=== PATIENT | male | born 1955 | race Caucasian/White ===

== ENCOUNTER → 2021-10-25 12:59 | Outpatient (BNVA) | payer BC, SELFPAY | PROVIDERS: Visit Provider Hospitalist ==

== ENCOUNTER 2021-11-18 14:44 | Outpatient (REF) | payer BC, SELFPAY ==
--- NOTE | ~2021-11-18 | CT_ITS ---
EXAMINATION: CT CHEST SCREENING CLINICAL INFORMATION: Personal history of nicotine dependence. COMPARISON: None TECHNIQUE: Multidetector volumetric CT imaging of the chest is performed without contrast using low dose technique. Additional 2D coronal and sagittal reformatted images and axial 3D maximum intensity projection (MIP) images are generated on the CT workstation. This CT examination was performed using dose optimization techniques as appropriate, variously including the following: *Automated exposure control *Adjustment of mA and/or kV according to patient size (this includes techniques or standardized protocols for targeted exams where dose is matched to indication/reason for exam; i.e. extremities or head) *Use of iterative reconstruction technique DLP: 325 mGy-cm FINDINGS: LUNGS: There is centrilobular emphysema without acute pneumonic process. There is mild thickening of left major fissure. There is minimal focal right lower lobe consolidation/atelectasis adjacent to the mediastinum. There is a 3 mm nodule right lower lobe axial image 383/6. No additional nodule seen. There is minimal atelectasis in the lingula. MEDIASTINUM: The thyroid lobes are symmetric and normal. The central trachea and bronchi are widely patent. No abnormal size mediastinal or hilar lymph node seen. Heart size and the great vessels are normal caliber. There is no pericardial effusion. PLEURA: There is no pleural effusion. No pleural mass or thickening. AXILLA: No lymphadenopathy. UPPER ABDOMEN: Visualized liver, spleen, pancreas and bilateral adrenal glands are unremarkable. There is a small cyst midpole left kidney. No radiopaque gallstone seen. OSSEOUS STRUCTURES: There is compression deformity T7 and T8 vertebra of indeterminate age. There is diffuse osteopenia. CT/CT lung screening IMPRESSION: 3 mm nodule right lower lobe. Focal atelectatic/infiltrate right lower lobe medial segment. Mild thickening of left major fissure and atelectatic changes in the lingula. ASSESSMENT: Lung-RADS category 2: Benign. RECOMMENDATION: Low-dose annual CT chest.
== END 2021-11-18 14:45 | disposition home or self-care (01) ==
LOC: HO.CT 14:44
PROVIDERS: Visit Provider Physician Assistant Medical
DX: Z87.891 Personal history of nicotine dependence (principal)
CPT/HCPCS: 71271; G0296

== ENCOUNTER → 2022-01-13 13:01 | Outpatient (BNVA) | payer BC, SELFPAY | PROVIDERS: Visit Provider Hospitalist | DX: J44.9 Chronic obstructive pulmonary disease, unspecified (principal) ==

== ENCOUNTER 2022-02-07 12:52 | Outpatient (REF) | payer BC, SELFPAY ==
--- NOTE | 2022-02-07 | PFT_ITS ---
FLOWS: FEV1 of 28% of predicted at 1.14 L. FVC 70% of predicted at 3.75 L. FEV1 to FVC ratio of 0.30. No bronchodilator response. LUNG VOLUMES: Total lung capacity 105% of predicted at 8.22 L. Residual volume 163% of predicted at 4.17 L. Slow vital capacity 76% of predicted at 4.05 L. Expiratory reserve volume 109% of predicted at 1.76 L. Diffusion capacity is moderately decreased. IMPRESSION: Very severe obstructive ventilatory defect with no bronchodilator response. Increased residual volume suggests air trapping. Decreased diffusion capacity suggests emphysema. MD LIZY Griggs/MODL / [id number]
== END 2022-02-07 12:53 | disposition home or self-care (01) ==
LOC: HO.RESP 12:52
PROVIDERS: Visit Provider Hospitalist
DX: Z13.89 Encounter for screening for other disorder (principal)
CPT/HCPCS: 94060; 94727; 94729

== ENCOUNTER 2022-04-03 12:04 | Outpatient (REF) | payer BC, SELFPAY | END 2022-04-03 12:05 | disposition home or self-care (01) | LOC: HO.LAB 12:04 | PROVIDERS: Visit Provider Hospitalist | DX: J44.9 Chronic obstructive pulmonary disease, unspecified (principal) | CPT/HCPCS: 87070; 87205 ==

== ENCOUNTER 2022-04-28 10:05 | Outpatient (REF) | payer BC, SELFPAY | END 2022-04-28 10:06 | disposition home or self-care (01) | LOC: HO.LNP 10:05 | PROVIDERS: Visit Provider Hospitalist | DX: J44.9 Chronic obstructive pulmonary disease, unspecified (principal) | CPT/HCPCS: 87070; 87077; 87185; 87205 ==

== ENCOUNTER 2022-07-14 13:41 | Outpatient (REF) | payer BC, SELFPAY ==
[2022-07-14 13:59] LABS: MANUAL DIFF FLAG NO
[2022-07-14 14:17] VITALS: O2SAT 95
[2022-07-14 14:31] LABS: Basophils Absolute Auto 0.1 X10*3/uL (0.0-0.2); Basophils Percent Auto 0.4 % (0-2); Hematocrit 53.3 % (42.0-52.0); Hemoglobin 17.3 g/dl (14.0-18.0); Imm Gran Abs Auto 0.54 X10*3/uL (0.00-0.03); Imm Gran Pct Auto 4.3 % (0.0-0.4); Lymphocytes Absolute Auto 1.3 X10*3/uL (1.2-4.9); Lymphocytes Percent Auto 10.6 % (20-40); Mean Corpuscular HGB Conc 32.5 g/dl (31.0-36.0); Mean Corpuscular Hemoglobin 31.3 pg (27.0-33.0); Mean Corpuscular Volume 96.4 fL (80.0-98.0); Mean Platelet Volume 9.9 fL (9.4-12.4); Monocytes Absolute Auto 0.5 X10*3/uL (0.1-1.2); Monocytes Percent Auto 3.9 % (2-11); Neutrophils Absolute Auto 10.2 x10*3/uL (2.0-8.3); Neutrophils Percent Auto 80.8 % (45-73); Platelet Count 187 X10*3/uL (160-400); Red Blood Count 5.53 X10*6/uL (4.60-5.80); Red Cell Distribution Width 13.5 % (11.0-16.0); White Blood Count 12.6 X10*3/uL (4.8-10.8)
[2022-07-14 14:37] LABS: ABG Base Excess 1.1 mmol/L; ABG HCO3 25 mmol/L (22-26); ABG pCO2 37 mmHg (32-45); ABG pO2 109 mmHg (83-108)
[2022-07-14 14:38] LABS: ABG Refer to POC result; ABG pH 7.43 (7.35-7.45)
[2022-07-14 15:18] LABS: Erythrocyte Sedimentation Rate 1 MM/HR (0-15)
[2022-07-14 15:29] LABS: Anion Gap 19 (12-20); Blood Urea Nitrogen 31 mg/dL (9-16); Calcium 10.7 mg/dL (8.4-10.2); Carbon Dioxide 29 mmol/L (22-29); Chloride 100 mmol/L (96-108); Estimated Glomerular Filt Rate > 60; Glucose Random 195 mg/dL (60-115); Potassium 4.8 mmol/L (3.3-5.1); Sodium 143 mmol/L (135-145)
== END 2022-07-14 13:42 | disposition home or self-care (01) ==
LOC: HO.LAB 13:41
PROVIDERS: Visit Provider Hospitalist
DX: R06.00 Dyspnea, unspecified (principal); J44.9 Chronic obstructive pulmonary disease, unspecified
CPT/HCPCS: 36415; 36600; 80048; 82803; 85025; 85652; J2930

== ENCOUNTER 2022-08-30 11:01 | Outpatient (REF) | payer BC, SELFPAY ==
[2022-08-30 12:29] LABS: Venous Blood Gas Refer to POC result
[2022-08-30 12:31] LABS: VBG pCO2 51 mmHg; VBG pH 7.31 (7.32-7.43); VBG pO2 41 mmHg
[2022-08-30 12:32] LABS: VBG Base Excess -0.6 mmol/L; VBG HCO3 26 mmol/L (22-26)
[2022-08-30 13:00] LABS: Hemoglobin 14.5 g/dl (14.0-18.0); Mean Corpuscular HGB Conc 31.5 g/dl (31.0-36.0); Mean Corpuscular Hemoglobin 31.7 pg (27.0-33.0); Mean Corpuscular Volume 100.4 fL (80.0-98.0); Mean Platelet Volume 9.5 fL (9.4-12.4); NRBC Pct Auto 0.4 /100WBC (0.0-0.2); Platelet Count 236 X10*3/uL (160-400); Red Blood Count 4.58 X10*6/uL (4.60-5.80); Red Cell Distribution Width 15.3 % (11.0-16.0); White Blood Count 10.4 X10*3/uL (4.8-10.8)
[2022-08-30 13:26] LABS: Band Neutrophils Percent 9 % (3-5); Lymphocytes Absolute Manual 1.6 X10*3/uL (1.2-4.9); Lymphocytes Percent Manual 15 % (20-40); Metamyelocytes Absolute 0.2 X10*3/uL; Metamyelocytes Percent 2 %; Monocytes Absolute Manual 0.5 X10*3/uL (0.1-1.2); Monocytes Percent Manual 5 % (2-11); Neutrophils Absolute Manual 8.1 X10*3/uL (2.0-8.3); Neutrophils Percent Manual 69 % (45-73)
[2022-08-30 13:27] LABS: Platelet Estimate NORMAL (NORMAL); Platelet Morphology Comment NORMAL; RBC Morphology NORMAL
[2022-08-30 13:38] LABS: Anion Gap 20 (12-20); Blood Urea Nitrogen 15 mg/dL (9-16); Calcium 9.3 mg/dL (8.4-10.2); Carbon Dioxide 26 mmol/L (22-29); Chloride 100 mmol/L (96-108); Estimated Glomerular Filt Rate > 60; Glucose Random 240 mg/dL (60-115); Potassium 4.6 mmol/L (3.3-5.1); Sodium 141 mmol/L (135-145)
[2022-08-30 13:53] LABS: Erythrocyte Sedimentation Rate 4 MM/HR (0-15)
[2022-08-31 11:57] LABS: IgA 111 mg/dL (70-320); IgG 323 mg/dL (600-1540); IgM 51 mg/dL (50-300)
[2022-08-31 22:28] LABS: Immunoglobulin E 29 kU/L (<OR=114)
[2022-09-01 15:29] LABS: Alpha 1 Anti-trypsin 183 mg/dL (83-199)
== END 2022-08-30 11:02 | disposition home or self-care (01) ==
LOC: HO.LAB 11:01
PROVIDERS: PCP Physician Assistant Medical; Visit Provider Hospitalist
DX: J44.1 Chronic obstructive pulmonary disease with (acute) exacerbation (principal); J96.10 Chronic respiratory failure, unspecified whether with hypoxia or hypercapnia; R91.8 Other nonspecific abnormal finding of lung field; G47.33 Obstructive sleep apnea (adult) (pediatric)
CPT/HCPCS: 36415; 80048; 82103; 82784; 82785; 82803; 85007; 85025; 85027; 85652; 94640

== ENCOUNTER → 2023-02-15 10:13 | Outpatient (BNVA) | payer MEDICARE, SELFPAY | PROVIDERS: PCP Physician Assistant Medical; Visit Provider Hospitalist | DX: J44.1 Chronic obstructive pulmonary disease with (acute) exacerbation (principal); J96.12 Chronic respiratory failure with hypercapnia; R91.8 Other nonspecific abnormal finding of lung field; G47.33 Obstructive sleep apnea (adult) (pediatric); Z79.899 Other long term (current) drug therapy | CPT/HCPCS: 99212 ==

== ENCOUNTER 2023-03-21 10:47 | Outpatient (REF) | payer MEDICARE, SELFPAY | END 2023-03-21 10:48 | disposition home or self-care (01) | LOC: HO.MDS 10:47 | PROVIDERS: Visit Provider Hospitalist | DX: D80.1 Nonfamilial hypogammaglobulinemia (principal) | CPT/HCPCS: 96365; 96366 ==

== ENCOUNTER 2023-04-18 10:09 | Outpatient (REF) | payer MEDICARE, SELFPAY | END 2023-04-18 10:10 | disposition home or self-care (01) | LOC: HO.MDS 10:09 | PROVIDERS: Visit Provider Hospitalist | DX: D80.1 Nonfamilial hypogammaglobulinemia (principal) | CPT/HCPCS: 96365; 96366 ==

== ENCOUNTER 2023-04-19 12:52 | Outpatient (AMB) | payer MEDICARE, SELFPAY ==
[2023-04-19 13:10] VITALS: BP 118/70; PULSE 75; O2SAT 94; BMI 30.2
--- NOTE | 2023-04-19 13:10 | MHC.OFFVIS ---
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 The patient had been admitted to the hospital with worsening respiratory symptoms. Ultimately referred to [place] where he took part in a experimental procedure for chronic bronchitis with the name of Maryanne swan. The study performed thermal plasty to the airways to reduce mucus producing plans. Apparently after the procedure patient did have significant improvement and was able to come off prednisone. She just Trelegy does use nebulized therapy with DuoNeb as needed. Otherwise the patient is not having any other chest physical therapy. he was taking part in the lung cancer screening program primarily at [facility]. However, once he was situated with [place] he had been getting CAT scan stairs part of the research protocol. Now that he has completed that protocol we have to get him back on the lung cancer screening program. He did have some small pulmonary nodules that need to be followed. He is still high risk with significant smoking in the past. the patient has not had any CT scans the last year. In the meantime the patient was diagnosed of sleep apnea and ultimately underwent a titration study back in 2017. he is currently on BiPAP. It was able to download the machine and currently the BiPAP is at 21/80. He also uses 5 L of oxygen with his BiPAP. He does use a nasal pillow mask which appears to be a significantly high pressure to be administered through his nose. He has significant air leakage up to 41 liters/minute average and does develop a dry mouth. He is also leaking significant amount air. I did suggest that he should go on a fullface mask. The patient is agreeable. Initially retry the F30 medium mask but due to the high pressures He will leak out significantly. Therefore I did provide him with a medium F20 mask that he tolerated much better. I also decrease his pressures down to 18/8. It appears that on his previous titration study from [facility] he was able to do well even with the pressure of 12/5. The patient also will decrease the oxygen from 5 L to 3 L and will have his DME company perform an overnight oximetry in order to address the question if this is adequate therapy. He did have recent pulmonary function studies in [place] which I personally reviewed. His FEV1 is down to 33% consistent with very severe COPD he does have significant air trapping and also has severe diffusion impairment. Patient also had a recent blood gas which is very reassuring with normal acid-base status and his pCO2 was within normal limits. 01/13/2022 the patient is here for a pulmonary follow-up visit. Overall he is doing well. He continues to have significant dyspnea on exertion. Specially now with a humidity come in and he is concerned about his respiratory status. He does use oxygen with activity. He does have very severe COPD. We did review his CT scan of the chest that he had under the lung cancer screening program. He does have significant emphysema. Also has an area in the lingular area of atelectasis and very small subcentimeter pulmonary nodules that will need follow-up. in the meantime he does continues use of BiPAP. The F20 mask is significantly better although feels too small. I did have a large when available and he will use that 1 felt like it fit much better. He continues to use the F20 fullface mask along with the BiPAP. The patient is considering evaluation in [place] for lung transplantation. He does have a lateral limitations from a respiratory status because of the severe COPD. Explained to him that if he is interested and considering lung transplant this will be the time to go. I did encourage him to reconsider it as a good option in view of his significant disease process. 04/28/2022 the patient is here for sick visit. Apparently he has been having worsening cough and chest congestion. He had already completed a course of prednisone antibiotics. Symptoms improved initially and then once he was completed with treatment his symptoms reoccurred. He is concerned because he does have the 6 minutes walk test scheduled for the end of the month at [facility] as part of the lung cancer screening program. In the office we did try to get a sputum culture. We were able to send 1. Awaiting results. Meantime I believe the patient needs to be on a small dose of prednisone for a little longer time and also the patient does have allergies to penicillin and therefore start him on Vantin as a good alternative to treat the underlying respiratory tract. 07/14/2022 with a [facility]. His COVID test in flu swabs were negative. this blood cultures were negative. The patient did have a CT scan of the chest which is unrevealing. He was subsequently discharged. His condition was no better so therefore the patient or office and was then seen by 1 of my colleagues. He was given additional steroids additional respiratory medication. The completed on or course of antibiotics. However he continues to have significant shortness of breath. Lauri a very hard time today. He can barely walk. He is using his oxygen more and more. Having hard time sleeping. He has been tapering off the prednisone. Denies any fevers or chills. On examination is demonstrated some evidence of respiratory distress. Mild in severity. He does have wheezing and very diminished breath sounds. He was given 2 DuoNeb treatments in the office in a dose of Solu-Medrol 125 mg IM x1. Patient did feel little better. He was then sent for an ABG. We did personally review the ABG demonstrating actually normal pCO2 and elevated PA O2 which is very reassuring. Addendum to decrease his oxygen do monitor his pulse ox. Will continue with the prednisone. Will go ahead and try him on ciprofloxacin. He has had issues with tendinitis in the past when use the high dose of Levaquin. Will place him on a lower dose of the ciprofloxacin. The patient come back next week to be revaluated. However, if his condition worsens prior to that we to go back to the hospital. 07/19/2022 the patient is here for a follow-up visit. Was evaluated last week and required nebulizer therapy and Solu-Medrol. He is still on a high dose prednisone taper. Did feel better wound did start having increasing shortness of breath again. Moderate in severity. He has completed the antibiotics. Overall he is making slow progress. We will try him on a full course of ciprofloxacin. He knows to stop and call if he develops any adverse effects such as tendinitis. He continues use the BiPAP at nighttime. He does have an appointment in [place] for the lung transplant evaluation early July. 08/30/2022 the patient is here for a pulmonary follow-up visit. He has had a very eventful several weeks. He has had significant issues with his breathing. Was readmitted to [facility] with the COPD exacerbation. Subsequently after that he was discharged and his BiPAP broke down. He had to go back to the hospital because of acute on chronic respiratory failure were not being able to use the BiPAP. Ultimately he is still using the broken BiPAP but he can only use it for about 4 hours at a time. He should be getting his new BiPAP fairly soon. He is noticing worsening chest congestion. Seems like he cannot get below 30 mg of prednisone. His blood sugars have been elevated. He has been very discouraged with all this. He also went to [place] and spoke to the transplant surgeon. They did bring to his attention that he has significant amount of lower extremity edema. He has been on torsemide. The lower extremity edema has improved. He did not need to increase it. He does have a follow-up with his fisher eel spear as well. Likely the combination of not been able to use the BiPAP dietary indiscretions and all the prednisone resulted in the lower extremity edema. He is going to start monitoring his weight closely. If the patient gains more than 3 lb/24 hr I did recommend that he takes an additional torsemide. I have will get blood work today. In addition to that I did provide him with nebulized treatment to try to get a sputum culture but we were not able to do so. We did talk about considering bronchoscopy with therapeutic cleaning and deep suctioning of we cannot get him feeling better. Will go ahead and adjust his nebulized therapy at this time in order to try to get him off the prednisone. 02/15/2023 the patient is here for pulmonary follow-up visit. He has been a while since I evaluated the patient. He has been very ill with multiple hospitalizations ended up in [facility] ICU and did require a prolonged invasive ventilation where he spent 14 days in the ICU unit ventilated. This is after developing human metapneumovirus and then subsequently pneumonia after that. The patient has a very we can immune system. The last time the IgG was checked was in the 300s. He was supposed to start IVIG therapy but it was side tried because of his multiple infections. He currently on prophylactic antibiotics. He needs to start IVIG. There was mention about using biologic therapy which she takes in. At this point will go ahead and focus on getting him his IVIG that will definitely be effective for him. Then once he is on stab list therapy we can consider biologic therapies. He is on chronic steroids her eosinophils obese be decreased. His IgE levels have been normal in the past suggesting that there is not really allergic component that is driving this to suggest biologics may be too effective for him. A the patient did follow-up id the lung transplant clinic. The patient declined to go further at this time. He will consider in the future. He also continues using the BiPAP. The patient developed respiratory failure and CO2 have been elevated even on the BiPAP, PCO2 55mmHg. Therefore will go ahead in his changing from the BiPAP to a APAP astral machine with a sip and puff that he can use during the daytime. I think having the affordability of the noninvasive ventilator will also allow him to be able to do things outside of the home and uses noninvasive ventilator I would daily at nighttime and also with the mouthpiece that he can use it during the daytime. 04/19/2023 the patient is here for pulmonary follow-up visit. Overall the patient is doing lot better. He is tolerating the IVIG without any adverse effects. He received already 2 doses. Will go ahead and recheck his IgG levels before the 3rd dose. The patient also did start the noninvasive ventilator. The noninvasive ventilator has been very affecting beneficial. He does use it every night. Will go ahead and have him there had do the mouthpiece so he can also use it during the day as needed. He is responding well to the Trelegy. His prednisone down to 5 mg daily. He wants to get off. I did recommend that he slow down the taper to 5 mg every other day for least a couple weeks before doing so. The patient also has been exercising online with pulmonary rehab. This has been very helpful. Overall the patient has been doing significantly better. We did talk about lung transplant but the patient would like to still hold off at this time. Does not look like he is interested to pursue this at this time. We did talk about vaccines. He will get his Prevnar 20 vaccine today. Subsequently after that he should get the RSV vaccine and the flu shot. He is still contemplating the COVID booster. He will probably not get that 1. 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 [facility] Medical History (Updated 04/19/23 @ 21:49 by Michele Burgos MD) Chronic respiratory failure Compression fracture of thoracic spine, non-traumatic COPD (chronic obstructive pulmonary disease) (~2003) Diabetes mellitus type 2 in nonobese Dyspnea GERD (gastroesophageal reflux disease) Hypogammaglobulinemia On supplemental oxygen therapy NADEEM treated with BiPAP Osteoporosis Personal history of nicotine dependence Pulmonary nodules Weight loss due to medication Surgical History (Updated 11/18/21 @ 14:34 by Fatoumata Guy PA-C) History of bronchoscopy (~2018) History of colonoscopy History of neck surgery Social History (Updated 11/18/21 @ 14:38 by Fatoumata Guy PA-C) Alcohol intake: current Alcohol intake frequency: 0-2 drinks per day Patient Tobacco Use Status: Former Tobacco user Quit Date: 2016 Tobacco use type: Cigarette Years Smoked: (onset 21yo, 1-2ppd x 41yrs, 50+PYH - quit 2016) Review of Systems Const Denies frequent falls and Reports weight loss Eyes Denies change in vision ENT Denies change in voice Card Denies chest pain, Reports dyspnea and Reports dyspnea on exertion Resp Denies change in phlegm color, Denies chest congestion, Reports cough, Denies hemoptysis, Denies excessive phlegm production, Reports dyspnea, Reports dyspnea on exertion and Reports wheezing GI Denies abdominal pain Musc Reports no additional complaints and Denies myalgias Skin/Breast Denies rash Neuro Denies frequent falls Aller/Immun Reports wheezing Physical Exam Vital Signs: Last Vital Signs Pulse 75 04/19/23 13:10 BP 118/70 04/19/23 13:10 Pulse Ox 94 04/19/23 13:10 Oxygen Delivery Method Room Air 04/19/23 13:10 BMI result Body Mass Index 30.2 Const General: alert, Cushingoid facies and tired appearing Neck Neck: Yes normal visual inspection, Yes full ROM and Yes no lymphadenopathy Chest Chest palpation & inspection: normal inspection of the chest Resp Effort & Inspection: normal respiratory effort, no use of accessory muscles and prolonged expiratory phase Auscultation: no rhonchi, no wheezes and diminished lung sounds Cardio Rate: regular rate Rhythm: regular rhythm Heart sounds: S1 normal heart sound present and S2 normal heart sound present GI Palpation (GI): Soft to palpation and nontender Auscultation: normal bowel sounds Skin General skin exam: rashes and/or lesions noted Extrem General: Yes edema Immunizations pneumoc 20-pati conj-dip cr(PF) Performing Provider: Michele Burgos MD Administered by: Ave Almaraz LPN on 04/19/23 13:39 Dose Route Admin Location Lot Number Expiration Date [employer] 0.5 mL IM Left Deltoid [id number] 05/27/24 [id number] [email or web address] VIS Given Date VIS Provided VIS Publication Date 04/19/23 Single Vaccine 23 Eligibility Eligibility Date Funding Source Not [facility] Eligible 04/19/23 Private Assessment & Plan Assessment & Plan (1) COPD (chronic obstructive pulmonary disease): Onset Date: ~2003 Code(s): J44.9 - Chronic obstructive pulmonary disease, unspecified Qualifiers: COPD type: chronic bronchitis Chronic bronchitis type: mixed simple and mucopurulent Qualified Code(s): J41.8 - Mixed simple and mucopurulent chronic bronchitis (2) Chronic respiratory failure: Code(s): J96.10 - Chronic respiratory failure, unspecified whether with hypoxia or hypercapnia (3) Pulmonary nodules: Code(s): R91.8 - Other nonspecific abnormal finding of lung field (4) NADEEM treated with BiPAP: Code(s): G47.33 - Obstructive sleep apnea (adult) (pediatric) Plan hypertonic saline for CPT Budesonide BID continur Daliresp Continue current respiratory regimen: Trelegy short-acting beta agonist as needed continue AVAPS with mouth piece. DME - [employer] Will use the F20 Large mask diuresis as tolerared Bloodwork in 4 weeks on line pulmonary rehab [id number] lung transplantation evaluation on hold follow-up in 4-6 weeks Orders: Orders Immunoglobulin G Subclasses Today D80.1 - Nonfamilial hypogammaglobulinemia, J44.9 - Chronic obstructive pulmonary disease, unspecified Erythrocyte Sedimentation Rate Today D80.1 - Nonfamilial hypogammaglobulinemia, J44.9 - Chronic obstructive pulmonary disease, unspecified Venous Blood Gas Today D80.1 - Nonfamilial hypogammaglobulinemia, J44.9 - Chronic obstructive pulmonary disease, unspecified Basic Metabolic Panel Today D80.1 - Nonfamilial hypogammaglobulinemia, J44.9 - Chronic obstructive pulmonary disease, unspecified Complete Blood Count Auto Diff Today D80.1 - Nonfamilial hypogammaglobulinemia, J44.9 - Chronic obstructive pulmonary disease, unspecified Pneumococcal 20 Immunization Today J44.9 - Chronic obstructive pulmonary disease, unspecified, J96.10 - Chronic respiratory failure, unspecified whether with hypoxia or hypercapnia Medications: New ipratropium-albuterol 0.5 mg-3 mg(2.5 mg base)/3 mL 3 mL inhalation QID 90 days 1,080 mL 3RF J44.9 - Chronic obstructive pulmonary disease, unspecified [id number]-memsepoqc-ydrtzvaz 200-62.5-25 mcg (Trelegy Ellipta) 1 inh inhalation DAILY 90 days 3 ea 3RF Changed From roflumilast (Daliresp) 500 mcg PO DAILY 30 days 30 tabs 11RF J44.1 - Chronic obstructive pulmonary disease with (acute) exacerbation To roflumilast (Daliresp) 500 mcg PO DAILY 90 days 90 tabs 3RF J44.1 - Chronic obstructive pulmonary disease with (acute) exacerbation Refilled albuterol sulfate 90 mcg/actuation 2 puffs inhalation Q4H 90 days PRN 3 ea 3RF shortness of breath or wheezing Discontinued Trelegy Ellipta 100-62.5-25 mcg (idqxgvwdnfi-silebcwld-[id number]) Discontinued Reason: Doctor's Order 1 inh inhalation DAILY 90 days 3 ea 3RF NS arformoterol Discontinued Reason: Doctor's Order 2 mL inhalation BID 30 days 120 mL 6RF Coding Level of Care Code Est Pt Level 4 (84525) Diagnoses COPD (chronic obstructive pulmonary disease) J41.8 COPD type: chronic bronchitis Chronic bronchitis type: mixed simple and mucopurulent Chronic respiratory failure J96.10 Pulmonary nodules R91.8 NADEEM treated with BiPAP G47.33 Time Spent (min) 18
== END 2023-04-19 13:30 | disposition home or self-care (01) ==
PROVIDERS: PCP Physician Assistant Medical; Visit Provider Hospitalist
DX: J41.8 Mixed simple and mucopurulent chronic bronchitis (principal); J96.10 Chronic respiratory failure, unspecified whether with hypoxia or hypercapnia; R91.8 Other nonspecific abnormal finding of lung field; G47.33 Obstructive sleep apnea (adult) (pediatric)
CPT/HCPCS: 99214

== ENCOUNTER → 2023-04-19 12:52 | Outpatient (BNVA) | payer MEDICARE, SELFPAY | PROVIDERS: PCP Physician Assistant Medical; Visit Provider Hospitalist | DX: J41.8 Mixed simple and mucopurulent chronic bronchitis (principal); J96.10 Chronic respiratory failure, unspecified whether with hypoxia or hypercapnia; R91.8 Other nonspecific abnormal finding of lung field; G47.33 Obstructive sleep apnea (adult) (pediatric); Z79.52 Long term (current) use of systemic steroids; Z23 Encounter for immunization | CPT/HCPCS: 90471; 90677; 99212 ==

== ENCOUNTER 2023-05-09 14:26 | Outpatient (REF) | payer MEDICARE, SELFPAY ==
[2023-05-09 14:57] LABS: VBG Base Excess 5.6 mmol/L; VBG HCO3 33 mmol/L (22-26); VBG pCO2 57 mmHg; VBG pH 7.36 (7.32-7.43); VBG pO2 51 mmHg
[2023-05-09 15:02] LABS: Basophils Percent Auto 0.3 % (0-2); Eosinophils Percent Auto 0.3 % (0-4); Hematocrit 47.1 % (42.0-52.0); Hemoglobin 14.5 g/dl (14.0-18.0); Imm Gran Abs Auto 0.25 X10*3/uL (0.00-0.03); Imm Gran Pct Auto 2.5 % (0.0-0.4); Lymphocytes Absolute Auto 0.8 X10*3/uL (1.2-4.9); MANUAL DIFF FLAG NO; Mean Corpuscular HGB Conc 30.8 g/dl (31.0-36.0); Mean Corpuscular Hemoglobin 28.9 pg (27.0-33.0); Mean Platelet Volume 9.2 fL (9.4-12.4); Monocytes Absolute Auto 0.4 X10*3/uL (0.1-1.2); Neutrophils Absolute Auto 8.5 x10*3/uL (2.0-8.3); Neutrophils Percent Auto 84.9 % (45-73); Platelet Count 284 X10*3/uL (160-400); Red Blood Count 5.01 X10*6/uL (4.60-5.80); Red Cell Distribution Width 15.7 % (11.0-16.0)
[2023-05-09 15:31] LABS: Venous Blood Gas Refer to POC result
[2023-05-09 15:37] LABS: Anion Gap 16 (12-20); Blood Urea Nitrogen 17 mg/dL (9-16); Calcium 9.8 mg/dL (8.4-10.2); Carbon Dioxide 30 mmol/L (22-29); Chloride 101 mmol/L (96-108); Estimated Glomerular Filt Rate > 60; Glucose Random 162 mg/dL (60-115); Sodium 143 mmol/L (135-145)
[2023-05-09 16:27] LABS: Erythrocyte Sedimentation Rate 19 MM/HR (0-15)
[2023-05-11 13:58] LABS: Immunoglobulin G Subclass 1 528 mg/dL (382-929); Immunoglobulin G Subclass 2 267 mg/dL (241-700); Immunoglobulin G Subclass 3 41 mg/dL (22-178); Immunoglobulin G Subclass 4 12.9 mg/dL (4-86); Immunoglobulin G Total 874 mg/dL (600-1540)
== END 2023-05-09 14:27 | disposition home or self-care (01) ==
LOC: HO.LAB 14:26
PROVIDERS: PCP Physician Assistant Medical; Visit Provider Hospitalist
DX: J44.1 Chronic obstructive pulmonary disease with (acute) exacerbation (principal); D80.1 Nonfamilial hypogammaglobulinemia
CPT/HCPCS: 36415; 80048; 82784; 82803; 85025; 85652

== ENCOUNTER 2023-05-16 10:17 | Outpatient (REF) | payer MEDICARE, SELFPAY | END 2023-05-16 10:18 | disposition home or self-care (01) | LOC: HO.MDS 10:17 | PROVIDERS: Visit Provider Hospitalist | DX: D80.1 Nonfamilial hypogammaglobulinemia (principal) | CPT/HCPCS: 96365; 96366 ==

== ENCOUNTER 2023-06-14 10:16 | Outpatient (REF) | payer MEDICARE, SELFPAY | END 2023-06-14 10:17 | disposition home or self-care (01) | LOC: HO.MDS 10:16 | PROVIDERS: Visit Provider Hospitalist | DX: D80.1 Nonfamilial hypogammaglobulinemia (principal) | CPT/HCPCS: 96365; 96366 ==

== ENCOUNTER 2023-07-12 10:18 | Outpatient (REF) | payer MEDICARE, SELFPAY | END 2023-07-12 10:19 | disposition home or self-care (01) | LOC: HO.MDS 10:18 | PROVIDERS: Visit Provider Hospitalist | DX: D80.1 Nonfamilial hypogammaglobulinemia (principal) | CPT/HCPCS: 96365; 96366 ==

== ENCOUNTER 2023-08-10 09:57 | Outpatient (REF) | payer MEDICARE, SELFPAY | END 2023-08-10 09:58 | disposition home or self-care (01) | LOC: HO.MDS 09:57 | PROVIDERS: PCP Physician Assistant Medical; Visit Provider Hospitalist | DX: D80.1 Nonfamilial hypogammaglobulinemia (principal); J41.8 Mixed simple and mucopurulent chronic bronchitis; J96.11 Chronic respiratory failure with hypoxia; J96.12 Chronic respiratory failure with hypercapnia; R91.8 Other nonspecific abnormal finding of lung field; G47.33 Obstructive sleep apnea (adult) (pediatric) | CPT/HCPCS: 96365; 96366; 99212 ==

== ENCOUNTER 2023-08-10 13:00 | Outpatient (AMB) | payer MEDICARE, SELFPAY ==
--- NOTE | 2023-08-10 13:36 | A.OFFVIS_ITS ---
Intake Vital Signs 08/10/23 13:38 Height 6 ft 2 in Weight 220 lb BMI 28.2 Pulse 89 Pulse Source Pulse Oximeter Pulse Oximetry (%) 94 Oxygen Delivery Method Room Air Comment 2 Liters Oxygen([employer]) Intake Visit Reasons: copd [place] Required: No Allergies theophylline Allergy (Severe, Verified 08/10/23 13:37) Cardiac Arrythmia levofloxacin [From Levaquin] Allergy (Unknown, Verified 08/10/23 13:37) Unknown Penicillins Allergy (Unknown, Verified 08/10/23 13:37) Unknown HPI HPI Comments History of Present Illness Details The patient is a 67-year-old gentleman with known severe COPD primarily due to chronic bronchitis with respiratory failure currently on oxygen in addition to obstructive sleep apnea currently on BiPAP who apparently had been having worsening respiratory symptoms sometime around 2018. The patient had been admitted to the hospital with worsening respiratory symptoms. Ultimately referred to [place] where he took part in a experimental procedure for chronic bronchitis with the name of Maryanne swan. The study performed thermal plasty to the airways to reduce mucus producing plans. Apparently after the procedure patient did have significant improvement and was able to come off prednisone. She just Trelegy does use nebulized therapy with DuoNeb as needed. Otherwise the patient is not having any other chest physical therapy. he was taking part in the lung cancer screening program primarily at [facility]. However, once he was situated with [place] he had been getting CAT scan stairs part of the research protocol. Now that he has completed that protocol we have to get him back on the lung cancer screening program. He did have some small pulmonary nodules that need to be followed. He is still high risk with significant smoking in the past. the patient has not had any CT scans the last year. In the meantime the patient was diagnosed of sleep apnea and ultimately underwent a titration study back in 2017. he is currently on BiPAP. It was able to download the machine and currently the BiPAP is at 21/80. He also uses 5 L of oxygen with his BiPAP. He does use a nasal pillow mask which appears to be a significantly high pressure to be administered through his nose. He has significant air leakage up to 41 liters/minute average and does develop a dry mouth. He is also leaking significant amount air. I did suggest that he should go on a fullface mask. The patient is agreeable. Initially retry the F30 medium mask but due to the high pressures He will leak out significantly. Therefore I did provide him with a medium F20 mask that he tolerated much better. I also decrease his pressures down to 18/8. It appears that on his previous titration study from [facility] he was able to do well even with the pressure of 12/5. The patient also will decrease the oxygen from 5 L to 3 L and will have his DME company perform an overnight oximetry in order to address the question if this is adequate therapy. He did have recent pulmonary function studies in [place] which I personally reviewed. His FEV1 is down to 33% consistent with very severe COPD he does have significant air trapping and also has severe diffusion impairment. Patient also had a recent blood gas which is very reassuring with normal acid-base status and his pCO2 was within normal limits. 01/13/2022 the patient is here for a pulmonary follow-up visit. Overall he is doing well. He continues to have significant dyspnea on exertion. Specially now with a humidity come in and he is concerned about his respiratory status. He does use oxygen with activity. He does have very severe COPD. We did review his CT scan of the chest that he had under the lung cancer screening program. He does have significant emphysema. Also has an area in the lingular area of atelectasis and very small subcentimeter pulmonary nodules that will need follow-up. in the meantime he does continues use of BiPAP. The F20 mask is significantly better although feels too small. I did have a large when available and he will use that 1 felt like it fit much better. He continues to use the F20 fullface mask along with the BiPAP. The patient is considering evaluation in [place] for lung transplantation. He does have a lateral limi tations from a respiratory status because of the severe COPD. Explained to him that if he is interested and considering lung transplant this will be the time to go. I did encourage him to reconsider it as a good option in view of his significant disease process. 04/28/2022 the patient is here for sick vi sit. Apparently he has been having worsening cough and chest congestion. He had already completed a course of prednisone antibiotics. Symptoms improved initially and then once he was completed with treatment his symptoms reoccurred. He is concerned because he does have the 6 minutes walk test scheduled for the end of the month at [facility] as part of the lung cancer screening program. In the office we did try to get a sputum culture. We were able to send 1. Awaiting results. Meantime I believe the patient needs to be on a small dose of prednisone for a little longer time and also the patient does have allergies to penicillin and therefore start him on Vantin as a good alternative to treat the underlying respiratory tract. 07/14/2022 with a [facility] Talia steen. His COVID test in flu swabs were negative. this blood cultures were negative. The patient did have a CT scan of the chest which is unrevealing. He was subsequently discharged. His condition was no better so therefore the patient or office and was then seen by 1 of my colleagues. He was given additional steroids additional respiratory medication. The completed on or course of antibiotics. However he continues to have significant shortness of breath. Lauri a very hard time today. He can barely walk. He is using his oxygen more and more. Having hard time sleeping. He has been tapering off the prednisone. Denies any fevers or chills. On examination is demonstrated some evidence of respiratory distress. Mild in severity. He does have wheezing and very diminished breath sounds. He was given 2 DuoNeb treatments in the office in a dose of Solu-Medrol 125 mg IM x1. Patient did f eel little better. He was then sent for an ABG. We did personally review the ABG demonstrating actually normal pCO2 and elevated PA O2 which is very reassuring. Addendum to decrease his oxygen do monitor his pulse ox. Will continue with the prednisone. Will go ahead and try him on ciprofloxacin. He has had issues with tendinitis in the past when use the high dose of Levaquin. Will place him on a lower dose of the ciprofloxacin. The patient come back next week to be revaluated. However, if his condition worsens prior to that we to go back to the hospital. 07/19/2022 the patient is [facility]. Was evaluated last week and required nebulizer therapy and Solu-Medrol. He is still on a high dose prednisone taper. Did feel better wound did start having increasing shortness of breath again. Moderate in severity. He has completed the antibiotics. Overall he is making slow progress. We will try him on a full course of ciprofloxacin. He knows to stop and call if he develops any adverse effects such as tendinitis. He continues use the BiPAP at nighttime. He does have an appointment in [place] for the lung transplant evaluation early July. 08/30/2022 the patient is here for a pulmonary follow-up visit. He has had a very eventful several weeks. He has had significant issues with his breathing. Was readmitted to [facility] with the COPD exacerbation. Subsequently after that he was discharged and his BiPAP broke down. He had to go back to the hospital because of acute on chronic respiratory failure were not being able to use the BiPAP. Ultimately he is still using the broken BiPAP but he can only use it for about 4 hours at a time. He should be getting his new BiPAP fairly soon. He is noticing worsening chest congestion. Seems like he cannot get below 30 mg of prednisone. His blood sugars have been elevated. He has been very discouraged with all this. He also went to [place] and spoke to the transplant surgeon. They did bring to his attention that he has significant amount of lower extremity edema. He has been on torsemide. The lower extremity edema has improved. He did not need to increase it. 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 Likely the combination of not been able to use the BiPAP dietary indiscretions and all the prednisone resulted in the lower extremity edema. He is going to start monitoring his weight closely. If the patient gains more than 3 lb/24 hr I did recommend that he takes an additional torsemide. I have will get blood work today. In addition to that I did provide him with nebulized treatment to try to get a sputum culture but we were not able to do so. We did talk about considering bronchoscopy with therapeutic cleaning and deep suctioning of we cannot get him feeling better. Will go ahead and adjust his nebulized therapy at this time in order to try to get him off the prednisone. 02/15/2023 the patient is here for pulmon glenn follow-up visit. He has been a while since I evaluated the patient. He has been very ill with multiple hospitalizations ended up in [facility] ICU and did require a prolonged invasive ventilation where he spent 14 days in the ICU unit ventilated. This is after developing human metapneumovirus and then subsequently pneumonia after that. The patient has a very we can immune system. The last time the IgG was checked was in the 300s. He was supposed to start IVIG therapy but it was side tried because of his multiple infections. He currently on prophylactic antibiotics. He needs to start IVIG. There was mention about using biologic therapy which she takes in. At this point will go ahead and focus on getting him his IVIG that will definitely be effective for him. Then once he is on stab list therapy we can consider biologic therapies. He is on chronic steroids her eosinophils obese be decreased. His IgE levels have been normal in the past suggesting that there is not really allergic component that is driving this to suggest biologics may be too effective for him. A the patient did follow-up id the lung transplant clinic. The patient declined to go further at this time. He will consider in the future. He also continues using the BiPAP. The patient developed respiratory failure and CO2 have been elevated even on the BiPAP, PCO2 55mmHg. Therefore will go ahead in his changing from the BiPAP to a APAP astral machine with a sip and puff that he can use during the daytime. I think having the affordability of the noninvasive ventilator will also allow him to be able to do things outside of the home and uses noninvasive ventilator I would daily at nighttime and also with the mouthpiece that he can use it during the daytime. 08/10/2023 the patient is here for pulmo kemal follow-up visit. Overall the pat ient is still doing well. He is tolerating the IVIG without any adverse effects. Through levels are good. The patient also continues to use the noninvasive ventilator. The noninvasive ventilator has been very affecting beneficial. He does use it every night. Will go ahead and have him there had do the mouthpiece so he can also use it during the day as needed. He is responding well to the Trelegy. His prednisone is off completely. No evidence of adrenal insufficiency. The patient also has been exercising online with pulmonary rehab. This has been very helpful. Overall the patient has been doing significantly better. We did talk about lung transplant but the patient would like to still hold off at this time. Does not look like he is interested to pursue this at this time. We did talk about vaccines. [facility] Medical History (Updated 08/10/23 @ 13:46 by Michele Burgos MD) Hypogammaglobulinemia Dyspnea Osteoporosis On supplemental oxygen therapy Compression fracture of thoracic spine, non-traumatic Weight loss due to medication Diabetes mellitus type 2 in nonobese GERD (gastroesophageal reflux disease) Personal history of nicotine dependence NADEEM treated with BiPAP Pulmonary nodules Chronic respiratory failure COPD (chronic obstructive pulmonary disease) (~2003) Surgical History (Updated 11/18/21 @ 14:34 by Fatoumata Guy PA-C) History of bronchoscopy (~2018) History of neck surgery History of colonoscopy Social History (Updated 11/18/21 @ 14:38 by Fatoumata Guy PA-C) Alcohol intake: current Alcohol intake frequency: 0-2 drinks per day Patient Tobacco Use Status: Former Tobacco user Quit Date: 2016 Tobacco use type: Cigarette Years Smoked: (onset 21yo, 1-2ppd x 41yrs, 50+PYH - quit 2017) Review of Systems Const Denies frequent falls and Denies weight loss Eyes Denies change in vision ENT Denies change in voice Card Denies chest pain, Denies dyspnea and Reports dyspnea on exertion Resp Denies change in phlegm color, Denies chest congestion, Reports cough, Denies hemoptysis, Denies excessive phlegm production, Denies dyspnea, Reports dyspnea on exertion and Denies wheezing GI Denies abdominal pain Musc Reports no additional complaints and Denies myalgias Skin/Breast Denies rash Neuro Denies frequent falls Aller/Immun Denies wheezing Physical Exam Vital Signs: Last Vital Signs Pulse 89 08/10/23 13:38 Pulse Ox 94 08/10/23 13:38 Oxygen Delivery Method Room Air 08/10/23 13:38 BMI result Body Mass Index 28.2 Const General: alert, Cushingoid facies and tired appearing Neck Neck: Yes normal visual inspection, Yes full ROM and Yes no lymphadenopathy Chest Chest palpation & inspection: normal inspection of the chest Resp Effort & Inspection: normal respiratory effort and no use of accessory muscles Auscultation: no rhonchi, no wheezes and diminished lung sounds Cardio Rate: regular rate Rhythm: regular rhythm Heart sounds: S1 normal heart sound present and S2 normal heart sound present GI Palpation (GI): Soft to palpation and nontender Auscultation: normal bowel sounds Skin General skin exam: rashes and/or lesions noted Extrem General: Yes edema Assessment & Plan Assessment & Plan (1) COPD (chronic obstructive pulmonary disease): Onset Date: ~2003 Code(s): J44.9 - Chronic obstructive pulmonary disease, unspecified Qualifiers: COPD type: chronic bronchitis Chronic bronchitis type: mixed simple and mucopurulent Qualified Code(s): J41.8 - Mixed simple and mucopurulent chronic bronchitis (2) Chronic respiratory failure: Code(s): J96.10 - Chronic respiratory failure, unspecified whether with hypoxia or hypercapnia Qualifiers: Respiratory failure complication: hypoxia and hypercapnia Qualified Code(s): J96.11 - Chronic respiratory failure with hypoxia; J96.12 - Chronic respiratory failure with hypercapnia (3) Pulmonary nodules: Code(s): R91.8 - Other nonspecific abnormal finding of lung field (4) NADEEM treated with BiPAP: Code(s): G47.33 - Obstructive sleep apnea (adult) (pediatric) (5) Hypogammaglobulinemia: Code(s): D80.1 - Nonfamilial hypogammaglobulinemia Plan hypertonic saline for CPT weaned off Budesonide continue Daliresp Continue current respiratory regimen: Trelegy short-acting beta agonist as needed continue AVAPS with mouth piece. DME - [employer] Will use the F20 Large mask diuresis as tolerared Bloodwork in the Spring Lung transplantation evaluation on hold follow-up in 4-6 months Orders: Orders Complete Blood Count Auto Diff 08/10/23 D80.1 - Nonfamilial hypogammaglobulinemia, J44.9 - Chronic obstructive pulmonary disease, unspecified Venous Blood Gas 08/10/23 D80.1 - Nonfamilial hypogammaglobulinemia, J44.9 - Chronic obstructive pulmonary disease, unspecified Cortisol, Free 08/10/23 D80.1 - Nonfamilial hypogammaglobulinemia, J44.9 - Chronic obstructive pulmonary disease, unspecified Basic Metabolic Panel 08/10/23 D80.1 - Nonfamilial hypogammaglobulinemia, J44.9 - Chronic obstructive pulmonary disease, unspecified Immunoglobulin G Subclasses 08/10/23 D80.1 - Nonfamilial hypogammaglobulinemia, J44.9 - Chronic obstructive pulmonary disease, unspecified Erythrocyte Sedimentation Rate 08/10/23 D80.1 - Nonfamilial hypogammaglobulinemia, J44.9 - Chronic obstructive pulmonary disease, unspecified Coding Level of Care Code Est Pt Level 4 (68788) Diagnoses Mixed simple and mucopurulent chronic bronchitis J41.8 COPD type: chronic bronchitis Chronic bronchitis type: mixed simple and mucopurulent Chronic respiratory failure with hypoxia and hypercapnia J96.11; J96.12 Respiratory failure complication: hypoxia and hypercapnia Pulmonary nodules R91.8 NADEEM treated with BiPAP G47.33 Hypogammaglobulinemia D80.1 Time Spent (min) 17
[2023-08-10 13:38] VITALS: PULSE 89; O2SAT 94; BMI 28.2
== END 2023-08-10 13:54 | disposition home or self-care (01) ==
PROVIDERS: PCP Physician Assistant Medical; Visit Provider Hospitalist
DX: J41.8 Mixed simple and mucopurulent chronic bronchitis (principal); J96.11 Chronic respiratory failure with hypoxia; J96.12 Chronic respiratory failure with hypercapnia; R91.8 Other nonspecific abnormal finding of lung field; G47.33 Obstructive sleep apnea (adult) (pediatric); D80.1 Nonfamilial hypogammaglobulinemia
CPT/HCPCS: 99214

== ENCOUNTER 2023-09-07 10:00 | Outpatient (REF) | payer MEDICARE, SELFPAY | END 2023-09-07 10:01 | disposition home or self-care (01) | LOC: HO.MDS 10:00 | PROVIDERS: Visit Provider Hospitalist | DX: D80.1 Nonfamilial hypogammaglobulinemia (principal) | CPT/HCPCS: 96365; 96366 ==

== ENCOUNTER 2023-10-05 06:58 | Outpatient (REF) | payer MEDICARE, SELFPAY ==
[2023-10-05 07:11] LABS: MANUAL DIFF FLAG NO
[2023-10-05 07:13] LABS: Basophils Percent Auto 0.2 % (0-2); Eosinophils Absolute Auto 0.1 X10*3/uL (0.0-0.4); Eosinophils Percent Auto 1.3 % (0-4); Hematocrit 47.1 % (42.0-52.0); Hemoglobin 14.9 g/dl (14.0-18.0); Imm Gran Abs Auto 0.03 X10*3/uL (0.00-0.03); Imm Gran Pct Auto 0.5 % (0.0-0.4); Lymphocytes Absolute Auto 1.1 X10*3/uL (1.2-4.9); Mean Corpuscular HGB Conc 31.6 g/dl (31.0-36.0); Mean Corpuscular Hemoglobin 28.8 pg (27.0-33.0); Mean Corpuscular Volume 90.9 fL (80.0-98.0); Mean Platelet Volume 9.1 fL (9.4-12.4); Monocytes Absolute Auto 0.4 X10*3/uL (0.1-1.2); Monocytes Percent Auto 6.9 % (2-11); Neutrophils Absolute Auto 4.5 x10*3/uL (2.0-8.3); Neutrophils Percent Auto 73.1 % (45-73); Platelet Count 206 X10*3/uL (160-400); Red Blood Count 5.18 X10*6/uL (4.60-5.80); Red Cell Distribution Width 15.8 % (11.0-16.0); White Blood Count 6.1 X10*3/uL (4.8-10.8)
[2023-10-05 07:25] LABS: VBG Base Excess 4.6 mmol/L; VBG HCO3 31 mmol/L (22-26); VBG pCO2 54 mmHg; VBG pH 7.37 (7.32-7.43); VBG pO2 25 mmHg; Venous Blood Gas Refer to POC result
[2023-10-05 07:32] LABS: Anion Gap 13 (12-20); Blood Urea Nitrogen 25 mg/dL (9-16); Calcium 9.7 mg/dL (8.4-10.2); Carbon Dioxide 30 mmol/L (22-29); Chloride 102 mmol/L (96-108); Estimated Glomerular Filt Rate > 60; Glucose Random 120 mg/dL (60-115); Potassium 3.4 mmol/L (3.3-5.1); Sodium 142 mmol/L (135-145)
[2023-10-05 07:51] LABS: Erythrocyte Sedimentation Rate 5 MM/HR (0-15)
[2023-10-08 14:44] LABS: Immunoglobulin G Subclass 1 453 mg/dL (382-929); Immunoglobulin G Subclass 2 262 mg/dL (241-700); Immunoglobulin G Subclass 3 30 mg/dL (22-178); Immunoglobulin G Subclass 4 12.6 mg/dL (4-86); Immunoglobulin G Total 714 mg/dL (600-1540)
[2023-10-08 23:13] LABS: Immunoglobulin E 61 kU/L (<OR=114)
[2023-10-12 12:52] LABS: Cortisol, Free 0.31 mcg/dL
== END 2023-10-05 06:59 | disposition home or self-care (01) ==
LOC: HO.LAB 06:58
PROVIDERS: PCP Physician Assistant Medical; Visit Provider Hospitalist
DX: D80.1 Nonfamilial hypogammaglobulinemia (principal); J44.9 Chronic obstructive pulmonary disease, unspecified; J44.89 Other specified chronic obstructive pulmonary disease
CPT/HCPCS: 36415; 80048; 82530; 82784; 82785; 82803; 85025; 85652

== ENCOUNTER 2023-10-05 08:33 | Outpatient (REF) | payer MEDICARE, SELFPAY | END 2023-10-05 08:34 | disposition home or self-care (01) | LOC: HO.MDS 08:33 | PROVIDERS: Visit Provider Hospitalist | DX: D80.1 Nonfamilial hypogammaglobulinemia (principal) | CPT/HCPCS: 96365; 96366 ==

== ENCOUNTER 2023-11-02 07:11 | Outpatient (REF) | payer MEDICARE, SELFPAY ==
[2023-11-02] VITALS (8 sets, daily range): BP systolic 108–124; BP diastolic 66–79; PULSE 72–80; RESP 18; TEMP 36.5; O2SAT 96
== END 2023-11-02 07:12 | disposition home or self-care (01) ==
LOC: HO.MDS 07:11
PROVIDERS: Visit Provider Hospitalist
DX: D80.1 Nonfamilial hypogammaglobulinemia (principal)
CPT/HCPCS: 96374

== ENCOUNTER 2024-02-07 08:49 | Outpatient (AMB) | payer MEDICARE, SELFPAY ==
--- NOTE | 2024-02-07 08:49 | A.OFFVIS_ITS ---
Vital Signs 02/07/24 08:50 Height 6 ft 2 in Weight 226 lb BMI 29.0 Intake Visit Reasons: COPD Cork Cutter Required: No Allergies theophylline Allergy (Severe, Verified 02/07/24 08:50) Cardiac Arrythmia levofloxacin [From Levaquin] Allergy (Unknown, Verified 02/07/24 08:50) Unknown Penicillins Allergy (Unknown, Verified 02/07/24 08:50) Unknown HPI Comments Details: The patient is a 68-year-old gentleman with known severe COPD primarily due to chronic bronchitis with respiratory failure currently on oxygen in addition to obstructive sleep apnea currently on BiPAP who apparently had been having worsening respiratory symptoms sometime around 2018. The patient had been admitted to the hospital with worsening respiratory symptoms. Ultimately referred to [facility] where he took part in a experimental procedure for chronic bronchitis with the name of Maryanne swan. The study performed thermal plasty to the airways to reduce mucus producing plans. Apparently after the procedure patient did have significant improvement and was able to come off prednisone. She just Trelegy does use nebulized therapy with DuoNeb as needed. Otherwise the patient is not having any other chest physical therapy. he was taking part in the lung cancer screening program primarily at [facility]. However, once he was situated with [facility] he had been getting CAT scan stairs part of the research protocol. Now that he has completed that protocol we have to get him back on the lung cancer screening program. He did have some small pulmonary nodules that need to be followed. He is still high risk with significant smoking in the past. the patient has not had any CT scans the last year. In the meantime the patient was diagnosed of sleep apnea and ultimately underwent a titration study back in 2017. he is currently on BiPAP. It was able to download the machine and currently the BiPAP is at 21/80. He also uses 5 L of oxygen with his BiPAP. He does use a nasal pillow mask which appears to be a significantly high pressure to be administered through his nose. He has significant air leakage up to 41 liters/minute average and does develop a dry mouth. He is also leaking significant amount air. I did suggest that he should go on a fullface mask. The patient is agreeable. Initially retry the F30 medium mask but due to the high pressures He will leak out significantly. Therefore I did provide him with a medium F20 mask that he tolerated much better. I also decrease his pressures down to 18/8. It appears that on his previous titration study from [facility] he was able to do well even with the pressure of 12/5. The patient also will decrease the oxygen from 5 L to 3 L and will have his [employer] perform an overnight oximetry in order to address the question if this is adequate therapy. He did have recent pulmonary function studies in [facility] which I personally reviewed. His FEV1 is down to 33% consistent with very severe COPD he does have significant air trapping and also has severe diffusion impairment. Patient also had a recent blood gas which is very reassuring with normal acid-base status and his pCO2 was within normal limits. 08/30/2022 the patient is here for a pulmonary follow-up visit. He has had a very eventful several weeks. He has had significant issues with his breathing. Was readmitted to [facility] with the COPD exacerbation. Subsequently after that he was discharged and his BiPAP broke down. He had to go back to the hospital because of acute on chronic respiratory failure were not being able to use the BiPAP. Ultimately he is still using the broken BiPAP but he can only use it for about 4 hours at a time. He should be getting his new BiPAP fairly soon. He is noticing worsening chest congestion. Seems like he cannot get below 30 mg of prednisone. His blood sugars have been elevated. He has been very discouraged with all this. He also went to [facility] and spoke to the transplant surgeon. They did bring to his attention that he has significant amount of lower extremity edema. He has been on torsemide. The lower extremity edema has improved. He did not need to increase it. He does have a follow-up with his cotton chopper as well. Likely the combination of not been able to use the BiPAP dietary indiscretions and all the prednisone resulted in the lower extremity edema. He is going to start monitoring his weight closely. If the patient gains more than 3 lb/24 hr I did recommend that he takes an additional torsem emmanuel. I have will get blood work today. In addition to that I did provide him with nebulized treatment to try to get a sputum culture but we were not able to do so. We did talk about considering bronchoscopy with therapeutic cleaning and deep suctioning of we cannot get him feeling better. Will go ahead and adjust his nebulized therapy at this time in order to try to get him off the prednisone. 02/15/2023 the patient is here for pulmonary follow-up visit. He has been a while since I evaluated the patient. He has been very ill with multiple hospitalizations ended up in [facility] ICU and did require a prolonged invasive ventilation where he spent 14 days in the ICU unit ventilated. This is after developing human metapneumovirus and then subsequently pneumonia after that. The patient has a very we can immune system. The last time the IgG was checked was in the 300s. He was supposed to start IVIG therapy but it was side tried because of his multiple infections. He currently on prophylactic antibiotics. He needs to start IVIG. There was mention about using biologic therapy which she takes in. At this point will go ahead and focus on getting him his IVIG that will definitely be effective for him. Then once he is on stab list therapy we can consider biologic therapies. He is on chronic steroids her eosinophils obese be decreased. His IgE levels have been normal in the past suggesting that there is not really allergic component that is driving this to suggest biologics may be too effective for him. A the patient did follow-up id the lung transplant clinic. The patient declined to go further at this time. He will consider in the future. He also continues using the BiPAP. The patient developed respiratory failure and CO2 have been elevated even on the BiPAP, PCO2 55mmHg. Therefore will go ahead in his changing from the BiPAP to a APAP astral machine with a sip and puff that he can use during the daytime. I think having the affordability of the noninvasive ventilator will also allow him to be able to do things outside of the home and uses noninvasive ventilator I would daily at nighttime and also with the mouthpiece that he can use it during the daytime. 08/10/2023 the patient is here for pulmonary follow-up visit. Overall the patient is still doing well. He is tolerating the IVIG without any adverse effects. Through levels are good. The patient also continues to use the noninvasive ventilator. The noninvasive ventilator has been very affecting beneficial. He does use it every night. Will go ahead and have him there had do the mouthpiece so he can also use it during the day as needed. He is responding well to the Trelegy. His prednisone is off completely. No evidence of adrenal insufficiency. The patient also has been exercising online with pulmonary rehab. This has been very helpful. Overall the patient has been doing significantly better. We did talk about lung transplant but the patient would like to still hold off at this time. Does not look like he is interested to pursue this at this time. We did talk about vaccines. 02/07/2024 this is the telehealth sick visit for the patient. He has been having worsening respiratory symptoms for the last 10 days. He had call the office and we have sent a prescription for prednisone also cefpodoxime. Although no significant improvement. Still having significant productive cough. Difficult to expectorate also having right-sided pleuritic discomfort. Denies any fevers or chills. He did call his primary care doctor he was given some tramadol for the pain that was only partially helpful. The patient in the meantime continues to receive the IVIG with good effect. Continues use the BiPAP with good effect. He has had Pseudomonas in the past although he can not tolerate high doses of quinolones. He has tolerated the low-dose quinolone the past. Therefore I will send him levofloxacin 250 and then if she tolerates that after weekend if he still having symptoms he can try increasing it to the 500 mg does monitoring closely for any tendonitis. The patient also undergo a chest x-ray. The symptoms worsening may need to go to the hospital or if his x-rays significantly abnormal alcohol him to go to the hospital. [facility] Medical History (Updated 02/07/24 @ 21:08 by Michele Burgos MD) Bronchopneumonia Asthma-COPD overlap syndrome Hypogammaglobulinemia Dyspnea Osteoporosis On supplemental oxygen therapy Compression fracture of thoracic spine, non-traumatic Weight loss due to medication Diabetes mellitus type 2 in nonobese GERD (gastroesophageal reflux disease) Personal history of nicotine dependence NADEEM treated with BiPAP Pulmonary nodules Chronic respiratory failure COPD (chronic obstructive pulmonary disease) (~2003) Surgical History (Updated 11/18/21 @ 14:34 by Fatoumata Guy PA-C) History of bronchoscopy (~2018) History of neck surgery History of colonoscopy Social History (Updated 11/18/21 @ 14:38 by Fatoumata Guy PA-C) Alcohol intake: current Alcohol intake frequency: 0-2 drinks per day Patient Tobacco Use Status: Former Tobacco user Tobacco use type: Cigarette Years Smoked: (onset 21yo, 1-2ppd x 41yrs, 50+PYH - quit 2017) Review of Systems Const Denies frequent falls, Reports malaise and Denies weight loss Eyes Denies change in vision ENT Denies change in voice Card Denies chest pain, Denies dyspnea and Reports dyspnea on exertion Resp Reports change in phlegm color, Reports chest congestion, Reports cough, Denies hemoptysis, Reports excessive phlegm production, Denies dyspnea, Reports dyspnea on exertion and Reports wheezing GI Denies abdominal pain Musc Reports no additional complaints and Denies myalgias Skin/Breast Denies rash Neuro Denies frequent falls Aller/Immun Reports wheezing Physical Exam Vital Signs: BMI result Body Mass Index 29.0 Const General: cooperative and alert Resp Effort & Inspection: able to speak in complete sentences and Actively coughing Quality: productive Telehealth Telehealth Telehealth Platform: Telephone Location of provider rendering services: practice address Location of patient: address on file Patient Identification confirmed using: Name, : Yes Telehealth method: voice only Patient verbally consented to treatment: Yes Patient verbally consented to billing insurance company: Yes Patient informed of any privacy concerns related to visit: Yes Assessment & Plan Assessment & Plan (1) Bronchopneumonia: Code(s): J18.0 - Bronchopneumonia, unspecified organism Category: Medical (2) COPD (chronic obstructive pulmonary disease): Onset Date: ~2003 Code(s): J44.9 - Chronic obstructive pulmonary disease, unspecified Category: Medical Qualifiers: COPD type: COPD with acute lower respiratory infection Qualified Code(s): J44.0 - Chronic obstructive pulmonary disease with (acute) lower respiratory infection (3) Chronic respiratory failure: Code(s): J96.10 - Chronic respiratory failure, unspecified whether with hypoxia or hypercapnia Category: Medical Qualifiers: Respiratory failure complication: hypoxia and hypercapnia Qualified Code(s): J96.11 - Chronic respiratory failure with hypoxia; J96.12 - Chronic respiratory failure with hypercapnia (4) Pulmonary nodules: Code(s): R91.8 - Other nonspecific abnormal finding of lung field Category: Medical (5) NADEEM treated with BiPAP: Code(s): G47.33 - Obstructive sleep apnea (adult) (pediatric) Category: Medical (6) Hypogammaglobulinemia: Code(s): D80.1 - Nonfamilial hypogammaglobulinemia Category: Medical Plan start Levaquin, monitor for tendonitis prednisone taper pain management CXR hypertonic saline for CPT continue Daliresp Continue current respiratory regimen: Trelegy short-acting beta agonist as needed continue AVAPS with mouth piece. DME - [facility] Will use the F20 Large mask diuresis as tolerared Lung transplantation evaluation on hold follow-up in 4-6 months Orders: Orders XR chest 2V Today J18.0 - Bronchopneumonia, unspecified organism Medications: New levofloxacin 250 mg PO DAILY 21 tabs 0RF 21 days prednisone PO daily; Take 4 tabs x 4 days, then 3 tabs x 4 days, then 2 tabs daily x 4 days, then 1 tab x 4 days to complete. 40 tabs 0RF 16 days oxycodone-acetaminophen 2.5-325 mg (Percocet) Partial Fill upon patient request. 1 tab PO Q8H PRN 30 tabs 0RF pain 10 days Coding Level of Care Code Tele Est Pt Level 4 (35459) Diagnoses Bronchopneumonia J18.0 Chronic obstructive pulmonary disease with acute lower respiratory infection J44.0 COPD type: COPD with acute lower respiratory infection Chronic respiratory failure with hypoxia and hypercapnia J96.11; J96.12 Respiratory failure complication: hypoxia and hypercapnia Pulmonary nodules R91.8 NADEEM treated with BiPAP G47.33 Hypogammaglobulinemia D80.1 Time Spent (min) 15
[2024-02-07 08:50] VITALS: BMI 29.0
== END 2024-02-07 09:56 | disposition home or self-care (01) ==
LOC: HO.HPS 08:49
PROVIDERS: PCP Physician Assistant Medical; Visit Provider Hospitalist
DX: J18.0 Bronchopneumonia, unspecified organism (principal); J44.0 Chronic obstructive pulmonary disease with (acute) lower respiratory infection; J96.11 Chronic respiratory failure with hypoxia; J96.12 Chronic respiratory failure with hypercapnia; R91.8 Other nonspecific abnormal finding of lung field; G47.33 Obstructive sleep apnea (adult) (pediatric); D80.1 Nonfamilial hypogammaglobulinemia
CPT/HCPCS: 99442

== ENCOUNTER → 2024-02-07 08:49 | Outpatient (BNVA) | payer MEDICARE, SELFPAY | PROVIDERS: PCP Physician Assistant Medical; Visit Provider Hospitalist ==

== ENCOUNTER 2024-03-21 06:55 | Outpatient (REF) | payer MEDICARE, SELFPAY ==
[2024-03-21 07:27] LABS: Hemoglobin 15.1 g/dl (14.0-18.0); Mean Corpuscular HGB Conc 31.5 g/dl (31.0-36.0); Mean Corpuscular Volume 101.7 fL (80.0-98.0); Mean Platelet Volume 9.1 fL (9.4-12.4); Platelet Count 238 X10*3/uL (160-400); Red Blood Count 4.72 X10*6/uL (4.60-5.80); Red Cell Distribution Width 13.3 % (11.0-16.0); White Blood Count 8.7 X10*3/uL (4.8-10.8)
[2024-03-21 08:59] LABS: Erythrocyte Sedimentation Rate 5 MM/HR (0-15)
[2024-03-21 09:08] LABS: Atypical Lymph Absolute Manual 0.2 x10*3/uL; Atypical Lymphs Percent Manual 2 % (0-6); Band Neutrophils Percent 4 % (3-5); Large Platelet PRESENT; Lymphocytes Absolute Manual 0.6 X10*3/uL (1.2-4.9); Lymphocytes Percent Manual 7 % (20-40); Monocytes Absolute Manual 0.1 X10*3/uL (0.1-1.2); Monocytes Percent Manual 1 % (2-11); Neutrophils Absolute Manual 7.8 X10*3/uL (2.0-8.3); Neutrophils Percent Manual 86 % (45-73); Platelet Estimate NORMAL (NORMAL); Platelet Morphology Comment NOTED; RBC Morphology NORMAL
[2024-03-24 17:18] LABS: Immunoglobulin G Subclass 1 348 mg/dL (382-929); Immunoglobulin G Subclass 2 223 mg/dL (241-700); Immunoglobulin G Subclass 3 27 mg/dL (22-178); Immunoglobulin G Total 652 mg/dL (600-1540)
== END 2024-03-21 06:56 | disposition home or self-care (01) ==
LOC: HO.LAB 06:55
PROVIDERS: PCP Physician Assistant Medical; Visit Provider Hospitalist
DX: J44.89 Other specified chronic obstructive pulmonary disease (principal)
CPT/HCPCS: 36415; 82784; 85007; 85027; 85652

== ENCOUNTER 2024-03-24 10:05 | Outpatient (REF) | payer MEDICARE, SELFPAY | END 2024-03-24 10:06 | disposition home or self-care (01) | LOC: HO.LNP 10:05 | PROVIDERS: PCP Physician Assistant Medical; Visit Provider Hospitalist | DX: J18.0 Bronchopneumonia, unspecified organism (principal); J44.0 Chronic obstructive pulmonary disease with (acute) lower respiratory infection; J96.11 Chronic respiratory failure with hypoxia; J96.12 Chronic respiratory failure with hypercapnia; R91.8 Other nonspecific abnormal finding of lung field | CPT/HCPCS: 87070; 87205; 94618; 94640; 96372; 99212; J2919 ==

== ENCOUNTER 2024-03-24 10:05 | Outpatient (AMB) | payer MEDICARE, SELFPAY ==
--- NOTE | 2024-03-24 10:14 | A.OFFVIS_ITS ---
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 The patient had been admitted to the hospital with worsening respiratory symptoms. Ultimately referred to [place] where he took part in a experimental procedure for chronic bronchitis with the name of Maryanne swan. The study performed thermal plasty to the airways to reduce mucus producing plans. Apparently after the procedure patient did have significant improvement and was able to come off prednisone. She just Trelegy does use nebulized therapy with DuoNeb as needed. Otherwise the patient is not having any other chest physical therapy. he was taking part in the lung cancer screening program primarily at [facility]. However, once he was situated with [place] he had been getting CAT scan stairs part of the research protocol. Now that he has completed that protocol we have to get him back on the lung cancer screening program. He did have some small pulmonary nodules that need to be followed. He is still high risk with significant smoking in the past. the patient has not had any CT scans the last year. In the meantime the patient was diagnosed of sleep apnea and ultimately underwent a titration study back in 2017. he is currently on BiPAP. It was able to download the machine and currently the BiPAP is at 21/80. He also uses 5 L of oxygen with his BiPAP. He does use a nasal pillow mask which appears to be a significantly high pressure to be administered through his nose. He has significant air leakage up to 41 liters/minute average and does develop a dry mouth. He is also leaking significant amount air. I did suggest that he should go on a fullface mask. The patient is agreeable. Initially retry the F30 medium mask but due to the high pressures He will leak out significantly. Therefore I did provide him with a medium F20 mask that he tolerated much better. I also decrease his pressures down to 18/8. It appears that on his previous titration study from [facility] he was able to do well even with the pressure of 12/5. The patient also will decrease the oxygen from 5 L to 3 L and will have his DME company perform an overnight oximetry in order to address the question if this is adequate therapy. He did have recent pulmonary function studies in [place] which I personally reviewed. His FEV1 is down to 33% consistent with very severe COPD he does have significant air trapping and also has severe diffusion impairment. Patient also had a recent blood gas which is very reassuring with normal acid-base status and his pCO2 was within normal limits. 08/30/2022 the patient is here for a pulmonary follow-up visit. He has had a very eventful several weeks. He has had significant issues with his breathing. Was readmitted to [facility] with the COPD exacerbation. Subsequently after that he was discharged and his BiPAP broke down. He had to go back to the hospital because of acute on chronic respiratory failure were not being able to use the BiPAP. Ultimately he is still using the broken BiPAP but he can only use it for about 4 hours at a time. He should be getting his new BiPAP fairly soon. He is noticing worsening chest congestion. Seems like he cannot get below 30 mg of prednisone. His blood sugars have been elevated. He has been very discouraged with all this. He also went to [place] and spoke to the transplant surgeon. They did bring to his attention that he has significant amount of lower extremity edema. He has been on torsemide. The lower extremity edema has improved. He did not need to increase it. He does have a follow-up with his data conversion developer as well. Likely the combination of not been able to use the BiPAP dietary indiscretions and all the prednisone resulted in the lower extremity edema. He is going to start monitoring his weight closely. If the patient g ains more than 3 lb/24 hr I did recommend that he takes an additional torsemide. I have will get blood work today. In addition to that I did provide him with nebulized treatment to try to get a sputum culture but we were not able to do so. We did talk about considering bronchoscopy with therapeutic cleaning and deep suctioning of we cannot get him feeling better. Will go ahead and adjust his nebulized therapy at this time in order to try to get him off the prednisone. 02/15/2023 the patient is here for pulmonary follow-up visit. He has been a while since I evaluated the patient. He has been very ill with multiple hospitalizations ended up in [facility] ICU and did require a prolonged invasive ventilation where he spent 14 days in the ICU unit ventilated. This is after developing human metapneumovirus and then subsequently pneumonia after that. The patient has a very we can immune system. The last time the IgG was checked was in the 300s. He was supposed to start IVIG therapy but it was side tried because of his multiple infections. He currently on prophylactic antibiotics. He needs to start IVIG. There was mention about using biologic therapy which she takes in. At this point will go ahead and focus on getting him his IVIG that will definitely be effective for him. Then once he is on stab list therapy we can consider biologic therapies. He is on chronic steroids her eosinophils obese be decreased. His IgE levels have been normal in the past suggesting that there is not really allergic component that is driving this to suggest biologics may be too effective for him. A the patient did follow-up id the lung transplant clinic. The patient declined to go further at this time. He will consider in the future. He also continues using the BiPAP. The patient d eveloped respiratory failure and CO2 have been elevated even on the BiPAP, PCO2 55mmHg. Therefore will go ahead in his changing from the BiPAP to a APAP astral machine with a sip and puff that he can use during the daytime. I think having the affordability of the noninvasive ventilator will also allow him to be able to do things outside of the home and uses noninvasive ventilator I would daily a t nighttime and also with the mouthpiece that he can use it during the daytime. 08/10/2023 the patient is here for pulmonary follow-up visit. Overall the patient is still doing well. He is tolerating the IVIG without any adverse effects. Through levels are good. The patient also continues to use the noninvasive ventilator. The noninvasive ventilator has been very affecting beneficial. He does use it every night. Will go ahead and have him there had do the mouthpiece so he can also use it during the day as needed. He is responding well to the Trelegy. His prednisone is off completely. No evidence of adrenal insufficiency. The patient also has been exercising online with pulmonary rehab. This has been very helpful. Overall the patient has been doing significantly better. We did talk about lung transplant but the patient would like to still hold off at this time. Does not look like he is interested to pursue this at this time. We did talk about vaccines. 02/07/2024 this is the telehealth sick visit for the patient. He has been having worsening respiratory symptoms for the last 10 days. He had call the office and we have sent a prescription for prednisone also cefpodoxime. Although no significant improvement. Still having significant productive cough. Difficult to expectorate also having right-sided pleuritic discomfort. Denies any fevers or chills. He did call his primary care doctor he was given some tramadol for the pain that was only partially helpful. The patient in the meantime continues to receive the IVIG with good effect. Continues use the BiPAP with good effect. He has had Pseudomonas in the past although he can not tolerate high doses of quinolones. He has tolerated the low-dose quinolone the past. Therefore I will send him levofloxacin 250 and then if she tolerates that after weekend if he still having symptoms he can try increasing it to the 500 mg does monitoring closely for any tendonitis. The patient also undergo a chest x-ray. The symptoms worsening may need to go to the hospital or if his x-rays significantly abnormal alcohol him to go to the hospital. 03/24/2024 the patient is here for sick visit. He has been having hard summer. He has been coughing more she has congestion. Having hard time breathing. He had been placed on a low-dose levofloxacin which she tolerated without any evidence of any tendonitis. His symptoms did improve. We did once he stopped the antibiotics his symptoms reoccurred. He is still getting the IVIG. He did have blood work today to see if he has low IgG not want if we have to adjusted dose. In the meantime we are able to get a sputum culture sent to the laboratory. He has very diminished with breath sounds right now significant chest tightness. Will give Solu-Medrol today. He is also using the oxygen. He did not do well on the pulse therefore we come off the pulse and did a 6 minute walk test. The patient needed 2 L continuous with rest and also with activity. We did reach out to [facility] [place] but the 1 from [place] to see if we can switch him over to a portable oxygen concentrator with the 2 liters/minute capability. If the patient is not able to get a portable oxygen concentrator that can have 2 liters/minute who have to go back on oxygen tanks. Will send a script to the company at this time. He will continue to use his noninvasive ventilator. This has been affecting beneficial. He will receive Solu-Medrol today again and go prednisone taper and then go back on the levofloxacin. Hopefully we can get a culture back to put on the right antibiotics. [facility] Medical History (Updated 02/07/24 @ 21:08 by Michele Burgos MD) Bronchopneumonia Asthma-COPD overlap syndrome Hypogammaglobulinemia Dyspnea Osteoporosis On supplemental oxygen therapy Compression fracture of thoracic spine, non-traumatic Weight loss due to medication Diabetes mellitus type 2 in nonobese GERD (gastroesophageal reflux disease) Personal history of nicotine dependence NADEEM treated with BiPAP Pulmonary nodules Chronic respiratory failure COPD (chronic obstructive pulmonary disease) (~2003) Surgical History (Updated 11/18/21 @ 14:34 by Fatoumata Guy PA-C) History of bronchoscopy (~2018) History of neck surgery History of colonoscopy Social History (Updated 11/18/21 @ 14:38 by Fatoumata Guy PA-C) Alcohol intake: current Alcohol intake frequency: 0-2 drinks per day Patient Tobacco Use Status: Former Tobacco user Tobacco use type: Cigarette Years Smoked: (onset 21yo, 1-2ppd x 41yrs, 50+PYH - quit 2016) Review of Systems Const Denies frequent falls, Reports malaise and Denies weight loss Eyes Denies change in vision ENT Denies change in voice Card Denies chest pain, Denies dyspnea and Reports dyspnea on exertion Resp Reports change in phlegm color, Reports chest congestion, Reports cough, Denies hemoptysis, Reports excessive phlegm production, Denies dyspnea, Reports dyspnea on exertion and Reports wheezing GI Denies abdominal pain Musc Reports no additional complaints and Denies myalgias Skin/Breast Denies rash Neuro Denies frequent falls Aller/Immun Reports wheezing Physical Exam Vital Signs: Last Vital Signs Pulse 78 03/24/24 10:15 Pulse Ox 94 03/24/24 10:15 Oxygen Delivery Method Room Air 03/24/24 10:15 BMI result Body Mass Index 28.2 Const General: alert, Cushingoid facies and tired appearing Neck Neck: Yes normal visual inspection, Yes full ROM and Yes no lymphadenopathy Chest Chest palpation & inspection: normal inspection of the chest Resp Effort & Inspection: normal respiratory effort, Actively coughing, tachypneic and uses accessory muscles Auscultation: no rhonchi, wheezes and diminished lung sounds Cardio Rate: regular rate Rhythm: regular rhythm Heart sounds: S1 normal heart sound present and S2 normal heart sound present GI Palpation (GI): Soft to palpation and nontender Auscultation: normal bowel sounds Skin General skin exam: rashes and/or lesions noted Extrem General: Yes edema Office Procedures 6 Minute Walk Time:: 12:57 SPO2 % at rest: 88 Pulse at rest: 89 Supplemental Oxygen: THE PATIENT WAS ROOM AIR SATURATING 80%. HE WAS PLACED ON 2 L MAINTAIN PULSE OX 94%. WAS NOT ON THE 2 L JUST FOR ABOUT 50 FT AND WAS ABLE TO MAINTAIN A PULSE OX OF 91%. THE PATIENT COULD NOT TOLERATE THE PULSE DEVICE AT THIS TIME. 73130 - 6 Minute Walk Nebulizer Treatment Nebulizer Treatment 09775-Nvelsqovs/MDI RX initial, or Nebulizer Subsequent Treatment Office Meds methylprednisolone sod suc(PF) 125 mg/2 mL solution for injection Performing Provider: Michele Burgos MD Performing Location: [facility] [place] Pul[facility]ology Services Administered by: Ave Almaraz LPN on 03/24/24 11:14 2 Dose Route Admin Location Dispensed Lot Number Expiration Date [facility] Administrative Assistant 125 mg IM right buttock 125 [id number] [id number] 04/26/26 2130-7459-20 [employer] Comments: 125MG/2ml dispensed. albuterol sulfate 2.5 mg/3 mL (0.083 %) solution for nebulization Performing Provider: Michele Burgos MD Performing Location: [facility] [place] Pul[facility]ology [facility] Administered by: Kaylee Ferguson LPN on 03/24/24 10:31 Dose Route Admin Location Dispensed Lot Number Expiration Date [facility] Administrative Assistant 2.5 mg inhalation 3 mL [id number] 11/24/24 6833-6221-06 MYLAN sodium chloride 3 % for nebulization Performing Provider: Michele Burgos MD Performing Location: [facility] [place] [facility]ology [facility] Administered by: Kaylee Ferguson LPN on 03/24/24 10:31 Dose Route Admin Location Dispensed Lot Number Expiration Date [facility] Administrative Assistant 3 mL inhalation 3 mL [id number] 05/26/25 [id number] [facility] Assessment & Plan Assessment & Plan (1) Bronchopneumonia: Code(s): J18.0 - Bronchopneumonia, unspecified organism Category: Medical (2) COPD (chronic obstructive pulmonary disease): Onset Date: ~2003 Code(s): J44.9 - Chronic obstructive pulmonary disease, unspecified Category: Medical Qualifiers: COPD type: COPD with acute lower respiratory infection Qualified Code(s): J44.0 - Chronic obstructive pulmonary disease with (acute) lower respiratory infection (3) Chronic respiratory failure: Code(s): J96.10 - Chronic respiratory failure, unspecified whether with hypoxia or hypercapnia Category: Medical Qualifiers: Respiratory failure complication: hypoxia and hypercapnia Qualified Code(s): J96.11 - Chronic respiratory failure with hypoxia; J96.12 - Chronic respiratory failure with hypercapnia (4) Pulmonary nodules: Code(s): R91.8 - Other nonspecific abnormal finding of lung field Category: Medical (5) NADEEM treated with BiPAP: Code(s): G47.33 - Obstructive sleep apnea (adult) (pediatric) Category: Medical (6) Hypogammaglobulinemia: Code(s): D80.1 - Nonfamilial hypogammaglobulinemia Category: Medical Plan Restart Levaquin, monitor for tendonitis prednisone taper sputum culture oxygen: change to 2L/min requesting POC to handle 2L/min if not available, oxygen tanks Hypertonic saline for CPT continue Daliresp Continue current respiratory regimen: Trelegy short-acting beta agonist as needed continue AVAPS with mouth piece. DME - [employer] Will use the F20 Large mask diuresis as tolerared Lung transplantation evaluation on hold follow-up in 4-6 weeks Orders: Orders AMB Nebulizer Treatment Today J44.89 - Other specified chronic obstructive pulmonary disease AMB Methylprednisolone Sod Succ Injection Today J18.0 - Bronchopneumonia, unspecified organism, J44.89 - Other specified chronic obstructive pulmonary disease Medications: New prednisone PO daily; Take 6 tabs daily x 3 days, then 5 tabs x 3 days, then 4 tabs x 3 days, then 3 tabs x 3 days, then 2 tabs daily x 3 days, then 1 tab x 3 days to complete. 63 tabs 0RF 18 days levofloxacin 250 mg PO DAILY 28 tabs 1RF 28 days Coding Level of Care Code Est Pt Level 5 (94631) Complex EM visit Add On G2211 Diagnoses Bronchopneumonia J18.0 Chronic obstructive pulmonary disease with acute lower respiratory infection J44.0 COPD type: COPD with acute lower respiratory infection Chronic respiratory failure with hypoxia and hypercapnia J96.11; J96.12 Respiratory failure complication: hypoxia and hypercapnia Pulmonary nodules R91.8 NADEEM treated with BiPAP G47.33 Hypogammaglobulinemia D80.1 CPT Codes Coding ([id number]) Nebulizer Treatment - Nebulizer Treatment, initial or subsequent: 25652- Nebulizer/MDI RX initial, or Nebulizer Subsequent Treatment ([id number]) Time Spent (min) 45
[2024-03-24 10:15] VITALS: PULSE 78; O2SAT 94; BMI 28.2
[2024-03-24 12:58] VITALS: PULSE 89; O2SAT 88
== END 2024-03-24 11:07 | disposition home or self-care (01) ==
PROVIDERS: PCP Physician Assistant Medical; Visit Provider Hospitalist
DX: J18.0 Bronchopneumonia, unspecified organism (principal); J44.0 Chronic obstructive pulmonary disease with (acute) lower respiratory infection; J96.11 Chronic respiratory failure with hypoxia; J96.12 Chronic respiratory failure with hypercapnia; R91.8 Other nonspecific abnormal finding of lung field; G47.33 Obstructive sleep apnea (adult) (pediatric); D80.1 Nonfamilial hypogammaglobulinemia; J44.89 Other specified chronic obstructive pulmonary disease
CPT/HCPCS: 94618; 99215; G2211

== ENCOUNTER 2024-04-17 10:46 | Outpatient (AMB) | payer MEDICARE, SELFPAY ==
--- NOTE | 2024-04-17 10:48 | MHC.OFFVIS ---
Vital Signs 04/17/24 10:49 Height 6 ft 2 in Weight 225 lb BMI 28.9 Pulse 87 Pulse Source Pulse Oximeter Pulse Oximetry (%) 94 Oxygen Delivery Method Room Air Comment 2 Liters Oxygen([facility]) Intake Visit Reasons: Cough Jumbo Operator Required: No Allergies theophylline Allergy (Severe, Verified 04/17/24 10:51) Cardiac Arrythmia levofloxacin [From Levaquin] Allergy (Unknown, Verified 04/17/24 10:51) Unknown Penicillins Allergy (Unknown, Verified 04/17/24 10:51) Unknown HPI Comments Details: The patient is a 68-year-old gentleman with known severe COPD primarily due to chronic bronchitis with respiratory failure currently on oxygen in addition to obstructive sleep apnea currently on BiPAP who apparently had been having worsening respiratory symptoms sometime around 2018. The patient had been admitted to the hospital with worsening respiratory symptoms. Ultimately referred to [place] [place] [facility] where he took part in a experimental procedure for chronic bronchitis with the name of Maryanne swan. The study performed thermal plasty to the airways to reduce mucus producing plans. Apparently after the procedure patient did have significant improvement and was able to come off prednisone. She just Trelegy does use nebulized therapy with DuoNeb as needed. Otherwise the patient is not having any other chest physical therapy. he was taking part in the lung cancer screening program primarily at [facility]. However, once he was situated with [place] [place] he had been getting CAT scan stairs part of the research protocol. Now that he has completed that protocol we have to get him back on the lung cancer screening program. He did have some small pulmonary nodules that need to be followed. He is still high risk with significant smoking in the past. the patient has not had any CT scans the last year. In the meantime the patient was diagnosed of sleep apnea and ultimately underwent a titration study back in 2017. he is currently on BiPAP. It was able to download the machine and currently the BiPAP is at 21/80. He also uses 5 L of oxygen with his BiPAP. He does use a nasal pillow mask which appears to be a significantly high pressure to be administered through his nose. He has significant air leakage up to 41 liters/minute average and does develop a dry mouth. He is also leaking significant amount air. I did suggest that he should go on a fullface mask. The patient is agreeable. Initially retry the F30 medium mask but due to the high pressures He will leak out significantly. Therefore I did provide him with a medium F20 mask that he tolerated much better. I also decrease his pressures down to 18/8. It appears that on his previous titration study from [facility] he was able to do well even with the pressure of 12/5. The patient also will decrease the oxygen from 5 L to 3 L and will have his DME company perform an overnight oximetry in order to address the question if this is adequate therapy. He did have recent pulmonary function studies in [place] which I personally reviewed. His FEV1 is down to 33% consistent with very severe COPD he does have significant air trapping and also has severe diffusion impairment. Patient also had a recent blood gas which is very reassuring with normal acid-base status and his pCO2 was within normal limits. 08/30/2022 the patient is here for a pulmonary follow-up visit. He has had a very eventful several weeks. He has had significant issues with his breathing. Was readmitted to [facility] with the COPD exacerbation. Subsequently after that he was discharged and his BiPAP broke down. He had to go back to the hospital because of acute on chronic respiratory failure were not being able to use the BiPAP. Ultimately he is still using the broken BiPAP but he can only use it for about 4 hours at a time. He should be getting his new BiPAP fairly soon. He is noticing worsening chest congestion. Seems like he cannot get below 30 mg of prednisone. His blood sugars have been elevated. He has been very discouraged with all this. He also went to [place] [place] and spoke to the transplant surgeon. They did bring to his attention that he has significant amount of lower extremity edema. He has been on torsemide. The lower extremity edema has improved. He did not need to increase it. He does have a follow-up with his practice performance manager as well. Likely the combination of not been able to use the BiPAP dietary indiscretions and all the prednisone resulted in the lower extremity edema. He is going to start monitoring his weight closely. If the patient gains more than 3 lb/24 hr I did recommend that he takes an additional torsemide. I have will get blood work today. In addition to that I did provide him with nebulized treatment to try to get a sputum culture but we were not able to do so. We did talk about considering bronchoscopy with therapeutic cleaning and deep suctioning of we cannot get him feeling better. Will go ahead and adjust his nebulized therapy at this time in order to try to get him off the prednisone. 02/15/2023 the patient is here for pulmonary follow-up visit. He has been a while since I evaluated the patient. He has been very ill with multiple hospitalizations ended up in [facility] ICU and did require a prolonged invasive ventilation where he spent 14 days in the ICU unit ventilated. This is after developing human metapneumovirus and then subsequently pneumonia after that. The patient has a very we can immune system. The last time the IgG was checked was in the 300s. He was supposed to start IVIG therapy but it was side tried because of his multiple infections. He currently on prophylactic antibiotics. He needs to start IVIG. There was mention about using biologic therapy which she takes in. At this point will go ahead and focus on getting him his IVIG that will definitely be effective for him. Then once he is on stab list therapy we can consider biologic therapies. He is on chronic steroids her eosinophils obese be decreased. His IgE levels have been normal in the past suggesting that there is not really allergic component that is driving this to suggest biologics may be too effective for him. A the patient did follow-up id the lung transplant clinic. The patient declined to go further at this time. He will consider in the future. He also continues using the BiPAP. The patient developed respiratory failure and CO2 have been elevated even on the BiPAP, PCO2 55mmHg. Therefore will go ahead in his changing from the BiPAP to a APAP astral machine with a sip and puff that he can use during the daytime. I think having the affordability of the noninvasive ventilator will also allow him to be able to do things outside of the home and uses noninvasive ventilator I would daily at nighttime and also with the mouthpiece that he can use it during the daytime. 08/10/2023 the patient is here for pulmonary follow-up visit. Overall the patient is still doing well. He is tolerating the IVIG without any adverse effects. Through levels are good. The patient also continues to use the noninvasive ventilator. The noninvasive ventilator has been very affecting beneficial. He does use it every night. Will go ahead and have him there had do the mouthpiece so he can also use it during the day as needed. He is responding well to the Trelegy. His prednisone is off completely. No evidence of adrenal insufficiency. The patient also has been exercising online with pulmonary rehab. This has been very helpful. Overall the patient has been doing significantly better. We did talk about lung transplant but the patient would like to still hold off at this time. Does not look like he is interested to pursue this at this time. We did talk about vaccines. 02/07/2024 this is the telehealth sick visit for the patient. He has been having worsening respiratory symptoms for the last 10 days. He had call the office and we have sent a prescription for prednisone also cefpodoxime. Although no significant improvement. Still having significant productive cough. Difficult to expectorate also having right-sided pleuritic discomfort. Denies any fevers or chills. He did call his primary care doctor he was given some tramadol for the pain that was only partially helpful. The patient in the meantime continues to receive the IVIG with good effect. Continues use the BiPAP with good effect. He has had Pseudomonas in the past although he can not tolerate high doses of quinolones. He has tolerated the low-dose quinolone the past. Therefore I will send him levofloxacin 250 and then if she tolerates that after weekend if he still having symptoms he can try increasing it to the 500 mg does monitoring closely for any tendonitis. The patient also undergo a chest x-ray. The symptoms worsening may need to go to the hospital or if his x-rays significantly abnormal alcohol him to go to the hospital. 03/24/2024 the patient is here for sick visit. He has been having hard summer. He has been coughing more she has congestion. Having hard time breathing. He had been placed on a low-dose levofloxacin which she tolerated without any evidence of any tendonitis. His symptoms did improve. We did once he stopped the antibiotics his symptoms reoccurred. He is still getting the IVIG. He did have blood work today to see if he has low IgG not want if we have to adjusted dose. In the meantime we are able to get a sputum culture sent to the laboratory. He has very diminished with breath sounds right now significant chest tightness. Will give Solu-Medrol today. He is also using the oxygen. He did not do well on the pulse therefore we come off the pulse and did a 6 minute walk test. The patient needed 2 L continuous with rest and also with activity. We did reach out to [facility] but the 1 from [place] to see if we can switch him over to a portable oxygen concentrator with the 2 liters/minute capability. If the patient is not able to get a portable oxygen concentrator that can have 2 liters/minute who have to go back on oxygen tanks. Will send a script to the company at this time. He will continue to use his noninvasive ventilator. This has been affecting beneficial. He will receive Solu-Medrol today again and go prednisone taper and then go back on the levofloxacin. Hopefully we can get a culture back to put on the right antibiotics. 04/17/2024 the patient is here for a pulmonary follow-up visit. He is back from [place]. At least he was able to enjoy himself. He is still being tapering down on the prednisone. Now on 20 mg. In addition to that the patient completed the Levaquin. His mucus burden his significantly improved. The back pain has improved. We did try to get a sputum culture but was not able to be able to be effective. Will try to get another sputum. He is still congested. If he continues to have issues with the congestion or if it worsens now that he is off the antibiotics we can not get a sputum culture then a bronchoscopy will be warranted. The patient will continue to taper down prednisone. We did look at the blood work. His IgG is low normal. Therefore is reasonable based on his height and weight that he should be on higher dose of the Gammagard. I will increase his IVIG from 40 g to 50 g. He can continue every 4 weeks. I will send a script down to the infusion center. He will continue with his current respiratory therapy. He does continue with noninvasive ventilator. And still we did talk about lung transplant and is not interested at this time. Will follow-up in 6-8 weeks. If he has any issues prior to that he will call for an earlier appointment. [facility] Medical History (Updated 02/07/24 @ 21:08 by Michele Burgos MD) Bronchopneumonia Asthma-COPD overlap syndrome Hypogammaglobulinemia Dyspnea Osteoporosis On supplemental oxygen therapy Compression fracture of thoracic spine, non-traumatic Weight loss due to medication Diabetes mellitus type 2 in nonobese GERD (gastroesophageal reflux disease) Personal history of nicotine dependence NADEEM treated with BiPAP Pulmonary nodules Chronic respiratory failure COPD (chronic obstructive pulmonary disease) (~2003) Surgical History (Updated 11/18/21 @ 14:34 by Fatoumata Guy PA-C) History of bronchoscopy (~2019) History of neck surgery History of colonoscopy Social History (Updated 11/18/21 @ 14:38 by Fatoumata Guy PA-C) Alcohol intake: current Alcohol intake frequency: 0-2 drinks per day Patient Tobacco Use Status: Former Tobacco user Tobacco use type: Cigarette Years Smoked: (onset 21yo, 1-2ppd x 41yrs, 50+PYH - quit 2017) Review of Systems Const Reports fatigue, Denies frequent falls and Denies weight loss Eyes Denies change in vision ENT Denies change in voice Card Denies chest pain, Denies dyspnea and Reports dyspnea on exertion Resp Reports change in phlegm color, Reports chest congestion, Reports cough, Denies hemoptysis, Reports excessive phlegm production, Denies dyspnea, Reports dyspnea on exertion and Reports wheezing GI Denies abdominal pain Musc Reports no additional complaints and Denies myalgias Skin/Breast Denies rash Neuro Denies frequent falls Endo Reports fatigue Aller/Immun Reports wheezing Physical Exam Vital Signs: Last Vital Signs Pulse 87 04/17/24 10:49 Pulse Ox 94 04/17/24 10:49 Oxygen Delivery Method Room Air 04/17/24 10:49 BMI result Body Mass Index 28.9 Const General: alert and Cushingoid facies Neck Neck: Yes normal visual inspection, Yes full ROM and Yes no lymphadenopathy Chest Chest palpation & inspection: normal inspection of the chest Resp Effort & Inspection: normal respiratory effort Auscultation: no rhonchi, wheezes and diminished lung sounds Cardio Rate: regular rate Rhythm: regular rhythm Heart sounds: S1 normal heart sound present and S2 normal heart sound present GI Palpation (GI): Soft to palpation and nontender Auscultation: normal bowel sounds Skin General skin exam: rashes and/or lesions noted Extrem General: Yes edema Assessment & Plan Assessment & Plan (1) Bronchopneumonia: Code(s): J18.0 - Bronchopneumonia, unspecified organism Category: Medical (2) COPD (chronic obstructive pulmonary disease): Onset Date: ~2003 Code(s): J44.9 - Chronic obstructive pulmonary disease, unspecified Category: Medical Qualifiers: COPD type: COPD with acute lower respiratory infection Qualified Code(s): J44.0 - Chronic obstructive pulmonary disease with (acute) lower respiratory infection (3) Chronic respiratory failure: Code(s): J96.10 - Chronic respiratory failure, unspecified whether with hypoxia or hypercapnia Category: Medical Qualifiers: Respiratory failure complication: hypoxia and hypercapnia Qualified Code(s): J96.11 - Chronic respiratory failure with hypoxia; J96.12 - Chronic respiratory failure with hypercapnia (4) Pulmonary nodules: Code(s): R91.8 - Other nonspecific abnormal finding of lung field Category: Medical (5) NADEEM treated with BiPAP: Code(s): G47.33 - Obstructive sleep apnea (adult) (pediatric) Category: Medical (6) Hypogammaglobulinemia: Code(s): D80.1 - Nonfamilial hypogammaglobulinemia Category: Medical Plan stopped Levaquin, monitor for tendonitis prednisone tapering sputum cx call for bronchosocpy if worsens or no better oxygen: change to 2L/min requesting POC to handle 2L/min if not available, oxygen tanks Hypertonic saline for CPT continue Daliresp Continue current respiratory regimen: Trelegy short-acting beta agonist as needed continue AVAPS with mouth piece. DME - [employer] Will use the F20 Large mask diuresis as tolerared Lung transplantation evaluation on hold follow-up in 2-3 months Orders: Orders Sputum Cult + Gram stain Today J18.0 - Bronchopneumonia, unspecified organism Referrals Infusion Center Notification D80.1 - Nonfamilial hypogammaglobulinemia Coding Level of Care Code Est Pt Level 4 (94297) Complex EM visit Add On G2211 Diagnoses Bronchopneumonia J18.0 Chronic obstructive pulmonary disease with acute lower respiratory infection J44.0 COPD type: COPD with acute lower respiratory infection Chronic respiratory failure with hypoxia and hypercapnia J96.11; J96.12 Respiratory failure complication: hypoxia and hypercapnia Pulmonary nodules R91.8 NADEEM treated with BiPAP G47.33 Hypogammaglobulinemia D80.1 Time Spent (min) 18
[2024-04-17 10:49] VITALS: PULSE 87; O2SAT 94; BMI 28.9
== END 2024-04-17 11:16 | disposition home or self-care (01) ==
PROVIDERS: PCP Physician Assistant Medical; Visit Provider Hospitalist
DX: J18.0 Bronchopneumonia, unspecified organism (principal); J44.0 Chronic obstructive pulmonary disease with (acute) lower respiratory infection; J96.11 Chronic respiratory failure with hypoxia; J96.12 Chronic respiratory failure with hypercapnia; R91.8 Other nonspecific abnormal finding of lung field; G47.33 Obstructive sleep apnea (adult) (pediatric); D80.1 Nonfamilial hypogammaglobulinemia
CPT/HCPCS: 99214; G2211

== ENCOUNTER → 2024-04-17 10:46 | Outpatient (BNVA) | payer MEDICARE, SELFPAY | PROVIDERS: PCP Physician Assistant Medical; Visit Provider Hospitalist | DX: J42 Unspecified chronic bronchitis (principal); J96.12 Chronic respiratory failure with hypercapnia; J96.11 Chronic respiratory failure with hypoxia; J18.0 Bronchopneumonia, unspecified organism; G47.33 Obstructive sleep apnea (adult) (pediatric); D80.1 Nonfamilial hypogammaglobulinemia; Z99.81 Dependence on supplemental oxygen; Z87.891 Personal history of nicotine dependence; Z79.52 Long term (current) use of systemic steroids | CPT/HCPCS: 99212 ==

== ENCOUNTER 2024-06-17 09:27 | Outpatient (AMB) | payer MEDICARE, SELFPAY ==
--- NOTE | 2024-06-17 09:42 | A.OFFVIS_ITS ---
Vital Signs 06/17/24 09:43 Height 6 ft 2 in Weight 220 lb BMI 28.2 BP 138/78 Blood Pressure Location Lt brachial Position Sitting Pulse 90 Pulse Source Pulse Oximeter Pulse Oximetry (%) 97 Oxygen Delivery Method Room Air Comment 2 Liters Oxygen([facility]) Intake Visit Reasons: Cough Ratings Analyst Required: No Allergies theophylline Allergy (Severe, Verified 06/17/24 09:42) Cardiac Arrythmia levofloxacin [From Levaquin] Allergy (Unknown, Verified 06/17/24 09:42) Unknown Penicillins Allergy (Unknown, Verified 06/17/24 09:42) Unknown HPI Comments Details: The patient is a 68-year-old gentleman with known severe COPD primarily due to chronic bronchitis with respiratory failure currently on oxygen in addition to obstructive sleep apnea currently on BiPAP who apparently had been having worsening respiratory symptoms sometime around 2018. The patient had been admi tted to the hospital with worsening respiratory symptoms. Ultimately referred to [facility] where he took part in a experimental procedure for chronic bronchitis with the name of Maryanne swan. The study performed thermal plasty to the airways to reduce mucus producing plans. Apparently after the procedure patient did have significant improvement and was able to come off prednisone. She just Trelegy does use nebulized therapy with DuoNeb as needed. Otherwise the patient is not having any other chest physical therapy. he was taking part in the lung cancer screening program primarily at [facility]. However, once he was situated with [facility] he had been getting CAT scan stairs part of the research protocol. Now that he has completed that protocol we have to get him back on the lung cancer screening program. He did have some small pulmonary nodules that need to be followed. He is still high risk with significant smoking in the past. the patient has not had any CT scans the last year. In the meantime the patient was diagnosed of sleep apnea and ultimately underwent a titration study back in 2017. he is currently on BiPAP. It was able to download the machine and currently the BiPAP is at 21/80. He also uses 5 L of oxygen with his BiPAP. He does use a nasal pillow mask which appears to be a significantly high pressure to be administered through his nose. He has significant air leakage up to 41 liters/minute average and does develop a dry mouth. He is also leaking significant amount air. I did suggest that he should go on a fullface mask. The patient is agreeable. Initially retry the F30 medium mask but due to the high pressures He will leak out significantly. Therefore I did provide him with a medium F20 mask that he tolerated much better. I also decrease his pressures down to 18/8. It appears that on his previous titration study from [facility] he was able to do well even with the pressure of 12/5. The patient also will decrease the oxygen from 5 L to 3 L and will have his DME company perform an overnight oximetry in order to address the question if this is adequate therapy. He did have recent pulmonary function studies in [facility] which I personally reviewed. His FEV1 is down to 33% consistent with very severe COPD he does have significant air trapping and also has severe diffusion impairment. Patient also had a recent blood gas which is very reassuring with normal acid- base status and his pCO2 was within normal limits. 08/30/2022 the patient is here for a pulmonary follow-up visit. He has had a very eventful several weeks. He has had significant issues with his breathing. Was readmitted to [facility] with the COPD exacerbation. Subsequently after that he was discharged and his BiPAP broke down. He had to go back to the hospital because of acute on chronic respiratory failure were not being able to use the BiPAP. Ultimately he is still using the broken BiPAP but he can only use it for about 4 hours at a time. He should be getting his new BiPAP fairly soon. He is noticing worsening chest congestion. Seems like he cannot get below 30 mg of prednisone. His blood sugars have been elevated. He has been very discouraged with all this. He also went to [facility] and spoke to the transplant surgeon. They did bring to his attention that he has significant amount of lower extremity edema. He has been on torsemide. The lower extremity edema has improved. He did not need to increase it. He does have a follow-up with his aqua ammonia operator as well. Likely the combination of not been able to use the BiPAP dietary indiscretions and all the prednisone resulted in the lower extremity edema. He is going to start monitoring his weight closely. If the patient gains more than 3 lb/24 hr I did recommend that he takes an additional torsemide. I have will get blood work today. In addition to that I did provide him with nebulized treatment to try to get a sputum culture but we were not able to do so. We did talk about considering bronchoscopy with therapeutic cleaning and deep suctioning of we cannot get him feeling better. Will go ahead and adjust his nebulized therapy at this time in order to try to get him off the prednisone. 02/15/2023 the patient is here for pulmonary follow-up visit. He has been a while since I evaluated the patient. He has been very ill with multiple hospitalizations ended up in [facility] ICU and did require a prolonged invasive ventilation where he spent 14 days in the ICU unit ventilated. This is after developing human metapneumovirus and then subsequently pneumonia after that. Th e patient has a very we can immune system. The last time the IgG was checked was in the 300s. He was supposed to start IVIG therapy but it was side tried because of his multiple infections. He currently on prophylactic antibiotics. He needs to start IVIG. There was mention about using biologic therapy which she takes in. At this point will go ahead and focus on getting him his IVIG that will definitely be effective for him. Then once he is on stab list therapy we can consider biologic therapies. He is on chronic steroids her eosinophils obese be decreased. His IgE levels have been normal in the past suggesting that there is not really allergic component that is driving this to suggest biologics may be too effective for him. A the patient did follow-up id the lung transplant clinic. The patient declined to go further at this time. He will consider in the future. He also continues using the BiPAP. The patient developed respiratory failure and CO2 have been elevated even on the BiPAP, PCO2 55mmHg. Therefore will go ahead in his changing from the BiPAP to a APAP astral machine with a sip and puff that he can use during the daytime. I think having the affordability of the noninvasive ventilator will also allow him to be able to do things outside of the home and uses noninvasive ventilator I would daily at nighttime and also with the mouthpiece that he can use it during the daytime. 08/10/2023 the patient is here for pulmonary follow-up visit. Overall the patient is still doing well. He is tolerating the IVIG without any adverse effects. Through levels are good. The patient also continues to use the noninvasive ventilator. The noninvasive ventilator has been very affecting beneficial. He does use it every night. Will go ahead and have him there had do the mouthpiece so he can also use it during the day as needed. He is responding well to the Trelegy. His prednisone is off completely. No evidence of adrenal insufficiency. The patient also has been exercising online with pulmonary rehab. This has been very helpful. Overall the patient has been doing significantly better. We did talk about lung transplant but the patient would like to still hold off at this time. Does not look like he is interested to pursue this at this time. We did talk about vaccines. 02/07/2024 this is the telehealth sick visit for the patient. He has been having worsening respiratory symptoms for the last 10 days. He had call the office and we have sent a prescription for prednisone also cefpodoxime. Although no significant improvement. Still having significant productive cough. Difficult to expectorate also having right-sided pleuritic discomfort. Denies any fevers or chills. He did call his primary care doctor he was given some tramadol for the pain that was only partially helpful. The patient in the meantime continues to receive the IVIG with good effect. Continues use the BiPAP with good effect. He has had Pseudomonas in the past although he can not tolerate high doses of quinolones. He has tolerated the low-dose quinolone the past. Therefore I will send him levofloxacin 250 and then if she tolerates that after weekend if he still having symptoms he can try increasing it to the 500 mg does monitoring closely for any tendonitis. The patient also undergo a chest x-ray. The symptoms worsening may need to go to the hospital or if his x-rays significantly abnormal alcohol him to go to the hospital. 03/24/2024 the patient is here for sick visit. He has been having hard summer. He has been coughing more she has congestion. Having hard time breathing. He had been placed on a low-dose levofloxacin which she tolerated without any evidence of any tendonitis. His symptoms did improve. We did once he stopped the antibiotics his symptoms reoccurred. He is still getting the IVIG. He did have blood work today to see if he has low IgG not want if we have to adjusted dose. In the meantime we are able to get a sputum culture sent to the laboratory. He has very diminished with breath sounds right now significant chest tightness. Will give Solu-Medrol today. He is also using the oxygen. He did not do well on the pulse therefore we come off the pulse and did a 6 minute walk test. The patient needed 2 L continuous with rest and also with activity. We did reach out to [facility] but the 1 from [place] to see if we can switch him over to a portable oxygen concentrator with the 2 liters/minute capability. If the patient is not able to get a portable oxygen concentrator that can have 2 liters/minute who have to go back on oxygen tanks. Will send a script to the company at this time. He will continue to use his noninvasive ventilator. This has been affecting beneficial. He will receive Solu-Medrol today again and go prednisone taper and then go back on the levofloxacin. Hopefully we can get a culture back to put on the right antibiotics. 04/17/2024 the patient is here for a pulmonary follow-up visit. He is back from [place]. At least he was able to enjoy himself. He is still being tapering down on the prednisone. Now on 20 mg. In addition to that the patient completed the Levaquin. His mucus burden his significantly improved. The back pain has improved. We did try to get a sputum culture but was not able to be able to be effective. Will try to get another sputum. He is still congested. If he continues to have issues with the congestion or if it worsens now that he is off the antibiotics we can not get a sputum culture then a bronchoscopy will be warranted. The patient will continue to taper down prednisone. We did look at the blood work. His IgG is low normal. Therefore is reasonable based on his height and weight that he should be on higher dose of the Gammagard. I will increase his IVIG from 40 g to 50 g. He can continue every 4 weeks. I will send a script down to the infusion center. He will continue with his current respiratory therapy. He does continue with noninvasive ventilator. And still we did talk about lung transplant and is not interested at this time. Will follow-up in 6-8 weeks. If he has any issues prior to that he will call for an earlier appointment. 06/17/2024 the patient is here for pulmonary follow-up visit. He is still struggling with the chest congestion. He did complete a course of antibiotics again with loud low-dose levofloxacin but only help partially. We did try to get a sputum culture but not able to do a proper sputum as it is been contaminated a few times. He continues to have the significant congestion di fficult to breathe. This point will be reasonable to do a bronchoscopy for clean out in for deep cultures. The patient is agreeable at this time. In addition to that he continues with the IVIG. Although we had increased the dose to 50 g and I believe the last time that he received it this month he only got 40 g. Therefore will call the pharmacy to see was going on the make sure that he is get the proper does administered specially with his immunodeficiency. The patient will have a bronchoscopy will follow-up after the bronchoscopy. [facility] Medical History (Updated 02/07/24 @ 21:08 by Michele Burgos MD) Bronchopneumonia Asthma-COPD overlap syndrome Hypogammaglobulinemia Dyspnea Osteoporosis On supplemental oxygen therapy Compression fracture of thoracic spine, non-traumatic Weight loss due to medication Diabetes mellitus type 2 in nonobese GERD (gastroesophageal reflux disease) Personal history of nicotine dependence NADEEM treated with BiPAP Pulmonary nodules Chronic respiratory failure COPD (chronic obstructive pulmonary disease) (~2003) Surgical History (Updated 11/18/21 @ 14:34 by Fatoumata Guy PA-C) History of bronchoscopy (~2018) History of neck surgery History of colonoscopy Social History (Updated 11/18/21 @ 14:38 by Fatoumata Guy PA-C) Alcohol intake: current Alcohol intake frequency: 0-2 drinks per day Patient Tobacco Use Status: Former Tobacco user Tobacco use type: Cigarette Years Smoked: (onset 21yo, 1-2ppd x 41yrs, 50+PYH - quit 2017) Review of Systems Const Reports fatigue, Denies frequent falls and Denies weight loss Eyes Denies change in vision ENT Denies change in voice Card Denies chest pain, Denies dyspnea and Reports dyspnea on exertion Resp Reports change in phlegm color, Reports chest congestion, Reports cough, Denies hemoptysis, Reports excessive phlegm production, Denies dyspnea, Reports dyspnea on exertion and Reports wheezing GI Denies abdominal pain Musc Reports no additional complaints and Denies myalgias Skin/Breast Denies rash Neuro Denies frequent falls Endo Reports fatigue Aller/Immun Reports wheezing Physical Exam Vital Signs: Last Vital Signs Pulse 90 06/17/24 09:43 BP 138/78 06/17/24 09:43 Pulse Ox 97 06/17/24 09:43 Oxygen Delivery Method Room Air 06/17/24 09:43 BMI result Body Mass Index 28.2 Const General: alert and Cushingoid facies Neck Neck: Yes normal visual inspection, Yes full ROM and Yes no lymphadenopathy Chest Chest palpation & inspection: normal inspection of the chest Resp Effort & Inspection: normal respiratory effort Auscultation: rhonchi and diminished lung sounds Cardio Rate: regular rate Rhythm: regular rhythm Heart sounds: S1 normal heart sound present and S2 normal heart sound present GI Palpation (GI): Soft to palpation and nontender Auscultation: normal bowel sounds Skin General skin exam: rashes and/or lesions noted Extrem General: Yes edema Results Reviewed Results Reviewed: personally reviewd CT chest 2021 with emphysema Assessment & Plan Assessment & Plan (1) Bronchopneumonia: Code(s): J18.0 - Bronchopneumonia, unspecified organism Category: Medical (2) COPD (chronic obstructive pulmonary disease): Onset Date: ~2003 Code(s): J44.9 - Chronic obstructive pulmonary disease, unspecified Category: Medical Qualifiers: COPD type: COPD with acute lower respiratory infection Qualified Code(s): J44.0 - Chronic obstructive pulmonary disease with (acute) lower respiratory infection (3) Chronic respiratory failure: Code(s): J96.10 - Chronic respiratory failure, unspecified whether with hypoxia or hypercapnia Category: Medical Qualifiers: Respiratory failure complication: hypoxia and hypercapnia Qualified Code(s): J96.11 - Chronic respiratory failure with hypoxia; J96.12 - Chronic respiratory failure with hypercapnia (4) Pulmonary nodules: Code(s): R91.8 - Other nonspecific abnormal finding of lung field Category: Medical (5) NADEEM treated with BiPAP: Code(s): G47.33 - Obstructive sleep apnea (adult) (pediatric) Category: Medical (6) Hypogammaglobulinemia: Code(s): D80.1 - Nonfamilial hypogammaglobulinemia Category: Medical Plan prednisone 10 daily bronchosocpy for therapeutic cleaning and deep cultures oxygen: change to 2L/min requesting POC to handle 2L/min if not available, oxygen tanks Hypertonic saline for CPT continue Daliresp Continue current respiratory regimen: Trelegy short-acting beta agonist as needed continue AVAPS with mouth piece. DME - [employer] Will use the F20 Large mask diuresis as tolerared Lung transplantation evaluation on hold follow-up in 2-3 months Medications: New prednisone 20 mg (2 x 10 mg) PO DAILY 60 tabs 6RF 30 days Coding Level of Care Code Est Pt Level 5 (43017) Complex EM visit Add On G2211 Diagnoses Bronchopneumonia J18.0 Chronic obstructive pulmonary disease with acute lower respiratory infection J44.0 COPD type: COPD with acute lower respiratory infection Chronic respiratory failure with hypoxia and hypercapnia J96.11; J96.12 Respiratory failure complication: hypoxia and hypercapnia Pulmonary nodules R91.8 NADEEM treated with BiPAP G47.33 Hypogammaglobulinemia D80.1 Time Spent (min) 35
[2024-06-17 09:43] VITALS: BP 138/78; PULSE 90; O2SAT 97; BMI 28.2
== END 2024-06-17 10:01 | disposition home or self-care (01) ==
PROVIDERS: PCP Physician Assistant Medical; Visit Provider Hospitalist
DX: J18.0 Bronchopneumonia, unspecified organism (principal); J44.0 Chronic obstructive pulmonary disease with (acute) lower respiratory infection; J96.11 Chronic respiratory failure with hypoxia; J96.12 Chronic respiratory failure with hypercapnia; R91.8 Other nonspecific abnormal finding of lung field; G47.33 Obstructive sleep apnea (adult) (pediatric); D80.1 Nonfamilial hypogammaglobulinemia
CPT/HCPCS: 99214; G2211

== ENCOUNTER → 2024-06-17 09:27 | Outpatient (BNVA) | payer MEDICARE, SELFPAY | PROVIDERS: PCP Physician Assistant Medical; Visit Provider Hospitalist | DX: J44.0 Chronic obstructive pulmonary disease with (acute) lower respiratory infection (principal); J96.12 Chronic respiratory failure with hypercapnia; J96.11 Chronic respiratory failure with hypoxia; J18.0 Bronchopneumonia, unspecified organism; R91.8 Other nonspecific abnormal finding of lung field; G47.33 Obstructive sleep apnea (adult) (pediatric); D80.1 Nonfamilial hypogammaglobulinemia; Z99.89 Dependence on other enabling machines and devices; Z99.81 Dependence on supplemental oxygen | CPT/HCPCS: 99212 ==

== ENCOUNTER 2024-06-30 11:16 | Day surgery (SDC) | payer MEDICARE, SELFPAY ==
[2024-06-30 12:08] VITALS: BMI 28.5
--- NOTE | 2024-06-30 12:10 | MHC.SHP ---
Pre-Procedural Eval Section A - 24 Hr Update-Section A only Date of Service: 06/30/24 The patient is an INPATIENT: No Changes since office visit: No Cold of Flu in the past 2 weeks, No New Medical Problems, No Changes in Medication and No Patient answered all questions Section B - Complete if H&P > 30 days Chief Complaint: Bronchiectasis with acute lower respiratory infect Allergies: Allergies Allergy/AdvReac Type Severity Reaction Status Date / Time theophylline Allergy Severe Cardiac Verified 06/30/24 12:09 Arrythmia levofloxacin [From Levaquin] Allergy Unknown Unknown Verified 06/30/24 12:09 Penicillins Allergy Unknown Unknown Verified 06/30/24 12:09 Plan I have reviewed the history and physical and performed a pertinent physical examination on my patient. No changes have occurred unless specified. Time Spent With Patient Time: Total time managing care of this patient today ____ minutes.
[2024-06-30 12:21] VITALS: BP 130/73; PULSE 69; RESP 18; TEMP 36.8; O2SAT 98
--- NOTE | 2024-06-30 13:04 | HO.ANESPROP2 ---
HPI - Anesthesia Eval Consult details Narrative: 68 yo male patient for Fiberoptic bronchoscopy Anesthesia Pre-Procedure Meds Is the patient on any of the following meds?: GLP1/DPP4 (Last dose of tirzepatide 06/21/24) and SGLT2 Inhib (Last dose of empagliflozin 06/26/24) If yes to any meds - educate patient: Pt education - increased risk of aspiration and/or euvolemic DKA PMFSH Active Problems Active Problems: All Active Problems Bronchopneumonia (Acute) Asthma-COPD overlap syndrome (Acute) Hypogammaglobulinemia (Acute) Dyspnea (Acute) COPD (chronic obstructive pulmonary disease) (Acute ~2003) Chronic respiratory failure (Acute) On supplemental oxygen therapy (Acute) NADEEM treated with BiPAP (Acute) Pulmonary nodules (Acute) Personal history of nicotine dependence (Acute) Past Medical History Medical History Bronchopneumonia Asthma-COPD overlap syndrome Hypogammaglobulinemia Dyspnea Osteoporosis On supplemental oxygen therapy Compression fracture of thoracic spine, non-traumatic Weight loss due to medication Diabetes mellitus type 2 in nonobese GERD (gastroesophageal reflux disease) Personal history of nicotine dependence NADEEM treated with BiPAP Pulmonary nodules Chronic respiratory failure COPD (chronic obstructive pulmonary disease) (~2003) Family History Family history of problems with anesthesia: No Surgical History Surgical History History of bronchoscopy (~2018) History of neck surgery History of colonoscopy History of Problems with Anesthesia: No Social History Social History Alcohol intake: current Alcohol intake frequency: 0-2 drinks per day Patient Tobacco Use Status: Former Tobacco user Tobacco use type: Cigarette Years Smoked: (onset 21yo, 1-2ppd x 41yrs, 50+PYH - quit 2016) Use of substances other than those prescribed or required for medical reasons: No Are you DNR?: No Advance Directives: No Advance Directives Information Provided: Yes Meds Allergies Allergy/AdvReac Type Severity Reaction Status Date / Time theophylline Allergy Severe Cardiac Verified 06/30/24 12:09 Arrythmia levofloxacin [From Levaquin] Allergy Unknown Unknown Verified 06/30/24 12:09 Penicillins Allergy Unknown Unknown Verified 06/30/24 12:09 Home Medications ?Medication ?Instructions ?Recorded ?Confirmed ?Last Taken ?Type atorvastatin 20 mg tablet 20 mg PO DAILY 10/25/21 06/30/24 Unknown History diltiazem HCl 240 mg 240 mg PO DAILY 10/25/21 06/30/24 06/30/24 05:30 History capsule,extended release 24 hr empagliflozin 25 mg-metformin ER 1 tab PO DAILY 10/25/21 06/30/24 06/26/24 History 1,000 mg tablet,extended release 24hr (Synjardy XR) ipratropium 0.5 mg-albuterol 3 mg 3 ml inhalation QID PRN sob 10/25/21 06/30/24 Unknown History (2.5 mg base)/3 mL nebulization soln omeprazole 20 mg capsule,delayed 20 mg PO DAILY 10/25/21 06/30/24 Unknown History release ergocalciferol (vitamin D2) 1,250 0 mcg PO 01/13/22 Unknown History mcg (50,000 unit) capsule testosterone 50 mg/5 gram (1 %) 1 packet topical DAILY 01/13/22 06/30/24 Unknown History transdermal gel Oxygen Home Use 08/30/22 Unknown History alprazolam 0.5 mg tablet 0.5 mg PO BID 08/30/22 06/30/24 Unknown History insulin glargine 100 unit/mL (3 unit subcut 08/30/22 Unknown History mL) subcutaneous pen (Lantus Solostar U-100 Insulin) insulin lispro 100 unit/mL 2 - 10 unit subcut DIRECTED 08/30/22 06/30/24 Unknown History subcutaneous pen nebulizers 08/30/22 Unknown History apixaban 5 mg tablet (Eliquis) 5 mg PO Q12H 02/15/23 06/30/24 06/26/24 History metoprolol succinate 25 mg 25 mg PO .PM 02/15/23 06/30/24 Unknown History tablet,extended release 24 hr metoprolol succinate 50 mg 50 mg PO .AM 02/15/23 06/30/24 06/30/24 05:30 History tablet,extended release 24 hr torsemide 20 mg tablet 10 mg PO DAILY 02/15/23 Unknown History tirzepatide 12.5 mg/0.5 mL mg subcut 02/07/24 06/21/24 History subcutaneous pen injector (Stephen) clonazepam 0.5 mg tablet mg PO 03/24/24 Unknown History Exam Height,Weight and Vital Signs: Height 6 ft 2 in Weight 100.698 kg Last Vital Signs Temp 98.3 F 06/30/24 12:21 Pulse 69 06/30/24 12:21 Resp 18 06/30/24 12:21 BP 130/73 06/30/24 12:21 Pulse Ox 98 06/30/24 12:21 O2 Del Method Nasal Cannula 06/30/24 12:21 O2 Flow Rate 3 06/30/24 12:21 Pertinent Lab Results Pertinent Lab Results: Poc 213mg/dl Airway Mallampati Class: III TM Dist: >3cm Loose/Missing/Broken Teeth: Yes (Many missing, some broken teeth. Denies loose teeth) Heart: RRR Lungs: CTAB. Diminished Assessment and Plan Assessment Anesthesia Assessment: Anesthesia Plan Discussed and Chart Reviewed Final Anesthetic Review Family History of Problems with Anesthesia: No History of Problems with Anesthesia: No NPO: Yes ASA Class: III Final Preanesthetic Review: No Changes in Pt Med Stat, Meds/Allgs Chart Reviewed, Consent Obtained/Reviewed and Anes Risks/Benef Reviewed Patient Risk: Intermediate Procedure Risk: Low Assessment/Block/Sedation in SS: Assess/Block/Sedation-SS Anesthetic Plan Anesthetic Plan: GA Disposition: Standard PACU
[2024-06-30 13:47] VITALS: BP 145/88; PULSE 85; RESP 18; TEMP 36.6
[2024-06-30 13:50] VITALS: BP 146/70; PULSE 76; RESP 18; O2SAT 98
[2024-06-30 13:55] VITALS: BP 136/55; PULSE 73; RESP 18; O2SAT 98
[2024-06-30 14:00] VITALS: BP 136/79; PULSE 73; RESP 18; O2SAT 98
[2024-06-30 14:15] VITALS: BP 130/77; PULSE 72; RESP 18; TEMP 36.6; O2SAT 98
--- NOTE | 2024-06-30 15:39 | PM.OP ---
Brief Operative Note Date of Service: 06/30/24 Pre-op diagnosis: bronchiectasis Post-op diagnosis: same Procedure: Bronchoscopy with therapeutic cleaning and brushings Surgeon: Michele Burgos MD Anesthesia: GLMA Was an Heat Treat Worker used for this Procedure?: No Estimated blood loss (mL): 0 Pathology: none sent Condition: stable Disposition: same day
--- NOTE | 2024-07-01 02:04 | OP_ITS ---
DATE OF SERVICE: 06/30/2024 SURGEON: Michele Burgos MD PREOPERATIVE DIAGNOSIS: POSTOPERATIVE DIAGNOSIS: PROCEDURE PERFORMED: ESTIMATED BLOOD LOSS: COMPLICATIONS: None. ANESTHESIA: LMA. ASSISTANTS: SPECIMENS: ASA CLASSIFICATION: IV. PREOPERATIVE DIAGNOSES: Bronchiectasis and tracheomalacia. POSTOPERATIVE DIAGNOSES: Bronchiectasis and tracheomalacia. STATUS: Stable. Will be able to go home today. CFO: None. DESCRIPTION OF PROCEDURE: After the patient was adequately sedated, LMA in place, a flexible digital bronchoscope was inserted via the LMA to the level of the larynx. There was a lot of frothy secretions in the larynx, although that did move normally. No evidence of any laryngeal lesions. After instilling lidocaine, the bronchoscope was then passed the vocal chord to the level of the trachea. 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 The patient also has some secretions in the trachea. Also had evidence of some tracheomalacia, although only blocking 50% of the airway. The bronchoscope was then navigated to the entire tracheobronchial tree, which was exsanguinated to the subsegmental level. No evidence of any endobronchial lesions or masses. He did have more loose mucous secretions throughout, moderate in severity, throughout the airways. Using normal saline, we did perform washings throughout the airways up to the subsegmental level and cleaned out all the airways. Also introduced a microscopic brush into the right lower lobe for microbiology specimens. Both the washings and the brush were sent to the appropriate location for further analysis. After the airways were cleaned, the bronchoscope was then removed. The total endoscopic time approximately 8 minutes. The patient tolerated the procedure well. Vital signs were stable. He was able to go to PACU. He is recovering well. MD ADONIS Adrian/KARLAL / [id number]
== END 2024-06-30 14:38 | disposition home or self-care (01) ==
PROVIDERS: PCP Physician Assistant Medical; Visit Provider Hospitalist
PROC: 0BJ08ZZ Inspection of Tracheobronchial Tree, Via Natural or Artificial Opening Endoscopic (ICD-10-PCS; CPT 31622; principal; 2024-06-30 13:00)
DX: J18.0 Bronchopneumonia, unspecified organism (principal); B95.3 Streptococcus pneumoniae as the cause of diseases classified elsewhere; J44.0 Chronic obstructive pulmonary disease with (acute) lower respiratory infection; J96.11 Chronic respiratory failure with hypoxia; J96.12 Chronic respiratory failure with hypercapnia; Z99.81 Dependence on supplemental oxygen; J39.8 Other specified diseases of upper respiratory tract; R91.8 Other nonspecific abnormal finding of lung field; R05.9 Cough, unspecified; G47.33 Obstructive sleep apnea (adult) (pediatric); D80.9 Immunodeficiency with predominantly antibody defects, unspecified; Z79.52 Long term (current) use of systemic steroids; Z79.51 Long term (current) use of inhaled steroids; Z99.89 Dependence on other enabling machines and devices; Z88.0 Allergy status to penicillin; Z88.1 Allergy status to other antibiotic agents; Z88.8 Allergy status to other drugs, medicaments and biological substances; Z98.890 Other specified postprocedural states; Z87.891 Personal history of nicotine dependence
CPT/HCPCS: 31623; 87070; 87077; 87102; 87106; 87107; 87116; 87205; 87206; J0171; J2003; J2704; J3010

== ENCOUNTER → 2024-06-30 11:16 | Outpatient (BNV) | payer MEDICARE, SELFPAY | PROVIDERS: PCP Physician Assistant Medical; Visit Provider Hospitalist | DX: J47.0 Bronchiectasis with acute lower respiratory infection (principal) | CPT/HCPCS: 31623 ==

== ENCOUNTER 2024-08-01 09:44 | Outpatient (AMB) | payer MEDICARE, SELFPAY ==
--- NOTE | 2024-08-01 09:51 | MHC.OFFVIS ---
Vital Signs 08/01/24 09:52 Weight 220 lb 7.396 oz BP 124/78 Blood Pressure Location Lt brachial Position Sitting Pulse 89 Pulse Source Pulse Oximeter Pulse Oximetry (%) 96 Oxygen Delivery Method Nasal Cannula Oxygen Flow Rate 3 Intake Visit Reasons: s/p Bronch Allergies theophylline Allergy (Severe, Verified 08/01/24 09:54) Cardiac Arrythmia levofloxacin [From Levaquin] Allergy (Unknown, Verified 08/01/24 09:54) Unknown Penicillins Allergy (Unknown, Verified 08/01/24 09:54) Unknown HPI Comments Details: The patient is a 68-year-old gentleman with known severe COPD primarily due to chronic bronchitis with respiratory failure currently on oxygen in addition to obstructive sleep apnea currently on BiPAP who apparently had been having worsening respiratory symptoms sometime around 2018. The patient had been admitted to the hospital with worsening respiratory symptoms. Ultimately referred to [facility] where he took part in a experimental procedure for chronic bronchitis with the name of Maryanne swan. The study performed thermal plasty to the airways to reduce mucus producing plans. Apparently after the procedure patient did have significant improvement and was able to come off prednisone. She just Trelegy does use nebulized therapy with DuoNeb as needed. Otherwise the patient is not having any other chest physical therapy. he was taking part in the lung cancer screening program primarily at [facility]. However, once he was situated with [facility] he had been getting CAT scan stairs part of the research protocol. Now that he has completed that protocol we have to get him back on the lung cancer screening program. He did have some small pulmonary nodules that need to be followed. He is still high risk with significant smoking in the past. the patient has not had any CT scans the last year. In the meantime the patient was diagnosed of sleep apnea and ultimately underwent a titration study back in 2017. he is currently on BiPAP. It was able to download the machine and currently the BiPAP is at 21/80. He also uses 5 L of oxygen with his BiPAP. He does use a nasal pillow mask which appears to be a significantly high pressure to be administered through his nose. He has significant air leakage up to 41 liters/minute average and does develop a dry mouth. He is also leaking significant amount air. I did suggest that he should go on a fullface mask. The patient is agreeable. Initially retry the F30 medium mask but due to the high pressures He will leak out significantly. Therefore I did provide him with a medium F20 mask that he tolerated much better. I also decrease his pressures down to 18/8. It appears that on his previous titration study from [facility] he was able to do well even with the pressure of 12/5. The patient also will decrease the oxygen from 5 L to 3 L and will have his DME company perform an overnight oximetry in order to address the question if this is adequate therapy. He did have recent pulmonary function studies in [facility] which I personally reviewed. His FEV1 is down to 33% consistent with very severe COPD he does have significant air trapping and also has severe diffusion impairment. Patient also had a recent blood gas which is very reassuring with normal acid-base status and his pCO2 was within normal limits. 08/30/2022 the patient is here for a pulmonary follow-up visit. He has had a very eventful several weeks. He has had significant issues with his breathing. Was readmitted to [facility] with the COPD exacerbation. Subsequently after that he was discharged and his BiPAP broke down. He had to go back to the hospital because of acute on chronic respiratory failure were not being able to use the BiPAP. Ultimately he is still using the broken BiPAP but he can only use it for about 4 hours at a time. He should be getting his new BiPAP fairly soon. He is noticing worsening chest congestion. Seems like he cannot get below 30 mg of prednisone. His blood sugars have been elevated. He has been very discouraged with all this. He also went to [facility] and spoke to the transplant surgeon. They did bring to his attention that he has significant amount of lower extremity edema. He has been on torsemide. The lower extremity edema has improved. He did not need to increase it. He does have a follow-up with his technician support engineer as well. Likely the combination of not been able to use the BiPAP dietary indiscretions and all the prednisone resulted in the lower extremity edema. He is going to start monitoring his weight closely. If the patient gains more than 3 lb/24 hr I did recommend that he takes an additional torsemide. I have will get blood work today. In addition to that I did provide him with nebulized treatment to try to get a sputum culture but we were not able to do so. We did talk about considering bronchoscopy with therapeutic cleaning and deep suctioning of we cannot get him feeling better. Will go ahead and adjust his nebulized therapy at this time in order to try to get him off the prednisone. 02/15/2023 the patient is here for pulmonary follow-up visit. He has been a while since I evaluated the patient. He has been very ill with multiple hospitalizations ended up in [facility] ICU and did require a prolonged invasive ventilation where he spent 14 days in the ICU unit ventilated. This is after developing human metapneumovirus and then subsequently pneumonia after that. The patient has a very we can immune system. The last time the IgG was checked was in the 300s. He was supposed to start IVIG therapy but it was side tried because of his multiple infections. He currently on prophylactic antibiotics. He needs to start IVIG. There was mention about using biologic therapy which she takes in. At this point will go ahead and focus on getting him his IVIG that will definitely be effective for him. Then once he is on stab list therapy we can consider biologic therapies. He is on chronic steroids her eosinophils obese be decreased. His IgE levels have been normal in the past suggesting that there is not really allergic component that is driving this to suggest biologics may be too effective for him. A the patient did follow-up id the lung transplant clinic. The patient declined to go further at this time. He will consider in the future. He also continues using the BiPAP. The patient developed respiratory failure and CO2 have been elevated even on the BiPAP, PCO2 55mmHg. Therefore will go ahead in his changing from the BiPAP to a APAP astral machine with a sip and puff that he can use during the daytime. I think having the affordability of the noninvasive ventilator will also allow him to be able to do things outside of the home and uses noninvasive ventilator I would daily at nighttime and also with the mouthpiece that he can use it during the daytime. 08/10/2023 the patient is here for pulmonary follow-up visit. Overall the patient is still doing well. He is tolerating the IVIG without any adverse effects. Through levels are good. The patient also continues to use the noninvasive ventilator. The noninvasive ventilator has been very affecting beneficial. He does use it every night. Will go ahead and have him there had do the mouthpiece so he can also use it during the day as needed. He is responding well to the Trelegy. His prednisone is off completely. No evidence of adrenal insufficiency. The patient also has been exercising online with pulmonary rehab. This has been very helpful. Overall the patient has been doing significantly better. We did talk about lung transplant but the patient would like to still hold off at this time. Does not look like he is interested to pursue this at this time. We did talk about vaccines. 02/07/2024 this is the telehealth sick visit for the patient. He has been having worsening respiratory symptoms for the last 10 days. He had call the office and we have sent a prescription for prednisone also cefpodoxime. Although no significant improvement. Still having significant productive cough. Difficult to expectorate also having right-sided pleuritic discomfort. Denies any fevers or chills. He did call his primary care doctor he was given some tramadol for the pain that was only partially helpful. The patient in the meantime continues to receive the IVIG with good effect. Continues use the BiPAP with good effect. He has had Pseudomonas in the past although he can not tolerate high doses of quinolones. He has tolerated the low-dose quinolone the past. Therefore I will send him levofloxacin 250 and then if she tolerates that after weekend if he still having symptoms he can try increasing it to the 500 mg does monitoring closely for any tendonitis. The patient also undergo a chest x-ray. The symptoms worsening may need to go to the hospital or if his x-rays significantly abnormal alcohol him to go to the hospital. 03/24/2024 the patient is here for sick visit. He has been having hard summer. He has been coughing more she has congestion. Having hard time breathing. He had been placed on a low-dose levofloxacin which she tolerated without any evidence of any tendonitis. His symptoms did improve. We did once he stopped the antibiotics his symptoms reoccurred. He is still getting the IVIG. He did have blood work today to see if he has low IgG not want if we have to adjusted dose. In the meantime we are able to get a sputum culture sent to the laboratory. He has very diminished with breath sounds right now significant chest tightness. Will give Solu-Medrol today. He is also using the oxygen. He did not do well on the pulse therefore we come off the pulse and did a 6 minute walk test. The patient needed 2 L continuous with rest and also with activity. We did reach out to [facility] but the 1 from [place] to see if we can switch him over to a portable oxygen concentrator with the 2 liters/minute capability. If the patient is not able to get a portable oxygen concentrator that can have 2 liters/minute who have to go back on oxygen tanks. Will send a script to the company at this time. He will continue to use his noninvasive ventilator. This has been affecting beneficial. He will receive Solu-Medrol today again and go prednisone taper and then go back on the levofloxacin. Hopefully we can get a culture back to put on the right antibiotics. 04/17/2024 the patient is here for a pulmonary follow-up visit. He is back from [place]. At least he was able to enjoy himself. He is still being tapering down on the prednisone. Now on 20 mg. In addition to that the patient completed the Levaquin. His mucus burden his significantly improved. The back pain has improved. We did try to get a sputum culture but was not able to be able to be effective. Will try to get another sputum. He is still congested. If he continues to have issues with the congestion or if it worsens now that he is off the antibiotics we can not get a sputum culture then a bronchoscopy will be warranted. The patient will continue to taper down prednisone. We did look at the blood work. His IgG is low normal. Therefore is reasonable based on his height and weight that he should be on higher dose of the Gammagard. I will increase his IVIG from 40 g to 50 g. He can continue every 4 weeks. I will send a script down to the infusion center. He will continue with his current respiratory therapy. He does continue with noninvasive ventilator. And still we did talk about lung transplant and is not interested at this time. Will follow-up in 6-8 weeks. If he has any issues prior to that he will call for an earlier appointment. 06/17/2024 the patient is here for pulmonary follow-up visit. He is still struggling with the chest congestion. He did complete a course of antibiotics again with loud low-dose levofloxacin but only help partially. We did try to get a sputum culture but not able to do a proper sputum as it is been contaminated a few times. He continues to have the significant congestion difficult to breathe. This point will be reasonable to do a bronchoscopy for clean out in for deep cultures. The patient is agreeable at this time. In addition to that he continues with the IVIG. Although we had increased the dose to 50 g and I believe the last time that he received it this month he only got 40 g. Therefore will call the pharmacy to see was going on the make sure that he is get the proper does administered specially with his immunodeficiency. The patient will have a bronchoscopy will follow-up after the bronchoscopy. 08/01/2024 the patient is here for a pulmonary follow-up visit. He has been feeling unwell recently. He started developing worsening respiratory symptoms once he completed the Vantin for 21 days. He has been having worsening shortness of breath and cough. He almost went to the ER. He had to take additional prednisone this morning because he had a hard time breathing. He is very limited at this time. He is using his oxygen. We did review his microbiology. It looks like he will some Aspergillus fumigatus in the sputum culture. Therefore, is reasonable to go ahead and treat him with voriconazole for a fungal infection specially with his immunocompromised state. In addition to that he is not moving a lot of Mumtaz will give him some Solu-Medrol. The patient will return back on the [employer] for few more weeks. The patient was supposed to have an x-ray today but he could not do it in time. Therefore he is going to hold off in end up getting his CT scan does coming up in the next week or so. The patient however is having significant symptoms. If his condition is to worsen even with aggressive respiratory and medical recommendations then he would need to go to the ER. He does continue to use his noninvasive ventilator at nighttime. Sometimes he feels like it is not enough pressure. Therefore I did increase the minute ventilation from 5->6 liters/minute and his tidal volume from 400->480 mL/min. Will plan to get blood work before his next visit. [facility] Medical History Bronchopneumonia Asthma-COPD overlap syndrome Hypogammaglobulinemia Dyspnea Osteoporosis On supplemental oxygen therapy Compression fracture of thoracic spine, non-traumatic Weight loss due to medication Diabetes mellitus type 2 in nonobese GERD (gastroesophageal reflux disease) Personal history of nicotine dependence NADEEM treated with BiPAP Pulmonary nodules Chronic respiratory failure COPD (chronic obstructive pulmonary disease) (~2003) Surgical History History of bronchoscopy (~2019) History of neck surgery History of colonoscopy Social History Alcohol intake: current Alcohol intake frequency: 0-2 drinks per day Patient Tobacco Use Status: Former Tobacco user Tobacco use type: Cigarette Years Smoked: (onset 21yo, 1-2ppd x 41yrs, 50+PYH - quit 2017) Review of Systems Const Reports fatigue, Denies frequent falls and Denies weight loss Eyes Denies change in vision ENT Denies change in voice Card Denies chest pain, Reports dyspnea and Reports dyspnea on exertion Resp Reports change in phlegm color, Reports chest congestion, Reports cough, Denies hemoptysis, Reports excessive phlegm production, Reports dyspnea, Reports dyspnea on exertion and Reports wheezing GI Denies abdominal pain Musc Reports no additional complaints and Denies myalgias Skin/Breast Denies rash Neuro Denies frequent falls Endo Reports fatigue Aller/Immun Reports wheezing Physical Exam Vital Signs: Last Vital Signs Pulse 89 08/01/24 09:52 BP 124/78 08/01/24 09:52 Pulse Ox 96 08/01/24 09:52 Oxygen Delivery Method Nasal Cannula 08/01/24 09:52 Oxygen Flow Rate 3 08/01/24 09:52 Const General: alert, in distress mild and Cushingoid facies Neck Neck: Yes normal visual inspection, Yes full ROM and Yes no lymphadenopathy Chest Chest palpation & inspection: normal inspection of the chest Resp Effort & Inspection: tachypneic, uses accessory muscles and prolonged expiratory phase Auscultation: rhonchi, wheezes and diminished lung sounds Cardio Rate: regular rate Rhythm: regular rhythm Heart sounds: S1 normal heart sound present and S2 normal heart sound present GI Palpation (GI): Soft to palpation and nontender Auscultation: normal bowel sounds Skin General skin exam: rashes and/or lesions noted Extrem General: Yes edema Office Meds methylprednisolone sod suc(PF) 125 mg/2 mL solution for injection Performing Provider: Michele Burgos MD Performing Location: [facility] Administered by: Ave Almaraz LPN on 08/01/24 10:42 Dose Route Admin Location Dispensed Lot Number Expiration Date [facility] Multi Skilled Operator 125 mg IM right buttock 125 ea Comments: given 125 mg/ 2ml. Assessment & Plan Assessment & Plan (1) Bronchopneumonia: Code(s): J18.0 - Bronchopneumonia, unspecified organism Category: Medical (2) COPD (chronic obstructive pulmonary disease): Onset Date: ~2003 Code(s): J44.9 - Chronic obstructive pulmonary disease, unspecified Category: Medical Qualifiers: COPD type: COPD with acute lower respiratory infection Qualified Code(s): J44.0 - Chronic obstructive pulmonary disease with (acute) lower respiratory infection (3) Chronic respiratory failure: Code(s): J96.10 - Chronic respiratory failure, unspecified whether with hypoxia or hypercapnia Category: Medical Qualifiers: Respiratory failure complication: hypoxia and hypercapnia Qualified Code(s): J96.11 - Chronic respiratory failure with hypoxia; J96.12 - Chronic respiratory failure with hypercapnia (4) Pulmonary nodules: Code(s): R91.8 - Other nonspecific abnormal finding of lung field Category: Medical (5) NADEEM treated with BiPAP: Code(s): G47.33 - Obstructive sleep apnea (adult) (pediatric) Category: Medical (6) Hypogammaglobulinemia: Code(s): D80.1 - Nonfamilial hypogammaglobulinemia Category: Medical Plan solumedrol->prednisone taper, then, prednisone 10 daily start voriconazole and restart vantin oxygen: change to 2L/min requesting POC to handle 2L/min if not available, oxygen tanks Hypertonic saline for CPT continue Daliresp Continue current respiratory regimen: Trelegy short-acting beta agonist as needed continue AVAPS with mouth piece. DME - [employer], incrase Vt 400 to 480 appx Will use the F20 Large mask diuresis as tolerared Lung transplantation evaluation on hold bloodwork CT chest next week If worsens or no better needs to go to the ED follow-up in 2-3 months Orders: Orders AMB Methylprednisolone Sod Succ Injection 08/01/24 J96.11 - Chronic respiratory failure with hypoxia, J96.12 - Chronic respiratory failure with hypercapnia Complete Blood Count Auto Diff 08/01/24 J18.0 - Bronchopneumonia, unspecified organism Liver Panel 08/01/24 J18.0 - Bronchopneumonia, unspecified organism Basic Metabolic Panel 08/01/24 J18.0 - Bronchopneumonia, unspecified organism Erythrocyte Sedimentation Rate 08/01/24 J18.0 - Bronchopneumonia, unspecified organism Sputum Cult + Gram stain 08/01/24 J18.0 - Bronchopneumonia, unspecified organism Venous Blood Gas 08/01/24 J18.0 - Bronchopneumonia, unspecified organism Medications: New prednisone PO daily; Take 6 tabs daily x 3 days, then 5 tabs x 3 days, then 4 tabs x 3 days, then 3 tabs x 3 days, then 2 tabs daily x 3 days, then 1 tab x 3 days to complete. 18 days 63 tabs 0RF voriconazole administer on empty stomach, at least 1 hour before or after meal(s) 200 mg PO Q12H 56 tabs 1RF 28 days Refilled cefpodoxime must administer with a meal/food 200 mg PO BID 42 tabs 0RF 21 days Coding Level of Care Code Est Pt Level 5 (25140) Complex EM visit Add On G2211 Diagnoses Bronchopneumonia J18.0 Chronic obstructive pulmonary disease with acute lower respiratory infection J44.0 COPD type: COPD with acute lower respiratory infection Chronic respiratory failure with hypoxia and hypercapnia J96.11; J96.12 Respiratory failure complication: hypoxia and hypercapnia Pulmonary nodules R91.8 NADEEM treated with BiPAP G47.33 Hypogammaglobulinemia D80.1 Time Spent (min) 30
[2024-08-01 09:52] VITALS: BP 124/78; PULSE 89; O2SAT 96
--- OUTSIDE RECORDS SUMMARY | 2024-08-06 07:06 | XMS_ITS ---
Author Organization Unknown Medications Medication Instructions Effective Dates (start - stop) Status prednisone 10 mg tablet 1 PO Daily 2023-03-29 - 2022 Stopped Eliquis 5 mg tablet 1 PO 2x daily 2023-03-29 - Active albuterol sulfate HFA 90 mcg/actuation aerosol inhaler PRN 2023-03-29 - Active torsemide 10 mg tablet 1 PO daily 2023-03-29 - Activ e Lantus Solostar U-100 Insuli n 100 unit/mL (3 mL) subcutaneous pen PRN 2023-03-29 - Active metoprolol tartrate 75 mg tablet 1 PO daily 2023-03-29 - Active Humalog KwikPen (U-100) Insulin 100 unit/mL subcutaneous PRN 2023-03-29 - Active immune glob,gamma(IgG) 15 %-18 % range-glycine intramuscular solution Once a month 2023-03-29 - Active Synjardy XR 25 mg-1,000 mg tablet, extended release 1 PO daily 2023-03-29 - Active omeprazole 20 mg capsule,delayed release 1 PO daily 2023-03-29 - Active Mounjaro 7.5 mg/0.5 mL subcutaneous pen injector Once a week 2023-03-29 - Active atorvastatin 20 mg tablet 1 PO daily 2023-03-29 - Ac tive roflumilast 500 mcg tablet 1 PO daily 2023-03-29 - A ctive Trelegy Ellipta 100 mcg-62.5 mcg-25 mcg powder for inhalation Once daily 2023-03-29 - Active doxycycline hyclate 100 mg capsule 1 PO MWF 2023-03-29 - Active diltiazem ER 240 mg tablet,extended release 24 hr 1 PO daily 2023-03-29 - Active Xanax 0.5 mg tablet 1 PO 2x daily as needed 2023-03-29 - Active Plan of Treatment
--- OUTSIDE RECORDS SUMMARY | 2024-08-06 07:07 | XMS_ITS ---
Author Name [facility] Organization Unknown Results Test Name/Text Value Interpretation Date Range Source ESR Bld Qn Westrgrn 2mm/h Normal [id number] - [facility] Methylmalonate SerPl-sCnc 216nmol/L Normal [id number] 69 - 390 [facility] TSH SerPl-aCnc 0.27mIU/L Below low normal [id number] 0.4 - 4.5 [facility] CRP SerPl-mCnc <3.0 Normal [id number] - 8 [facility] EST LDLc SerPl Calc-mCnc 71mg/dL(calc) Normal [id number] [facility] NonHDLc SerPl-mCnc 90mg/dL(calc) Normal [id number] - 13 0 [facility] HDLc SerPl-mCnc 118mg/dL Normal [id number] - Q [facility] Trigl SerPl-mCnc 107mg/dL Normal [id number] - 150 [facility] Cholest SerPl-mCnc 208mg/dL Above high normal [id number] - 200 [facility] Cholest/HDLc SerPl 1.8(calc) Normal [id number] - 5 [facility] HbA1c MFr Bld 6.5%oftotalHgb Above high normal [id number] - 5.7 [facility] Est. average glucose Bld gHb Est-mCnc 154mg/dL(calc) Normal [id number] [facility] Prot Pattern SerPl Elph-Imp Normal [id number] [facility] Alpha1 Glob SerPl Elph-mCnc 0.3g/dL Normal [id number] 0.2 - 0.3 [facility] Alpha2 Glob SerPl Elph-mCnc 0.9g/dL Normal [id number] 0.5 - 0.9 [facility] Beta2 Glob SerPl Elph-mCnc 0.4g/dL Normal [id number] 0.2 - 0.5 [facility] Albumin SerPl Elph-mCnc 4.4g/dL Normal [id number] 3.8 - 4.8 [facility] Gamma glob SerPl Elph-mCnc 0.7g/dL Below low normal [id number] 0.8 - 1.7 [facility] Beta1 Glob SerPl Elph-mCnc 0.5g/dL Normal [id number] 0.4 - 0.6 [facility] Prot SerPl-mCnc 7.3g/dL Normal [id number] 6.1 - 8.1 Q [facility] B burgdor Ab Ser IA-aCnc <0.90 Normal [id number] [facility] MARY ANN Ser Ql NEGATIVE Normal - [facility] Homocysteine SerPl-sCnc 16umol/L Above high normal [id number] - 11.4 [facility] History of Medication Use Medication Directions Dispensed Refills Start Date End Date Stat us tirzepatide (Mounjaro) 12.5 MG/0.5ML Inject 0.5 mL (12.5 mg total) under the skin every 7 days. 02/10/2024 active levoFLOXacin (LEVAQUIN) 250 MG tablet Take 1 tablet (250 mg total) by mouth daily. 02/10/2024 active cefpodoxime (VANTIN) 200 MG tablet TAKE 1 TABLET BY MOUTH TWICE DAILY MUST ADMINISTER WITH A MEAL/FOOD 02/10/2024 aborted traMADol (ULTRAM) 50 MG tablet Take 50 mg by mouth every 6 (six) hours as needed for pain. 02/10/2024 active clonazePAM (KlonoPIN) 0.5 MG tablet Take 1 tablet (0.5 mg total) by mouth 2 (two) times a day. 02/10/2024 active predniSONE (DELTASONE) tablet 20 mg 02/10/2024 active dilTIAZem (CARDIZEM CD) 240 MG 24 hr capsule Take 1 capsule (240 mg total) by mouth daily. 02/10/2024 active predniSONE (DELTASONE) tablet 10 mg Take 1 tablet (10 mg total) by mouth daily. 01/22/2024 aborted Insulin Lispro, 1 Unit Dial, (HumaLOG KWIKPEN) 100 UNIT/ML SOPN 2-10 units sliding scale with meals. 01/22/2024 active metoprolol succinate (TOPROL-XL) 24 hr tablet 25 mg Take 1 tablet (25 mg total) by mouth daily. 01/22/2024 active omeprazole (PriLOSEC) 20 MG capsule Take 1 capsule (20 mg total) by mouth daily. 01/22/2024 active Continuous Blood Gluc Counter [employer] (FreeStyle Vanessa 2 [place]) MEHUL 1 Device by Does not apply route continuous prn. 01/22/2024 active Trelegy Ellipta 100-62.5-25 MCG/ACT AEPB 1 puff by Inhaled route daily. 01/22/2024 active tirzepatide (Mounjaro) 10 MG/0.5ML Inject 0.5 mL (10 mg total) under the skin every 7 days. 01/22/2024 active doxycycline (ADOXA) 100 MG tablet Take 1 tablet (100 mg total) by mouth 3 (three) times a week. 01/22/2024 aborted dilTIAZem (CARDIZEM CD) 240 MG 24 hr capsule TAKE 1 CAPSULE BY MOUTH EVERY DAY 01/22/2024 active metoprolol succinate (TOPROL-XL) 24 hr tablet 50 mg Take 1 tablet (50 mg total) by mouth daily. 01/22/2024 active acetaminophen (TYLENOL EXTRA STRENGTH) 500 MG tablet Take 2 tablets (1,000 mg total) by mouth every 6 (six) hours as needed. 01/22/2024 active albuterol 108 (90 Base) MCG/ACT inhaler Inhale 2 puffs into the lungs every 6 (six) hours as needed for wheezing or shortness of breath. 01/22/2024 active apixaban (ELIQUIS) 5 MG TABS tablet Take 1 tablet (5 mg total) by mouth every 12 (twelve) hours. 01/22/2024 active Continuous Blood Gluc Sensor (FreeStyle Vanessa 2 Sensor) MISC 1 each by Does not apply route every 14 (fourteen) days. 01/22/2024 active ibuprofen 800 MG tablet Take 1 tablet (800 mg total) by mouth every 8 (eight) hours as needed for pain. 01/22/2024 active ipratropium-albutero l (DUO-NEB) 0.5-2.5 mg/mL nebulizer Inhale 3 mL into the lungs. 01/22/2024 active ALPRAZolam (XANAX) 0.5 MG tablet Take 1 tablet (0.5 mg total) by mouth 2 (two) times a day. 01/22/2024 active insulin glargine (Lantus SoloStar) 100 UNIT/ML injection Inject 24 Units under the skin every night at bedtime as needed. 01/22/2024 active torsemide (DEMADEX) 20 MG tablet Take 1 tablet (20 mg total) by mouth daily. 01/22/2024 active arformoterol (BROVANA) 15 MCG/2ML NEBU 2 ML INHALED 2 TIMES A DAY FOR 30 DAYS 01/22/2024 active atorvastatin (LIPITOR) tablet 20 mg Take 1 tablet (20 mg total) by mouth daily. 01/22/2024 active Empagliflozin-metFOR MIN HCl ER (Synjardy XR) 25-1000 MG TB24 Take 1 tablet by mouth daily. Take by mouth. 01/22/2024 active ergocalciferol (VITAMIN D2,DRISDOL) 37417 units Cap TAKE ONE CAPSULE TWO TIMES EACH WEEK FOR 16 WEEKS 10/05/2022 active piblpn-tbmyydurw-mmq nesium sulfates (Suprep Bowel Prep Kit) 17.5-3.13-1.6 GM/177ML Solution solution Take 177 mL by mouth twice daily (every 12 hours). 10/05/2022 active atorvastatin (LIPITOR) 20 MG tablet Take 20 mg by mouth daily. 10/05/2022 active Ozempic, 1 MG/DOSE, 4 MG/3ML Solution Pen-injector prefilled pen injection 1 MG SUBCUTANEOULY ONCE WEEKLY 10/05/2022 active ALPRAZolam (XANAX) 1 MG tablet Take 1 mg by mouth 3 times daily (every 8 hours) as needed. 10/05/2022 active atorvastatin (LIPITOR) 20 MG tablet Take 20 mg by mouth daily. 10/05/2022 active acetaminophen (TYLENOL) 500 MG tablet Take 500 mg by mouth 4 times daily (every 6 hours) as needed. 10/05/2022 active albuterol (PROVENTIL HFA; VENTOLIN HFA) 108 (90 Base) MCG/ACT inhaler Inhale 2 puffs 4 times daily (every 6 hours) as needed. 10/05/2022 active ipratropium-albutero l (DUONEB) 0.5-2.5 mg/3 mL nebulizer solution Take 1 vial by nebulization 4 (four) times a day. 10/05/2022 active ibuprofen (MOTRIN) 800 mg tablet Take 800 mg by mouth 4 times daily (every 6 hours) as needed. 10/05/2022 active diltiazem (CARDIZEM CD) 240 MG 24 hr capsule Take 240 mg by mouth daily. 10/05/2022 active torsemide (DEMADEX) 20 MG tablet Take 20 mg by mouth daily. 10/05/2022 active empagliflozin-metFOR MIN ER (SYNJARDY XR) 5-1000 MG per tablet Take 1 tablet by mouth every morning with breakfast. 10/05/2022 active azithromycin (ZITHROMAX) 250 MG tablet Take 250 mg by mouth 3 (three) times a week. Take 2 tablets by mouth on day 1 followed by 1 tablet by mouth daily on days 2 through 5. 10/05/2022 active polyethylene glycol-electrolytes (NuLYTELY, TRILYTE) 420 g solution Take 4,000 mL by mouth once. 10/05/2022 active fluticasone-umeclidi nium-vilanterol (TRELEGY ELLIPTA) 100-62.5-25 MCG/INH inhaler Inhale 1 puff daily. 10/05/2022 active Problems Problem Status Onset Date Problem Type Date of Resolution Source Acute pain of left wrist active 2018-11-11 [facility] Dyspnea active 2023-06-08 ProblemAct [facility] Tobacco abuse active 2016-11-09 ProblemAct [facility] Pericarditis active 2014-07-20 ProblemAct [facility] Pain and swelling of ankle, left active 2019-08-28 [facility] SVT (supraventricular tachycardia) active 2019-05-09 ProblemAct [facility] Closed nondisplaced fracture of lateral malleolus of left fibula active 2019-08-28 ProblemAct [facility] Centrilobular emphysema active 2016-11-09 ProblemAct [facility] Left elbow pain active 2018-11-11 ProblemAct [facility] Diabetes mellitus active 2022-04-17 ProblemAct [facility] Closed nondisplaced fracture of triquetrum of left wrist active 2018-11-11 [facility] NADEEM (obstructive sleep apnea) active 2022-04-17 ProblemAct [facility] Hyperlipidemia active 2022-04-17 ProblemAct [facility] HTN (hypertension) active 2019-05-09 ProblemAct [facility] Obesity active 2022-04-17 ProblemAct [facility] Bilateral leg edema active EncounterDiagnosisAc t [facility] Strain of left elbow active 2018-11-11 ProblemAct [facility] Osteoporosis active 2022-04-17 ProblemAct [facility] Atrial flutter active 2023-06-08 ProblemAct [facility] Immunizations Vaccine Date Source Lot Number Status Covid-19 (Moderna 12+) 100mcg/0.5mL dosage 09/22/2020 [facility] [id number] completed Influenza Quad (Fluarix/Fluz one/FluLaval) 0.5mL (SD-IIV4) 07/01/2021 [facility] [id number] completed Influenza Quad (Fluarix/Fluz one/FluLaval) 0.5mL (SD-IIV4) 08/01/2022 [facility] [id number] completed Covid-19 (Moderna 12+) 100mcg/0.5mL dosage 08/25/2020 [facility] [id number] completed Influenza Trivalent Vaccine (IIV3) (inactive) 08/01/2022 [facility] [id number] completed Pneumococcal Conjugate PCV13 [id number] Tdap 03/07/2021 [facility] completed
--- OUTSIDE RECORDS SUMMARY | 2024-08-06 07:07 | XMS_ITS | Clinical Summary ---
Author Organization Unknown Care Team Providers Care Activities Leader Name Role Phone RENEE LIRA Unavailable Unavailable MARY RAMOS, KATEY Unavailable Unavailable Payers Payer Name Policy Type Policy Number Effective Date Expira tion Date [employer] MEDICARE ADVANTAGE FFS [id number] [place] USED PAYER [id number] MEDICARE - [facility] - [facility] [id number] Problems Condition Name Condition Details Condition Category Status Onset Date Resolution Date Last Treatment Date Treating Clinician Comments CHRONIC OBSTRUCTIVE PULMONARY DISEASE W (ACUTE) EXACERBATION Active 11-17 00:00: 00 TYPE 2 DIABETES MELLITUS WITH DIABETIC NEUROPATHY, UNSP Active 11-17 00:00: 00 HYPERTENSIVE HEART DISEASE WITH HEART FAILURE Active 11-17 00:00: 00 HEART FAILURE, UNSPECIFIED Active 11-17 00:00: 00 SUPRAVENTRIC ULAR TACHYCARDIA Active 11-17 00:00: 00 ANEMIA, UNSPECIFIED Active 11-17 00:00: 00 OTHER CHRONIC PAIN Active 11-17 00:00: 00 LOW BACK PAIN, UNSPECIFIED Active 0 11-17 00:00: 00 CRITICAL ILLNESS MYOPATHY Active 11-17 00:00: 00 DYSPHAGIA, UNSPECIFIED Active 11-17 00:00: 00 ALCOHOL DEPENDENCE, UNCOMPLICATE D Active 11-17 00:00: 00 ANXIETY DISORDER, UNSPECIFIED Active 11-17 00:00: 00 DEPRESSION, UNSPECIFIED Active 11-17 00:00: 00 RETENTION OF URINE, UNSPECIFIED Active 11-17 00:00: 00 OBSTRUCTIVE SLEEP APNEA (ADULT) (PEDIATRIC) Active 2022-0 11-17 00:00: 00 HYPERLIPIDEM IA, UNSPECIFIED Active 0 11-17 00:00: 00 OBESITY, UNSPECIFIED Active 11-17 00:00: 00 DEPENDENCE ON SUPPLEMENTAL OXYGEN Active 11-17 00:00: 00 SENIOR CARE (CURRENT) USE OF ANTICOAGULAN TS Active 11-17 00:00: 00 SENIOR CARE (CURRENT) USE OF INSULIN Active 11-17 00:00: 00 ANESTHESIOLOGIST (CURRENT) USE OF SYSTEMIC STEROIDS Active 11-17 00:00: 00 SENIOR CARE (CURRENT) USE OF INHALED STEROIDS Active 11-17 00:00: 00 PERSONAL HISTORY OF PNEUMONIA (RECURRENT) Active 11-17 00:00: 00 COVID-19 Active 11-17 00:00: 00 PERSONAL HISTORY OF OTHER INFECTIOUS AND PARASITIC DISEASES Active 11-17 00:00: 00 PERSONAL HISTORY OF NICOTINE DEPENDENCE Active 11-17 00:00: 00 CHRONIC RESPIRATORY FAILURE WITH HYPOXIA Active 11-17 00:00: 00 CHRONIC RESPIRATORY FAILURE WITH HYPERCAPNIA Active 11-17 00:00: 00 Allergies, Adverse Reactions, Alerts Allergy Name Allergy Type Status Severity Reaction(s) Onset Date Inactive Date Treating Clinician Comments NKA Propensity to adverse reactions Inactive 11-19 10:26: 44 2022-10-26 7 16:47:16 THEOPHYLLIN E Propensity to adverse reactions Active 11-20 16:47: 16 LEVAQUIN Propensity to adverse reactions Active 11-20 16:47: 16 PENICILLIN Propensity to adverse reactions Active 11-20 16:47: 16 Medications Ordered Medication Name Filled Medication Name Start Date Stop Date Current Medication? Ordering Clinician Indication Dosage Frequency Signature (SIG) Comments Components prednisone 5 mg tablet 10-29 00:00: 00 11-17 23:59 :00 No [id number] Per instruc tions 2 TABS DAILY FOR 30 DAYS Per instructio ns 2 TABS DAILY FOR 30 DAYS (route: oral) Med Classific ation: Endocrine roflumilast 500 mcg tablet 10-29 00:00: 00 11-16 23:59 :00 No [id number] Per instruc tions DAILY FOR 30 DAYS Per instructio ns DAILY FOR 30 DAYS (route: oral) Med Classific ation: Respirato ry Therapy Agents doxycycline monohydrate 100 mg capsule 10-20 00:00: 00 11-16 23:59 :00 No [id number] Per instruc tions TWICE A DAY FOR 30 DAYS Per instructio ns TWICE A DAY FOR 30 DAYS (route: oral) Med Classific ation: Anti-Infe ctive Agents alprazolam 0.5 mg tablet 11-17 00:00: 00 Yes [id number] 1 tablet 2 TIMES DAILY 1 tablet 2 TIMES DAILY (route: oral) Med Classific ation: Central Nervous System Agents amiodarone 200 mg tablet 11-17 00:00: 00 Yes [id number] 1 tablet DAILY 1 tablet DAILY (route: oral) Med Classific ation: Cardiovas cular Therapy Agents atorvastati n 20 mg tablet 11-17 00:00: 00 Yes [id number] 1 tablet DAILY 1 tablet DAILY (route: oral) Med Classific ation: Cardiovas cular Therapy Agents diltiazem CD 240 mg capsule,ext ended release 24 hr 11-17 00:00: 00 Yes [id number] 1 capsule DAILY 1 capsule DAILY (route: oral) Med Classific ation: Cardiovas cular Therapy Agents ipratropium 0.5 mg-albutero l 3 mg (2.5 mg base)/3 mL nebulizatio n soln 11-17 00:00: 00 Yes [id number] Per instruc tions NEEDED Per instructio ns NEEDED (route: inhalation ) Med Classific ation: Respirato ry Therapy Agents omeprazole 20 mg capsule,del ayed release 11-17 00:00: 00 Yes [id number] 1 capsule DAILY 1 capsule DAILY (route: oral) Med Classific ation: Gastroint estinal Therapy Agents potassium chloride ER 10 mEq tablet,exte nded release 11-17 00:00: 00 Yes [id number] 2 tablet DAILY 2 tablet DAILY (route: oral) Med Classific ation: Electroly te Balance-N utritiona l Products prednisone 20 mg tablet 11-17 00:00: 00 Yes [id number] 1 tablet DAILY 1 tablet DAILY (route: oral) Med Classific ation: Endocrine Synjardy XR 25 mg-1,000 mg tablet, extended release 11-17 00:00: 00 Yes [id number] 1 tablet DAILY 1 tablet DAILY (route: oral) Med Classific ation: Endocrine thiamine HCl (vitamin B1) 100 mg tablet 11-17 00:00: 00 Yes [id number] 1 tablet DAILY 1 tablet DAILY (route: oral) Med Classific ation: Electroly te Balance-N utritiona l Products torsemide 20 mg tablet 11-17 00:00: 00 Yes [id number] 1 tablet DAILY 1 tablet DAILY (route: oral) Med Classific ation: Cardiovas cular Therapy Agents Trelegy Ellipta 200 mcg-62.5 mcg-25 mcg powder for inhalation 11-17 00:00: 00 Yes [id number] 1 inhalat ion DAILY 1 inhalation DAILY (route: inhalation ) Med Classific ation: Respirato ry Therapy Agents Eliquis 5 mg tablet 11-17 00:00: 00 Yes [id number] Per instruc tions 2 TIMES DAILY Per instructio ns 2 TIMES DAILY (route: oral) Med Classific ation: Hematolog ical Agents gabapentin 100 mg capsule 11-17 00:00: 00 Yes [id number] 2 capsule 3 TIMES DAILY 2 capsule 3 TIMES DAILY (route: oral) Med Classific ation: Central Nervous System Agents metoprolol tartrate 25 mg tablet 11-17 00:00: 00 Yes [id number] 1 tablet EVERY 8 HOURS 1 tablet EVERY 8 HOURS (route: oral) Med Classific ation: Cardiovas cular Therapy Agents insulin lispro (U-100) 100 unit/mL subcutaneou s pen 11-17 00:00: 00 Yes [id number] 2-10 unit 3 TIMES DAILY 2-10 unit 3 TIMES DAILY (route: subcutaneo us) Med Classific ation: Endocrine Lantus Solostar U-100 Insulin 100 unit/mL (3 mL) subcutaneou s pen 11-17 00:00: 00 Yes [id number] 25 unit DAILY 25 unit DAILY (route: subcutaneo us) Med Classific ation: Endocrine amlodipine 5 mg tablet 11-17 00:00: 00 Yes [id number] 1 tablet DAILY 1 tablet DAILY (route: oral) Med Classific ation: Cardiovas cular Therapy Agents doxycycline hyclate 100 mg tablet 11-17 00:00: 00 Yes [id number] 1 tablet 3 TIMES A WEEK 1 tablet 3 TIMES A WEEK (route: oral) Med Classific ation: Anti-Infe ctive Agents Vital Signs Vital Name Observation Time Observation Value Commen ts Temperature 2022-12-25 12:17:00.000 97.6 [degF] Temperature 2022-12-22 10:44:00.000 97.6 [degF] Temperature 2022-12-20 12:08:00.000 97.4 [degF] Temperature 2022-12-14 14:43:00.000 98.2 [degF] Temperature 2022-12-13 13:52:00.000 98.5 [degF] Temperature 2022-12-07 12:24:00.000 97.2 [degF] Temperature 2022-12-04 10:42:00.000 97.6 [degF] Temperature 2022-11-30 14:22:00.000 97.9 [degF] Temperature 2022-11-29 12:36:00.000 97.6 [degF] Temperature 2022-11-24 10:25:00.000 96.9 [degF] Temperature 2022-11-22 11:14:00.000 97.8 [degF] Temperature 2022-11-22 10:49:00.000 97.8 [degF] Temperature 2022-11-20 12:48:00.000 98 [degF] Temperature 2022-11-20 11:02:00.000 97.6 [degF] Temperature 2022-11-17 15:57:00.000 98.1 [degF] Pulse 2022-12-25 12:17:00.000 66 /min Pulse 2022-12-22 10:44:00.000 74 /min Pulse 2022-12-20 12:08:00.000 82 /min Pulse 2022-12-14 14:43:00.000 77 /min Pulse 2022-12-13 13:52:00.000 78 /min Pulse 2022-12-07 12:24:00.000 90 /min Pulse 2022-12-04 10:42:00.000 92 /min Pulse 2022-11-30 14:22:00.000 88 /min Pulse 2022-11-29 12:36:00.000 78 /min Pulse 2022-11-24 10:25:00.000 72 /min Pulse 2022-11-22 11:14:00.000 72 /min Pulse 2022-11-22 10:49:00.000 72 /min Pulse 2022-11-20 12:48:00.000 74 /min Pulse 2022-11-20 11:02:00.000 82 /min Pulse 2022-11-18 15:13:00.000 70 /min Pulse 2022-11-17 16:39:00.000 98 /min Pulse 2022-11-17 15:57:00.000 92 /min O2 Saturation (%) 2022-12-25 12:17:00.000 97 % O2 Saturation (%) 2022-12-22 10:44:00.000 97 % O2 Saturation (%) 2022-12-20 12:08:00.000 98 % O2 Saturation (%) 2022-12-14 14:43:00.000 99 % O2 Saturation (%) 2022-12-13 13:52:00.000 96 % O2 Saturation (%) 2022-12-07 12:24:00.000 96 % O2 Saturation (%) 2022-12-04 10:42:00.000 97 % O2 Saturation (%) 2022-11-30 14:22:00.000 95 % O2 Saturation (%) 2022-11-29 12:36:00.000 98 % O2 Saturation (%) 2022-11-24 10:25:00.000 97 % O2 Saturation (%) 2022-11-22 11:14:00.000 99 % O2 Saturation (%) 2022-11-22 10:49:00.000 99 % O2 Saturation (%) 2022-11-20 12:48:00.000 97 % O2 Saturation (%) 2022-11-20 11:02:00.000 97 % O2 Saturation (%) 2022-11-17 15:57:00.000 97 % Respirations 2022-12-25 12:17:00.000 18 /min Respirations 2022-12-22 10:44:00.000 17 /min Respirations 2022-12-20 12:08:00.000 19 /min Respirations 2022-12-14 14:43:00.000 18 /min Respirations 2022-12-04 10:42:00.000 18 /min Respirations 2022-11-30 14:22:00.000 18 /min Respirations 2022-11-29 12:36:00.000 18 /min Respirations 2022-11-24 10:25:00.000 18 /min Respirations 2022-11-22 11:14:00.000 18 /min Respirations 2022-11-22 10:49:00.000 18 /min Respirations 2022-11-20 12:48:00.000 18 /min Respirations 2022-11-20 11:02:00.000 18 /min Respirations 2022-11-18 15:13:00.000 20 /min Respirations 2022-11-17 16:39:00.000 18 /min Respirations 2022-11-17 15:57:00.000 18 /min Systolic Blood Pressure 2022-12-25 12:17:00.000 108 mm [Hg] Systolic Blood Pressure 2022-12-22 10:44:00.000 116 mm [Hg] Systolic Blood Pressure 2022-12-20 12:08:00.000 124 mm [Hg] Systolic Blood Pressure 2022-12-14 14:43:00.000 116 mm [Hg] Systolic Blood Pressure 2022-12-13 13:52:00.000 110 mm [Hg] Systolic Blood Pressure 2022-12-07 12:24:00.000 120 mm [Hg] Systolic Blood Pressure 2022-12-04 10:42:00.000 118 mm [Hg] Systolic Blood Pressure 2022-11-30 14:22:00.000 104 mm [Hg] Systolic Blood Pressure 2022-11-29 12:36:00.000 102 mm [Hg] Systolic Blood Pressure 2022-11-24 10:25:00.000 92 mm[ Hg] Systolic Blood Pressure 2022-11-22 11:14:00.000 110 mm [Hg] Systolic Blood Pressure 2022-11-22 10:49:00.000 110 mm [Hg] Systolic Blood Pressure 2022-11-20 12:48:00.000 108 mm [Hg] Systolic Blood Pressure 2022-11-20 11:02:00.000 102 mm [Hg] Systolic Blood Pressure 2022-11-18 15:13:00.000 92 mm[ Hg] Systolic Blood Pressure 2022-11-17 16:39:00.000 118 mm [Hg] Systolic Blood Pressure 2022-11-17 15:57:00.000 122 mm [Hg] Diastolic Blood Pressure 2022-12-25 12:17:00.000 60 mm [Hg] Diastolic Blood Pressure 2022-12-22 10:44:00.000 68 mm [Hg] Diastolic Blood Pressure 2022-12-20 12:08:00.000 64 mm [Hg] Diastolic Blood Pressure 2022-12-14 14:43:00.000 70 mm [Hg] Diastolic Blood Pressure 2022-12-13 13:52:00.000 70 mm [Hg] Diastolic Blood Pressure 2022-12-07 12:24:00.000 66 mm [Hg] Diastolic Blood Pressure 2022-12-04 10:42:00.000 64 mm [Hg] Diastolic Blood Pressure 2022-11-30 14:22:00.000 68 mm [Hg] Diastolic Blood Pressure 2022-11-29 12:36:00.000 68 mm [Hg] Diastolic Blood Pressure 2022-11-24 10:25:00.000 64 mm [Hg] Diastolic Blood Pressure 2022-11-22 11:14:00.000 66 mm [Hg] Diastolic Blood Pressure 2022-11-22 10:49:00.000 66 mm [Hg] Diastolic Blood Pressure 2022-11-20 12:48:00.000 62 mm [Hg] Diastolic Blood Pressure 2022-11-20 11:02:00.000 70 mm [Hg] Diastolic Blood Pressure 2022-11-18 15:13:00.000 60 mm [Hg] Diastolic Blood Pressure 2022-11-17 16:39:00.000 80 mm [Hg] Diastolic Blood Pressure 2022-11-17 15:57:00.000 78 mm [Hg] Plan of Treatment Planned Activity Planned Date Details Comments Future Scheduled Test SKILLED NU RSE TO EVALUATE PATIENT, IDENTIFY PRIMARY AND CO-MORBID CONDITIONS CODED PER CODING GUIDELINES, AND DEVELOP PATIENT SPECIFIC PLAN OF CARE THAT INCLUDES PATIENT GOAL FOR HOME HEALTH. CLINICAL SUMMARY (SOC/NEREIDA/RECERT, 10 DAY, 60 DAY) THE PATIENT IS RECEIVING HOMECARE DUE TO RECURRENT COPD EXACERBATION WITH FREQUENT HOSPITALIZATIONS, CHANGE IN MED REGIME FOR MANAGEMENT OF HTN AND SVT, BG CONTROL WHILE ON STEROID TAPER RECENT HOSPITALIZATION/INPATIENT ADMISSION RELATED TO: RESPIRATORY FAILURE, DKA, SVT, HTN AND A FLUTTER NEW OR CHANGED MEDICATIONS: START AMIODARONE, METOPROLOL, ELIQUIS, AMLODIPINE, AND PREDNISONE TAPER PATIENT LIVING SITUATION/CAREGIVER STATUS: LIVES WITH ATC RECENT FALLS: NA SUMMARIZE SKILLED NEED: ASSESS VS ON NEW MED REGIME, BG CONTROL WHILE ON STEROID TAPER, RESPIRATORY STATUS, HOME SAFETY ADDITIONAL DISCIPLINES NEEDED OR DECLINED ORDERED SERVICES: PT [code = SKILLED NURSE TO EVALUATE PATIENT, IDENTIFY PRIMARY AND CO-MORBID CONDITIONS CODED PER CODING GUIDELINES, AND DEVELOP PATIENT SPECIFIC PLAN OF CARE THAT INCLUDES PATIENT GOAL FOR HOME HEALTH. CLINICAL SUMMARY (SOC/NEREIDA/RECERT, 10 DAY, 60 DAY) THE PATIENT IS RECEIVING HOMECARE DUE TO RECURRENT COPD EXACERBATION WITH FREQUENT HOSPITALIZATIONS, CHANGE IN MED REGIME FOR MANAGEMENT OF HTN AND SVT, BG CONTROL WHILE ON STEROID TAPER RECENT HOSPITALIZATION/INPATIENT ADMISSION RELATED TO: RESPIRATORY FAILURE, DKA, SVT, HTN AND A FLUTTER NEW OR CHANGED MEDICATIONS: START AMIODARONE, METOPROLOL, ELIQUIS, AMLODIPINE, AND PREDNISONE TAPER PATIENT LIVING SITUATION/CAREGIVER STATUS: LIVES WITH ATC RECENT FALLS: NA SUMMARIZE SKILLED NEED: ASSESS VS ON NEW MED REGIME, BG CONTROL WHILE ON STEROID TAPER, RESPIRATORY STATUS, HOME SAFETY ADDITIONAL DISCIPLINES NEEDED OR DECLINED ORDERED SERVICES: PT] Future Scheduled Test SKILLED NU RSE FOR O/A OF LOWER EXTREMITIES TO IDENTIFY CHANGES OR LESIONS ASSOCIATED WITH DIABETES MELLITUS FOR EARLY INTERVENTIONS OF COMPLICATIONS. SKILLED NURSE TO PROVIDE INSTRUCTION ON PROPER DIABETIC SKIN/FOOT CARE. [code = SKILLED NURSE FOR O/A OF LOWER EXTREMITIES TO IDENTIFY CHANGES OR LESIONS ASSOCIATED WITH DIABETES MELLITUS FOR EARLY INTERVENTIONS OF COMPLICATIONS. SKILLED NURSE TO PROVIDE INSTRUCTION ON PROPER DIABETIC SKIN/FOOT CARE.] Future Scheduled Test SKILLED NU RSE TO REVIEW PATIENT MEDICATIONS. INSTRUCT PATIENT/CAREGIVER ON MONITORING OF EFFECTIVENESS, ADVERSE DRUG REACTIONS, SIDE EFFECTS OF ALL MEDICATIONS (PRESCRIPTION/-OTC/HIGH RISK MEDS), AND HOW AND WHEN TO REPORT PROBLEMS. [code = SKILLED NURSE TO REVIEW PATIENT MEDICATIONS. INSTRUCT PATIENT/CAREGIVER ON MONITORING OF EFFECTIVENESS, ADVERSE DRUG REACTIONS, SIDE EFFECTS OF ALL MEDICATIONS (PRESCRIPTION/-OTC/HIGH RISK MEDS), AND HOW AND WHEN TO REPORT PROBLEMS.] Future Scheduled Test SKILLED NU RSE TO PERFORM HOME SAFETY AND FALL ASSESSMENT AND PROVIDE INSTRUCTION TO IMPLEMENT HOME SAFETY AND FALL PREVENTION STRATEGIES. [code = SKILLED NURSE TO PERFORM HOME SAFETY AND FALL ASSESSMENT AND PROVIDE INSTRUCTION TO IMPLEMENT HOME SAFETY AND FALL PREVENTION STRATEGIES.] Future Scheduled Test SKILLED NU RSE TO ASSESS ANXIETY AND PROVIDE ASSISTANCE TO PATIENT FOR UNDERSTANDING AND MANAGEMENT OF FEELINGS. [code = SKILLED NURSE TO ASSESS ANXIETY AND PROVIDE ASSISTANCE TO PATIENT FOR UNDERSTANDING AND MANAGEMENT OF FEELINGS.] Future Scheduled Test SKILLED NU RSE TO PROVIDE ASSESSMENT AND TEACHING/REINFORCEMENT OF MANAGEMENT OF DEPRESSION INCLUDING DISEASE PROCESS, MEDICATION MANAGEMENT, COPING SKILLS AND IDENTIFY CHANGES ASSOCIATED WITH DEPRESSIVE DISORDERS FOR EARLY INTERVENTION. [code = SKILLED NURSE TO PROVIDE ASSESSMENT AND TEACHING/REINFORCEMENT OF MANAGEMENT OF DEPRESSION INCLUDING DISEASE PROCESS, MEDICATION MANAGEMENT, COPING SKILLS AND IDENTIFY CHANGES ASSOCIATED WITH DEPRESSIVE DISORDERS FOR EARLY INTERVENTION. ] Future Scheduled Test OXYGEN VIA NASAL CANNULA @ 1.5 - 3 LITERS CONTINUOUS. SKILLED NURSE FOR O/A AND SKILLED TEACHING OF SAFE OXYGEN USE IN THE HOME. [code = OXYGEN VIA NASAL CANNULA @ 1.5 - 3 LITERS CONTINUOUS. SKILLED NURSE FOR O/A AND SKILLED TEACHING OF SAFE OXYGEN USE IN THE HOME.] Future Scheduled Test SKILLED NU RSE FOR INSTRUCTION/ REINFORCEMENT OF NEEDS RELATED TO NUTRITION/HYDRATION. [code = SKILLED NURSE FOR INSTRUCTION/ REINFORCEMENT OF NEEDS RELATED TO NUTRITION/HYDRATION. ] Future Scheduled Test PATIENT ORTIZ S A RISK OF HOSPITALIZATION AND ED USE. SKILLED NURSE TO ESTABLISH SUPPORT MEASURES TO MINIMIZE RISK OF HOSPITALIZATION AND ED USE, AND INSTRUCT PATIENT/CAREGIVER ON METHODS TO REDUCE AVOIDABLE HOSPITALIZATION AND ED USE. [code = PATIENT HAS A RISK OF HOSPITALIZATION AND ED USE. SKILLED NURSE TO ESTABLISH SUPPORT MEASURES TO MINIMIZE RISK OF HOSPITALIZATION AND ED USE, AND INSTRUCT PATIENT/CAREGIVER ON METHODS TO REDUCE AVOIDABLE HOSPITALIZATION AND ED USE.] Future Scheduled Test SKILLED NU RSE TO PROVIDE INSTRUCTION TO PATIENT/CAREGIVER RELATED TO DISCHARGE PLANNING. [code = SKILLED NURSE TO PROVIDE INSTRUCTION TO PATIENT/CAREGIVER RELATED TO DISCHARGE PLANNING. ] Future Scheduled Test SKILLED NU RSE FOR O/A, TEACHING, AND MANAGEMENT OF PSVT, A FLUTTER, HTN, HYPERTENSIVE HEART DISEASE W/ HEART FAILURE, HLD. [code = SKILLED NURSE FOR O/A, TEACHING, AND MANAGEMENT OF PSVT, A FLUTTER, HTN, HYPERTENSIVE HEART DISEASE W/ HEART FAILURE, HLD.] Future Scheduled Test SKILLED NU RSE FOR OBSERVATION AND ASSESSMENT OF PATIENTS PAIN LEVEL AND EFFECTIVENESS OF PAIN MANAGEMENT REGIMEN. SKILLED NURSE TO INSTRUCT PATIENT/CAREGIVER REGARDING PHARMACOLOGIC AND NON-PHARMACOLOGIC PAIN CONTROL MEASURES. SKILLED NURSE TO REPORT TO PHYSICIAN IF PAIN IS UNCONTROLLED WITH CURRENT PAIN MANAGEMENT REGIMEN. [code = SKILLED NURSE FOR OBSERVATION AND ASSESSMENT OF PATIENTS PAIN LEVEL AND EFFECTIVENESS OF PAIN MANAGEMENT REGIMEN. SKILLED NURSE TO INSTRUCT PATIENT/CAREGIVER REGARDING PHARMACOLOGIC AND NON-PHARMACOLOGIC PAIN CONTROL MEASURES. SKILLED NURSE TO REPORT TO PHYSICIAN IF PAIN IS UNCONTROLLED WITH CURRENT PAIN MANAGEMENT REGIMEN.] Future Scheduled Test SKILLED NU RSE TO INSTRUCT PATIENT/CAREGIVER AND PERFORM CARE AND MANAGEMENT OF INDWELLING URINARY CATH 16FR 10CC BALLOON MANAGED BY UROLOGY [code = SKILLED NURSE TO INSTRUCT PATIENT/CAREGIVER AND PERFORM CARE AND MANAGEMENT OF INDWELLING URINARY CATH 16FR 10CC BALLOON MANAGED BY UROLOGY] Future Scheduled Test SKILLED NU RSE FOR O/A, TEACHING AND MANAGEMENT OF URINE RETENTION FOR EARLY IDENTIFICATION OF EXACERBATION OF DISEASE PROCESS [code = SKILLED NURSE FOR O/A, TEACHING AND MANAGEMENT OF URINE RETENTION FOR EARLY IDENTIFICATION OF EXACERBATION OF DISEASE PROCESS] Future Scheduled Test SKILLED NU RSE FOR O/A OF RESPIRATORY SYSTEM TO IDENTIFY CHANGES ASSOCIATED WITH EXACERBATION AND TO PROVIDE SKILLED TEACHING ON MANAGEMENT OF COPD, [place] ON BIPAP DISEASE PROCESS. [code = SKILLED NURSE FOR O/A OF RESPIRATORY SYSTEM TO IDENTIFY CHANGES ASSOCIATED WITH EXACERBATION AND TO PROVIDE SKILLED TEACHING ON MANAGEMENT OF COPD, [place] ON BIPAP DISEASE PROCESS.] Future Scheduled Test SKILLED NU RSE FOR O/A RELATED TO SIGNS AND SYMPTOMS OF INFECTION AND TO PROVIDE TEACHING REGARDING INFECTION CONTROL MEASURES. [code = SKILLED NURSE FOR O/A RELATED TO SIGNS AND SYMPTOMS OF INFECTION AND TO PROVIDE TEACHING REGARDING INFECTION CONTROL MEASURES.] Future Scheduled Test SKILLED NU RSE TO REVIEW BG READINGS WHILE ON PREDNISONE FOR SIGNS AND SYMPTOMS OF HYPO/HYPERGLYCEMIA. [code = SKILLED NURSE TO REVIEW BG READINGS WHILE ON PREDNISONE FOR SIGNS AND SYMPTOMS OF HYPO/HYPERGLYCEMIA.] Future Scheduled Test SKILLED NU RSE FOR O/A OF MUSCULOSKELETAL STATUS AND TEACHING ON MEASURES TO MANAGE MUSCLE WEAKNESS AND TO MAINTAIN SAFETY WITH ACTIVITY [code = SKILLED NURSE FOR O/A OF MUSCULOSKELETAL STATUS AND TEACHING ON MEASURES TO MANAGE MUSCLE WEAKNESS AND TO MAINTAIN SAFETY WITH ACTIVITY ] Future Scheduled Test SKILLED NU RSE FOR O/A AND TEACHING OF ENDOCRINE SYSTEM TO IDENTIFY CHANGES ASSOCIATED WITH EXACERBATION OF DIABETES TYPE 2 FOR EARLY INTERVENTION OF COMPLICATIONS. [code = SKILLED NURSE FOR O/A AND TEACHING OF ENDOCRINE SYSTEM TO IDENTIFY CHANGES ASSOCIATED WITH EXACERBATION OF DIABETES TYPE 2 FOR EARLY INTERVENTION OF COMPLICATIONS.] Future Scheduled Test SKILLED NU RSE FOR O/A TO IDENTIFY CHANGES ASSOCIATED WITH DIABETIC NEUROPATHY AND PROVIDE INSTRUCTION RELATED TO SAFETY MEASURES TO PREVENT INJURY SECONDARY TO IMPAIRED NEUROLOGICAL STATUS. SKILLED NURSE TO REPORT SIGNIFICANT CHANGES OF NEUROLOGIC STATUS TO PHYSICIAN FOR EARLY INTERVENTION. [code = SKILLED NURSE FOR O/A TO IDENTIFY CHANGES ASSOCIATED WITH DIABETIC NEUROPATHY AND PROVIDE INSTRUCTION RELATED TO SAFETY MEASURES TO PREVENT INJURY SECONDARY TO IMPAIRED NEUROLOGICAL STATUS. SKILLED NURSE TO REPORT SIGNIFICANT CHANGES OF NEUROLOGIC STATUS TO PHYSICIAN FOR EARLY INTERVENTION.] Future Scheduled Test SKILLED NU RSE TO ASSESS PATIENT'S SKIN INTEGRITY AND INSTRUCT PATIENT/CAREGIVER ON MEASURES TO PREVENT PRESSURE ULCERS [code = SKILLED NURSE TO ASSESS PATIENT'S SKIN INTEGRITY AND INSTRUCT PATIENT/CAREGIVER ON MEASURES TO PREVENT PRESSURE ULCERS] Future Scheduled Test PHYSICAL T HERAPIST TO EVALUATE PATIENT FOR DECREASED STRENGTH, ENDURANCE [code = PHYSICAL THERAPIST TO EVALUATE PATIENT FOR DECREASED STRENGTH, ENDURANCE ] Future Scheduled Test SKILLED NU RSE TO PROVIDE TEACHING ON SIGNS AND SYMPTOMS AND MANAGEMENT OF HYPERTENSION. [code = SKILLED NURSE TO PROVIDE TEACHING ON SIGNS AND SYMPTOMS AND MANAGEMENT OF HYPERTENSION.] Future Scheduled Test SKILLED NU RSE TO INSTRUCT PATIENT/CAREGIVER ON COPD TO INCLUDE USE OF [facility] FOR TEACHING AND SELF-MANAGEMENT RELATED TO COPD DISEASE PROCESS, SIGNS AND SYMPTOMS, AND COMPLICATIONS. [code = SKILLED NURSE TO INSTRUCT PATIENT/CAREGIVER ON COPD TO INCLUDE USE OF [facility] FOR TEACHING AND SELF-MANAGEMENT RELATED TO COPD DISEASE PROCESS, SIGNS AND SYMPTOMS, AND COMPLICATIONS.] Future Scheduled Test SKILLED NU RSE FOR O/A AND SKILLED TEACHING RELATED TO SIGNS AND SYMPTOMS AND MANAGEMENT OF ANEMIA. [code = SKILLED NURSE FOR O/A AND SKILLED TEACHING RELATED TO SIGNS AND SYMPTOMS AND MANAGEMENT OF ANEMIA.] Future Scheduled Test VIRTUAL SIT FREQUENCY: 1-6 PER WEEK X 3 WEEKS AND 6 PRN VIRTUAL VISITS MAY BE PERFORMED UTILIZING [facility] TO OPTIMIZE SKILLED SERVICES FURNISHED ON THE PLAN OF CARE. SKILLED NURSE TO ESTABLISH SUPPORT MEASURES TO MINIMIZE RISK OF REHOSPITALIZATION, AND INSTRUCT PATIENT/CAREGIVER ON METHODS TO REDUCE AVOIDABLE HOSPITALIZATION. [code = VIRTUAL VISIT FREQUENCY: 1-6 PER WEEK X 3 WEEKS AND 6 PRN VIRTUAL VISITS MAY BE PERFORMED UTILIZING [employer] SYSTEM TO OPTIMIZE SKILLED SERVICES FURNISHED ON THE PLAN OF CARE. SKILLED NURSE TO ESTABLISH SUPPORT MEASURES TO MINIMIZE RISK OF REHOSPITALIZATION, AND INSTRUCT PATIENT/CAREGIVER ON METHODS TO REDUCE AVOIDABLE HOSPITALIZATION.] Future Scheduled Test PHYSICAL T HERAPIST TO EVALUATE PATIENT SECONDARY TO FUNCTIONAL DEFICITS/SAFETY CONCERNS. PHYSICAL THERAPY TO ESTABLISH /UPGRADE/DOWNGRADE THERAPEUTIC EXERCISE PROGRAM AND INSTRUCT PATIENT/CAREGIVER ON EXERCISE PRECAUTIONS WITH WRITTEN HOME PROGRAM. PHYSICAL THERAPY TO INSTRUCT PATIENT/CAREGIVER ON BED MOBILITY TECHNIQUES TO IMPROVE PATIENT MOBILITY AND POSITIONING TECHNIQUES IN ORDER TO INCREASE PATIENTS COMFORT AND DECREASE RISK OF SKIN BREAKDOWN. PHYSICAL THERAPY TO INSTRUCT PATIENT/CAREGIVER ON SAFE TRANSFER TECHNIQUES USING PROPER BODY MECHANICS AND EQUIPMENT. PHYSICAL THERAPY TO INSTRUCT PATIENT/CAREGIVER ON GAIT TRAINING TECHNIQUES USING APPROPRIATE ASSISTIVE DEVICE, PROPER BODY MECHANICS TO IMPROVE MOBILITY, AND PREVENT INJURY OF PATIENT AND/OR CAREGIVER. PHYSICAL THERAPY TO ASSESS AND RECOMMEND HOME SAFETY ADAPTATIONS AND EDUCATE PATIENT /CAREGIVER ON FALL PREVENTION STRATEGIES. PHYSICAL THERAPY TO INSTRUCT PATIENT/CAREGIVER ON BALANCE AND BALANCE STRATEGIES TO IMPROVE SAFE MOBILITY AND REDUCE RISK FOR FALL AND INJURY INCLUDING PARTICIPATION IN [facility] PROGRAM SUMMARY OF THERAPY EVAL/ASSESSMENT FINDINGS AND REASON(S) SKILLS OF A THERAPIST ARE INDICATED: PATIENT WAS SEEN FOR SKILLED PHYSICAL THERAPY VISIT AND HOME SAFETY ASSESSMENT. PATIENT IS A 67 YEAR OLD MALE WHO WAS RECENTLY HOSPITALIZED SECONDARY TO COPD EXACERBATION AND PSVT AND FLUTTER. PATIENT PRIOR WAS INDEPENDENT IN ALL ACTIVITIES AND DRIVING. PRESENTLY PATIENTS UNABLE TO AMBULATE AND IS A MAX ASSIST OR 2 PERSON ASSIST FOR TRANSFERS . PATIENT VERY WEAK AND CONFUSED. PATIENT LIVES WITH A SUPPORTIVE AND SON WHO STATE THAT THEY ARE ABLE TO MANAGE. PATIENT HAS STONER CATHETER IN PLACE. PATIENT UNABLE TO PARTICIPATE WITH ANY FUNCTIONAL TESTING HE WAS UNABLE TO STAND AND AMBULATE WELL CONFUSED. CONTACTED THE [facility] AND ABLE TO OBTAIN A WHEELCHAIR FOR USE. HOME IS CLUTTERED. 2 LARGE DOGS. PATIENT IS AN APPROPRIATE CANDIDATE FOR SKILLED PHYSICAL THERAPY TO ADDRESS PHYSICAL IMPAIRMENTS AND FUNCTIONAL LIMITATIONS. PATIENT AND INSTRUCTED TO STAND UP HOURLY BEST THEY COULD WITH SON IN PLACE AND USE OF ROLLATER. HEP INITIATED. PATIENT AND FOR VERBALIZE AGREEMENT WITH PLAN OF CARE. MD NOTIFIED [code = PHYSICAL THERAPIST TO EVALUATE PATIENT SECONDARY TO FUNCTIONAL DEFICITS/SAFETY CONCERNS. PHYSICAL THERAPY TO ESTABLISH /UPGRADE/DOWNGRADE THERAPEUTIC EXERCISE PROGRAM AND INSTRUCT PATIENT/CAREGIVER ON EXERCISE PRECAUTIONS WITH WRITTEN HOME PROGRAM. PHYSICAL THERAPY TO INSTRUCT PATIENT/CAREGIVER ON BED MOBILITY TECHNIQUES TO IMPROVE PATIENT MOBILITY AND POSITIONING TECHNIQUES IN ORDER TO INCREASE PATIENTS COMFORT AND DECREASE RISK OF SKIN BREAKDOWN. PHYSICAL THERAPY TO INSTRUCT PATIENT/CAREGIVER ON SAFE TRANSFER TECHNIQUES USING PROPER BODY MECHANICS AND EQUIPMENT. PHYSICAL THERAPY TO INSTRUCT PATIENT/CAREGIVER ON GAIT TRAINING TECHNIQUES USING APPROPRIATE ASSISTIVE DEVICE, PROPER BODY MECHANICS TO IMPROVE MOBILITY, AND PREVENT INJURY OF PATIENT AND/OR CAREGIVER. PHYSICAL THERAPY TO ASSESS AND RECOMMEND HOME SAFETY ADAPTATIONS AND EDUCATE PATIENT /CAREGIVER ON FALL PREVENTION STRATEGIES. PHYSICAL THERAPY TO INSTRUCT PATIENT/CAREGIVER ON BALANCE AND BALANCE STRATEGIES TO IMPROVE SAFE MOBILITY AND REDUCE RISK FOR FALL AND INJURY INCLUDING PARTICIPATION IN [facility] BALANCE SPECIALTY PROGRAM SUMMARY OF THERAPY EVAL/ASSESSMENT FINDINGS AND REASON(S) SKILLS OF A THERAPIST ARE INDICATED: PATIENT WAS SEEN FOR SKILLED PHYSICAL THERAPY VISIT AND HOME SAFETY ASSESSMENT. PATIENT IS A 67 YEAR OLD MALE WHO WAS RECENTLY HOSPITALIZED SECONDARY TO COPD EXACERBATION AND PSVT AND FLUTTER. PATIENT PRIOR WAS INDEPENDENT IN ALL ACTIVITIES AND DRIVING. PRESENTLY PATIENTS UNABLE TO AMBULATE AND IS A MAX ASSIST OR 2 PERSON ASSIST FOR TRANSFERS . PATIENT VERY WEAK AND CONFUSED. PATIENT LIVES WITH A SUPPORTIVE AND SON WHO STATE THAT THEY ARE ABLE TO MANAGE. PATIENT HAS STONER CATHETER IN PLACE. PATIENT UNABLE TO PARTICIPATE WITH ANY FUNCTIONAL TESTING HE WAS UNABLE TO STAND AND AMBULATE WELL CONFUSED. CONTACTED THE [facility] AND ABLE TO OBTAIN A WHEELCHAIR FOR USE. HOME IS CLUTTERED. 2 LARGE DOGS. PATIENT IS AN APPROPRIATE CANDIDATE FOR SKILLED PHYSICAL THERAPY TO ADDRESS PHYSICAL IMPAIRMENTS AND FUNCTIONAL LIMITATIONS. PATIENT AND INSTRUCTED TO STAND UP HOURLY BEST THEY COULD WITH SON IN PLACE AND USE OF ROLLATER. HEP INITIATED. PATIENT AND FOR VERBALIZE AGREEMENT WITH PLAN OF CARE. MD NOTIFIED] Goal 2022-12-25 Patient Goal - D ELIRIUM WILL RESOLVE,BP AND HR CONTROLLED ON EFFECTIVE MED REGIME, FREE OF DYSRHYTHMIA, PT WILL RETURN TO BASELINE ACTIVITY LEVEL AND AMBULATE WITH STEADY GAIT, FREE OF FALLS. BG CONTROLLED WHILE ON PREDNISONE, PT FREE OF RESPIRATORY DISTRESS Goal Provider Goal - A PLAN OF CARE WILL BE ESTABLISHED THAT MEETS PATIENT'S [facility] NEEDS AND INCLUDES PATIENT GOAL FOR HOME HEALTH. Goal Provider Goal - CHANGES IN LOWER EXTREMITIES WILL BE IDENTIFIED AND REPORTED TO MD FOR PROMPT INTERVENTION TO PREVENT ASSOCIATED RISKS THROUGHOUT THE CERTIFICATION PERIOD. PATIENT/CAREGIVER WILL VERBALIZE UNDERSTANDING OF PROPER DIABETIC SKIN/FOOT CARE BY THE END OF THE CERTIFICATION PERIOD. Goal Provider Goal - PATIENT/CAREGIVER WILL VERBALIZE UNDERSTANDING OF EDUCATION PROVIDED ON MEDICATIONS BY THE END OF THE CERTIFICATION PERIOD. Goal Provider Goal - PATIENT/CAREGIVER WILL VERBALIZE/DEMONSTRATE EFFECTIVE HOME SAFETY AND FALL PREVENTION STRATEGIES THROUGHOUT CERTIFICATION PERIOD. Goal Provider Goal - SYMPTOMS OF ANXIETY ARE IDENTIFIED AND INTERVENTIONS INITIATED TO ENABLE PATIENT TO UNDERSTAND AND MANAGE FEELINGS BY 01/15/23 Goal Provider Goal - PATIENT/CAREGIVER WILL VERBALIZE/DEMONSTRATE UNDERSTANDING OF THE MANAGEMENT OF DEPRESSION BY THE END OF THE EPISODE AND SYMPTOMS ARE IDENTIFIED AND MANAGED TO MAINTAIN PATIENT SAFETY IN THE HOME Goal Provider Goal - PATIENT/CAREGIVER WILL VERBALIZE/DEMONSTRATE UNDERSTANDING OF SAFE OXYGEN USE IN THE HOME Goal Provider Goal - PATIENT/CAREGIVER WILL DEMONSTRATE ABILITY TO SELF MANAGE NEEDS RELATED TO NUTRITION/HYDRATION BY 01/15/23 Goal Provider Goal - PATIENT WILL HAVE SUPPORT MEASURES ESTABLISHED TO PREVENT HOSPITALIZATION AND ED USE AND PATIENT/CAREGIVER WILL VERBALIZE/DEMONSTRATE METHODS TO REDUCE AVOIDABLE HOSPITALIZATION AND ED USE BY 01/15/23. Goal Provider Goal - PATIENT/CAREGIVER WILL VERBALIZE UNDERSTANDING OF DISCHARGE PLANNING INSTRUCTIONS BY DATE OF DISCHARGE. Goal Provider Goal - PATIENT/CAREGIVER WILL VERBALIZE/DEMONSTRATE MANAGEMENT OF PSVT, A FLUTTER, HTN, HYPERTENSIVE HEART DISEASE W/ HEART FAILURE, HLD CARDIAC DISEASE PROCESS AND EXACERBATIONS WILL BE IDENTIFIED AND PROMPTLY REPORTED THROUGHOUT THE CERTIFICATION PERIOD. Goal Provider Goal - PATIENT/CAREGIVER WILL DEMONSTRATE UNDERSTANDING OF PHARMACOLOGIC AND NONPHARMACOLOGIC PAIN CONTROL MEASURES AND PATIENT WILL HAVE IMPROVEMENT IN PAIN INTERFERING WITH ACTIVITY EVIDENCED BY PAIN CONTROLLED AT LEVEL OF 6 OR LESS BY END OF CERTIFICATION PERIOD. Goal Provider Goal - PATIENT WILL VERBALIZE TOLERANCE OF CATHETER CHANGE AND KNOWLEDGE OF REQUIRED CARE TO MANAGE INDWELLING URINARY CATHETER WITHOUT COMPLICATIONS BY THE END OF THE CERTIFICATION PERIOD. Goal Provider Goal - PATIENT/CAREGIVER WILL VERBALIZE UNDERSTANDING OF GENITOURINARY DISEASE PROCESS, AND EXACERBATIONS OF GENITOURINARY DISEASE WILL BE PROMPTLY IDENTIFIED FOR EARLY INTERVENTION THROUGHOUT THE CERTIFICATION PERIOD. Goal Provider Goal - PATIENT/CAREGIVER WILL VERBALIZE/DEMONSTRATE MANAGEMENT OF RESPIRATORY DISEASE PROCESS. CHANGES IN RESPIRATORY STATUS WILL BE IDENTIFIED AND REPORTED TO PHYSICIAN FOR PROMPT INTERVENTION THROUGHOUT THE CERTIFICATION PERIOD. Goal Provider Goal - PATIENT/CAREGIVER WILL VERBALIZE/DEMONSTRATE INFECTION CONTROL MEASURES AND SIGNS AND SYMPTOMS OF INFECTION WILL BE IDENTIFIED AND PHYSICIAN NOTIFIED FOR PROMPT INTERVENTION THROUGHOUT THE CERTIFICATION PERIOD. Goal Provider Goal - BLOOD SUGAR READING WILL BE OBTAINED ORDERED. Goal Provider Goal - PATIENT/CAREGIVER WILL VERBALIZE/DEMONSTRATE ABILITY TO MANAGE MUSCULOSKELETAL DISEASE WHILE MAINTAINING SAFETY BY 01/15/23. Goal Provider Goal - PATIENT/CAREGIVER WILL VERBALIZE SIGNS AND SYMPTOMS OF EXACERBATION TO REPORT TO NURSE/PHYSICIAN. CHANGES IN ENDOCRINE SYSTEM WILL BE IDENTIFIED AND REPORTED TO PHYSICIAN FOR PROMPT INTERVENTION THROUGHOUT THE CERTIFICATION PERIOD. Goal Provider Goal - CHANGES IN NEUROLOGIC STATUS WILL BE IDENTIFIED AND REPORTED TO THE PHYSICIAN FOR PROMPT INTERVENTION OF ASSOCIATED RISK. PATIENT/CAREGIVER WILL VERBALIZE/DEMONSTRATE APPROPRIATE SAFETY MEASURES TO PREVENT INJURY BY THE END OF THE CERTIFICATION PERIOD. Goal Provider Goal - PATIENT/CAREGIVER WILL VERBALIZE UNDERSTANDING OF PRESSURE ULCER PREVENTION BY 01/15/23 . Goal Provider Goal - A PHYSICAL THERAPY EVALUATION TO BE COMPLETED WITH RECOMMENDATIONS AND/OR WRITTEN PLAN OF TREATMENT ESTABLISHED FOR PHYSICIANS SIGNATURE. Goal Provider Goal - PATIENT/CAREGIVER WILL VERBALIZE SIGNS AND SYMPTOMS OF HYPERTENSION AND WILL BE ABLE TO DEMONSTRATE ABILITY TO MANAGE EXACERBATION BY MED ADHERENCE Goal Provider Goal - PATIENT/CAREGIVER WILL VERBALIZE/DEMONSTRATE UTILIZATION OF TOOLS ASSOCIATED WITH THE [facility] PULMONARY SPECIALTY PROGRAM, AND/OR KNOWLEDGE AND MANAGEMENT OF COPD Goal Provider Goal - PATIENT/CARGIVER WILL VERBALIZE UNDERSTANDING OF ANEMIA INCLUDING SIGNS AND SYMPTOMS, MANAGEMENT OF COMPLICATIONS, AND PRESCRIBED TREATMENT REGIMEN BY END OF EPISODE. Goal Provider Goal - PATIENT/CAREGIVER WILL UTILIZE VIRTUAL VISITS TO ACHIEVE GOALS OUTLINED ON THE PLAN OF CARE. PATIENT WILL HAVE SUPPORT MEASURES ESTABLISHED TO PREVENT HOSPITALIZATION AND PATIENT/CAREGIVER WILL VERBALIZE/DEMONSTRATE METHODS TO REDUCE AVOIDABLE HOSPITALIZATION THROUGHOUT THE CERTIFICATION PERIOD. Goal Provider Goal - PHYSICAL THERAPY EVALUATION TO BE COMPLETED WITH RECOMMENDATIONS AND/OR WRITTEN TREATMENT PLAN OF CARE ESTABLISHED FOR THE PHYSICIANS SIGNATURE PATIENT/CAREGIVER WILL PERFORM THERAPEUTIC EXERCISE/S AND DEMONSTRATE PARTICIPATION IN A HOME PROGRAM TO IMPROVE FUNCTION. ONGOING PATIENT/CAREGIVER WILL DEMONSTRATE IMPROVED BED MOBILITY TECHNIQUES TO IMPROVE FUNCTION. INDEPENDENT BY 6TH VISIT PATIENT/CAREGIVER WILL DEMONSTRATE SAFE TRANSFERS USING APPROPRIATE ASSISTIVE DEVICE, BODY MECHANICS AND EQUIPMENT TO IMPROVE FUNCTIONAL TRANSFERS TO INDEPENDENT BY 6TH VISIT PATIENT/CAREGIVER WILL DEMONSTRATE IMPROVED GAIT TECHNIQUES TO MINIMIZE RISK OF INJURY AND INCREASE FUNCTIONAL AMB IN HOME WITH DEVICE BY 6TH VISIT HOUSEHOLD DISTANCES PATIENT/CAREGIVER WILL DEMONSTRATE/VERBALIZE UNDERSTANDING OF RECOMMENDATIONS TO INCREASE SAFETY IN THE HOME AND FALL PREVENTION TO IMPROVE FUNCTION. ONGOING PATIENT/CAREGIVER WILL DEMONSTRATE IMPROVED BALANCE AND REDUCE THE RISK OF FALLS AND INJURY TO IMPROVE FUNCTION. ONGOING Reason for Visit INDEPENDENT IN THE HOME Encounters Start Date/Time End Date/Time Encounter Type Admission Type Attending Clinicians Care Facility Care Department Encounter ID Discharge Date Discharge Status Discharge Condition Discharge Reason Percent Goals Met 2022-11-17 00:00:00 2022-12-25 00:00:00 Outpatient NEW ADMISSION KATEY HERNANDEZ [facility] [id number] 00:00:00 DISCHARGE TO HOME OR SELF CARE INDEPENDEN T IN THE HOME GOALS MET ( ONLY) 82.22
== END 2024-08-01 10:48 | disposition home or self-care (01) ==
PROVIDERS: PCP Physician Assistant Medical; Visit Provider Hospitalist
DX: J18.0 Bronchopneumonia, unspecified organism (principal); J44.0 Chronic obstructive pulmonary disease with (acute) lower respiratory infection; J96.11 Chronic respiratory failure with hypoxia; J96.12 Chronic respiratory failure with hypercapnia; R91.8 Other nonspecific abnormal finding of lung field; G47.33 Obstructive sleep apnea (adult) (pediatric); D80.1 Nonfamilial hypogammaglobulinemia
CPT/HCPCS: 99214; G2211

== ENCOUNTER → 2024-08-01 09:44 | Outpatient (BNVA) | payer MEDICARE, SELFPAY | PROVIDERS: PCP Physician Assistant Medical; Visit Provider Hospitalist | DX: J42 Unspecified chronic bronchitis (principal); J18.0 Bronchopneumonia, unspecified organism; J96.90 Respiratory failure, unspecified, unspecified whether with hypoxia or hypercapnia; J40 Bronchitis, not specified as acute or chronic; J96.11 Chronic respiratory failure with hypoxia; D80.1 Nonfamilial hypogammaglobulinemia; R91.8 Other nonspecific abnormal finding of lung field; G47.33 Obstructive sleep apnea (adult) (pediatric); Z99.81 Dependence on supplemental oxygen | CPT/HCPCS: J2919 ==

== ENCOUNTER 2024-08-01 10:38 | Outpatient (REF) | payer MEDICARE, SELFPAY ==
--- OUTSIDE RECORDS SUMMARY | 2024-08-06 07:42 | XMS_ITS | Clinical Summary ---
Author Organization Unknown Care Team Providers Care Tonnage Compilation Clerk Name Role Phone RENEE LIRA Unavailable Unavailable MARY RAMOS, KATEY Unavailable Unavailable Payers Payer Name Policy Type Policy Number Effective Date Expira tion Date ZZZ [employer] MEDICARE ADVANTAGE FFS [id number] SELDOM USED PAYER [id number] MEDICARE - [facility] [id number] Problems Condition Name Condition Details Condition Category [...] ON SUPPLEMENTAL OXYGEN Active 11-17 00:00: 00 JAIL (CURRENT) USE OF ANTICOAGULAN TS Active 11-17 00:00: 00 JAIL (CURRENT) USE OF INSULIN Active 11-17 00:00: 00 LINOLEUM LAYER (CURRENT) USE OF SYSTEMIC STEROIDS Active 11-17 00:00: 00 JAIL (CURRENT) USE OF INHALED STEROIDS Active 11-17 [...] 10-29 00:00: 00 11-17 23:59 :00 No [id number] Per instruc tions 2 TABS DAILY FOR 30 DAYS Per instructio ns 2 TABS DAILY FOR 30 DAYS (route: oral) Med Classific ation: Endocrine roflumilast 500 mcg tablet 10-29 00:00: 00 11-16 23:59 :00 No [id number] Per instruc tions DAILY FOR 30 DAYS Per instructio ns DAILY FOR 30 DAYS (route: oral) Med Classific ation: Respirato ry Therapy Agents doxycycline monohydrate 100 mg capsule 10-20 00:00: 00 11-16 23:59 :00 No [id number] Per instruc tions TWICE A DAY FOR 30 DAYS Per instructio ns TWICE A DAY FOR 30 DAYS (route: oral) Med Classific ation: Anti-Infe ctive Agents alprazolam 0.5 mg tablet 11-17 00:00: 00 Yes [id number] 1 tablet 2 TIMES DAILY 1 tablet 2 TIMES DAILY (route: oral) Med Classific ation: Central Nervous System Agents amiodarone 200 mg tablet 11-17 00:00: 00 Yes [id number] 1 tablet DAILY 1 tablet DAILY (route: oral) Med Classific ation: Cardiovas cular Therapy Agents atorvastati n 20 mg tablet 11-17 00:00: 00 Yes [id number] 1 tablet DAILY 1 tablet DAILY (route: oral) Med Classific ation: Cardiovas cular Therapy Agents diltiazem CD 240 mg capsule,ext ended release 24 hr 11-17 00:00: 00 Yes [id number] 1 capsule DAILY 1 capsule DAILY (route: oral) Med Classific ation: Cardiovas cular Therapy Agents ipratropium 0.5 mg-albutero l 3 mg (2.5 mg base)/3 mL nebulizatio n soln 11-17 00:00: 00 Yes [id number] Per instruc tions NEEDED Per instructio ns NEEDED (route: inhalation ) Med Classific ation: Respirato ry Therapy Agents omeprazole 20 mg capsule,del ayed release 11-17 00:00: 00 Yes [id number] 1 capsule DAILY 1 capsule DAILY (route: oral) Med Classific ation: Gastroint estinal Therapy Agents potassium chloride ER 10 mEq tablet,exte nded release 11-17 00:00: 00 Yes [id number] 2 tablet DAILY 2 tablet DAILY (route: oral) Med Classific ation: Electroly te Balance-N utritiona l Products prednisone 20 mg tablet 11-17 00:00: 00 Yes [id number] 1 tablet DAILY 1 tablet DAILY (route: oral) Med Classific ation: Endocrine Synjardy XR 25 mg-1,000 mg tablet, extended release 11-17 00:00: 00 Yes [id number] 1 tablet DAILY 1 tablet DAILY (route: oral) Med Classific ation: Endocrine thiamine HCl (vitamin B1) 100 mg tablet 11-17 00:00: 00 Yes [id number] 1 tablet DAILY 1 tablet DAILY (route: oral) Med Classific ation: Electroly te Balance-N utritiona l Products torsemide 20 mg tablet 11-17 00:00: 00 Yes [id number] 1 tablet DAILY 1 tablet DAILY (route: oral) Med Classific ation: Cardiovas cular Therapy Agents Trelegy Ellipta 200 mcg-62.5 mcg-25 mcg powder for inhalation 11-17 00:00: 00 Yes [id number] 1 inhalat ion DAILY 1 inhalation DAILY (route: inhalation ) Med Classific ation: Respirato ry Therapy Agents Eliquis 5 mg tablet 11-17 00:00: 00 Yes [id number] Per instruc tions 2 TIMES DAILY Per instructio ns 2 TIMES DAILY (route: oral) Med Classific ation: Hematolog ical Agents gabapentin 100 mg capsule 11-17 00:00: 00 Yes [id number] 2 capsule 3 TIMES DAILY 2 capsule 3 TIMES DAILY (route: oral) Med Classific ation: Central Nervous System Agents metoprolol tartrate 25 mg tablet 11-17 00:00: 00 Yes [id number] 1 tablet EVERY 8 HOURS 1 tablet EVERY 8 HOURS (route: oral) Med Classific ation: Cardiovas cular Therapy Agents insulin lispro (U-100) 100 unit/mL subcutaneou s pen 11-17 00:00: 00 Yes [id number] 2-10 unit 3 TIMES DAILY 2-10 unit 3 TIMES DAILY (route: subcutaneo us) Med Classific ation: Endocrine Lantus Solostar U-100 Insulin 100 unit/mL (3 mL) subcutaneou s pen 11-17 00:00: 00 Yes [id number] 25 unit DAILY 25 unit DAILY (route: subcutaneo us) Med Classific ation: Endocrine amlodipine 5 mg tablet 11-17 00:00: 00 Yes [id number] 1 tablet DAILY 1 tablet DAILY (route: oral) Med Classific ation: Cardiovas cular Therapy Agents doxycycline hyclate 100 mg tablet 11-17 00:00: 00 Yes [id number] 1 tablet 3 TIMES A WEEK 1 [...] PATIENT/CAREGIVER ON COPD TO INCLUDE USE OF [facility] PULMONARY SPECIALTY PROGRAM FOR TEACHING AND SELF-MANAGEMENT RELATED TO COPD DISEASE PROCESS, SIGNS AND SYMPTOMS, AND COMPLICATIONS. [code = SKILLED NURSE TO INSTRUCT PATIENT/CAREGIVER ON COPD TO INCLUDE USE OF [facility] PULMONARY SPECIALTY PROGRAM FOR TEACHING AND SELF-MANAGEMENT [...] PRN VIRTUAL VISITS MAY BE PERFORMED UTILIZING [employer] SYSTEM TO OPTIMIZE SKILLED SERVICES FURNISHED ON [...] FOR FALL AND INJURY INCLUDING PARTICIPATION IN [facility] BALANCE SPECIALTY PROGRAM SUMMARY OF THERAPY EVAL/ASSESSMENT [...] STAND AND AMBULATE WELL CONFUSED. CONTACTED THE [facility] AND ABLE TO OBTAIN A WHEELCHAIR FOR [...] FOR FALL AND INJURY INCLUDING PARTICIPATION IN [facility] BALANCE SPECIALTY PROGRAM SUMMARY OF THERAPY EVAL/ASSESSMENT [...] STAND AND AMBULATE WELL CONFUSED. CONTACTED THE [facility] AND ABLE TO OBTAIN A WHEELCHAIR FOR [...] CARE WILL BE ESTABLISHED THAT MEETS PATIENT'S DETENTION NEEDS AND INCLUDES PATIENT GOAL FOR HOME [...] VERBALIZE/DEMONSTRATE UTILIZATION OF TOOLS ASSOCIATED WITH THE [facility] PULMONARY SPECIALTY PROGRAM, AND/OR KNOWLEDGE AND MANAGEMENT [...] 2022-12-25 00:00:00 Outpatient NEW ADMISSION KATEY HERNANDEZ [facility] [id number] 00:00:00 DISCHARGE TO HOME OR SELF CARE INDEPENDEN T IN THE HOME GOALS MET ( ONLY) 82.22
--- OUTSIDE RECORDS SUMMARY | 2024-08-06 07:42 | XMS_ITS | Clinical Summary ---
Author Organization Unknown Care Team Providers Care Mail Processing Equipment Mechanic Name Role Phone RENEE LIRA Unavailable Unavailable MARY RAMOS, KATEY Unavailable Unavailable Payers Payer Name Policy Type Policy Number Effective Date Expira tion Date ZZZ [employer] MEDICARE ADVANTAGE FFS [id number] SELDOM USED PAYER [id number] MEDICARE - [place] [facility] - [facility] [id number] Problems Condition Name Condition Details Condition Category [...] ON SUPPLEMENTAL OXYGEN Active 11-17 00:00: 00 CUSTODIAL (CURRENT) USE OF ANTICOAGULAN TS Active 11-17 00:00: 00 CUSTODIAL (CURRENT) USE OF INSULIN Active 11-17 00:00: 00 CANDY ATTENDANT (CURRENT) USE OF SYSTEMIC STEROIDS Active 11-17 00:00: 00 CUSTODIAL (CURRENT) USE OF INHALED STEROIDS Active 11-17 [...] 10-29 00:00: 00 11-17 23:59 :00 No [id number] Per instruc tions 2 TABS DAILY FOR 30 DAYS Per instructio ns 2 TABS DAILY FOR 30 DAYS (route: oral) Med Classific ation: Endocrine roflumilast 500 mcg tablet 10-29 00:00: 00 11-16 23:59 :00 No [id number] Per instruc tions DAILY FOR 30 DAYS Per instructio ns DAILY FOR 30 DAYS (route: oral) Med Classific ation: Respirato ry Therapy Agents doxycycline monohydrate 100 mg capsule 10-20 00:00: 00 11-16 23:59 :00 No [id number] Per instruc tions TWICE A DAY FOR 30 DAYS Per instructio ns TWICE A DAY FOR 30 DAYS (route: oral) Med Classific ation: Anti-Infe ctive Agents alprazolam 0.5 mg tablet 11-17 00:00: 00 Yes [id number] 1 tablet 2 TIMES DAILY 1 tablet 2 TIMES DAILY (route: oral) Med Classific ation: Central Nervous System Agents amiodarone 200 mg tablet 11-17 00:00: 00 Yes [id number] 1 tablet DAILY 1 tablet DAILY (route: oral) Med Classific ation: Cardiovas cular Therapy Agents atorvastati n 20 mg tablet 11-17 00:00: 00 Yes [id number] 1 tablet DAILY 1 tablet DAILY (route: oral) Med Classific ation: Cardiovas cular Therapy Agents diltiazem CD 240 mg capsule,ext ended release 24 hr 11-17 00:00: 00 Yes [id number] 1 capsule DAILY 1 capsule DAILY (route: oral) Med Classific ation: Cardiovas cular Therapy Agents ipratropium 0.5 mg-albutero l 3 mg (2.5 mg base)/3 mL nebulizatio n soln 11-17 00:00: 00 Yes [id number] Per instruc tions NEEDED Per instructio ns NEEDED (route: inhalation ) Med Classific ation: Respirato ry Therapy Agents omeprazole 20 mg capsule,del ayed release 11-17 00:00: 00 Yes [id number] 1 capsule DAILY 1 capsule DAILY (route: oral) Med Classific ation: Gastroint estinal Therapy Agents potassium chloride ER 10 mEq tablet,exte nded release 11-17 00:00: 00 Yes [id number] 2 tablet DAILY 2 tablet DAILY (route: oral) Med Classific ation: Electroly te Balance-N utritiona l Products prednisone 20 mg tablet 11-17 00:00: 00 Yes [id number] 1 tablet DAILY 1 tablet DAILY (route: oral) Med Classific ation: Endocrine Synjardy XR 25 mg-1,000 mg tablet, extended release 11-17 00:00: 00 Yes [id number] 1 tablet DAILY 1 tablet DAILY (route: oral) Med Classific ation: Endocrine thiamine HCl (vitamin B1) 100 mg tablet 11-17 00:00: 00 Yes [id number] 1 tablet DAILY 1 tablet DAILY (route: oral) Med Classific ation: Electroly te Balance-N utritiona l Products torsemide 20 mg tablet 11-17 00:00: 00 Yes [id number] 1 tablet DAILY 1 tablet DAILY (route: oral) Med Classific ation: Cardiovas cular Therapy Agents Trelegy Ellipta 200 mcg-62.5 mcg-25 mcg powder for inhalation 11-17 00:00: 00 Yes [id number] 1 inhalat ion DAILY 1 inhalation DAILY (route: inhalation ) Med Classific ation: Respirato ry Therapy Agents Eliquis 5 mg tablet 11-17 00:00: 00 Yes [id number] Per instruc tions 2 TIMES DAILY Per instructio ns 2 TIMES DAILY (route: oral) Med Classific ation: Hematolog ical Agents gabapentin 100 mg capsule 11-17 00:00: 00 Yes [id number] 2 capsule 3 TIMES DAILY 2 capsule 3 TIMES DAILY (route: oral) Med Classific ation: Central Nervous System Agents metoprolol tartrate 25 mg tablet 11-17 00:00: 00 Yes [id number] 1 tablet EVERY 8 HOURS 1 tablet EVERY 8 HOURS (route: oral) Med Classific ation: Cardiovas cular Therapy Agents insulin lispro (U-100) 100 unit/mL subcutaneou s pen 11-17 00:00: 00 Yes [id number] 2-10 unit 3 TIMES DAILY 2-10 unit 3 TIMES DAILY (route: subcutaneo us) Med Classific ation: Endocrine Lantus Solostar U-100 Insulin 100 unit/mL (3 mL) subcutaneou s pen 11-17 00:00: 00 Yes [id number] 25 unit DAILY 25 unit DAILY (route: subcutaneo us) Med Classific ation: Endocrine amlodipine 5 mg tablet 11-17 00:00: 00 Yes [id number] 1 tablet DAILY 1 tablet DAILY (route: oral) Med Classific ation: Cardiovas cular Therapy Agents doxycycline hyclate 100 mg tablet 11-17 00:00: 00 Yes [id number] 1 tablet 3 TIMES A WEEK 1 [...] PATIENT/CAREGIVER ON COPD TO INCLUDE USE OF [facility] PULMONARY SPECIALTY PROGRAM FOR TEACHING AND SELF-MANAGEMENT RELATED TO COPD DISEASE PROCESS, SIGNS AND SYMPTOMS, AND COMPLICATIONS. [code = SKILLED NURSE TO INSTRUCT PATIENT/CAREGIVER ON COPD TO INCLUDE USE OF [facility] PULMONARY SPECIALTY PROGRAM FOR TEACHING AND [...] PRN VIRTUAL VISITS MAY BE PERFORMED UTILIZING [employer] SYSTEM TO OPTIMIZE SKILLED SERVICES FURNISHED ON [...] FOR FALL AND INJURY INCLUDING PARTICIPATION IN [facility] BALANCE SPECIALTY PROGRAM SUMMARY OF THERAPY EVAL/ASSESSMENT [...] STAND AND AMBULATE WELL CONFUSED. CONTACTED THE [facility] AND ABLE TO OBTAIN A WHEELCHAIR [...] FOR FALL AND INJURY INCLUDING PARTICIPATION IN [facility] BALANCE SPECIALTY PROGRAM SUMMARY OF THERAPY EVAL/ASSESSMENT [...] STAND AND AMBULATE WELL CONFUSED. CONTACTED THE [facility] AND ABLE TO OBTAIN A WHEELCHAIR [...] CARE WILL BE ESTABLISHED THAT MEETS PATIENT'S [facility] NEEDS AND INCLUDES PATIENT GOAL FOR HOME [...] VERBALIZE/DEMONSTRATE UTILIZATION OF TOOLS ASSOCIATED WITH THE [facility] PULMONARY SPECIALTY PROGRAM, AND/OR KNOWLEDGE AND [...] 2022-12-25 00:00:00 Outpatient NEW ADMISSION KATEY HERNANDEZ [facility] [id number] 00:00:00 DISCHARGE TO HOME OR SELF CARE INDEPENDEN T IN THE HOME GOALS MET ( ONLY) 82.22
== END 2024-08-01 10:39 | disposition home or self-care (01) ==
LOC: HO.LNP 10:38
PROVIDERS: Visit Provider Hospitalist
DX: J18.0 Bronchopneumonia, unspecified organism (principal); J44.0 Chronic obstructive pulmonary disease with (acute) lower respiratory infection; J96.11 Chronic respiratory failure with hypoxia; J96.12 Chronic respiratory failure with hypercapnia; R91.8 Other nonspecific abnormal finding of lung field; G47.33 Obstructive sleep apnea (adult) (pediatric); D80.1 Nonfamilial hypogammaglobulinemia
CPT/HCPCS: 87070; 87205; 96372; 99212; J2919

== ENCOUNTER 2024-09-30 14:11 | Outpatient (REF) | payer MEDICARE, SELFPAY ==
--- OUTSIDE RECORDS SUMMARY | 2024-09-30 15:50 | XMS_ITS | Clinical Summary ---
Author Organization [facility] Address [address] [place] [address] Care Team Providers Care Building Dismantler Name Role Phone Faith Iraheta APRN Primary Care Provider [phone] Slade Finn MD Unavailable [phone] Allergies Active Allergy Reactions Criticality Noted Date Comments Levofloxacin Unknown/Patient and Family Unable to Define,Other (See Comments) Medium 08/31/2015 tendonisit Penicillins Rash/Dermatitis Low 08/22/2016 Medications Medication Sig Dispensed Refills Start Date End Date Status empagliflozin-metFO RMIN ER (SYNJARDY XR) 5-1000 MG per tablet Take 1 tablet by mouth every morning with breakfast. Active diltiazem (DILACOR XR) 240 MG 24 hr capsule Take 240 mg by mouth daily. Active fluticasone-umeclid inium-vilanterol (TRELEGY ELLIPTA) 100-62.5-25 MCG/INH inhaler Inhale 1 puff daily. Acti ve atorvastatin (LIPITOR) 20 MG tablet Take 20 mg by mouth daily. Active azithromycin (ZITHROMAX) 250 MG tablet Take 250 mg by mouth 3 (three) times a week. Take 2 tablets by mouth on day 1 followed by 1 tablet by mouth daily on days 2 through 5. Active albuterol (PROVENTIL HFA; VENTOLIN HFA) 108 (90 Base) MCG/ACT inhaler Inhale 2 puffs 4 times daily (every 6 hours) as needed. Active ipratropium-albuter ol (DUONEB) 0.5-2.5 mg/3 mL nebulizer solution Take 1 vial by nebulization 4 (four) times a day. Active ALPRAZolam (XANAX) 1 MG tablet Take 1 mg by mouth 3 times daily (every 8 hours) as needed. Active ibuprofen (MOTRIN) 800 mg tablet Take 800 mg by mouth 4 times daily (every 6 hours) as needed. Active acetaminophen (TYLENOL) 500 MG tablet Take 500 mg by mouth 4 times daily (every 6 hours) as needed. Active gkxjle-didbddkjj-es gnesium sulfates (Suprep Bowel Prep Kit) 17.5-3.13-1.6 GM/177ML Solution solutionIndications :Encounter for screening colonoscopy Take 177 mL by mouth twice daily (every 12 hours). 177 mL 02/10/2021 Active ergocalciferol (VITAMIN D2,DRISDOL) 98847 units Cap TAKE ONE CAPSULE TWO TIMES EACH WEEK FOR 16 WEEKS 09/05/2021 Active Ozempic, 1 MG/DOSE, 4 MG/3ML Solution Pen-injector prefilled pen injection 1 MG SUBCUTANEOULY ONCE WEEKLY 10/06/2021 Active torsemide (DEMADEX) 20 MG tablet Take 20 mg by mouth daily. 09/04/2021 Active diltiazem (CARDIZEM CD) 240 MG 24 hr capsule Take 240 mg by mouth daily. 07/22/2021 Active polyethylene glycol-electrolytes (NuLYTELY, TRILYTE) 420 g solutionIndications :History of colon polyps Take 4,000 mL by mouth once. 4000 mL 10/17/2021 Active Social History Tobacco Use Types Packs/Day Years Used Date Smoking Tobacco: Never Assessed Sex and Gender Information Value Date Recorded Sex Assigned at Not on file Gender Identity Not on file Sexual Orientation Not on file Last Filed Vital Signs Vital Sign Reading Time Taken Comments Blood Pressure 135/86 08/23/2016 1:53 AM EST Pulse 90 08/23/2016 1:53 AM EST Temperature 35.3 ??C (95.5 ??F) 08/23/2016 1:53 AM ES T Respiratory Rate 20 08/23/2016 1:53 AM EST Oxygen Saturation 93% 08/23/2016 1:53 AM EST Inhaled Oxygen Concentration - - Weight 97.5 kg (215 lb) 10/17/2021 10:17 AM EST Height 188 cm (6' 2 ) 10/17/2021 10:17 AM EST Body Mass Index 27.6 10/17/2021 10:17 AM EST Plan of Treatment Health Maintenance Due Date Last Done Comments Hepatitis C Virus Screening 1955 DTaP/Tdap/Td Vaccines (1 - Tdap) 1976 Pneumococcal Vaccines 50+ (1 of 1 - PCV) 2007 Zoster (Shingles) Vaccine (1 of 2) 2007 RSV Vaccine 60 years and older and Patients (1 - Risk 60-74 years 1-dose series) 2017 Influenza Vaccine 03/27/2024 COVID-19 Vaccine (3 - 2023-2 5 season) 2024 09/22/2020, 08/25/2020 Colonoscopy 03/09/2031 03/09/2021 Hepatitis B Vaccines Aged Out No long er eligible based on patient's age to complete this topic Procedures Procedure Name Priority Date/Time Associated Diagnosis Comments HX GASTROENTEROLOGY COLONOSCOPY-SCAN Routine 03/09/2021 from Last 3 Months or Most Recently Relevant to Health Maintenance Results * HX GASTROENTEROLOGY COLONOSCOPY-SCAN (03/09/2021) Joshua Rogers MD HX AMB PROCEDURES from Last 3 Months or Most Recently Relevant to Health Maintenance Care Teams Building Dismantler Relationship Specialty Start Date End Date Faith Iraheta, MACKENZIE [address] [place] [address] PCP - General Adult Health - PA/APNP/CARDIOPULMONARY TECHNICIAN/SAT ACT INSTRUCTOR 04/06/21 Slade Finn MD [address] [place] [address] [facility] 10/17/21
--- OUTSIDE RECORDS SUMMARY | 2024-09-30 15:50 | XMS_ITS | Encounter Summary ---
Author Organization [facility] Address [address] [place] [address] Care Team Providers Care Digital Advisor Name Role Phone Eyal Whittaker Primary Care Provider [phone] Encounter Details Date Type Department Care Team (Late st Contact Info) Description 06/05/2024 1:04 PM EDT Hospital Encounter TH HISTORIC ENCOUNTERS EASTERN CONVERSION ONLY Eyal Whittaker PA [address] [facility] [place] [address] [place] [id number] Social History Tobacco Use Types Packs/Day Years Used Date Smoking Tobacco: Former Cigarettes 1 42.9 1 09/19/1973 - 06/27/2017 Smokeless Tobacco: Never Alcohol Use Standard Drinks/Week Comments Yes 16 (1 standard drink = 0.6 oz pu re alcohol) Sex and Gender Information Value Date Recorded Sex Assigned at Not on file Gender Identity Not on file Sexual Orientation Not on file documented as of this encounter Last Filed Vital Signs Vital Sign Reading Time Taken Comments Blood Pressure 118/82 06/05/2024 1:13 PM EDT Pulse 103 06/05/2024 1:13 PM EDT Temperature - - Respiratory Rate - - Oxygen Saturation - - Inhaled Oxygen Concentration - - Weight 100 kg (220 lb 9.6 oz) 06/05/2024 1:13 PM EDT Height 188 cm (6' 2 ) 02/01/2024 1:21 PM EDT Body Mass Index 28.32 02/01/2024 1:21 PM EDT documented in this encounter Progress Notes * AUGUSTO Hernandez - 06/05/2024 1:15 PM EDT Images from the original note were not included. Progress Notes by Eyal Whittaker PA-C at 06/05/2024 1:15 PM Author: Eyal Whittaker PA-C Service: -- Author Type: Physician Stone Driller Filed: 06/05/2024 1:32 PM Encounter Date: 06/05/2024 Status: Signed Windows Server Administrator: Eyal Whittaker PA-C (Physician Stone Driller) Subjective: The patient reports taking Cymbalta for 7 days but discontinued due to experiencing nausea and overall discomfort. He states that his neuropathy symptoms persist. The patient's insurance did not cover Lyrica. He is willing to try Metanx, a vitamin product with L-methylfolate, for his neuropathy. The patient has received one Shingles vaccine in the past but is hesitant to receive another due tofeeling unwell after the first dose. He has completed his flu shot for the year and received the RSV vaccine last year. The patient has also received the Prevnar 20 pneumonia vaccine. He requests a refill of [id number]. The patient expresses willingness to try Metanx despite its cost of $65 a month, as it is not covered by insurance. He acknowledges that his A1c of 6.5 is good and notes that his cholesterol has comedown with Lipitor. The patient mentions receiving a double-dose flu shot this year. He recalls possibly getting the RSV vaccine at [facility] last year. The patient is aware that the RSV vaccine is now r ecommended every 2 years. He remains hesitant about receiving the second Shingles vaccine, stating it made him feel funky after the first dose. Objective: Vital Signs: Stable Physical Examination: Gen: WDWN NAD calm cooperative on O2 Diagnostic Tests: Hemoglobin A1c: 6.5 Cholesterol levels: LDL 71 Assessment & Plan: 1. Peripheral neuropathy - Patient stopped Cymbalta after 7 days due to gastrointestinal side effects - Plan: a. Prescribe Metanx (L-methylfolate) to be taken for 2-3 months b. Patient to follow up in 3 months to assess efficacy c. Metanx will be sent through a mail order pharmacy in [place] d. Patient informed that Metanx costs about $65 a month and is not covered by insurance e. Advised patient that Metanx has a money-back guarantee if ineffective 2. Diabetes mellitus - A1c: 6.5, well-controlled - Plan: a. Continue current management 3. Dyslipidemia - Cholesterol levels within normal range, likely due to Lipitor - Plan: a. Continue Lipitor as prescribed 4. Anxiety - Plan: a. Refill Klonopin prescription and send to patient's regular [facility] 5. Vaccinations - RSV vaccine: Patient received last year, no need for administration this year. Informed patient it's effective for at least 2 years - Pneumonia vaccine (Prevnar 20): Patient up-to-date - Shingles vaccine: Patient hesitant to receive the second dose due to previous side effects. Patient received one dose previously. Plan to discuss further at the next visit - Flu vaccine: Patient received double dose this year Follow-up: Schedule a follow-up appointment in 3 months to assess the efficacy of Metanx and discuss the Shingles vaccine Risks and benefits of the treatment plan were discussed thoroughly with patient. Patient is in agreement with the current plan of care and all questions were answered. Patient agreed to call immediately with any new or worsening symptoms for advice. Patient will follow up in 1 week if not improving (or as above) Eyal Whittaker, MPH, MMSc, [place] [address] documented in this encounter Plan of Treatment Not on file documented as of this encounter Visit Diagnoses Not on filedocumented in this encounter Care Teams Digital Advisor Relationship Specialty Start Date End Date Eyal Whittaker PA [address] [place], [place] [id number] PCP - General 08/24/22 documented as of this encounter
--- OUTSIDE RECORDS SUMMARY | 2024-09-30 15:50 | XMS_ITS | Encounter Summary ---
Author Organization [facility] Address [address] [place] [address] Care Team Providers Care Test Analyst Name Role Phone Faith Iraheta APRN Primary Care Provider Slade Finn MD Unavailable [phone] Reason for Visit * Reason Comments Medication Refill Encounter Details Date Type Department Care Team (Late st Contact Info) Description 12/02/2022 Refill [facility] Department of Internal Medicine [address] [phone] Faith Iraheta APRN [address] [place] [address] Social History Tobacco Use Types Packs/Day Years Used Date Smoking Tobacco: Never Assessed Sex and Gender Information Value Date Recorded Sex Assigned at Not on file Gender Identity Not on file Sexual Orientation Not on file documented as of this encounter Plan of Treatment Not on file documented as of this encounter Visit Diagnoses Not on filedocumented in this encounter Care Teams Test Analyst Relationship Specialty Start Date End Date Faith Iraheta APRN [address] [place] [address] PCP - General Adult Health - PA/APNP/WELDING MACHINE OPERATOR PLASMA ARC/SHOE DESIGNER 04/06/21 Slade Finn MD [address] [place] [id number] Title [facility] 10/17/21 documented as of this encounter
--- OUTSIDE RECORDS SUMMARY | 2024-09-30 15:50 | XMS_ITS | Encounter Summary ---
Author Organization [facility] Address [address] [place] [address] Care Team Providers Care Ear Nose Throat Physician Name Role Phone Eyal Whittaker Primary Care Provider [phone] Encounter Details Date Type Department Care Team (Late st Contact Info) Description 06/10/2024 4:17 PM EDT Hospital Encounter TH HISTORIC ENCOUNTERS EASTERN CONVERSION ONLY Eyal Whittaker PA [address] [facility] [place] [address] [place] [address] Social History Tobacco Use Types Packs/Day Years [...] Sign Reading Time Taken Comments Blood Pressure 146/88 06/10/2024 4:23 PM EDT Pulse 110 06/10/2024 4:23 PM EDT Temperature - - Respiratory Rate - - Oxygen Saturation - - Inhaled Oxygen Concentration - - Weight 100 kg (220 lb 9.6 oz) 06/05/2024 1:13 PM EDT Height 188 cm (6' 2 ) 02/01/2024 1:21 PM EDT Body Mass Index 28.32 02/01/2024 1:21 PM EDT documented in this encounter Progress Notes * AUGUSTO Hernandez - 06/10/2024 4:15 PM EDT Images from the original note were not included. Progress Notes by Eyal Whittaker PA-C at 06/10/2024 4:15 PM Author: Eyal Whittaker PA-C Service: -- Author Type: Physician Electrotype Molder Filed: 06/10/2024 5:02 PM Encounter Date: 06/10/2024 Status: Signed Brick Tester: Eyal Whittaker PA-C (Physician Electrotype Molder) Subjective: The patient presents today with a chief complaint of increasing shortness of breath. He reports that his oxygen saturation levels have been falling to the mid-eighties without exertion, while his normal oxygen saturation is 96. At home on two liters of oxygen, he maintains 96-97. Currently, he is on three liters of oxygen and has a saturation of 92. The patient also reports productive coughing and has discussed the possibility of a bronchoscopy with his volunteer recruiter. He denies experiencing any fever or chest pain and has been using his inhalersand nebulizers as prescribed. The patient has a history of taking azithromycin, doxycycline, and most recently, Levaquin, despitea known allergy. He is currently out of Levaquin and has an upcoming appointment with his volunteer recruiter on the . The patient is seeking a new volunteer recruiter to monitor his monthly IVIG and astral ventilator. He expresses a preference for a younger volunteer recruiter who is up-to-date with new treatments. The patient mentions that this breathing difficulty is not ordinary for him and describes it as his time of year. He also notes that when he gets really sick, he typically goes to [facility]. Objective: Vital Signs: O2 sats falling to mid-eighties without exertion, normally 96%. On 2L O2 at home, crww55-16%. Currently on 3L O2, sats 92%. Physical Examination: Respiratory: Lungs CTAB, no wheeze, decreased breath sounds throughout (baseline) Cor: RRR Gen: WDWN NAD calm cooperative Assessment & Plan: 1. COPD exacerbation - Patient reports increased shortness of breath with O2 sats falling to mid- eighties without exertion - Currently on 3L supplemental oxygen with O2 sats at 92% - Normal O2 sat at home is 96-97% on 2-4L oxygen - Plan: a. Prescribe 40 mg of prednisone for five days to help alleviate shortness of breath b. Prescribe a Z-Rocael (azithromycin) to address possible infection contributing to the productive cough c. Consider scheduling a bronchoscopy as mentioned by the patient's volunteer recruiter for further evaluation and management d. With any worsening of symptoms, persistent O2 < 90 on 3L, chest pain, call 911 and proceed tothe ER. e. Continue home breathing treatments/inhalers Risks and benefits of the treatment plan were discussed thoroughly with patient. Patient is in agreement with the current plan of care and all questions were answered. Patient agreed to call immediately with any new or worsening symptoms for advice. Patient will follow up in 1 week if not improving (or as above) Eyal Whittaker, MPH, [facility], [place] [address] documented in this encounter Plan of Treatment Not on file documented as of this encounter Visit Diagnoses Not on filedocumented in this encounter Care Teams Ear Nose Throat Physician Relationship Specialty Start Date End Date Eyal Whittaker PA [address] [place], [place] [id number] PCP - General 08/24/22 documented as of this encounter
--- OUTSIDE RECORDS SUMMARY | 2024-09-30 15:50 | XMS_ITS | Clinical Summary ---
Author Organization [facility] Address [address] [place] [address] Care Team Providers Care Snath Handle Assembler Name Role Phone Eyal Whittaker Primary Care Provider [phone] Surgical History Surgery Date Site/Laterality Comments CERVICAL DISC SURGERY PROCEDURE:CERVICAL DISC SURGERY CATARACT EXTRACTION, BILATERAL PROCEDURE:CATARACT EXTRACTION, BILATERAL OTHER SURGICAL HISTORY PROCEDURE:cardiac cath CARDIAC CATHETERIZATION 07/20/2014 Right PROCEDURE:CARDIAC CATHETERIZATION;COMMENT:Pro cedure: LEFT HEART CATHETERIZATION; Surgeon: Joshua Mckinney DO; Location: [facility] CARDIAC HANDBAG FRAMES INSPECTOR; Service: Cardiology; Laterality: Right; OTHER SURGICAL HISTORY PROCEDURE:RheOX;COMMENT:Bro nchoscopy COLONOSCOPY 03/09/2021 N/A PROCEDURE:COLONOSCOPY;COMME NT:Procedure: COLONOSCOPY; Surgeon: Joshua Rogers MD; Location: [facility]; Service: Gastroenterology; Laterality: N/A; COLONOSCOPY 11/15/2021 N/A PROCEDURE:COLONOSCOPY;COMME NT:Procedure: COLONOSCOPY; Surgeon: Joshua Rogers MD; Location: [facility]; Service: Gastroenterology; Laterality: N/A; Medical History Medical History Date Comments Smoker DX:Smoker COPD (chronic obstructive pu lmonary disease) ([facility]) DX:COPD (chronic obstructive pulmonary disease) ([facility]) Bronchitis DX:Bronchitis Asthma DX:Asthma Kidney stone DX:Kidney stone Pericarditis 08/27/2013 DX:Pericarditis Oxygen deficiency DX:Oxygen defi ciency;COMMENT:1-3 L DM (diabetes mellitus) ([facility]) DX:DM (diabetes mellitus) ([facility]) Sleep apnea DX:Sleep apnea;C OMMENT:By pap Chest pain DX:Chest pain;CO MMENT:followed by Dr Finn Osteoporosis DX:Osteoporosis SOB (shortness of breath) DX:SOB (shortness of breath) Wheezing DX:Wheezing Memory loss DX:Memory loss Family History Medical History Relation Name Comments No Known Problems Brother 1 No Known Problems Brother 2 Heart attack Father COPD Mother Diabetes Mother No Known Problems Sister Relation Name Status Comments Brother 1 Alive Brother 2 Alive Father Mother Sister Alive Social History Tobacco Use Types Packs/Day Years Used Date Smoking Tobacco: Former Cigarettes 1 42.9 1 09/19/1973 - 06/27/2017 Smokeless Tobacco: Never Alcohol Use Standard Drinks/Week Comments Yes 16 (1 standard drink = 0.6 oz pu re alcohol) Sex and Gender Information Value Date Recorded Sex Assigned at Not on file Gender Identity Not on file Sexual Orientation Not on file Obstetrics History Last Filed Vital Signs Vital Sign Reading Time Taken Comments Blood Pressure 146/88 06/10/2024 4:23 PM EDT Pulse 110 06/10/2024 4:23 PM EDT Temperature - - Respiratory Rate - - Oxygen Saturation 95% 02/01/2024 1:21 PM EDT 2 liters Inhaled Oxygen Concentration - - Weight 100 kg (220 lb 9.6 oz) 06/05/2024 1:13 PM EDT Height 188 cm (6' 2 ) 02/01/2024 1:21 PM EDT Body Mass Index 28.32 02/01/2024 1:21 PM EDT Plan of Treatment Health Maintenance Due Date Last Done Comments Diabetes: Annual GFR (Glomerular Filtration Rate) 1957 Diabetes: Annual Foot Exam 1967 Diabetes: Annual Retina Eye Exam 1967 Pneumococcal Vaccine: 65+ Years (2 of 2 - PPSV23 or PCV20) 01/22/2017 11/27/2016 RSV Immunization Patients 60 + Years Old (1 - Risk 60-74 years 1-dose series) 2017 Abdominal Aortic Aneurysm (AAA) Screen 02/26/2021 Colorectal Cancer Screening: Colonoscopy 02/26/2021 Depression Screening 02/26/2021 Hepatitis C Screening 02/26/2021 Lung Cancer Screening (Low Dose CT) 02/26/2021 Social Influencers of Health Screening 02/26/2021 Hypertension/CHF/CAD Annual BMP Blood Test 08/03/2022 Falls Risk Assessment 2022 Diabetes: Annual Urine Albumin-Creatinine Ratio (uACR) 09/30/2023 Zoster Vaccines (2 of 2) 03/28/2024 02/01/2024 COVID-19 Vaccine (3 - 2023-2 5 season) 2024 09/22/2020, 08/25/2020 Diabetes: Blood Sugar Contro l Test (HGBA1C) 11/06/2024 05/09/2024, 01/30/2024 Cholesterol Screening (Lipid Panel) 05/09/2029 05/09/2024, 01/30/2024 DTaP,Tdap,and Td Vaccines (2 - Td or Tdap) 03/07/2031 03/07/2021 Influenza Vaccine Completed 05/09/2024, 08/01/2022, 07/01/2021 HIB Vaccines Aged Out No longer eligi ble based on patient's age to complete this topic HPV Vaccines Aged Out No longer eligi ble based on patient's age to complete this topic Hepatitis A Vaccines Aged Out No long er eligible based on patient's age to complete this topic Hepatitis B Vaccines Aged Out No long er eligible based on patient's age to complete this topic IPV Vaccines Aged Out No longer eligi ble based on patient's age to complete this topic MMR Vaccines Aged Out No longer eligi ble based on patient's age to complete this topic Meningococcal ACWY Vaccine Aged Out N o longer eligible based on patient's age to complete this topic RSV Immunization Patients Under 20 months Aged Out No longer eligible b ased on patient's age to complete this topic Varicella Vaccines Aged Out No longer eligible based on patient's age to complete this topic Care Teams Snath Handle Assembler Relationship Specialty Start Date End Date Eyal Whittaker PA [address] [place] [address] PCP - General 08/24/22
--- OUTSIDE RECORDS SUMMARY | 2024-09-30 15:50 | XMS_ITS | Clinical Summary ---
Author Organization [facility] Address [address] [place] [address] Care Team Providers Care Production Analyst Name Role Phone Eyal Whittaker PA-C Primary Care Provider [phone] Allergies Active Allergy Reactions Criticality Noted Date Comments Levofloxacin Other (See Comments) 08/31/2015 tendonisit Penicillins Rash Low 07/20/2014 Theophylline Other (See Comments) 03/09/2021 Arrythmia per pt Medications Medication Sig Dispensed Refills Start Date End Date Status ibuprofen 800 MG tablet Take 1 tablet (800 mg total) by mouth every 8 (eight) hours as needed for pain. 0 Active acetaminophen (TYLENOL EXTRA STRENGTH) 500 MG tablet Take 2 tablets (1,000 mg total) by mouth every 6 (six) hours as needed. 0 Active Trelegy Ellipta 100-62.5-25 MCG/ACT AEPB 1 puff by Inhaled route daily. 0 07/24/2022 Active ipratropium-albutero l (DUO-NEB) 0.5-2.5 mg/mL nebulizer Inhale 3 mL into the lungs. 0 Active Continuous Blood Gluc Joint Setter (FreeStyle Vanessa 2 [place]) MEHUL 1 Device by Does not apply route continuous prn. 1 each 2 02/09/2023 Active Continuous Blood Gluc Sensor (FreeStyle Vanessa 2 Sensor) MISC 1 each by Does not apply route every 14 (fourteen) days. 6 each 4 02/09/2023 Active Insulin Lispro, 1 Unit Dial, (HumaLOG KWIKPEN) 100 UNIT/ML SOPNIndications:Type 2 diabetes mellitus without complication, with long-term current use of insulin (HCC) 2-10 units sliding scale with meals. 15 mL 2 03/06/2023 Active apixaban (ELIQUIS) 5 MG TABS tablet Take 1 tablet (5 mg total) by mouth every 12 (twelve) hours. 180 tablet 3 09/13/2023 Active torsemide (DEMADEX) 20 MG tablet Take 1 tablet (20 mg total) by mouth daily. 90 tablet 3 11/06/2023 Active Synjardy XR 25-1000 MG TB24 TAKE 1 TABLET BY MOUTH DAILY. TAKE BY MOUTH. 90 tablet 3 11/25/2023 Active omeprazole (PriLOSEC) 20 MG capsule TAKE 1 CAPSULE BY MOUTH EVERY DAY 90 capsule 3 01/30/2024 Active atorvastatin (LIPITOR) tablet 20 mgIndications:Hyperl ipidemia, unspecified hyperlipidemia type Take 1 tablet (20 mg total) by mouth daily. 90 tablet 1 02/01/2024 Active Insulin Pen Needle (Pen Four States) 31G X 5 MM MISC 1 Device by Does not apply route daily. 100 each 1 02/01/2024 Active albuterol 108 (90 Base) MCG/ACT inhalerIndications:C entrilobular emphysema (HCC) Inhale 2 puffs into the lungs every 6 (six) hours as needed for wheezing or shortness of breath. 18 g 0 02/01/2024 Active dilTIAZem (CARDIZEM CD) 240 MG 24 hr capsule Take 1 capsule (240 mg total) by mouth daily. 30 capsule 0 02/05/2024 Active levoFLOXacin (LEVAQUIN) 250 MG tablet Take 1 tablet (250 mg total) by mouth daily. 0 02/07/2024 Active metoprolol succinate (TOPROL-XL) 24 hr tablet 50 mg TAKE 1 TABLET BY MOUTH EVERY DAY 90 tablet 3 02/19/2024 Active metoprolol succinate (TOPROL-XL) 24 hr tablet 25 mg TAKE 1 TABLET (25 MG TOTAL) BY MOUTH DAILY. 90 tablet 3 02/20/2024 Active traMADol (ULTRAM) 50 MG tablet TAKE 50 MG BY MOUTH EVERY 6 (SIX) HOURS NEEDED FOR PAIN. 28 tablet 1 04/29/2024 Active tirzepatide (Mounjaro) 15 MG/0.5ML Inject 0.5 mL (15 mg total) under the skin every 7 days. 2 mL 2 05/09/2024 Active UNABLE TO FIND IVG 0 Active Z-Urnzdqhbkpjx-Irknz -B12-B6 (Metanx) 3-90.314-2-35 MG CAPS Take 1 capsule by mouth 2 (two) times a day. 180 capsule 1 06/05/2024 Active clonazePAM (KlonoPIN) 0.5 MG tablet Take 1 tablet (0.5 mg total) by mouth 2 (two) times a day. 60 tablet 0 06/05/2024 Active predniSONE (DELTASONE) tablet 20 mg Take 2 tablets (40 mg total) by mouth daily. 10 tablet 0 06/10/2024 Active Lantus SoloStar 100 UNIT/ML injectionIndications :Type 2 diabetes mellitus without complication, with long-term current use of insulin (HCC) INJECT 24 UNITS UNDER THE SKIN EVERY NIGHT AT BEDTIME NEEDED. 45 mL 1 06/17/2024 Active Active Problems Problem Noted Date Diagnosed Date Atrial flutter 06/08/2023 Dyspnea 06/08/2023 Diabetes mellitus 04/17/2022 Hyperlipidemia 04/17/2022 Obesity 04/17/2022 NADEEM (obstructive sleep apnea) 04/17/2022 Osteoporosis 04/17/2022 Pain and swelling of ankle, left 08/28/2019 Closed nondisplaced fracture of lateral malleolus of left fibula 08/28/2019 SVT (supraventricular tachycardia) 05/09/2019 HTN (hypertension) 05/09/2019 Left elbow pain 11/11/2018 Acute pain of left wrist 11/11/2018 Strain of left elbow 11/11/2018 Closed nondisplaced fracture of triquetrum of le ft wrist 11/11/2018 Tobacco abuse 11/09/2016 Centrilobular emphysema 11/09/2016 Pericarditis 07/20/2014 Resolved Problems Problem Noted Date Diagnosed Date Resolved Date Precordial pain 11/09/2016 11/10/2016 Immunizations Name Administration Dates Next Due Covid-19 (Moderna 12+) 100mcg/0.5mL dosage 09/22,08/25/2020 Influenza Quad (Fluarix/Fluz one/FluLaval) 0.5mL (SD-IIV4) 08/01/2022,07/01/2021 Influenza Quad (High Dose Fl uzone) 0.7mL >65Yrs (HD-IIV4) 05/09/2024 Influenza Trivalent (Fluzone /Afluria) 5.0mL Multi-dose Vial 08/01/2022 Pneumococcal Conjugate PCV13 11/27/2016 Shingrix Vaccine (Zoster Recombinant) 02/01/2024 Tdap 03/07/2021 Family History Medical History Relation Name Comments No Sig Med Hx Brother 1 No Sig Med Hx Brother 2 Heart attack Father COPD Mother Diabetes Mother No Sig Med Hx Sister Relation Name Status Comments Brother 1 Alive Brother 2 Alive Father Mother Sister Alive Social History Tobacco Use Types Packs/Day Years Used Date Smoking Tobacco: Former Cigarettes 1 38 1 09/19/1973 - 06/27/2017 Smokeless Tobacco: Never Tobacco Cessation:Counseling Given: Not Answered Alcohol Use Standard Drinks/Week Comments Yes 16 (1 standard drink = 0.6 oz pu re alcohol) 2 every day Social Connection and Isolat ion Panel [NHANES] Answer Date Recorded In a typical week, how many times do you talk on the phone with family, friends, or neighbors? More than three times a week 12/31/2023 How often do you get togethe r with friends or relatives? Three times a week 12/31/2023 How often do you attend chur ch or samaritan services? Never 12/31/2023 Do you belong to any clubs o r organizations such as jainism groups, unions, fraternal or athletic groups, or school groups? Yes 12/31/2023 How often do you attend meet ings of the clubs or organizations you belong to? 1 to 4 times per year 12/31/2023 Are you , , di vorced, , never , or living with a partner? 12/31/2023 Overall Financial Resource Strain (CARDIA) Answe r Date Recorded How hard is it for you to pa y for the very basics like food, housing, medical care, and heating? Not hard at all 12/31/2023 Hunger Vital Sign Answer Date Recorded Within the past 12 months, y ou worried that your food would run out before you got the money to buy more. Never true 12/31/19 24 Within the past 12 months, t he food you bought just didn't last and you didn't have money to get more. Never true 12/31/2023 PRAPARE - Transportation Answer Date Re corded In the past 12 months, has l ack of transportation kept you from medical appointments or from getting medications? No 01/2024 In the past 12 months, has l ack of transportation kept you from meetings, work, or from getting things needed for daily living? No 12/31/2023 Housing Stability Vital Sign Answer Jah e Recorded In the last 12 months, was t here a time when you were not able to pay the mortgage or rent on time? No 12/31/2023 In the last 12 months, how many places have you lived? 1 12/31/2023 In the last 12 months, was t here a time when you did not have a steady place to sleep or slept in a snf (including now)? No 12/31/2023 Sex and Gender Information Value Date Recorded Sex Assigned at Male 11/03/2018 2:18 PM EDT Gender Identity Male 11/11/2018 3:22 PM EDT Sexual Orientation Straight 11/11/2018 3: 22 PM EDT Job Start Date Occupation Industry Not on file Not on file Not on file Last Filed Vital Signs Vital Sign Reading Time Taken Comments Blood Pressure 146/88 06/10/2024 4:23 PM EDT Pulse 110 06/10/2024 4:23 PM EDT Temperature 36.8 ??C (98.3 ??F) 06/10/2024 4:23 PM ED T Respiratory Rate 18 11/15/2021 9:15 AM EDT Oxygen Saturation 92% 06/10/2024 4:23 PM EDT Inhaled Oxygen Concentration - - Weight 100.1 kg (220 lb 9.6 oz) 06/05/2024 1:13 PM EDT Height 188 cm (6' 2 ) 02/01/2024 1:21 PM EDT Body Mass Index 28.32 02/01/2024 1:21 PM EDT Plan of Treatment Health Maintenance Due Date Last Done Comments Lung Cancer Screening (Low Dose CT) 1957 Depression Screening 1969 Diabetes: Eye Exam (No Retinopathy) 1975 Diabetes: Foot Exam 1975 Diabetes: Microalbumin Test 1975 Pneumococcal Vaccine (2 of 2 - PPSV23 or PCV20) 01/22/2017 11/27/2016 RSV Adult > 60+ Yrs or (1 - Risk 60-74 years 1-dose series) 2017 BMI Counseling 08/28/2020 08/28/2019, 11/11/2018 Abdominal Aortic Aneurysm (AAA) Screening 2022 Fall Risk Assessment 2022 Shingrix-Zoster Vaccine (2 of 2) 03/28/2024 02/01/2024 COVID-19 Vaccine (3 - season) 2024 09/22/2020, 08/25/2020 Hemoglobin A1C Due 11/06/2024 05/09/2024, 0 01/30/2024, 02/06/2023 Preventative Health Evaluation 01/31/2025 02/01/2024 DTap / Tdap / Td (2 - Td or Tdap) 03/07/2031 03/07/2021 Colon Cancer Screening (Colonoscopy) 11/16/2031 11/15/2021 Hepatitis C Screening Completed 04/07/2022 Influenza Vaccine Completed 05/09/2024, , 08/01/2022, Additional history exists Hepatitis B Vaccines Aged Out No long er eligible based on patient's age to complete this topic RSV Ped < 20 months Aged Out No longe r eligible based on patient's age to complete this topic Advance Directives For more information, please contact: [phone] Latest Code Status on File Code Status Date Activated Date Inactivated Comments Full Code 11/15/2021 8:57 AM 11/15/2021 3:45 PM This code status was ascertained in the following way: discussion with patient. Code Status History Code Status Date Activated Date Inactivated Comments Full Code 03/09/2021 10:53 AM 03/09/2021 5:47 PM This code status was ascertained in the following way: discussion with patient. Full Code 07/20/2017 3:11 AM 07/26/2017 12:46 AM Th is code status was ascertained in the following way: Discuss with patient. Full Code 11/09/2016 10:35 PM 11/10/2016 8:14 PM This code status was ascertained in the following way: discussion with patient. Full Code 07/20/2014 2:34 PM 07/21/2014 4:36 PM Thi s code status was ascertained in the following way: discussion with patient. Care Teams Production Analyst Relationship Specialty Start Date End Date Eyal Whittaker PA-C PCP - General [employer] [employer] [facility] 08/24/22
== END 2024-09-30 14:12 | disposition home or self-care (01) ==
LOC: HO.LNP 14:11
PROVIDERS: PCP Physician Assistant Medical; Visit Provider Hospitalist
DX: R91.1 Solitary pulmonary nodule (principal); J18.0 Bronchopneumonia, unspecified organism; J44.0 Chronic obstructive pulmonary disease with (acute) lower respiratory infection; J96.11 Chronic respiratory failure with hypoxia; J96.12 Chronic respiratory failure with hypercapnia; G47.33 Obstructive sleep apnea (adult) (pediatric); D80.1 Nonfamilial hypogammaglobulinemia
CPT/HCPCS: 87070; 87077; 87186; 87205; 99212

== ENCOUNTER 2024-10-10 10:01 | Outpatient (AMB) | payer MEDICARE, SELFPAY ==
[2024-10-10 10:03] VITALS: BP 148/80; PULSE 86; O2SAT 96; BMI 28.7
--- NOTE | 2024-10-10 10:03 | A.OFFVIS_ITS ---
Vital Signs 10/10/24 10:03 Height 6 ft 2 in Weight 223 lb 12.307 oz BMI 28.7 BP 148/80 H Blood Pressure Location Rt brachial Position Sitting Pulse 86 Pulse Source Pulse Oximeter Pulse Oximetry (%) 96 Oxygen Delivery Method Nasal Cannula Oxygen Flow Rate 2 Intake Visit Reasons: Bronchopneumonia Allergies theophylline Allergy (Severe, Verified 10/10/24 10:32) Cardiac Arrythmia levofloxacin [From Levaquin] Allergy (Unknown, Verified 10/10/24 10:32) Unknown Penicillins Allergy (Unknown, Verified 10/10/24 10:32) Unknown HPI Comments Details: The patient is a 69-year-old gentleman with known severe COPD primarily due to chronic bronchitis with respiratory failure currently on oxygen in addition to obstructive sleep apnea currently on BiPAP who apparently had been having worsening respiratory symptoms sometime around 2018. The patient had been admitted to the hospital with worsening respiratory symptoms. Ultimately referred to [place] where he took part in a experimental procedure for chronic bronchitis with the name of Maryanne swan. The study performed thermal plasty to the airways to reduce mucus producing plans. Apparently after the procedure patient did have significant improvement and was able to come off prednisone. She just Trelegy does use nebulized therapy with DuoNeb as needed. Otherwise the patient is not having any other chest physical therapy. he was taking part in the lung cancer screening program primarily at [facility]. However, once he was situated with [place] he had been getting CAT scan stairs part of the research protocol. Now that he has completed that protocol we have to get him back on the lung cancer screening program. He did have some small pulmonary nodules that need to be followed. He is still high risk with significant smoking in the past. the patient has not had any CT scans the last year. In the meantime the patient was diagnosed of sleep apnea and ultimately underwent a titration study back in 2017. he is currently on BiPAP. It was able to download the machine and currently the BiPAP is at 21/80. He also uses 5 L of oxygen with his BiPAP. He does use a nasal pillow mask which appears to be a significantly high pressure to be administered through his nose. He has significant air leakage up to 41 liters/minute average and does develop a dry mouth. He is also leaking significant amount air. I did suggest that he should go on a fullface mask. The patient is agreeable. Initially retry the F30 medium mask but due to the high pressures He will leak out significantly. Therefore I did provide him with a medium F20 mask that he tolerated much better. I also decrease his pressures down to 18/8. It appears that on his previous titration study from [facility] he was able to do well even with the pressure of 12/5. The patient also will decrease the oxygen from 5 L to 3 L and will have his DME company perform an overnight oximetry in order to address the question if this is adequate therapy. He did have recent pulmonary function studies in [place] which I personally reviewed. His FEV1 is down to 33% consistent with very severe COPD he does have significant air trapping and also has severe diffusion impairment. Patient also had a recent blood gas which is very reassuring with normal acid-base status and his pCO2 was within normal limits. 08/30/2022 the patient is here for a pulmonary follow-up visit. He has had a very eventful several weeks. He has had significant issues with his breathing. Was readmitted to [facility] with the COPD exacerbation. Subsequently after that he was discharged and his BiPAP broke down. He had to go back to the hospital because of acute on chronic respiratory failure were not being able to use the BiPAP. Ultimately he is still using the broken BiPAP but he can only use it for about 4 hours at a time. He should be getting his new BiPAP fairly soon. He is noticing worsening chest congestion. Seems like he cannot get below 30 mg of prednisone. His blood sugars have been elevated. He has been very discouraged with all this. He also went to [place] and spoke to the transplant surgeon. They did bring to his attention that he has significant amount of lower extremity edema. He has been on torsemide. The lower extremity edema has improved. He did not need to increase it. He does have a follow-up with his locksmith as well. Likely the combination of not been able to use the BiPAP dietary indiscretions and all the prednisone resulted in the lower extremity edema. He is going to start monitoring his weight closely. If the patient gains more than 3 lb/24 hr I did recommend that he takes an additional torsemide. I have will get blood work today. In addition to that I did provide him with nebulized treatment to try to get a sputum culture but we were not able to do so. We did talk about considering bronchoscopy with therapeutic cleaning and deep suctioning of we cannot get him feeling better. Will go ahead and adjust his nebulized therapy at this time in order to try to get him off the prednisone. 02/15/2023 the patient is here for pulmonary follow-up visit. He has been a while since I evaluated the patient. He has been very ill with multiple hospitalizations ended up in [facility] ICU and did require a prolonged invasive ventilation where he spent 14 days in the ICU unit ventilated. This is after developing human metapneumovirus and then subsequently pneumonia after that. The patient has a very we can immune system. The last time the IgG was checked was in the 300s. He was supposed to start IVIG therapy but it was side tried because of his multiple infections. He currently on prophylactic antibiotics. He needs to start IVIG. There was mention about using biologic therapy which she takes in. At this point will go ahead and focus on getting him his IVIG that will definitely be effective for him. Then once he is on stab list therapy we can consider biologic therapies. He is on chronic steroids her eosinophils obese be decreased. His IgE levels have been normal in the past suggesting that there is not really allergic component that is driving this to suggest biologics may be too effective for him. A the patient did follow-up id the lung transplant clinic. The patient declined to go further at this time. He will consider in the future. He also continues using the BiPAP. The patient developed respiratory failure and CO2 have been elevated even on the BiPAP, PCO2 55mmHg. Therefore will go ahead in his changing from the BiPAP to a APAP astral machine with a sip and puff that he can use during the daytime. I think having the affordability of the noninvasive ventilator will also allow him to be able to do things outside of the home and uses noninvasive ventilator I would daily at nighttime and also with the mouthpiece that he can use it during the daytime. 08/10/2023 the patient is here for pulmonary follow-up visit. Overall the patient is still doing well. He is tolerating the IVIG without any adverse effects. Through levels are good. The patient also continues to use the noninvasive ventilator. The noninvasive ventilator has been very affecting beneficial. He does use it every night. Will go ahead and have him there had do the mouthpiece so he can also use it during the day as needed. He is responding well to the Trelegy. His prednisone is off completely. No evidence of adrenal insufficiency. The patient also has been exercising online with pulmonary rehab. This has been very helpful. Overall the patient has been doing significantly better. We did talk about lung transplant but the patient would like to still hold off at this time. Does not look like he is interested to pursue this at this time. We did talk about vaccines. 02/07/2024 this is the telehealth sick visit for the patient. He has been having worsening respiratory symptoms for the last 10 days. He had call the office and we have sent a prescription for prednisone also cefpodoxime. Although no significant improvement. Still having significant productive cough. Difficult to expectorate also having right-sided pleuritic discomfort. Denies any fevers or chills. He did call his primary care doctor he was given some tramadol for the pain that was only partially helpful. The patient in the meantime continues to receive the IVIG with good effect. Continues use the BiPAP with good effect. He has had Pseudomonas in the past although he can not tolerate high doses of quinolones. He has tolerated the low-dose quinolone the past. Therefore I will send him levofloxacin 250 and then if she tolerates that after weekend if he still having symptoms he can try increasing it to the 500 mg does monitoring closely for any tendonitis. The patient also undergo a chest x-ray. The symptoms worsening may need to go to the hospital or if his x-rays significantly abnormal alcohol him to go to the hospital. 03/24/2024 the patient is here for sick visit. He has been having hard summer. He has been coughing more she has congestion. Having hard time breathing. He had been placed on a low-dose levofloxacin which she tolerated without any evidence of any tendonitis. His symptoms did improve. We did once he stopped the antibiotics his symptoms reoccurred. He is still getting the IVIG. He did have blood work today to see if he has low IgG not want if we have to adjusted dose. In the meantime we are able to get a sputum culture sent to the laboratory. He has very diminished with breath sounds right now significant chest tightness. Will give Solu-Medrol today. He is also using the oxygen. He did not do well on the pulse therefore we come off the pulse and did a 6 minute walk test. The patient needed 2 L continuous with rest and also with activity. We did reach out to [facility] but the 1 from [place] to see if we can switch him over to a portable oxygen concentrator with the 2 liters/minute capability. If the patient is not able to get a portable oxygen concentrator that can have 2 liters/minute who have to go back on oxygen tanks. Will send a script to the company at this time. He will continue to use his noninvasive ventilator. This has been affecting beneficial. He will receive Solu-Medrol today again and go prednisone taper and then go back on the levofloxacin. Hopefully we can get a culture back to put on the right antibiotics. 04/17/2024 the patient is here for a pulmonary follow-up visit. He is back from [place]. At least he was able to enjoy himself. He is still being tapering down on the prednisone. Now on 20 mg. In addition to that the patient completed the Levaquin. His mucus burden his significantly improved. The back pain has improved. We did try to get a sputum culture but was not able to be able to be effective. Will try to get another sputum. He is still congested. If he continues to have issues with the congestion or if it worsens now that he is off the antibiotics we can not get a sputum culture then a bronchoscopy will be warranted. The patient will continue to taper down prednisone. We did look at the blood work. His IgG is low normal. Therefore is reasonable based on his height and weight that he should be on higher dose of the Gammagard. I will increase his IVIG from 40 g to 50 g. He can continue every 4 weeks. I will send a script down to the infusion center. He will continue with his current respiratory therapy. He does continue with noninvasive ventilator. And still we did talk about lung transplant and is not interested at this time. Will follow-up in 6-8 weeks. If he has any issues prior to that he will call for an earlier appointment. 06/17/2024 the patient is here for pulmonary follow-up visit. He is still struggling with the chest congestion. He did complete a course of antibiotics again with loud low-dose levofloxacin but only help partially. We did try to get a sputum culture but not able to do a proper sputum as it is been contaminated a few times. He continues to have the significant congestion difficult to breathe. This point will be reasonable to do a bronchoscopy for clean out in for deep cultures. The patient is agreeable at this time. In addition to that he continues with the IVIG. Although we had increased the dose to 50 g and I believe the last time that he received it this month he only got 40 g. Therefore will call the pharmacy to see was going on the make sure that he is get the proper does administered specially with his immunodeficiency. The patient will have a bronchoscopy will follow-up after the bronchoscopy. 08/01/2024 the patient is here for a pulmonary follow-up visit. He has been feeling unwell recently. He started developing worsening respiratory symptoms once he completed the Vantin for 21 days. He has been having worsening shortness of breath and cough. He almost went to the ER. He had to take additional prednisone this morning because he had a hard time breathing. He is very limited at this time. He is using his oxygen. We did review his microbiology. It looks like he will some Aspergillus fumigatus in the sputum culture. Therefore, is reasonable to go ahead and treat him with voriconazole for a fungal infection specially with his immunocompromised state. In addition to that he is not moving a lot of Mumtaz will give him some Solu-Medrol. The patient will return back on the Cobase for few more weeks. The patient was supposed to have an x-ray today but he could not do it in time. Therefore he is going to hold off in end up getting his CT scan does coming up in the next week or so. The patient however is having significant symptoms. If his condition is to worsen even with aggressive respiratory and medical recommendations then he would need to go to the ER. He does continue to use his noninvasive ventilator at nighttime. Sometimes he feels like it is not enough pressure. Therefore I did increase the minute ventilation from 5->6 liters/minute and his tidal volume from 400->480 mL/min. Will plan to get blood work before his next visit. 09/30/2024 the patient is here for a pulmonary follow-up visit. The patient overall has been doing poorly for the last few days. Since we last saw him he had been on vent in twice and then called his primary care and had him on Augmentin for about 20 days. Prior to that he has in his the course of voriconazole. He has been noticing that every time he stops the antibiotics and chest congestion gets worse. Moderate to severe. He has been using his noninvasive ventilator for the most of the day when he is at home. The patient has been having significant wheezing. He has been taking 40 mg of prednisone for burst. He is still having hard time. Significant diminished breath sounds bilaterally not moving much air. We were able to get a sputum sent to [facility] for culture. Will await the results in the meantime will start him on doxycycline to treat him for Staph aureus. Will also assess for Pseudomonas. The patient is also scheduled for CT scan in the coming weeks that would help identify any lower respiratory infection or bronchiectasis. He continues to receive the IVIG. He has been receiving the higher dose. Today in the office he was given IV Solu-Medrol and will follow-up with the prednisone taper he will start the antibiotics and will await the sputum culture and also await the CT scan. The patient will return next week. If he however gets worse he would need to go to the ER for failing outpatient therapy. 10/10/2024 the patient is here for a pulmonary follow-up visit. We just saw him last week. He had a significant COPD exacerbation and acute on chronic hypoxic respiratory failure. We gave him Solu-Medrol in addition to high-dose prednisone and ultimately treated him for Pseudomonas that was growing in the sputum. He also got his IVIG today. He is not doing any better. The patient still has significant shortness of breath. His dyspneic just on the wheelchair. He is also looks frail. I am concerned not moving a lot of air. Although this vital signs are fairly stable his oxygen his respiratory rate is elevated at around 20 breaths per minute. Will go ahead and transfer him to the ER to be evaluated and admitted for failing outpatient therapy. With Pseudomonas he will need IV antibiotics since he can not tolerate a higher dose levofloxacin. Patient was scheduled to undergo a CT scan we can possibly get that as an inpatient and if he does have evidence of bronchiectasis we can look into inhaled tobramycin. [facility] Medical History Bronchopneumonia Asthma-COPD overlap syndrome Hypogammaglobulinemia Dyspnea Osteoporosis On supplemental oxygen therapy Compression fracture of thoracic spine, non-traumatic Weight loss due to medication Diabetes mellitus type 2 in nonobese GERD (gastroesophageal reflux disease) Personal history of nicotine dependence NADEEM treated with BiPAP Pulmonary nodules Chronic respiratory failure COPD (chronic obstructive pulmonary disease) (~2003) Surgical History History of bronchoscopy (~2018) History of neck surgery History of colonoscopy Social History Household Members: Spouse Housing: House Do you presently have visiting nurse or other home services: No Alcohol intake: current Alcohol intake frequency: 3 or more drinks per day Patient Tobacco Use Status: Former Tobacco user Tobacco use type: Cigarette Years Smoked: (onset 21yo, 1-2ppd x 41yrs, 50+PYH - quit 2017) Smoked in Last 30 Days: No Use of substances other than those prescribed or required for medical reasons: No Currently Displaying Signs/Symptoms of Drug Intoxication Withdrawal: No Have you been hit, kicked, punched, or otherwise hurt by someone within the past year? If so, by whom?: No Do you feel safe in your current relationship?: Yes Is there a partner from a previous relationship who is making you feel unsafe now?: No Are you made to feel afraid or neglected: No Advance Directives: No Advance Directives Information Provided: Yes Recently lost weight without trying: No service: No Review of Systems Const Reports fatigue, Denies frequent falls and Denies weight loss Eyes Denies change in vision ENT Denies change in voice Card Denies chest pain, Reports dyspnea and Reports dyspnea on exertion Resp Reports change in phlegm color, Reports chest congestion, Reports cough, Denies hemoptysis, Reports excessive phlegm production, Reports dyspnea, Reports dyspnea on exertion and Reports wheezing GI Denies abdominal pain Musc Reports no additional complaints and Denies myalgias Skin/Breast Denies rash Neuro Denies frequent falls Endo Reports fatigue Aller/Immun Reports wheezing Physical Exam Vital Signs: Last Vital Signs Pulse 86 10/10/24 10:03 BP 148/80 H 10/10/24 10:03 Pulse Ox 96 10/10/24 10:03 Oxygen Delivery Method Nasal Cannula 10/10/24 10:03 Oxygen Flow Rate 2 10/10/24 10:03 BMI result Body Mass Index 28.7 Last Vital Signs Temp 97.0 F 10/11/24 11:20 Pulse 99 10/11/24 11:21 Resp 20 10/11/24 11:21 BP 138/92 H 10/11/24 11:20 Pulse Ox 97 10/11/24 11:20 O2 Del Method BiPAP 10/11/24 11:20 O2 Flow Rate 2 10/10/24 14:00 Oxygen Flow Rate 2 10/10/24 10:30 BMI result Body Mass Index 28.2 Const General: alert and Cushingoid facies Limitations: other limitations (wearing is NIV) Neck Neck: Yes normal visual inspection, Yes full ROM and Yes no lymphadenopathy Chest Chest palpation & inspection: normal inspection of the chest Resp Effort & Inspection: tachypneic, uses accessory muscles and prolonged expiratory phase Auscultation: rhonchi, wheezes and diminished lung sounds Cardio Rate: regular rate Rhythm: regular rhythm Heart sounds: S1 normal heart sound present and S2 normal heart sound present GI Palpation (GI): Soft to palpation and nontender Auscultation: normal bowel sounds Skin General skin exam: rashes and/or lesions noted Extrem General: Yes edema Assessment & Plan Assessment & Plan (1) COPD (chronic obstructive pulmonary disease): Onset Date: Code(s): J44.9 - Chronic obstructive pulmonary disease, unspecified Category: Medical Qualifiers: COPD type: COPD with acute lower respiratory infection Qualified Code(s): J44.0 - Chronic obstructive pulmonary disease with (acute) lower respiratory infection (2) Exacerbation of bronchiectasis due to infection: Code(s): J47.1 - Bronchiectasis with (acute) exacerbation; B99.9 - Unspecified infectious disease Category: Medical (3) Chronic respiratory failure: Code(s): J96.10 - Chronic respiratory failure, unspecified whether with hypoxia or hypercapnia Category: Medical Qualifiers: Respiratory failure complication: hypoxia and hypercapnia Qualified Code(s): J96.11 - Chronic respiratory failure with hypoxia; J96.12 - Chronic respiratory failure with hypercapnia (4) Pulmonary nodules: Code(s): R91.8 - Other nonspecific abnormal finding of lung field Category: Medical (5) NADEEM treated with BiPAP: Code(s): G47.33 - Obstructive sleep apnea (adult) (pediatric) Category: Medical (6) Hypogammaglobulinemia: Code(s): D80.1 - Nonfamilial hypogammaglobulinemia Category: Medical Plan Transfer to the ED for evaluation and admission continue Daliresp Continue current respiratory regimen: Trelegy short-acting beta agonist as needed continue AVAPS with mouth piece. DME - [employer], incrase Vt 400 to 480 appx Will use the F20 Large mask diuresis as tolerared Lung transplantation evaluation on hold follow-up in 3-4 weeks Coding Level of Care Code Est Pt Level 5 (29713) Complex EM visit Add On G2211 Diagnoses Chronic obstructive pulmonary disease with acute lower respiratory infection J44.0 COPD type: COPD with acute lower respiratory infection Exacerbation of bronchiectasis due to infection J47.1; B99.9 Chronic respiratory failure with hypoxia and hypercapnia J96.11; J96.12 Respiratory failure complication: hypoxia and hypercapnia Pulmonary nodules R91.8 NADEEM treated with BiPAP G47.33 Hypogammaglobulinemia D80.1 Time Spent (min) 45
--- OUTSIDE RECORDS SUMMARY | 2024-10-10 10:42 | XMS_ITS | Encounter Summary ---
Author Organization [facility] Address [address] [place] [address] Care Team Providers Care Instrument Sterilizer Name Role Phone Faith Iraheta APRN Primary Care Provider [phone] Slade Finn MD Unavailable Reason for Visit * Reason Comments Medication Refill Encounter Details Date Type Department Care Team (Late st Contact Info) Description 12/02/2022 Refill [facility] Department of Internal Medicine [address] [phone] Faith Iraheta APRN [address] [place] [address] Social History Tobacco Use Types Packs/Day Years Used Date Smoking Tobacco: Never Assessed Sex and Gender Information Value Date Recorded Sex Assigned at Not on file Gender Identity Not on file Sexual Orientation Not on file documented as of this encounter Plan of Treatment Not on file documented as of this encounter Visit Diagnoses Not on filedocumented in this encounter Care Teams Instrument Sterilizer Relationship Specialty Start Date End Date Faith Iraheta APRN [address] [place] [address] PCP - General Adult Health - PA/APNP/INFO SPECIALIST/COTTON AGENT 04/06/21 Slade Finn MD [address] [phone] [facility] 10/17/21 documented as of this encounter
--- OUTSIDE RECORDS SUMMARY | 2024-10-10 10:42 | XMS_ITS | Continuity of Care Document ---
Author Organization [facility] Address [address] [place] [phone] Phone Care Team Providers Care Fire Coordinator Name Role Phone Unavailable Unavailable Unavailable Advance Directives Directive Yes / No Effective Date File Name No Information Encounters Encounter Description Practice Location Reason(s) For Visit Diagnoses Date Provider Providers Copied on Encounter [facility], [address] [address], [place], [place], [id number], tel:[phone] [facility] PROGRESSIVE HIGH MYOPIA [phone] No Information Family History Family Member Type Diagnosis Age At Onset No Information Payers Payer name Insurance type Covered constitution party ID Authoriza tion(s) No Information Social History Type Description Quantity Date Captured Comments Sex Male Smoking Status No Information Chief Complaint And Reason For Visit No Information Plan Of Treatment Date Type Action Status No Information History Of Present Illness Encounter Date Complaint History Of Prese nt Illness No Information Instructions Date Instruction Additional Infor mation No Information Assessments Type Assessment Date No Information
--- OUTSIDE RECORDS SUMMARY | 2024-10-10 10:42 | XMS_ITS | Data Portability ---
Author Organization [place] - [employer] [employer], [employer] - [facility] Address [address] [place] [id number] Assessment No assessment recorded. Plan of Treatment Reminders Order Date Submit Date Provider Last Modified By Organization Details Last Modified Time Details Appointments OFFICE VISIT 30 2024 01:15P AUGUSTO Pressley Not available Not available Not available Lab HbA1c (hemoglob in A1c), blood 2024 025 [id number] p, [address] [place] [address], [phone], 09/05/2024 15:07:20 Referral None recorded. Procedures None recorded. Surgeries None recorded. Imaging None recorded. Medication Orders Augmentin 875 mg-125 mg tablet 2024 025 [id number], [address] [place], [place], [id number], 09/05/2024 13:53:04 prednison e 20 mg tablet 2024 025 [id number], [address] [place], [place], [id number], 09/05/2024 13:53:04 Patient TargetsNo targets recorded. Patient InstructionsNo instructions recorded. Reason for Referral None Reported. Results Created Date Observation Date Name Description Value Unit Range Abnormal Flag Note LastModifiedBy Organization Detail LastModifiedTime 09/05/19 25 09/05/2024 HbA1c (hemo globi n A1c), blood HbA1c 6.3 Not Available [id number] _[id number] p [address], [place], [address], 09/05/2024 13:37:49 Result Notes None recorded. Problems Name Problem SNOMED Code Status Onset Date Resolution Date Notes Provider Name and Address Organization Details Recorded Time Pain in wrist 97666316 Active 2018 Acute pain of left wrist; CHR6Udwmgk ption: Acute pain of left wrist; DUC82Sobze iption: Acute pain of left wrist; ; Not Available [facility] 5 12:18:52 Closed fracture of triquetra l bone of wrist 33468420 Active 2018 Closed nondisplac ed fracture of triquetrum of left wrist; RGC7Bfkuxg ption: Closed nondisplac ed fracture of triquetrum of left wrist; KXF56Gdutr iption: Closed nondisplac ed fracture of triquetrum of left wrist; ; Not Available [facility] 5 12:18:52 Dyspnea 171190410 Active 2022 Dyspnea; CVW1Mpmwqn ption: Dyspnea; CBJ35Yfsue iption: Dyspnea; Not Available [facility] 5 12:18:53 Osteoporo sis 10966977 Active 2021 Osteoporos is; VQD6Wpygnc ption: Osteoporos is; WCX47Sahez iption: Osteoporos is; ; Not Available [facility] 5 12:18:53 Obstructi ve sleep apnea syndrome 13075680 Active 2021 NADEEM (obstructi ve sleep apnea); GOD4Hxsslo ption: NADEEM (obstructi ve sleep apnea); DCV35Podzm iption: NADEEM (obstructi ve sleep apnea); ; Not Available [facility] 5 12:18:53 Strain of muscle and/or tendon of elbow region 379922014 Active 2018 Strain of left elbow; EPK8Tqemin ption: Strain of left elbow; XVS76Pvshl iption: Strain of left elbow; ; Not Available [facility] 5 12:18:53 Centriaci clifton emphysema 39112662 Active 2016 Centrilobu lar emphysema; OPZ7Fetqkp ption: Centrilobu lar emphysema; DQX96Urakd iption: Centrilobu lar emphysema; ; Not Available [facility] 5 12:18:54 Ankle pain 955978410 Active 2019 Pain and swelling of ankle, left; DIP8Qyxugw ption: Pain and swelling of ankle, left; UXT12Snouv iption: Pain and swelling of ankle, left; ; Not Available [facility] 5 12:18:54 Atrial flutter 5785158 Active 2022 Atrial flutter; RAV2Tacszm ption: Atrial flutter; KHV49Iknod iption: Atrial flutter; dlname: Facchini; dfname: Justine; Not Available [facility] 5 12:18:54 Tobacco user 392859893 Active 2016 Tobacco abuse; ETK2Atfxal ption: Tobacco abuse; VSC18Peugv iption: Tobacco abuse; dlname: Michael; dfname: Rafal; dminit: S.; Physician_ Suffix: MD; Physician_ Specialty: Hospitalis t Medicine; ; Not Available [facility] 5 12:18:54 Pain in elbow 47752920 Active 2018 Left elbow pain; VUZ1Tldhiq ption: Left elbow pain; GUC96Qgimb iption: Left elbow pain; dlname: Kaylee; dfname: Wilfred; dminit: P; Physician_ Suffix: MD; Physician_ Specialty: Orthopedic Surgery; ; Not Available [facility] 5 12:18:55 Obesity 387465436 Active 2021 Obesity; CJJ8Ucbmti ption: Obesity; TBA77Qedip iption: Obesity; ; Not Available [facility] 5 12:18:55 Closed fracture of lateral malleolus 90862309 Active 2019 Closed nondisplac ed fracture of lateral malleolus of left fibula; CRL6Xpifrm ption: Closed nondisplac ed fracture of lateral malleolus of left fibula; XHB64Jfgyo iption: Closed nondisplac ed fracture of lateral malleolus of left fibula; ; Not Available [facility] 12:18:55 Diabetes mellitus 17537346 Active 2021 Diabetes mellitus; WIL9Rtnzif ption: Diabetes mellitus; CIJ65Knlyi iption: Diabetes mellitus; ; Not Available [facility] 12:18:55 Hypertens hollis disorder 13968549 Active 2018 HTN (hypertens ion); AVW2Zetwcw ption: HTN (hypertens ion); MVI00Vojxg iption: HTN (hypertens ion); ; Not Available [facility] 12:18:56 Hyperlipi demia 68890855 Active 2021 Hyperlipid emia; QFX6Nayxkb ption: Hyperlipid emia; TZI45Qotba iption: Hyperlipid emia; ; Not Available [facility] 12:18:56 Pericardi tis 3903402 Active 2013 Pericardit is; XPU8Aycjdg ption: Pericardit is; STW65Lzsvd iption: Pericardit is; dlname: Carlos macedo; dfname: Fatoumata; dminit: B; Physician_ Suffix: PA-C; Physician_ Specialty: Cardiology ; ; Not Available [facility] 12:18:56 Supravent ricular tachycard ia 0172032 Active 2018 SVT (supravent ricular tachycardi a); WJL3Mcspdx ption: SVT (supravent ricular tachycardi a); HAF77Qmyls iption: SVT (supravent ricular tachycardi a); ; Not Available [facility] 12:18:56 Problem Notes None recorded. Medical Equipment None Reported. Allergies Allergen ID Allergen Name Allergen Category Reaction Reaction Severity Criticality Documentation Date Start Date Code Code System Note Provider Name and Address Organization Details Recorded Time 06935 Product containin g penicilli n and antibioti c (product) medicatio n rash Not available Not available 10/06/20242013 50378 05 SNOMED React ion: Rash; Comme nt: dfnam e: Lilibeth jahaira; dlnam e: Arvizu ; Physi cian_ Suffi x: RN; Physi cian_ Speci alty: Puneet buckner Nurse ; ; Not Available [facility] 5 08:23:02 15652 levofloxa freedom medicatio n other Not available Not available 10/06/20242015 38899 RxNorm React ion: Other (See Comme nts); Comme nt: dfnam e: Sindy ; dlnam e: Owen on; Physi cian_ Suffi x: RN; ; Not Available [facility] 5 08:23:03 3323 theophyll ine medicatio n Not available Not available Not available 09/05/2024 65535 RxNorm Monica Tino null, [facility] 5 13:22:15 3324 Levaquin medicatio n Not available Not available Not available 09/05/2024 39666 2 RxNorm Monica Tino null, [facility] 5 13:22:23 Medications Name Sig Start Date Stop Date Status Note LastModified by Organization Details LastModified Time prednison e 10 mg tablet TAKE 6 TABLETS ONCE A DAY FOR 3 DAYS THEN 5 FOR 3 DAYS THEN 4 FOR 3 DAYS THEN 3 FOR 3 DAYS THEN 2 FOR 3 DAYS THEN 1 FOR 3 DAYS active Not Available Not Available No t Available atorvasta tin 20 mg tablet TAKE 1 TABLET BY MOUTH EVERY DAY active Not Available Not Available No t Available ipratropi um 0.5 mg-albute rol 3 mg (2.5 mg base)/3 mL nebulizat ion soln Inhale 3 mL into the lungs. active Not Available Not Available No t Available torsemide 20 mg tablet TAKE 1 TABLET BY MOUTH EVERY DAY active Not Available Not Available No t Available diltiazem ER (XR/XT) 240 mg capsule,e xtended release 24 hr, controlle d Take 1 capsule (240 mg total) by mouth daily. 2023 active dfname: Lilliana; dminit: Sheri steen; dlname: Tameka; Physicia n_Addr1: [address] [facility]; Physicia n_Addr2: [place] [address]; Physicia n_City: [place] ; Physicia n_State: [place]; Physicia n_Postal Code: [address]; NPI: [id number]; Physicia n_Suffix : MUSIC PRODUCER; WISErgia n_Phone: tel: [phone]; ditlo n_Fax: fax: [phone]; WISErgia n_Specia lty: Nurse Practiti kurt; Not Available Not Available Not Available cefpodoxi me 200 mg tablet TAKE 1 TABLET BY MOUTH TWICE DAILY FOR 21 DAYS WITH FOOD 09/05 completed Not Available Not Available Not Available azithromy freedom 250 mg tablet TAKE 2 TABLETS BY MOUTH ON DAY 1 FOLLOWED BY 1 TABLET DAILY ON DAYS 2-5 09/05 completed Not Available Not Available Not Available ibuprofen 800 mg tablet Take 1 tablet (800 mg total) by mouth every 8 (eight) hours as needed for pain. active dfname: Doug anthony; dlname: Kaden ; Physicia n_Addr1: [address] [facility]; Physicia n_City: [place]; Physicia n_State: [place]; Physicia n_Postal Code: [address]; NPI: [id number]; Physicia n_Suffix : MD; WISErgia n_Phone: tel: [phone]; Not Available Not Available Not Available metoprolo l succinate ER 50 mg tablet,ex tended release 24 hr TAKE 1 TABLET BY MOUTH EVERY DAY active Not Available Not Available No t Available diltiazem CD 240 mg capsule,e xtended release 24 hr TAKE 1 CAPSULE BY MOUTH EVERY DAY active Not Available Not Available No t Available prednison e 20 mg tablet Take 2 tablets every day by oral route. 2024 active Not Available Not Available Not Avai lable clonazepa m 0.5 mg tablet TAKE 1 TABLET BY MOUTH TWICE DAILY active Not Available Not Available No t Available levofloxa freedom 250 mg tablet TAKE 1 TABLET BY MOUTH DAILY FOR 21 DAYS 09/05 completed Not Available Not Available Not Available ciproflox acin 500 mg tablet TAKE 1 TABLET BY MOUTH TWICE DAILY FOR 21 DAYS active Not Available Not Available No t Available doxycycli ne monohydra te 100 mg tablet TAKE 1 TABLET BY MOUTH TWICE DAILY active Not Available Not Available No t Available tramadol 50 mg tablet TAKE 1 TABLET BY MOUTH EVERY 6 HOURS active Not Available Not Available No t Available acetamino phen 500 mg tablet Take 2 tablets (1,000 mg total) by mouth every 6 (six) hours as needed. active NPI: [id number]; Not Available Not Available Not Available oxycodone -acetamin ophen 5 mg-325 mg tablet TAKE 1/2 TABLET BY MOUTH EVERY 8 HOURS NEEDED FOR PAIN 09/05 completed Not Available Not Available Not Available alprazola m 0.5 mg tablet 09/05 completed Not Available Not Available Not Available doxycycli ne monohydra te 100 mg capsule TAKE 100 MG ORALLY DAILY FOR 30 DAYS 09/05 completed Not Available Not Available Not Available omeprazol e 20 mg capsule,d elayed release TAKE 1 CAPSULE BY MOUTH EVERY DAY active Not Available Not Available No t Available diltiazem CD 120 mg capsule,e xtended release 24 hr TAKE 2 CAPSULES BY MOUTH DAILY. 09/05 completed Not Available Not Available Not Available codeine 10 mg-guaife nesin 100 mg/5 mL oral liquid active Not Available Not Available Not Available metoprolo l succinate ER 25 mg tablet,ex tended release 24 hr TAKE 1 TABLET (25 MG TOTAL) BY MOUTH DAILY. active Not Available Not Available No t Available albuterol sulfate HFA 90 mcg/actua tion aerosol inhaler 2 PUFF INHALED EVERY 4 HOURS NEEDED FOR SHORTNES S OF BREATH OR WHEEZING FOR 90 DAYS active Not Available Not Available No t Available amoxicill in 875 mg-potass ium clavulana te 125 mg tablet TAKE 1 TABLET BY MOUTH EVERY 12 HOURS active Not Available Not Available No t Available voriconaz ole 200 mg tablet active Not Available Not Available No t Available insulin lispro (U-100) 100 unit/mL subcutane ous pen 2-10 units sliding scale with meals. 2022 active NPI: [id number]; Not Available Not Available Not Available duloxetin e 30 mg capsule,d elayed release TAKE 1 CAPSULE BY MOUTH EVERY DAY 09/05 completed Not Available Not Available Not Available arformote rol 15 mcg/2 mL solution for nebulizat ion INHALE 1 VIAL TWICE DAILY FOR 30 DAYS active Not Available Not Available No t Available Lantus Solostar U-100 Insulin 100 unit/mL (3 mL) subcutane ous pen INJECT 24 UNITS UNDER THE SKIN EVERY NIGHT AT BEDTIME NEEDED. 2023 active NPI: [id number]; StopDate : 03/26/20 25; Not Available Not Available Not Available Privigen 10 % intraveno us solution active Not Available Not Available Not Available Pen Needle 31 gauge x 3/16 1 Device by Does not apply route daily. 2023 active NPI: [id number]; Not Available Not Available Not Available roflumila st 500 mcg tablet TAKE 1 TABLET BY MOUTH EVERY DAY 90 DAYS active Not Available Not Available No t Available Eliquis 5 mg tablet TAKE 1 TABLET BY MOUTH EVERY 12 HOURS active Not Available Not Available No t Available Synjardy XR 25 mg-1,000 mg tablet, extended release TAKE 1 TABLET BY MOUTH EVERY DAY active Not Available Not Available No t Available Trelegy Ellipta 100 mcg-62.5 mcg-25 mcg powder for inhalatio n 1 puff by Inhaled route daily. 2021 active dfname: Not; dminit: In System; dlname: Provider ; Not Available Not Available Not Available FreeStyle Vanessa 2 Sensor kit 1 each by Does not apply route every 14 (fourtee n) days. 2022 active NPI: [id number]; Not Available Not Available Not Available FreeStyle Vanessa 2 [place] 1 Device by Does not apply route continuo us prn. 2022 active dfname: Eyal; dlname: Panfilo; Physicia n_Addr1: [address]; Physicia n_Addr2: [place] [address]; Physicia n_City: [place] ; Physicia n_State: [place]; Physicia n_Postal Code: [address]; NPI: [id number]; Physicia n_Suffix : PA-C; Physicia n_Phone: tel:[phone]; Physicia n_Fax: fax:[phone]; Physicia n_Specia lty: Regulatory Affairs Manager ; Not Available Not Available Not Available Trelegy Ellipta 200 mcg-62.5 mcg-25 mcg powder for inhalatio n INHALE 1 PUFF BY MOUTH DAILY active Not Available Not Available No t Available Mounjaro 7.5 mg/0.5 mL subcutane ous pen injector ADMINIST ER 7.5 MG UNDER THE SKIN EVERY 7 DAYS 09/05 completed Not Available Not Available Not Available Mounjaro 5 mg/0.5 mL subcutane ous pen injector 09/05 completed Not Available Not Available Not Available Mounjaro 15 mg/0.5 mL subcutane ous pen injector ADMINIST ER 15 MG UNDER THE SKIN EVERY 7 DAYS active Not Available Not Available No t Available Mounjaro 10 mg/0.5 mL subcutane ous pen injector ADMINIST ER 10 MG UNDER THE SKIN EVERY 7 DAYS active Not Available Not Available No t Available Mounjaro 12.5 mg/0.5 mL subcutane ous pen injector ADMINIST ER 12.5 MG UNDER THE SKIN EVERY 7 DAYS 09/05 completed Not Available Not Available Not Available Vitals Date Recorded Oxygen saturation Oxygen saturation in Arterial blood by Pulse oximetry Heart rate Body weight Systolic blood pressure Diastolic blood pressure Provider Name and Address Organization Details Last Updated DateTime 5 96 % 96 % 85 /min 22485.0 4 g 112 mm[Hg] 76 mm[Hg] [facility] 5 13:28:31 Social History None recorded. Functional Status None recorded. Mental Status None recorded. Family History Nothing Reported. Medical History No medical history recorded. Immunizations Vaccine Type Date Status Note Provider Nam e and Address Organization Details Recorded Time Influenza, high-dose, quadrivalent, PF 4 completed Not Available [facility] 10/06/2024 13:05:28 Tdap 1 completed Not Available [facility] 10/06/2024 13:05:29 Influenza, split virus, trivalent, preservative 2 completed Not Available [facility] 10/06/2024 13:05:29 Pneumococcal conjugate PCV 13 7 completed Not Available [facility] 10/06/2024 13:05:30 Influenza, split virus, quadrivalent, PF 2 completed Not Available [facility] 10/06/2024 13:05:30 Influenza, split virus, quadrivalent, PF 1 completed Not Available [facility] 10/06/2024 13:05:30 COVID-19, mRNA, LNP-S, PF, 100 mcg/0.5mL dose or 50 mcg/0.25mL dose 1 completed Not Available [facility] 10/06/2024 13:05:30 COVID-19, mRNA, LNP-S, PF, 100 mcg/0.5mL dose or 50 mcg/0.25mL dose 0 completed Not Available [facility] 10/06/2024 13:05:30 zoster recombinant 4 completed Not Available [facility] 10/06/2024 13:05:30 Past Encounters Encounter ID Performer Location Encounter Start Date Encounter Closed Date Diagnosis/Indication Diagnosis SNOMED-CT Code Diagnosis ICD10 Code Diagnosis Note [id number] AUGUSTO Hernandez [id number] [address] [place] [phone] 09/05/2024 13:14:52 09/05/2024 13:59:46 Type 2 diabetes mellitus 92788850 E11.9 - stable A1c 6.3, continue current therapy, 4 month follow up Pneumonia 383634886 J18. 9 - followed by pulmonolog y, reviewed sputum culture and bronchosco py results- CT chest scheduled for next week, advised pulmonolog y follow up if not cleared by augmentin Diabetic p eripheral neuropathy 157151668 E11.40 - improving with metanx, continue Health Concerns Section Related Observation LastModified by Organization Detai ls LastModified Time None Recorded Concern Status LastModified by Organization Details LastModified Time None Recorded Advance Directives Directive None Recorded Payers Encounter Date Sequence Insurance Name Policy Number Policy Lopez Covered Member ID Lopez Member ID Guarantor Name 09/05/2024 1 [employer] (MEDICARE REPLACEMENT HMO) [id number] 1 Saul Mosher [id number] Saul Mosher Notes Date Note Type Note Provider Name and Address Organization Details Recorded Time 09/05/2024 text/html The patient presents today with a report of improvement in thigh numbness, although some numbness still persists to a lesser degree. The patient's feet remain sensitive to pressure, with pain experienced when stepping. However, they note improvement, mentioning that their dog can now lay on their feet without causing discomfort. The patient reports that vitamins are helping with these symptoms.The patient underwent a bronchoscopy in early July, which revealed pneumonia and a fungal infection through cultures. They were initially treated with Vantin for 21 days, experiencing improvement near the end of the course. However, symptoms recurred within 4 days of completing treatment, leading to another 21-day course of Vantin. The patient discontinued treatment for the fungal infection due to adverse effects. Currently off Vantin, the patient experiences gurgling, back pain, and a recurrence of cough. A 3-day trial of Augmentin resulted in significant improvement by the second day, with a noticeable reduction in coughing.The patient reports being on Metanex for 3-4 months, with noticeable improvement in leg symptoms after approximately 2 months of use. They have requested a higher dose of prednisone for a few days to manage their symptoms. AUGUSTO Hernandez [address] [place] [address], [phone], [facility] 09/05/2024 14:00:48
--- OUTSIDE RECORDS SUMMARY | 2024-10-10 10:42 | XMS_ITS | Encounter Summary ---
Author Organization [facility] Address [address] [place] [address] Care Team Providers Care Turn Out Worker Name Role Phone Eyal Whittaker Primary Care Provider [phone] Encounter Details Date Type Department Care Team (Late st Contact Info) Description 06/10/2024 4:17 PM EDT Hospital Encounter TH HISTORIC ENCOUNTERS EASTERN CONVERSION ONLY Eyal Whittaker PA [address] [place] [address] [place] [address] Social History Tobacco Use Types Packs/Day Years Used Date Smoking Tobacco: Former Cigarettes 1 42.9 1 09/19/1973 - 06/27/2017 Smokeless Tobacco: Never Alcohol Use Standard Drinks/Week Comments Yes 16 (1 standard drink = 0.6 oz pu re alcohol) Sex and Gender Information Value Date Recorded Sex Assigned at Not on file Legal Sex Male 3:55 PM EDT Gender Identity Not on file Sexual Orientation [...] Whittaker PA-C Service: -- Author Type: Physician Automobile Body Repair Supervisor Filed: 06/10/2024 5:02 PM Encounter Date: 06/10/2024 Status: Signed Car Carder: Eyal Whittaker PA-C (Physician Automobile Body Repair Supervisor) Subjective: The patient presents today with a [...] the possibility of a bronchoscopy with his chief dispatcher service. He denies experiencing any fever or chest pain and has been using his inhalersand nebulizers as prescribed. The patient has a history of taking azithromycin, doxycycline, and most recently, Levaquin, despitea known allergy. He is currently out of Levaquin and has an upcoming appointment with his chief dispatcher service on the . The patient is seeking a new chief dispatcher service to monitor his monthly IVIG and astral ventilator. He expresses a preference for a younger chief dispatcher service who is up-to-date with new treatments. The patient mentions that this breathing difficulty is not ordinary for him and describes it as his time of year. He also notes that when he gets really sick, he typically goes to [facility]. Objective: Vital Signs: O2 sats falling to mid-eighties without exertion, normally 96%. On 2L O2 at home, exfj07-79%. Currently on 3L O2, sats 92%. Physical [...] a bronchoscopy as mentioned by the patient's chief dispatcher service for further evaluation and management d. With [...] improving (or as above) Eyal Whittaker, MPH, [facility], [place] [address] documented in this encounter Plan of Treatment Not on file documented as of this encounter Visit Diagnoses Not on filedocumented in this encounter Care Teams Turn Out Worker Relationship Specialty Start Date End Date Eyal Whittaker PA [address] [place], [place] [id number] PCP - General 08/24/22 documented as of this encounter
--- OUTSIDE RECORDS SUMMARY | 2024-10-10 10:42 | XMS_ITS | Encounter Summary ---
Author Organization [facility] Address [address] [place] [address] Care Team Providers Care Barrel Polisher Inside Name Role Phone Eyal Whittaker Primary Care Provider Encounter Details Date Type Department Care Team (Late st Contact Info) Description 06/05/2024 1:04 PM EDT Hospital Encounter TH HISTORIC ENCOUNTERS EASTERN CONVERSION ONLY Eyal Whittaker PA [address] [place] [address] [place] [address] Social History Tobacco Use Types Packs/Day Years [...] Whittaker PA-C Service: -- Author Type: Physician Marriage And Family Counselor Filed: 06/05/2024 1:32 PM Encounter Date: 06/05/2024 Status: Signed Supervisor Soakers: Eyal Whittaker PA-C (Physician Marriage And Family Counselor) Subjective: The patient reports taking Cymbalta for [...] pneumonia vaccine. He requests a refill of Klonopin. The patient expresses willingness to try Metanx despite its cost of $65 a month, as it is not covered by insurance. He acknowledges that his A1c of 6.5 is good and notes that his cholesterol has comedown with Lipitor. The patient mentions receiving a double-dose flu shot this year. He recalls possibly getting the RSV vaccine at [facility] last year. The patient is aware that [...] sent through a mail order pharmacy in [place] d. Patient informed that Metanx costs about [...] as above) Eyal Whittaker, MPH, MMSc, [place] [address] documented in this encounter Plan of Treatment Not on file documented as of this encounter Visit Diagnoses Not on filedocumented in this encounter Care Teams Barrel Polisher Inside Relationship Specialty Start Date End Date Eyal Whittaker PA [address] [place], [place] [id number] PCP - General 08/24/22 documented as of this encounter
--- OUTSIDE RECORDS SUMMARY | 2024-10-10 10:42 | XMS_ITS | Clinical Summary ---
Author Organization [facility] Address [address] [place] [address] Care Team Providers Care Glass Melt Operator Name Role Phone Faith Iraheta APRN Primary Care Provider [phone] Slade Finn MD Unavailable [phone] Allergies Active Allergy Reactions Criticality Noted Date [...] daily (every 6 hours) as needed. Active vtumqc-izcqthsyx-cm gnesium sulfates (Suprep Bowel Prep Kit) 17.5-3.13-1.6 GM/177ML Solution solutionIndications :Encounter for screening colonoscopy Take 177 mL by mouth twice daily (every 12 hours). 177 mL 02/10/2021 Active ergocalciferol (VITAMIN D2,DRISDOL) 48510 units Cap TAKE ONE CAPSULE TWO TIMES [...] Recently Relevant to Health Maintenance Care Teams Glass Melt Operator Relationship Specialty Start Date End Date Faith Iraheta, MACKENZIE [address] [place] [address] PCP - General Adult Health - PA/APNP/HYDRAULIC PLUMBER/TELECOMMUNICATION LINES REPAIRER 04/06/21 Slade Finn MD [address] [place] [address] Freight Brake Operator Internal Medicine 10/17/21
--- OUTSIDE RECORDS SUMMARY | 2024-10-10 10:42 | XMS_ITS | Clinical Summary ---
Author Organization [facility] Address [address] [place] [address] Care Team Providers Care Electrocardiograph Repairer Name Role Phone Eyal Whittaker PA-C Primary Care Provider [phone] Allergies Active Allergy Reactions Criticality Noted Date [...] the lungs. 0 Active Continuous Blood Gluc Veneer Department Manager (FreeStyle Vanessa 2 [place]) MEHUL 1 Device by Does not apply [...] 1 02/01/2024 Active Insulin Pen Needle (Pen [place]) 31G X 5 MM MISC 1 Device [...] Active UNABLE TO FIND IVG 0 Active M-Nyxjxfoomwyl-Tghfr -B12-B6 (Metanx) 3-90.314-2-35 MG CAPS Take 1 [...] often do you attend chur ch or scientologist services? Never 12/31/2023 Do you belong to any clubs o r organizations such as nondenominational groups, unions, fraternal or athletic groups, or [...] place to sleep or slept in a prison (including now)? No 12/31/2023 Sex and Gender [...] Advance Directives For more information, please contact: [phone] Latest Code Status on File Code Status [...] following way: discussion with patient. Care Teams Electrocardiograph Repairer Relationship Specialty Start Date End Date Eyal Whittaker PA-C PCP - General Coil Finisher 08/24/22
--- OUTSIDE RECORDS SUMMARY | 2024-10-10 10:42 | XMS_ITS | Clinical Summary ---
Author Organization Patient Business Ser [facility] Address [address] [place] [address] Care Team Providers Care Gasoline Finisher Name Role Phone Eyal Whittaker Primary Care Provider [phone] Surgical History Surgery Date Site/Laterality Comments CERVICAL DISC SURGERY PROCEDURE:CERVICAL DISC SURGERY CATARACT EXTRACTION, BILATERAL PROCEDURE:CATARACT EXTRACTION, BILATERAL OTHER SURGICAL HISTORY PROCEDURE:cardiac cath CARDIAC CATHETERIZATION 07/20/2014 Right PROCEDURE:CARDIAC CATHETERIZATION;COMMENT:Pro cedure: LEFT HEART CATHETERIZATION; Surgeon: Joshua Mckinney DO; Location: [facility] CARDIAC SOCIAL WORK INSTRUCTOR; Service: Cardiology; Laterality: Right; OTHER SURGICAL HISTORY PROCEDURE:RheOX;COMMENT:Bro nchoscopy COLONOSCOPY 03/09/2021 N/A PROCEDURE:COLONOSCOPY;COMME NT:Procedure: COLONOSCOPY; Surgeon: Joshua Rogers MD; Location: [facility]; Service: Gastroenterology; Laterality: N/A; COLONOSCOPY 11/15/2021 N/A PROCEDURE:COLONOSCOPY;COMME NT:Procedure: COLONOSCOPY; Surgeon: Joshua Rogers MD; Location: [facility]; Service: Gastroenterology; Laterality: N/A; Medical History Medical History Date Comments Smoker DX:Smoker COPD (chronic obstructive pu lmonary disease) ([facility]) DX:COPD (chronic obstructive pulmonary disease) ([facility]) Bronchitis DX:Bronchitis Asthma DX:Asthma Kidney stone DX:Kidney stone Pericarditis 08/27/2013 DX:Pericarditis Oxygen deficiency DX:Oxygen defi ciency;COMMENT:1-3 L DM (diabetes mellitus) ([facility]) DX:DM (diabetes mellitus) ([facility]) Sleep apnea DX:Sleep apnea;C OMMENT:By pap Chest [...] Annual Retina Eye Exam 1965 Pneumococcal Vaccine: 50+ Years (2 of 2 - PPSV23) 01/22/2017 11/27/2016 RSV Immunization Patients 60 + [...] patient's age to complete this topic Meningococcal B Vacine Aged Out No lo nger eligible based on patient's age to complete this topic RSV Immunization Patients Under 20 months Aged Out No longer eligible b ased on patient's age to complete this topic Varicella Vaccines Aged Out No longer eligible based on patient's age to complete this topic Care Teams Gasoline Finisher Relationship Specialty Start Date End Date Eyal Whittaker PA [address] [place] [address] PCP - General 08/24/22
== END 2024-10-10 11:48 | disposition home or self-care (01) ==
PROVIDERS: PCP Physician Assistant Medical; Visit Provider Hospitalist
DX: J44.0 Chronic obstructive pulmonary disease with (acute) lower respiratory infection (principal); J47.1 Bronchiectasis with (acute) exacerbation; B99.9 Unspecified infectious disease; J96.11 Chronic respiratory failure with hypoxia; J96.12 Chronic respiratory failure with hypercapnia; R91.8 Other nonspecific abnormal finding of lung field; G47.33 Obstructive sleep apnea (adult) (pediatric); D80.1 Nonfamilial hypogammaglobulinemia
CPT/HCPCS: 99215; G2211

== ENCOUNTER 2024-10-10 10:27 | Inpatient (IN) | payer MEDICARE, SELFPAY ==
[2024-10-10] VITALS (13 sets, daily range): BP systolic 110–164; BP diastolic 55–89; PULSE 84–109; RESP 15–28; TEMP 36.2–36.6; O2SAT 92–99; BMI 28.2
--- NOTE | ~2024-10-10 | XR_ITS ---
EXAMINATION: XR CHEST CLINICAL INFORMATION: cough, fevers COMPARISON: None available. TECHNIQUE: Frontal view of the chest was obtained. FINDINGS: The cardiac, hilar, and mediastinal contours are normal. The lungs are mildly hyperaerated, however clear bilaterally. No pneumothorax or effusion. No focal osseous or soft tissue abnormality. XR/XR chest 1V IMPRESSION: COPD. No superimposed active pulmonary disease. Electronically signed by: Pancho Obregon MD 10/10/2024 11:42 AM [facility]
--- NOTE | ~2024-10-10 | CT_ITS ---
EXAMINATION: CT CHEST WITHOUT IV CONTRAST INDICATION: sob, hypoxia COMPARISON: Comparison is made with the prior examination dated 11/18/2021. TECHNIQUE: Helical CT scan of the chest was performed without intravenous contrast. Coronal and sagittal reformatted images were generated and reviewed. This CT exam was performed with one or more of the following dose reduction techniques: automated exposure control, adjustment of the mA and/or kV according to patient size, use of iterative reconstruction technique. DLP: 413 mGy-cm CHEST: THYROID: The thyroid is unremarkable. LUNGS: There is moderate respiratory motion artifact in the lower lobes. There is mild emphysema. There is subsegmental atelectasis along the left major fissure. The lungs are otherwise clear. There are no pulmonary nodules or airspace opacities. MEDIASTINUM: There is no mediastinal lymphadenopathy. GARY: Evaluation of the hilar regions is limited by lack of intravenous contrast material. CARDIOVASCULATURE: The heart is normal in size. There is no pericardial effusion. The thoracic aorta is normal in caliber. DEGREE OF CORONARY CALCIFICATION: mild PLEURA: There is no pleural effusion. No pneumothorax. MAIN AIRWAYS: The mainstem bronchi and proximal branches are patent. AXILLA: There is no axillary lymphadenopathy. BONES AND SOFT TISSUES: There is degenerative disc disease of the spine. There are chronic mild compression deformities of midthoracic vertebral bodies. There is a mild compression deformity involving the inferior endplate of L1 which is new from the prior study. UPPER ABDOMEN: The visualized portions of the liver, spleen, and adrenals have an unremarkable unenhanced appearance. CT/CT chest wo IV con IMPRESSION: Mild emphysema. Subsegmental atelectasis along the left major fissure. Electronically signed by: Wilfred Coates MD 10/10/2024 02:56 PM [facility]
--- NOTE | 2024-10-10 10:44 | ECG_ITS ---
Test Reason : DYSPNEA Blood Pressure : */* mmHG Vent. Rate : 82 BPM Atrial Rate : 82 BPM P-R Int : 146 ms QRS Dur : 76 ms QT Int : 386 ms P-R-T Axes : 50 47 59 degrees QTcB Int : 450 ms Normal sinus rhythm Normal ECG No previous ECGs available Referred By: Debbi Chou Electronically Signed By: LESLIE WHEAT MD
--- NOTE | 2024-10-10 10:55 | ED.SOB ---
HPI - SOB/Dyspnea General Chief Complaint: Dyspnea Stated Complaint: trouble breathing Time Seen by Provider: 10/10/24 10:34 Source: patient, family and old records reviewed Mode of arrival: wheelchair Limitations: no limitations History of Present Illness ED Provider: GOLDY STAPLES Narrative: 69 yo male with PMH of COPD on 2L O2 at home/Bipap, hx of intubation in the past related to human metapneumovirus in 2022, hypogammaglobulinema receiving IVIG, sputum cultures aspergillus and pseudomonas in sputum cultures currently on voricanozole daily, started cipro as well and has been on doxy. He just isn't getting better or doing well. He has had cough, dyspnea, chills, increased sputum production. He was sent down by pulmonology. He is currently on eliquis as well for afib. He is on prednisone 40mg daily at this time. He takes therapies at home but no improvement. His pseudomonas is S to cefepime. MD elicited complaint: shortness of breath Pertinent past history: COPD Onset (ago): week(s) (1+) Context: recent illness Timing: progressively worsening Severity: severe Exacerbating factors: lying flat, exertion, movement and coughing Relieving factors: oxygen, rest and bronchodilators Known history of: COPD and recurrent pneumonia Associated symptoms: cough, wheezing and sputum production Treatment prior to arrival: oxygen, bronchodilator and other (antibiotics/steroids) Related Data Home Medications ?Medication ?Instructions ?Recorded ?Confirmed atorvastatin 20 mg tablet 20 mg PO DAILY 10/25/21 06/30/24 diltiazem HCl 240 mg 240 mg PO DAILY 10/25/21 06/30/24 capsule,extended release 24 hr empagliflozin 25 mg-metformin ER 1 tab PO DAILY 10/25/21 06/30/24 1,000 mg tablet,extended release 24hr (Synjardy XR) ipratropium 0.5 mg-albuterol 3 mg 3 ml inhalation QID PRN sob 10/25/21 06/30/24 (2.5 mg base)/3 mL nebulization soln omeprazole 20 mg capsule,delayed 20 mg PO DAILY 10/25/21 06/30/24 release Oxygen Home Use 08/30/22 alprazolam 0.5 mg tablet 0.5 mg PO BID 08/30/22 06/30/24 insulin glargine 100 unit/mL (3 unit subcut 08/30/22 mL) subcutaneous pen (Lantus Solostar U-100 Insulin) insulin lispro 100 unit/mL 2 - 10 unit subcut DIRECTED 08/30/22 06/30/24 subcutaneous pen nebulizers 08/30/22 apixaban 5 mg tablet (Eliquis) 5 mg PO Q12H 02/15/23 06/30/24 metoprolol succinate 25 mg 25 mg PO .PM 02/15/23 06/30/24 tablet,extended release 24 hr metoprolol succinate 50 mg 50 mg PO .AM 02/15/23 06/30/24 tablet,extended release 24 hr torsemide 20 mg tablet 10 mg PO DAILY 02/15/23 tirzepatide 12.5 mg/0.5 mL mg subcut 02/07/24 subcutaneous pen injector (Stephen) clonazepam 0.5 mg tablet mg PO 03/24/24 Previous Rx's ?Medication ?Instructions ?Recorded sodium chloride 3 % for 4 ml inhalation BID 30 days #240 mL 07/19/22 nebulization budesonide 0.5 mg/2 mL suspension 0.5 mg (2 mL) inhalation BID #360 10/03/22 for nebulization mL ipratropium 0.5 mg-albuterol 3 mg 3 ml inhalation QID 90 days #1,080 04/19/23 (2.5 mg base)/3 mL nebulization mL soln immune glob,gamm(IgG) 10 %-pro-IgA 40 g IV Q4W 12/03/23 0 to 50 mcg/mL intravenous solution (Privigen) immune glob,gamm(IgG) 10 %-pro-IgA 40 g IV Q4W 30 days #100 mL 12/03/23 0 to 50 mcg/mL intravenous solution (Privigen) cefpodoxime 200 mg tablet 200 mg PO BID #20 tabs 01/29/24 fluticasone fur. 200 mcg-umeclid 1 inh inhalation DAILY #180 ea 04/21/24 62.5 mcg-vilant 25 mcg inhalat.powder (Trelegy Ellipta) roflumilast 500 mcg tablet 500 mcg PO DAILY 90 days #90 tabs 05/27/24 (Daliresp) cefpodoxime 200 mg tablet 200 mg PO BID 21 days #42 tabs 08/01/24 prednisone 10 mg tablet See Rx Instructions PO DAILY 18 09/30/24 days #63 tabs albuterol sulfate 90 mcg/actuation 2 puff inhalation Q4H PRN for 10/03/24 aerosol inhaler wheezing #54 ea ciprofloxacin HCl 500 mg tablet 500 mg PO BID 21 days #42 tabs 10/03/24 (Cipro) codeine 10 mg-guaifenesin 100 mg/5 10 ml PO Q6H PRN cough 10 days 10/03/24 mL oral liquid #300 mL Allergies Allergy/AdvReac Type Severity Reaction Status Date / Time theophylline Allergy Severe Cardiac Verified 10/10/24 10:32 Arrythmia levofloxacin [From Levaquin] Allergy Unknown Unknown Verified 10/10/24 10:32 Penicillins Allergy Unknown Unknown Verified 10/10/24 10:32 Review of Systems Review of Systems: Constitutional : pos Fever, pos Chills ENT/Mouth : No Hoarseness, No sore throat, No Rhinorrhea Eyes: No Redness, No Discharge, No Vision Changes Cardiovascular : No Chest Pain, positive SOB, positive Dyspnea on Exertion, No Edema Respiratory : positive Cough, pos Sputum, positive Wheezing, Gastrointestinal : No Nausea, No Vomiting, No Diarrhea, No abdominal Pain Genitourinary : No Dysuria, No Hematuria Musculoskeletal : No joint pain, No Myalgias Skin : No rash Neuro : No Weakness, No Numbness, No Headache All other systems reviewed and are negative PMFSH Past Medical History Attestation statement: The following information was validated with the patient. Source: old records reviewed Medical History Bronchopneumonia Asthma-COPD overlap syndrome Hypogammaglobulinemia Dyspnea Osteoporosis On supplemental oxygen therapy Compression fracture of thoracic spine, non-traumatic Weight loss due to medication Diabetes mellitus type 2 in nonobese GERD (gastroesophageal reflux disease) Personal history of nicotine dependence NADEEM treated with BiPAP Pulmonary nodules Chronic respiratory failure COPD (chronic obstructive pulmonary disease) (~2003) Surgical History History of bronchoscopy (~2018) History of neck surgery History of colonoscopy Social History Social History Alcohol intake: current Alcohol intake frequency: 3 or more drinks per day Patient Tobacco Use Status: Former Tobacco user Tobacco use type: Cigarette Years Smoked: (onset 21yo, 1-2ppd x 41yrs, 50+PYH - quit 2016) Smoked in Last 30 Days: No Use of substances other than those prescribed or required for medical reasons: No Advance Directives: No Advance Directives Information Provided: Yes Physical Exam Vital Signs: Vital Signs: Last Vital Signs Temp 97.9 F 10/10/24 10:53 Pulse 93 10/10/24 12:54 Resp 17 10/10/24 12:54 BP 164/82 H 10/10/24 10:53 Pulse Ox 93 10/10/24 10:53 O2 Del Method Nasal Cannula 10/10/24 10:53 O2 Flow Rate 2 10/10/24 10:53 Oxygen Flow Rate 2 10/10/24 10:30 BMI result Body Mass Index 28.2 Appearance: Alert. Oriented X3. Mild acute distress. Eyes: Pupils equal, round and reactive to light. ENT: Pharynx normal. Neck: Normal inspection. Neck supple. CVS: Normal heart rate and rhythm. Pulses normal. Respiratory: mild respiratory distress tachypnea and retractions. Breath sounds very coarse tight and wheezy. Abdomen: Soft and nontender. Skin: Skin warm and dry. Normal skin color. Normal skin turgor. Extremities: No lower extremity edema. No calf ttp Neuro: Oriented X 3. No motor deficit. No sensory deficit. CN2-12 intact Course Course Course Narrative: difficult stick delay in cultures and antibiotics due to difficult IV attempts and stick unable to initially get cultures initially Charge aware Reevaluation(s) Reevaluation #1: VBG ordered Reevaluation #2: lactic acid likely due to nebs and not infection or severe sepsis lab drawn after nebs at home and nebs here Medications Administered Generic Name Dose Route Start Last Admin Trade Name Freq PRN Reason Stop Dose Admin Vancomycin HCl 2,000 mg in 500 mls @ 250 mls/hr 10/10/24 11:50 10/10/24 12:52 Vancomycin/Ns IV 10/10/24 13:49 250 mls/hr ONCE ONE Administration Sodium Chloride 500 mls @ 500 mls/hr 10/10/24 12:37 10/10/24 12:52 Ns IV 10/10/24 13:36 500 mls/hr .Q1H ONE Administration Discontinued Medications Generic Name Dose Route Start Last Admin Trade Name Freq PRN Reason Stop Dose Admin Albuterol Sulfate 2.5 mg/ 5 mg 10/10/24 12:54 10/10/24 12:57 Albuterol Sulfate 2.5 mg INHALE 10/10/24 12:55 5 mg ONCE ONE Administration Albuterol Sulfate 5 mg/ 0 mg 10/10/24 11:02 10/10/24 11:10 Albuterol/Ipratropium 3 ml INHALE 10/10/24 11:03 7.5 each ONCE ONE Administration Cefepime HCl 2 gm in 50 mls @ 100 mls/hr 10/10/24 10:44 10/10/24 12:51 Maxipime IV 10/10/24 11:13 Infused ONCE ONE Infusion Methylprednisolone Sodium Succinate 60 mg 10/10/24 10:44 10/10/24 12:00 Methylprednisolone Sod Succ 125 Mg/2 Ml Vial IVPUSH 10/10/24 10:45 60 mg ONCE ONE Administration Medical Decision Making Medical Decision Making MDM Narrative: 69 yo male with PMH of COPD on 2L O2 at home/Bipap, hx of intubation in the past related to human metapneumovirus in 2022, hypogammaglobulinema, currently has grown out pseudomonas/aspergillus has tried oral doxy/cipro/voriconazole/40mg prednisone with failure of therapy at this time will obtain labs, CXR, cultures, start on IV steroids/IV cefepime and vancomycin. I will admit for failed outpatient work up. he is currently on his daytime Bipap settings not his rescue Differential Diagnosis Differential Diagnoses: The differential diagnosis associated with the presentation includes pneumonia, COPD, chronic resp failure, viral syndrome Admission/Observation Consideration of admission/observation: Escalation of care including admission/observation considered failed multiple outpatient therapies will need admission for further inpatient care Consult Healthcare Provider Management of the patient was discussed with: Hospitalist will admit Lab Data [facility] Lab Attestation statement: I reviewed the patient's lab results. 10/10/24 12:04 10/10/24 12:04 Labs: Lab Results 10/10/24 10/10/24 10/10/24 Range/Units 12:04 12:11 12:20 WBC 16.9 H (4.8-10.8) X10*3/uL RBC 4.58 L (4.60-5.80) X10*6/uL Hgb 14.0 (14.0-18.0) g/dl Hct 44.6 (42.0-52.0) % MCV 97.4 (80.0-98.0) fL MCH 30.6 (27.0-33.0) pg MCHC 31.4 (31.0-36.0) g/dl RDW 14.5 (11.0-16.0) % Plt Count 211 (160-400) X10*3/uL MPV 8.7 L (9.4-12.4) fL Immature Gran % (Auto) 5.0 H (0.0-0.4) % Neut % (Auto) 79.4 H (45-73) % Lymph % (Auto) 6.9 L (20-40) % [place] % (Auto) 8.4 (2-11) % Eos % (Auto) 0.0 (0-4) % Baso % (Auto) 0.3 (0-2) % Lymph # (Auto) 1.2 (1.2-4.9) X10*3/uL [place] # (Auto) 1.4 H (0.1-1.2) X10*3/uL Eos # (Auto) 0.0 (0.0-0.4) X10*3/uL Baso # (Auto) 0.1 (0.0-0.2) X10*3/uL Abs Immat Gran (auto) 0.85 H (0.00-0.03) X10*3/uL Absolute Neuts (auto) 13.4 H (2.0-8.3) x10*3/uL Absolute Nucleated RBC 0.000 (0.0-0.012) X10*3/uL Nucleated RBC % (auto) 0.0 (0.0-0.2) /100WBC Hold Purple Top SEE NOTE VBG pH 7.38 (7.32-7.43) VBG pCO2 55 mmHg VBG pO2 49 mmHg VBG HCO3 32 H (22-26) mmol/L VBG O2 Saturation 79.0 % VBG Base Excess 5.8 mmol/L Sodium 138 (135-145) mmol/L Potassium 4.4 D (3.3-5.1) mmol/L Chloride 101 (96-108) mmol/L Carbon Dioxide 26 (22-29) mmol/L Anion Gap 15 (12-20) BUN 27 H (9-16) mg/dL Creatinine 0.76 (0.5-1.4) mg/dL Estim Creat Clear Calc 119.0 Estimated GFR > 60 Random Glucose 272 H (60-115) mg/dL Lactic Acid 3.1 H* (0.5-2.0) mmol/L Calcium 9.4 (8.4-10.2) mg/dL Magnesium 1.9 (1.6-2.6) mg/dL Total Bilirubin 0.4 (0.0-1.0) mg/dL Direct Bilirubin 0.1 (0.0-0.5) mg/dL AST 32 (5-37) U/L ALT 56 H (0-40) U/L Alkaline Phosphatase 77 (39-117) U/L Troponin I High Sens < 2.7 (<3.5-35.0) ng/L C-Reactive Protein 0.58 H (< or = 0.50) mg/dL B-Natriuretic Peptide 23 (<100) pg/mL Total Protein 8.7 H (6.5-8.0) g/dL Albumin 4.0 (3.5-5.0) g/dL Lipase 34 (8-78) U/L Procalcitonin 0.09 ng/mL Influenza Type A (PCR) NEGATIVE (Negative) Influenza Type B (PCR) NEGATIVE (Negative) RSV RNA Qual (PCR) NEGATIVE (Negative) SARS-CoV-2 RNA (RT-PCR) NEGATIVE (Negative) Independent Interpretation I performed an independent interpretation of an: EKG and Plain X-Ray Interpretation: Rate: 82 Rhythm: NSR [place]: normal Normal P waves. Normal ANGELINA. Normal QRS complex. ST T wave : no RONA, flat t waves aVL qTC: 450 prior studies: no ischemia The study has been interpreted contemporaneously by me. . Radiology Impression Discussion of test interpretation with radiology: I have reviewed the radiologist's reading. Independent Historian Clinical information obtained from an independent historian. History obtained from or confirmed by: Spouse External Record Review External record reviewed: Inpatient record and Outpatient record Critical Care Time Critical Care Time Critical Care Time: Yes Total Critical Care Time: 60 Attestation: review of records, home NIPPV, nebs, IV antibiotics, admission I attest to this time spent taking care of the patient Discharge Plan Discharge Clinical Impression: Pseudomonas respiratory infection Chronic respiratory failure Qualifiers: Respiratory failure complication: hypoxia and hypercapnia Qualified Code(s): J96.11 - Chronic respiratory failure with hypoxia COPD (chronic obstructive pulmonary disease) Qualifiers: COPD type: COPD with acute lower respiratory infection Qualified Code(s): J44.0 - Chronic obstructive pulmonary disease with (acute) lower respiratory infection Patient Disposition: Admitted As Inpatient Print Language: [place]
--- NOTE | 2024-10-10 10:58 | PC.NURSE ---
Pt comes to ED today via private car with c/o SOB and productive cough x2 weeks. Pt reports on O2 2L NC at baseline. Productive cough--yellow phlegm. A&Ox3 Denies fever, chills, n/v Skin is warm and dry Breaths are labored; wet cough noted. Pt also c/o urinary frequency.
[2024-10-10] MEDS: Albuterol Sulfate 5 MG, Albuterol/Iprat 2.5/0.5MG 3 ML 3 ML INHALE (11:10)
[2024-10-10] MEDS: methylPREDNISolone Sod Succ 125 MG/2 ML VIAL 60 MG IVPUSH (12:00)
--- OUTSIDE RECORDS SUMMARY | 2024-10-10 12:04 | XMS_ITS | Clinical Summary ---
Author Organization Patient Business Ser [facility] Address [address] [place] [address] Care Team Providers Care Net Repairer Name Role Phone Eyal Whittaker Primary Care Provider [phone] Surgical History Surgery Date Site/Laterality Comments CERVICAL DISC SURGERY PROCEDURE:CERVICAL DISC SURGERY CATARACT EXTRACTION, BILATERAL PROCEDURE:CATARACT EXTRACTION, BILATERAL OTHER SURGICAL HISTORY PROCEDURE:cardiac cath CARDIAC CATHETERIZATION 07/20/2014 Right PROCEDURE:CARDIAC CATHETERIZATION;COMMENT:Pro cedure: LEFT HEART CATHETERIZATION; Surgeon: Joshua Mckinney DO; Location: [facility] CARDIAC MELANGEUR OPERATOR; Service: Cardiology; Laterality: Right; OTHER SURGICAL HISTORY PROCEDURE:RheOX;COMMENT:Bro nchoscopy COLONOSCOPY 03/09/2021 N/A PROCEDURE:COLONOSCOPY;COMME NT:Procedure: COLONOSCOPY; Surgeon: Joshua Rogers MD; Location: [facility]; Service: Gastroenterology; Laterality: N/A; COLONOSCOPY 11/15/2021 N/A PROCEDURE:COLONOSCOPY;COMME NT:Procedure: COLONOSCOPY; Surgeon: Joshua Rogers MD; Location: [facility]; Service: Gastroenterology; Laterality: N/A; Medical History Medical History Date Comments Smoker DX:Smoker COPD (chronic obstructive pu lmonary disease) ([facility]) DX:COPD (chronic obstructive pulmonary disease) ([facility]) Bronchitis DX:Bronchitis Asthma DX:Asthma Kidney stone DX:Kidney stone Pericarditis 08/27/2013 DX:Pericarditis Oxygen deficiency DX:Oxygen defi ciency;COMMENT:1-3 L DM (diabetes mellitus) ([facility]) DX:DM (diabetes mellitus) ([facility]) Sleep apnea DX:Sleep apnea;C OMMENT:By [...] age to complete this topic Care Teams Net Repairer Relationship Specialty Start Date End Date Eyal Whittaker PA [address] [place] [id number] PCP - General 08/24/22
--- OUTSIDE RECORDS SUMMARY | 2024-10-10 12:04 | XMS_ITS | Continuity of Care Document ---
Author Organization [facility] Address [address] [place] [phone] Phone Care Team Providers Care Head Of Sales Promotion Name Role Phone Unavailable Unavailable Unavailable Advance Directives Directive Yes / No Effective Date File Name No Information Encounters Encounter Description Practice Location Reason(s) For Visit Diagnoses Date Provider Providers Copied on Encounter [facility], [address] [address], [place], [place], [id number], tel:[phone] [facility] PROGRESSIVE HIGH MYOPIA [phone] No Information Family History Family Member Type Diagnosis Age At Onset No Information Payers Payer name Insurance type Covered republican ID Authoriza tion(s) No Information Social History [...]
--- OUTSIDE RECORDS SUMMARY | 2024-10-10 12:04 | XMS_ITS | Clinical Summary ---
Author Organization [facility] Address [address] [place] [address] Care Team Providers Care Discharging Machine Operator Name Role Phone Eyal Whittaker PA-C Primary Care Provider [phone] Allergies Active Allergy Reactions Criticality Noted Date [...] the lungs. 0 Active Continuous Blood Gluc Underwriting Service Representative (FreeStyle Vanessa 2 [place]) MEHUL 1 Device by Does not apply [...] 1 02/01/2024 Active Insulin Pen Needle (Pen [place]) 31G X 5 MM MISC 1 Device [...] Active UNABLE TO FIND IVG 0 Active J-Yhczjxfgylvj-Ujukn -B12-B6 (Metanx) 3-90.314-2-35 MG CAPS Take 1 [...] often do you attend chur ch or jehovah's witness services? Never 12/31/2023 Do you belong to any clubs o r organizations such as hinduism groups, unions, fraternal or athletic groups, or [...] place to sleep or slept in a jail (including now)? No 12/31/2023 Sex and Gender [...] Advance Directives For more information, please contact: [phone] Latest Code Status on File Code Status [...] following way: discussion with patient. Care Teams Discharging Machine Operator Relationship Specialty Start Date End Date Eyal Whittaker PA-C PCP - General Lead Shipper 08/24/22
--- OUTSIDE RECORDS SUMMARY | 2024-10-10 12:04 | XMS_ITS | Encounter Summary ---
Author Organization [facility] Address [address] [place] [address] Care Team Providers Care Workplace Trainer And Assessor Name Role Phone Eyal Whittaker Primary Care Provider Encounter Details Date Type Department Care Team (Late st Contact Info) Description 06/10/2024 4:17 PM EDT Hospital Encounter TH HISTORIC ENCOUNTERS EASTERN CONVERSION ONLY Eyal Whittaker PA [address] [place] [address] Social History Tobacco Use Types Packs/Day Years [...] Whittaker PA-C Service: -- Author Type: Physician Hand Box Coverer Filed: 06/10/2024 5:02 PM Encounter Date: 06/10/2024 Status: Signed Briquetting Machine Operator: Eyal Whittaker PA-C (Physician Hand Box Coverer) Subjective: The patient presents today with a [...] the possibility of a bronchoscopy with his rag grader. He denies experiencing any fever or chest pain and has been using his inhalersand nebulizers as prescribed. The patient has a history of taking azithromycin, doxycycline, and most recently, Levaquin, despitea known allergy. He is currently out of Levaquin and has an upcoming appointment with his rag grader on the . The patient is seeking a new rag grader to monitor his monthly IVIG and astral ventilator. He expresses a preference for a younger rag grader who is up-to-date with new treatments. The patient mentions that this breathing difficulty is not ordinary for him and describes it as his time of year. He also notes that when he gets really sick, he typically goes to [facility]. Objective: Vital Signs: O2 sats falling to mid-eighties without exertion, normally 96%. On 2L O2 at home, lluv23-10%. Currently on 3L O2, sats 92%. Physical [...] a bronchoscopy as mentioned by the patient's rag grader for further evaluation and management d. With [...] improving (or as above) Eyal Whittaker, MPH, [facility], [place] [address] documented in this encounter Plan of Treatment Not on file documented as of this encounter Visit Diagnoses Not on filedocumented in this encounter Care Teams Workplace Trainer And Assessor Relationship Specialty Start Date End Date Eyal Whittaker PA [address] [place], [place] [id number] PCP - General 08/24/22 documented as of this encounter
--- OUTSIDE RECORDS SUMMARY | 2024-10-10 12:04 | XMS_ITS | Clinical Summary ---
Author Organization [facility] Address [address] [place] [address] Care Team Providers Care Heel Seat Sander Name Role Phone Faith Iraheta APRN Primary Care Provider Slade Finn MD Unavailable [phone] Allergies Active Allergy Reactions Criticality Noted Date [...] daily (every 6 hours) as needed. Active keihew-bsruqsuwb-ky gnesium sulfates (Suprep Bowel Prep Kit) 17.5-3.13-1.6 GM/177ML Solution solutionIndications :Encounter for screening colonoscopy Take 177 mL by mouth twice daily (every 12 hours). 177 mL 02/10/2021 Active ergocalciferol (VITAMIN D2,DRISDOL) 11294 units Cap TAKE ONE CAPSULE TWO TIMES [...] Recently Relevant to Health Maintenance Care Teams Heel Seat Sander Relationship Specialty Start Date End Date Faith Iraheta, MACKENZIE [address] [place] [address] PCP - General Adult Health - PA/APNP/WOOD MACHINIST/PARTNER MANAGEMENT CONSULTANT 04/06/21 Slade Finn MD [address] [place] [address] Deodorizer Operator Internal Medicine 10/17/21
--- OUTSIDE RECORDS SUMMARY | 2024-10-10 12:04 | XMS_ITS | Encounter Summary ---
Author Organization [facility] Address [address] [place] [address] Care Team Providers Care Anodic Treater Name Role Phone Faith Iraheta APRN Primary Care Provider [phone] Slade Finn MD Unavailable [phone] Reason for Visit * Reason Comments Medication Refill Encounter Details Date Type Department Care Team (Late st Contact Info) Description 12/02/2022 Refill [facility] Department of Internal Medicine [address] [phone] Faith Iraheta APRN [address] [place] [address] Social History Tobacco Use Types Packs/Day Years Used Date Smoking Tobacco: Never Assessed Sex and Gender Information Value Date Recorded Sex Assigned at Not on file Gender Identity Not on file Sexual Orientation Not on file documented as of this encounter Plan of Treatment Not on file documented as of this encounter Visit Diagnoses Not on filedocumented in this encounter Care Teams Anodic Treater Relationship Specialty Start Date End Date Faith Iraheta APRN [address] [place] [address] PCP - General Adult Health - PA/APNP/SERVICE WRITER ADVISOR/SEWING MACHINE MAINTENANCE MECHANIC 04/06/21 Slade Finn MD [address] [place] [phone] Operations Manager/Coordinator Internal Medicine 10/17/21 documented as of this encounter
--- OUTSIDE RECORDS SUMMARY | 2024-10-10 12:04 | XMS_ITS | Encounter Summary ---
Author Organization [facility] Address [address] [place] [address] Care Team Providers Care Automatic Bow Maker Machine Tender Name Role Phone Eyal Whittaker Primary Care Provider Encounter Details Date Type Department Care Team (Late st Contact Info) Description 06/05/2024 1:04 PM EDT Hospital Encounter TH HISTORIC ENCOUNTERS EASTERN CONVERSION ONLY Eyal Whittaker PA [address] [place] [address] Social History Tobacco Use Types Packs/Day Years [...] Whittaker PA-C Service: -- Author Type: Physician Security Installation Sales Technician Filed: 06/05/2024 1:32 PM Encounter Date: 06/05/2024 Status: Signed Home Health Speech Therapist: Eyal Whittaker PA-C (Physician Security Installation Sales Technician) Subjective: The patient reports taking Cymbalta for [...] recalls possibly getting the RSV vaccine at [facility] last year. The patient is aware [...] sent through a mail order pharmacy in [place] d. Patient informed that Metanx costs about [...] as above) Eyal Whittaker, MPH, [facility], [place] [address] documented in this encounter Plan of Treatment Not on file documented as of this encounter Visit Diagnoses Not on filedocumented in this encounter Care Teams Automatic Bow Maker Machine Tender Relationship Specialty Start Date End Date Eyal Whittaker PA [address] [place], [place] [id number] PCP - General 08/24/22 documented as of this encounter
[2024-10-10 12:12] LABS: MANUAL DIFF FLAG NO
[2024-10-10 12:15] LABS: Basophils Absolute Auto 0.1 X10*3/uL (0.0-0.2); Basophils Percent Auto 0.3 % (0-2); Hematocrit 44.6 % (42.0-52.0); Imm Gran Abs Auto 0.85 X10*3/uL (0.00-0.03); Lymphocytes Absolute Auto 1.2 X10*3/uL (1.2-4.9); Lymphocytes Percent Auto 6.9 % (20-40); Mean Corpuscular HGB Conc 31.4 g/dl (31.0-36.0); Mean Corpuscular Hemoglobin 30.6 pg (27.0-33.0); Mean Corpuscular Volume 97.4 fL (80.0-98.0); Mean Platelet Volume 8.7 fL (9.4-12.4); Monocytes Absolute Auto 1.4 X10*3/uL (0.1-1.2); Monocytes Percent Auto 8.4 % (2-11); Neutrophils Absolute Auto 13.4 x10*3/uL (2.0-8.3); Neutrophils Percent Auto 79.4 % (45-73); Platelet Count 211 X10*3/uL (160-400); Red Blood Count 4.58 X10*6/uL (4.60-5.80); Red Cell Distribution Width 14.5 % (11.0-16.0); White Blood Count 16.9 X10*3/uL (4.8-10.8)
[2024-10-10 12:16] LABS: Venous Blood Gas Refer to POC result
[2024-10-10 12:17] LABS: VBG Base Excess 5.8 mmol/L; VBG HCO3 32 mmol/L (22-26); VBG pCO2 55 mmHg; VBG pH 7.38 (7.32-7.43); VBG pO2 49 mmHg
[2024-10-10] MEDS: cefEPime HCl/D5W 2 GM/50 ML PIGGYBACK IV ×2 (12:29→20:07)
[2024-10-10 12:33] LABS: Lactic Acid 3.1 mmol/L (0.5-2.0)
--- NOTE | 2024-10-10 12:33 | PC.NURSE ---
Pt seen by RT--see RT notes for additional information. Pt difficult stick and venipuncture ceases to flow part way through obtaining blood labs therefore leading to delay in obtaining both set of blood cultures. Abx administered once both sets of blood cultures and lactic are obtained.
[2024-10-10 12:36] LABS: B Type Natriuretic Peptide 23 pg/mL (<100)
[2024-10-10 12:37] LABS: Alanine Aminotransferase 56 U/L (0-40); Alkaline Phosphatase 77 U/L (39-117); Anion Gap 15 (12-20); Aspartate Amino Transferase 32 U/L (5-37); Bilirubin Direct 0.1 mg/dL (0.0-0.5); Bilirubin Total 0.4 mg/dL (0.0-1.0); Blood Urea Nitrogen 27 mg/dL (9-16); C Reactive Protein 0.58 mg/dL (< or = 0.50); Calcium 9.4 mg/dL (8.4-10.2); Carbon Dioxide 26 mmol/L (22-29); Chloride 101 mmol/L (96-108); Estimated Glomerular Filt Rate > 60; Glucose Random 272 mg/dL (60-115); Lipase 34 U/L (8-78); Magnesium 1.9 mg/dL (1.6-2.6); Potassium 4.4 mmol/L (3.3-5.1); Sodium 138 mmol/L (135-145); Total Protein 8.7 g/dL (6.5-8.0)
[2024-10-10 12:39] LABS: Troponin-I High Sensitivity < 2.7 ng/L (<3.5-35.0)
[2024-10-10 12:51] LABS: Procalcitonin 0.09 ng/mL
[2024-10-10] MEDS: vancomycin/NS 2,000 MG/500 ML PLAST..BAG 250 MG IV (12:52)
[2024-10-10] MEDS: 0.9 % Sodium Chloride 500 ML IV (12:52)
[2024-10-10 12:57] LABS: Influenza A PCR NEGATIVE (Negative); Influenza B PCR NEGATIVE (Negative); Resp Syncy Virus RNA Qual PCR NEGATIVE (Negative); SARS COV2 PCR INHOUSE NEGATIVE (Negative)
[2024-10-10] MEDS: Albuterol Sulfate 2.5 MG, Albuterol Sulfate (0.083%) 2.5 MG 5 MG INHALE (12:57)
[2024-10-10 13:52] LABS: Appearance Urine Clear; Color Urine Yellow; Glucose Urine UA >=1000 mg/dL (Negative); Leukocyte Esterase Urine Negative (Negative); Nitrite Urine Negative (Negative); PH 5.5 (5.0-9.0); Specific Gravity - Urine >= 1.030 (1.005-1.025); UMIC TRIGGER UACC YES; Urine Blood Negative (Negative); Urine Ketones Negative (Negative); Urine Protein Negative (Neg-Trace)
[2024-10-10 13:59] LABS: Bacteria Urine None Seen (None Seen); Hyaline Casts Urine 0-2 /LPF (0-2); RBC Urine 0-2 /HPF (0-2); Squamous Epithelial Cell Urine 0-2 /HPF (0-2); WBC Urine 0-5 /HPF (0-5)
[2024-10-10 14:12] LABS: Reflex Lactate? Lactic Acid Added
--- NOTE | 2024-10-10 14:18 | PM.IMHP ---
History of Present Illness Date of Service: 10/10/24 Attending physician on admission: [place] Rodriguez Chief Complaint: Shortness of breath This is a 69-year-old male with history of COPD/asthma overlap who was sent to the emergency department for shortness of breath. Patient follows with pulmonology and for the past 7 weeks has been having increasing shortness of breath especially with exertion with associated cough. He has been treated with multiple courses of oral antibiotics as well as steroids but continues have persistent dyspnea on exertion. He reports cough productive of yellow phlegm. He denies any fever or chills. Outpatient sputum cultures from earlier this month growing Pseudomonas. In the emergency department he was treated with breathing treatments, IV antibiotics, IV steroids, currently maintaining oxygen saturations in the mid 90s on 2 L of supplemental oxygen. Patient does use BiPAP at home frequently during the day as well as at night. He will be admitted for further management of respiratory failure with hypoxia after failing multiple outpatient interventions. Review of Systems Review of Systems: Yes all other systems are reviewed and are negative Constitutional: Constitutional: Denies chills and Denies fever(s) Cardiovascular: Cardiovascular: Denies chest pain, Reports dyspnea and Reports dyspnea on exertion Respiratory: Respiratory: Reports cough, Reports dyspnea and Reports dyspnea on exertion [facility] Medical History Bronchopneumonia Asthma-COPD overlap syndrome Hypogammaglobulinemia Dyspnea Osteoporosis On supplemental oxygen therapy Compression fracture of thoracic spine, non-traumatic Weight loss due to medication Diabetes mellitus type 2 in nonobese GERD (gastroesophageal reflux disease) Personal history of nicotine dependence NADEEM treated with BiPAP Pulmonary nodules Chronic respiratory failure COPD (chronic obstructive pulmonary disease) (~2003) Surgical History History of bronchoscopy (~2018) History of neck surgery History of colonoscopy Social History Alcohol intake: current Alcohol intake frequency: 3 or more drinks per day Patient Tobacco Use Status: Former Tobacco user Tobacco use type: Cigarette Years Smoked: (onset 21yo, 1-2ppd x 41yrs, 50+PYH - quit 2017) Smoked in Last 30 Days: No Use of substances other than those prescribed or required for medical reasons: No Advance Directives: No Advance Directives Information Provided: Yes Meds Allergies Allergy/AdvReac Type Severity Reaction Status Date / Time theophylline Allergy Severe Cardiac Verified 10/10/24 10:32 Arrythmia levofloxacin [From Levaquin] Allergy Unknown Unknown Verified 10/10/24 10:32 Penicillins Allergy Unknown Unknown Verified 10/10/24 10:32 Active Medications: Current Medications Acetaminophen (Acetaminophen 325 Mg Tablet) 650 mg PO Q6H PRN PRN Reason: Pain, Mild 1-3,fever,headache Albuterol/Ipratropium (Albuterol/Iprat 2.5/0.5mg 3 Ml Ampul.Neb) 3 ml INHALE RQ4H WHILE AWAKE [facility] Alprazolam (Alprazolam 0.5 Mg Tablet) 0.5 mg PO ONCE ONE Stop: 10/10/24 14:16 Calcium Carbonate (Calcium Carbonate 750 Mg Tab.Chew) 750 mg PO Q4H PRN PRN Reason: Heartburn Dextrose (Dextrose 50 % 25 Gm/50 Ml Syringe) 25 gm IVPUSH Q15M PRN; Protocol PRN Reason: per Hypoglycemia Standing Ord. Glucose (Glucose Gel 15 Gm Gel..Gram.) 15 gm PO Q15M PRN; Protocol PRN Reason: per Hypoglycemia Standing Ord. Guaifenesin/Dextromethorphan (Guaifenesin Dm 200/20/10 Ml 10 Ml Syrup) 10 ml PO Q4H PRN PRN Reason: Cough Melatonin (Melatonin 3 Mg Tablet) 6 mg PO BEDTIME PRN PRN Reason: Insomnia Polyethylene Glycol (Polyethylene Glycol 3350 17 Gm Powd.Pack) 17 gm PO DAILY PRN PRN Reason: Constipation Sodium Chloride (0.9 % Sodium Chloride Flush 3 Ml Syringe) 3 ml IVFLUSH QSHIFT [facility] Home Medications ?Medication ?Instructions ?Recorded ?Confirmed ?Last Taken ?Type atorvastatin 20 mg tablet 20 mg PO BEDTIME 10/25/21 10/10/24 10/09/24 History diltiazem HCl 240 mg 240 mg PO DAILY 10/25/21 10/10/24 06/30/24 05:30 History capsule,extended release 24 hr empagliflozin 25 mg-metformin ER 1 tab PO DAILY 10/25/21 10/10/24 10/10/24 History 1,000 mg tablet,extended release 24hr (Synjardy XR) ipratropium 0.5 mg-albuterol 3 mg 3 ml inhalation QID PRN sob 10/25/21 10/10/24 Unknown History (2.5 mg base)/3 mL nebulization soln omeprazole 20 mg capsule,delayed 20 mg PO DAILY 10/25/21 10/10/24 10/10/24 History release Oxygen Home Use 08/30/22 Unknown History insulin glargine 100 unit/mL (3 22 unit subcut DAILY PRN 08/30/22 10/10/24 10/10/24 History mL) subcutaneous pen (Lantus Hypoglycemia Solostar U-100 Insulin) insulin lispro 100 unit/mL 7 - 11 unit subcut DIRECTED PRN 08/30/22 10/10/24 10/10/24 History subcutaneous pen Hypoglycemia nebulizers 08/30/22 Unknown History apixaban 5 mg tablet (Eliquis) 5 mg PO Q12H 02/15/23 10/10/24 10/10/24 History metoprolol succinate 25 mg 25 mg PO BEDTIME 02/15/23 10/10/24 10/09/24 History tablet,extended release 24 hr metoprolol succinate 50 mg 50 mg PO DAILY 02/15/23 10/10/24 10/10/24 History tablet,extended release 24 hr torsemide 20 mg tablet 10 mg PO MOWEFR 02/15/23 10/10/24 10/08/24 History clonazepam 0.5 mg tablet 0.5 mg PO BID 03/24/24 10/10/24 10/10/24 History prednisone 10 mg tablet See Rx Instructions .Route .COMPLEX 10/10/24 10/10/24 10/10/24 History tirzepatide 15 mg/0.5 mL 15 mg subcut SA 10/10/24 10/10/24 10/04/24 History subcutaneous pen injector (Stephen) tramadol 50 mg tablet 50 mg PO Q6H PRN Pain 10/10/24 10/10/24 Unknown History Physical Exam Vital Signs and Narrative: Vital Signs: Last Vital Signs Temp 97.9 F 10/10/24 10:53 Pulse 99 10/10/24 14:00 Resp 20 10/10/24 14:00 BP 137/83 10/10/24 14:00 Pulse Ox 95 10/10/24 14:00 O2 Del Method Nasal Cannula 10/10/24 14:00 O2 Flow Rate 2 10/10/24 14:00 Oxygen Flow Rate 2 10/10/24 10:30 BMI result Body Mass Index 28.2 Const: General: alert and awake Nutritional Appearance: average body habitus Orientation/consciousness: patient oriented x3 Resp: Other: able to speak in multiple word sentences but appears dyspnic. b/l wheeze Cardio: Rate: tachycardic GI: Inspection: No distended Palpation (GI): Soft to palpation Neuro: General: patient oriented x3, moves all extremities and CN's II-XI intact bilaterally Extrem: Other: trace b/l leg edema Results Labs 10/10/24 12:04 10/10/24 12:04 Labs: Laboratory Results - last 24 hr 10/10/24 10/10/24 10/10/24 12:04 12:11 12:20 MCV 97.4 MCH 30.6 MCHC 31.4 RDW 14.5 Plt Count 211 MPV 8.7 L Immature Gran % (Auto) 5.0 H Neut % (Auto) 79.4 H Lymph % (Auto) 6.9 L Greenlee % (Auto) 8.4 Eos % (Auto) 0.0 Baso % (Auto) 0.3 Lymph # (Auto) 1.2 Greenlee # (Auto) 1.4 H Eos # (Auto) 0.0 Baso # (Auto) 0.1 Abs Immat Gran (auto) 0.85 H Absolute Neuts (auto) 13.4 H Absolute Nucleated RBC 0.000 Nucleated RBC % (auto) 0.0 Hold Purple Top SEE NOTE VBG pH 7.38 VBG pCO2 55 VBG pO2 49 VBG HCO3 32 H VBG O2 Saturation 79.0 VBG Base Excess 5.8 Anion Gap 15 Estim Creat Clear Calc 119.0 Estimated GFR > 60 Random Glucose 272 H Lactic Acid 3.1 H* Calcium 9.4 Magnesium 1.9 Total Bilirubin 0.4 Direct Bilirubin 0.1 AST 32 ALT 56 H Alkaline Phosphatase 77 C-Reactive Protein 0.58 H B-Natriuretic Peptide 23 Total Protein 8.7 H Albumin 4.0 Lipase 34 Procalcitonin 0.09 Urine Color Urine Appearance Urine pH Ur Specific [place] Urine Protein Urine Glucose (UA) Urine Ketones Urine Blood Urine Nitrite Ur Leukocyte Esterase Urine RBC Urine WBC Ur Squamous Epith Cells Urine Bacteria Hyaline Casts Influenza Type A (PCR) NEGATIVE Influenza Type B (PCR) NEGATIVE RSV RNA Qual (PCR) NEGATIVE SARS-CoV-2 RNA (RT-PCR) NEGATIVE 10/10/24 13:44 MCV MCH MCHC RDW Plt Count MPV Immature Gran % (Auto) Neut % (Auto) Lymph % (Auto) Greenlee % (Auto) Eos % (Auto) Baso % (Auto) Lymph # (Auto) Greenlee # (Auto) Eos # (Auto) Baso # (Auto) Abs Immat Gran (auto) Absolute Neuts (auto) Absolute Nucleated RBC Nucleated RBC % (auto) Hold Purple Top VBG pH VBG pCO2 VBG pO2 VBG HCO3 VBG O2 Saturation VBG Base Excess Anion Gap Estim Creat Clear Calc Estimated GFR Random Glucose Lactic Acid Calcium Magnesium Total Bilirubin Direct Bilirubin AST ALT Alkaline Phosphatase C-Reactive Protein B-Natriuretic Peptide Total Protein Albumin Lipase Procalcitonin Urine Color Yellow Urine Appearance Clear Urine pH 5.5 Ur Specific [place] >= 1.030 H Urine Protein Negative Urine Glucose (UA) >=1000 H Urine Ketones Negative Urine Blood Negative Urine Nitrite Negative Ur Leukocyte Esterase Negative Urine RBC 0-2 Urine WBC 0-5 Ur Squamous Epith Cells 0-2 Urine Bacteria None Seen Hyaline Casts 0-2 Influenza Type A (PCR) Influenza Type B (PCR) RSV RNA Qual (PCR) SARS-CoV-2 RNA (RT-PCR) Imaging Radiologist's Impressions: Impressions Chest X-Ray 10/10/24 11:00 IMPRESSION: COPD. No superimposed active pulmonary disease. Electronically signed by: Pancho Obregon MD 10/10/2024 11:42 AM [facility] Assessment and Plan (1) Pseudomonas respiratory infection: Status: Acute (2) COPD (chronic obstructive pulmonary disease): Qualifiers: COPD type: COPD with acute lower respiratory infection Qualified Code(s): J44.0 - Chronic obstructive pulmonary disease with (acute) lower respiratory infection Status: Acute Plan This is a 69-year-old male with history of COPD on BiPAP at baseline who was sent see depart and hypoxia despite multiple courses of outpatient antibiotics and steroids Acute respiratory failure with hypoxia due to COPD exacerbation. cxr without pneumonia, procalcitonin low. bnp negative. recent outpatient sputum cultures growing Pseudomonas Has failed outpatient management with multiple courses of antibiotics and steroids Plan for repeat chest CT Check respiratory pathogen panel IV steroids, IV cefepime to cover for Pseudomonas breathing treatments scheduled and as needed pulmonary consult continue bipap during the day prn and at night blood cultures pending Acute lactic acidosis Likely type 2 due to multiple breathing treatments not sepsis diet controlled DM follow POCs, if elevated cover with sliding scale med rec pending, resume baseline meds when complete dvt ppx - eliquis code stat us - full code - would not want tracheostomy if ever required intubation Patient will likely require 2 midnight stay in the hospital for management of respiratory failure requiring IV antibiotics, steroids, breathing treatments and specialist evaluation. High risk for decompensation. Quality Stroke Does the patient have a stroke diagnosis?: No VTE Prior VTE?: No VTE Risk Level:: Medical - moderate - high VTE Device Contraindication: N/A - Device Ordered VTE Drug Contraindication: N/A - Med Ordered
--- NOTE | 2024-10-10 14:43 | PC.RT ---
called to bedside for patient in resp distress after returning from CT Scan. upon arrival, found patient already on bipap. informed by RN that PA had placed patient on bipap due to resp distress.
[2024-10-10] MEDS: ALPRAZolam 0.5 MG TABLET PO (14:49)
[2024-10-10 15:07] LABS: ~Lactic Acid-LAB USE ONLY 6.2 mmol/L (0.5-2.0)
--- NOTE | 2024-10-10 15:22 | PC.NURSE ---
Vancomycin infusion delayed due pump without power for unknown amount of time. Power restored and infusion continued. Additionally, infusion frequently stalled due to Pt positioning of RUE. Frequent repositioning performed.
--- NOTE | 2024-10-10 15:23 | MHC.EDTECH ---
Tried twice to draw labs on patient but was unsuccessful. RN is aware. Patient stated she needs ultrasound to find veins.
[2024-10-10] MEDS: Albuterol/Iprat 2.5/0.5MG 3 ML AMPUL.NEB INHALE ×2 (15:57→20:07)
--- NOTE | 2024-10-10 15:57 | PHA.MEDREC ---
Pharmacy Consult ? Medication Reconciliation Pharmacy has completed the medication reconciliation. Spoke to patient to confirm medication list. Per patient, he only uses insulins on days that he takes prednisone. He injects lantus 22 units daily and humalog 7-11 units per sliding scale. He gets IVIG 40 grams u3glcya (last dose was today 10/10/24). He injects Mounjaro 15 mg every sunday. He's at the beginning of the prednisone tapering schedule (40 mg daily for 5 days, 30 mg daily for 5 days, 20 mg daily for 5 days, 10 mg daily for 5 days). He took prednisone 40 mg today and he also injected the lantus today. He confirmed he takes metoprolol er 50 mg in the morning and 25 mg in the evening. He only takes torsemide 10 mg on mirdaf-zcmqfrhxb-zwhgpr (last dose was on sunday10/08/24).
[2024-10-10 16:49] LABS: Reflex Lactate? 2 Y
--- NOTE | 2024-10-10 17:43 | PC.NURSE ---
Sepsis worksheet submitted to [employer].
[2024-10-10 17:48] LABS: ~Lactic Acid-LAB USE ONLY 4.7 mmol/L (0.5-2.0)
[2024-10-10 18:24] LABS: Cancel Lactic Acid Canceled
[2024-10-10 19:55] LABS: Glucose, Whole Blood 299 mg/dL (60-115)
[2024-10-10] MEDS: Atorvastatin Calcium 20 MG TABLET PO (20:07)
[2024-10-10] MEDS: Apixaban 5 MG TABLET PO (20:07)
[2024-10-10] MEDS: Budesonide 0.5 MG/2 ML AMPUL.NEB INHALE (20:07)
[2024-10-10] MEDS: clonazePAM 0.5 MG TABLET PO (20:07)
[2024-10-10] MEDS: Metoprolol Succinate ER 25 MG TAB.ER.24H PO (20:07)
[2024-10-10] MEDS: methylPREDNISolone Sod Succ 40 MG/ML VIAL IVPUSH (20:08)
[2024-10-10] MEDS: 0.9 % Sodium Chloride Flush 3 ML SYRINGE IVFLUSH (20:08)
[2024-10-10] MEDS: Insulin Lispro 100 UNIT/ML 3 ML VIAL SUBCUT (20:51)
[2024-10-10] MEDS: Insulin Regular, Human 100 UNIT/ML 10 ML VIAL IVPUSH (20:51)
[2024-10-11] VITALS (10 sets, daily range): BP systolic 113–180; BP diastolic 58–97; PULSE 77–99; RESP 19–20; TEMP 36.1–36.5; O2SAT 94–99
[2024-10-11] MEDS: guaiFENesin DM 200/20/10 ML 10 ML SYRUP PO ×2 (02:34→20:12)
[2024-10-11] MEDS: methylPREDNISolone Sod Succ 40 MG/ML VIAL IVPUSH ×3 (04:25→19:59)
[2024-10-11] MEDS: cefEPime HCl/D5W 2 GM/50 ML PIGGYBACK IV ×3 (04:26→20:00)
[2024-10-11] MEDS: Omeprazole 20 MG CAPSULE.DR PO (06:13)
[2024-10-11 07:13] LABS: Glucose, Whole Blood 251 mg/dL (60-115)
[2024-10-11] MEDS: Albuterol/Iprat 2.5/0.5MG 3 ML AMPUL.NEB INHALE ×3 (07:26→20:09)
[2024-10-11] MEDS: Budesonide 0.5 MG/2 ML AMPUL.NEB INHALE ×2 (07:26→20:13)
[2024-10-11] MEDS: dilTIAZem HCL CD 240 MG CAP.ER.DEG PO (08:19)
[2024-10-11] MEDS: Roflumilast 500 MCG TABLET PO (08:19)
[2024-10-11] MEDS: Metoprolol Succinate ER 50 MG TAB.ER.24H PO (08:19)
[2024-10-11] MEDS: clonazePAM 0.5 MG TABLET PO ×2 (08:19→20:01)
[2024-10-11] MEDS: Apixaban 5 MG TABLET PO ×2 (08:19→20:00)
[2024-10-11] MEDS: Insulin Lispro 100 UNIT/ML 3 ML VIAL SUBCUT ×4 (08:20→20:12)
[2024-10-11] MEDS: 0.9 % Sodium Chloride Flush 3 ML SYRINGE IVFLUSH ×3 (08:20→20:00)
[2024-10-11 11:06] LABS: Adenovirus PCR Not Detected (Not Detect.); Bordetella parapertussis PCR Not Detected (Not Detect.); Bordetella pertussis PCR Not Detected (Not Detect.); Chlamydia pneumoniae PCR Not Detected (Not Detect.); Coronavirus 229E PCR Not Detected (Not Detect.); Coronavirus HKU1 PCR Not Detected (Not Detect.); Coronavirus NL63 PCR Not Detected (Not Detect.); Coronavirus OC43 PCR Detected (Not Detect.); Human metapneumovirus PCR Not Detected (Not Detect.); Influenza A PCR Not Detected (Not Detect.); Influenza B PCR Not Detected (Not Detect.); Mycoplasma pneumoniae PCR Not Detected (Not Detect.); Parainfluenza 1 PCR Not Detected (Not Detect.); Parainfluenza 2 PCR Not Detected (Not Detect.); Parainfluenza 3 PCR Not Detected (Not Detect.); Parainfluenza 4 PCR Not Detected (Not Detect.); RSV PCR Not Detected (Not Detect.); Rhino/Enterovirus PCR Not Detected (Not Detect.)
[2024-10-11 11:10] LABS: Glucose, Whole Blood 225 mg/dL (60-115)
[2024-10-11 11:25] LABS: SARS-CoV-2 PCR Not Detected (Not Detect.)
--- NOTE | 2024-10-11 11:59 | PM.CNPUL ---
History of Present Illness History of Present Illness Consult date: 10/11/24 Chief complaint: Respiratory failure Narrative: This is an inpatient pulmonary consultation. The patient is a 69-year-old gentleman with a band COPD oxygen-dependent with chronic hypercarbic and hypoxic respiratory failure on noninvasive ventilator that lately he has been using it most of the day and night. He also has a history immunodeficiency on IgG infusions. Last CT scan demonstrating some bronchiectasis. He presented sick to the office last week prior to the admission. Significant shortness of breath. He was given Solu-Medrol high-dose steroids and antibiotics. His sputum culture was positive for Pseudomonas again. The patient was treated with Levaquin although he can not tolerated well because of tendonitis. Although he try taking it because he was not feeling well at all. His symptoms only continue getting worse. [place] very fatigued short of breath using again is noninvasive ventilator throughout the day with minimal improvement. On the day of the admission he did get his IVIG and went to the pulmonary office where he was found to be significantly fatigued with significant chest tightness. Therefore he was transferred to the ER. CT scan of the chest was done personally by me demonstrating evidence of bronchiectasis. No significant pneumonia appreciated although he does have an area in the lingula that appears to show significant atelectasis and possible airspace disease. He was placed on cefepime. Seems to be responding well also on steroids. In view of the bronchiectasis exacerbation with lower respiratory infection the patient will benefit from a prolonged course of antipseudomonal antibiotic therapy via PICC line. Review of Systems Review of Systems: Constitutional : pos Fever, pos Chills ENT/Mouth : No Hoarseness, No sore throat, No Rhinorrhea Eyes: No Redness, No Discharge, No Vision Changes Cardiovascular : No Chest Pain, positive SOB, positive Dyspnea on Exertion, No Edema Respiratory : positive Cough, pos Sputum, positive Wheezing, Gastrointestinal : No Nausea, No Vomiting, No Diarrhea, No abdominal Pain Genitourinary : No Dysuria, No Hematuria Musculoskeletal : No joint pain, No Myalgias Skin : No rash Neuro : No Weakness, No Numbness, No Headache All other systems reviewed and are negative PMFSH Past Medical History Medical History Bronchopneumonia Asthma-COPD overlap syndrome Hypogammaglobulinemia Dyspnea Osteoporosis On supplemental oxygen therapy Compression fracture of thoracic spine, non-traumatic Weight loss due to medication Diabetes mellitus type 2 in nonobese GERD (gastroesophageal reflux disease) Personal history of nicotine dependence NADEEM treated with BiPAP Pulmonary nodules Chronic respiratory failure COPD (chronic obstructive pulmonary disease) (~2003) Surgical History Surgical History History of bronchoscopy (~2018) History of neck surgery History of colonoscopy Social History Social History Household Members: Spouse Housing: House Do you presently have visiting nurse or other home services: No Alcohol intake: current Alcohol intake frequency: 3 or more drinks per day Patient Tobacco Use Status: Former Tobacco user Tobacco use type: Cigarette Years Smoked: (onset 21yo, 1-2ppd x 41yrs, 50+PYH - quit 2016) Smoked in Last 30 Days: No Use of substances other than those prescribed or required for medical reasons: No Have you been hit, kicked, punched, or otherwise hurt by someone within the past year? If so, by whom?: No Do you feel safe in your current relationship?: Yes Is there a partner from a previous relationship who is making you feel unsafe now?: No Are you made to feel afraid or neglected: No Advance Directives: No Advance Directives Information Provided: Yes Recently lost weight without trying: No Meds Allergies Allergy/AdvReac Type Severity Reaction Status Date / Time theophylline Allergy Severe Cardiac Verified 10/10/24 10:32 Arrythmia levofloxacin [From Levaquin] Allergy Unknown Unknown Verified 10/10/24 10:32 Penicillins Allergy Unknown Unknown Verified 10/10/24 10:32 Active Medications: Current Medications Acetaminophen (Acetaminophen 325 Mg Tablet) 650 mg PO Q6H PRN PRN Reason: Pain, Mild 1-3,fever,headache Albuterol/Ipratropium (Albuterol/Iprat 2.5/0.5mg 3 Ml Ampul.Neb) 3 ml INHALE RQ4H WHILE AWAKE [facility] Last Admin: 10/11/24 11:21 Dose: 3 ml Albuterol/Ipratropium (Albuterol/Iprat 2.5/0.5mg 3 Ml Ampul.Neb) 3 ml INHALE RQ4H WHILE AWAKE PRN PRN Reason: Shortness of Breath/Wheezing Apixaban (Apixaban 5 Mg Tablet) 5 mg PO Q12H [facility] Last Admin: 10/11/24 08:19 Dose: 5 mg Atorvastatin Calcium (Atorvastatin Calcium 20 Mg Tablet) 20 mg PO BEDTIME [facility] Last Admin: 10/10/24 20:07 Dose: 20 mg Budesonide (Budesonide 0.5 Mg/2 Ml Ampul.Neb) 0.5 mg INHALE RBID [facility] Last Admin: 10/11/24 07:26 Dose: 0.5 mg Calcium Carbonate (Calcium Carbonate 750 Mg Tab.Chew) 750 mg PO Q4H PRN PRN Reason: Heartburn Clonazepam (Clonazepam 0.5 Mg Tablet) 0.5 mg PO BID [facility] Last Admin: 10/11/24 08:19 Dose: 0.5 mg Dextrose (Dextrose 50 % 25 Gm/50 Ml Syringe) 25 gm IVPUSH Q15M PRN; Protocol PRN Reason: per Hypoglycemia Standing Ord. Diltiazem HCl (Diltiazem Hcl Cd 240 Mg Cap.Er.Deg) 240 mg PO DAILY [facility]; Protocol Last Admin: 10/11/24 08:19 Dose: 240 mg Fluticasone/Umeclidinium/Vilanterol (Fluticasone/Umeclidinium/Vilanterol 200/62.5/25 Blst.W.Dev) 1 puff INHALE RDAILY [facility] Last Admin: 10/11/24 07:49 Dose: Not Given Glucose (Glucose Gel 15 Gm Gel..Gram.) 15 gm PO Q15M PRN; Protocol PRN Reason: per Hypoglycemia Standing Ord. Guaifenesin/Dextromethorphan (Guaifenesin Dm 200/20/10 Ml 10 Ml Syrup) 10 ml PO Q4H PRN PRN Reason: Cough Last Admin: 10/11/24 02:34 Dose: 10 ml Cefepime HCl (Maxipime) 2 gm in 50 mls @ 100 mls/hr IV Q8H [facility] Last Infusion: 10/11/24 05:12 Dose: Infused Insulin Human Lispro (Insulin Lispro 100 Unit/Ml 3 Ml Vial) 0 unit SUBCUT QIDACHS [facility]; Protocol Last Admin: 10/11/24 08:20 Dose: 6 unit Melatonin (Melatonin 3 Mg Tablet) 6 mg PO BEDTIME PRN PRN Reason: Insomnia Methylprednisolone Sodium Succinate (Methylprednisolone Sod Succ 40 Mg/Ml Vial) 40 mg IVPUSH Q8H [facility] Last Admin: 10/11/24 04:25 Dose: 40 mg Metoprolol Succinate (Metoprolol Succinate Er 50 Mg Tab.Er.24h) 50 mg PO DAILY [facility]; Protocol Last Admin: 10/11/24 08:19 Dose: 50 mg Metoprolol Succinate (Metoprolol Succinate Er 25 Mg Tab.Er.24h) 25 mg PO BEDTIME [facility]; Protocol Last Admin: 10/10/24 20:07 Dose: 25 mg Omeprazole (Omeprazole 20 Mg Capsule.Dr) 20 mg PO DAILY@0630 [facility] Last Admin: 10/11/24 06:13 Dose: 20 mg Polyethylene Glycol (Polyethylene Glycol 3350 17 Gm Powd.Pack) 17 gm PO DAILY PRN PRN Reason: Constipation Roflumilast (Roflumilast 500 Mcg Tablet) 500 mcg PO DAILY [facility] Last Admin: 10/11/24 08:19 Dose: 500 mcg Sodium Chloride (0.9 % Sodium Chloride Flush 3 Ml Syringe) 3 ml IVFLUSH QSHIFT [facility] Last Admin: 10/11/24 08:20 Dose: 3 ml Torsemide (Torsemide 20 Mg Tablet) 10 mg PO MoWeFr@0900 [facility]; Protocol Last Admin: 10/10/24 18:36 Dose: Not Given Tramadol HCl (Tramadol Hcl 50 Mg Tablet) 50 mg PO Q6H PRN PRN Reason: Pain, Moderate(Pain Scale 4-6) Home Medications ?Medication ?Instructions ?Recorded ?Confirmed ?Last Taken ?Type atorvastatin 20 mg tablet 20 mg PO BEDTIME 10/25/21 10/10/24 10/09/24 History diltiazem HCl 240 mg 240 mg PO DAILY 10/25/21 10/10/24 06/30/24 05:30 History capsule,extended release 24 hr empagliflozin 25 mg-metformin ER 1 tab PO DAILY 10/25/21 10/10/24 10/10/24 History 1,000 mg tablet,extended release 24hr (Synjardy XR) ipratropium 0.5 mg-albuterol 3 mg 3 ml inhalation QID PRN sob 10/25/21 10/10/24 Unknown History (2.5 mg base)/3 mL nebulization soln omeprazole 20 mg capsule,delayed 20 mg PO DAILY 10/25/21 10/10/24 10/10/24 History release Oxygen Home Use 08/30/22 Unknown History insulin glargine 100 unit/mL (3 22 unit subcut DAILY PRN 08/30/22 10/10/24 10/10/24 History mL) subcutaneous pen (Lantus Hypoglycemia Solostar U-100 Insulin) insulin lispro 100 unit/mL 7 - 11 unit subcut DIRECTED PRN 08/30/22 10/10/24 10/10/24 History subcutaneous pen Hypoglycemia nebulizers 08/30/22 Unknown History apixaban 5 mg tablet (Eliquis) 5 mg PO Q12H 02/15/23 10/10/24 10/10/24 History metoprolol succinate 25 mg 25 mg PO BEDTIME 02/15/23 10/10/24 10/09/24 History tablet,extended release 24 hr metoprolol succinate 50 mg 50 mg PO DAILY 02/15/23 10/10/24 10/10/24 History tablet,extended release 24 hr torsemide 20 mg tablet 10 mg PO MOWEFR 02/15/23 10/10/24 10/08/24 History clonazepam 0.5 mg tablet 0.5 mg PO BID 03/24/24 10/10/24 10/10/24 History prednisone 10 mg tablet See Rx Instructions .Route .COMPLEX 10/10/24 10/10/24 10/10/24 History tirzepatide 15 mg/0.5 mL 15 mg subcut SA 10/10/24 10/10/24 10/04/24 History subcutaneous pen injector (Stephen) tramadol 50 mg tablet 50 mg PO Q6H PRN Pain 10/10/24 10/10/24 Unknown History Physical Exam Vital Signs: Vital Signs: Last Vital Signs Temp 97.0 F 10/11/24 11:20 Pulse 99 10/11/24 11:21 Resp 20 10/11/24 11:21 BP 138/92 H 10/11/24 11:20 Pulse Ox 97 10/11/24 11:20 O2 Del Method BiPAP 10/11/24 11:20 O2 Flow Rate 2 10/10/24 14:00 Oxygen Flow Rate 2 10/10/24 10:30 BMI result Body Mass Index 28.2 Const: General: alert and Cushingoid facies Limitations: other limitations (wearing is NIV) Neck: Neck: Yes normal visual inspection, Yes full ROM and Yes no lymphadenopathy Chest: Chest palpation & inspection: normal inspection of the chest Resp: Effort & Inspection: tachypneic, uses accessory muscles and prolonged expiratory phase Auscultation: rhonchi, wheezes and diminished lung sounds Cardio: Rate: regular rate Rhythm: regular rhythm Heart sounds: S1 normal heart sound present and S2 normal heart sound present GI: Palpation (GI): Soft to palpation and nontender Auscultation: normal bowel sounds Skin: General skin exam: rashes and/or lesions noted Extrem: General: Yes edema Results Laboratory Findings 10/10/24 12:04 10/10/24 12:04 Abnormal lab findings: Abnormal Labs 10/10/24 10/10/24 10/10/24 12:04 12:11 13:44 WBC 16.9 H RBC 4.58 L MPV 8.7 L Immature Gran % (Auto) 5.0 H Neut % (Auto) 79.4 H Lymph % (Auto) 6.9 L [place] # (Auto) 1.4 H Abs Immat Gran (auto) 0.85 H Absolute Neuts (auto) 13.4 H VBG HCO3 32 H BUN 27 H POC Glucose Random Glucose 272 H Lactic Acid 3.1 H* Lactic Acid F/U @ 2Hr Lactic Acid F/U @ 4Hr ALT 56 H C-Reactive Protein 0.58 H Total Protein 8.7 H Ur Specific [place] >= 1.030 H Urine Glucose (UA) >=1000 H Coronavirus OC43 (PCR) 10/10/24 10/10/24 10/10/24 14:46 16:39 17:05 WBC RBC MPV Immature Gran % (Auto) Neut % (Auto) Lymph % (Auto) [place] # (Auto) Abs Immat Gran (auto) Absolute Neuts (auto) VBG HCO3 BUN POC Glucose Random Glucose Lactic Acid Lactic Acid F/U @ 2Hr 6.2 H* Lactic Acid F/U @ 4Hr 4.7 H* ALT C-Reactive Protein Total Protein Ur Specific [place] Urine Glucose (UA) Coronavirus OC43 (PCR) Detected A 10/10/24 10/11/24 10/11/24 19:38 07:00 11:04 WBC RBC MPV Immature Gran % (Auto) Neut % (Auto) Lymph % (Auto) [place] # (Auto) Abs Immat Gran (auto) Absolute Neuts (auto) VBG HCO3 BUN POC Glucose 299 H 251 H 225 H Random Glucose Lactic Acid Lactic Acid F/U @ 2Hr Lactic Acid F/U @ 4Hr ALT C-Reactive Protein Total Protein Ur Specific [place] Urine Glucose (UA) Coronavirus OC43 (PCR) Assessment and Plan (1) Pseudomonas respiratory infection: Status: Acute (2) Exacerbation of bronchiectasis due to infection: Status: Acute (3) Hypogammaglobulinemia: Status: Acute (4) COPD (chronic obstructive pulmonary disease): Qualifiers: COPD type: COPD with acute lower respiratory infection Qualified Code(s): J44.0 - Chronic obstructive pulmonary disease with (acute) lower respiratory infection Status: Acute end stage (5) Chronic respiratory failure: Qualifiers: Respiratory failure complication: hypoxia and hypercapnia Qualified Code(s): J96.11 - Chronic respiratory failure with hypoxia; J96.12 - Chronic respiratory failure with hypercapnia Status: Acute Plan continue Cefepime. Would need a PICC line for 3 weeks of Cefepime continue Solumedrol-->prednisone taper respiratory therapy continue NIV as needed during the day and while sleeping respiratory therapy oxygen to keep pox 90-94% Procedures Date of Service Date of Service: 10/11/24
--- NOTE | 2024-10-11 13:29 | HO.PM.IMPN ---
Subjective Subjective Date of Service: 10/11/24 Physical Exam Vital Signs: Vital Signs: Last Vital Signs Temp 97.0 F 10/11/24 11:20 Pulse 99 10/11/24 11:21 Resp 20 10/11/24 11:21 BP 138/92 H 10/11/24 11:20 Pulse Ox 97 10/11/24 11:20 O2 Del Method BiPAP 10/11/24 11:20 O2 Flow Rate 2 10/10/24 14:00 Oxygen Flow Rate 2 10/10/24 10:30 BMI result Body Mass Index 28.2 Objective Data Active Medications Acetaminophen (Acetaminophen 325 Mg Tablet) 650 mg PO Q6H PRN PRN Reason: Pain, Mild 1-3,fever,headache Albuterol/Ipratropium (Albuterol/Iprat 2.5/0.5mg 3 Ml Ampul.Neb) 3 ml INHALE RQ4H WHILE AWAKE [facility] Last Admin: 10/11/24 11:21 Dose: 3 ml Documented By: RILEY Albuterol/Ipratropium (Albuterol/Iprat 2.5/0.5mg 3 Ml Ampul.Neb) 3 ml INHALE RQ4H WHILE AWAKE PRN PRN Reason: Shortness of Breath/Wheezing Apixaban (Apixaban 5 Mg Tablet) 5 mg PO Q12H [facility] Last Admin: 10/11/24 08:19 Dose: 5 mg Documented By: KATHRYN Atorvastatin Calcium (Atorvastatin Calcium 20 Mg Tablet) 20 mg PO BEDTIME [facility] Last Admin: 10/10/24 20:07 Dose: 20 mg Documented By: FERNY Budesonide (Budesonide 0.5 Mg/2 Ml Ampul.Neb) 0.5 mg INHALE RBID [facility] Last Admin: 10/11/24 07:26 Dose: 0.5 mg Documented By: RILEY Calcium Carbonate (Calcium Carbonate 750 Mg Tab.Chew) 750 mg PO Q4H PRN PRN Reason: Heartburn Clonazepam (Clonazepam 0.5 Mg Tablet) 0.5 mg PO BID [facility] Last Admin: 10/11/24 08:19 Dose: 0.5 mg Documented By: KATHRYN Dextrose (Dextrose 50 % 25 Gm/50 Ml Syringe) 25 gm IVPUSH Q15M PRN; Protocol PRN Reason: per Hypoglycemia Standing Ord. Diltiazem HCl (Diltiazem Hcl Cd 240 Mg Cap.Er.Deg) 240 mg PO DAILY [facility]; Protocol Last Admin: 10/11/24 08:19 Dose: 240 mg Documented By: KATHRYN Fluticasone/Umeclidinium/Vilanterol (Fluticasone/Umeclidinium/Vilanterol 200/62.5/25 Blst.W.Dev) 1 puff INHALE RDAILY [facility] Last Admin: 10/11/24 07:49 Dose: Not Given Documented By: RILEY Non-Admin Reason: pharmacy called for med Glucose (Glucose Gel 15 Gm Gel..Gram.) 15 gm PO Q15M PRN; Protocol PRN Reason: per Hypoglycemia Standing Ord. Guaifenesin (Guaifenesin La 600 Mg Tab.Er.12h) 600 mg PO BID [facility] Guaifenesin/Dextromethorphan (Guaifenesin Dm 200/20/10 Ml 10 Ml Syrup) 10 ml PO Q4H PRN PRN Reason: Cough Last Admin: 10/11/24 02:34 Dose: 10 ml Documented By: FERNY Cefepime HCl (Maxipime) 2 gm in 50 mls @ 100 mls/hr IV Q8H [facility] Last Infusion: 10/11/24 12:32 Dose: Infused Documented By: KATHRYN Insulin Human Lispro (Insulin Lispro 100 Unit/Ml 3 Ml Vial) 0 unit SUBCUT QIDACHS [facility]; Protocol Last Admin: 10/11/24 12:02 Dose: 4 unit Documented By: KATHRYN Melatonin (Melatonin 3 Mg Tablet) 6 mg PO BEDTIME PRN PRN Reason: Insomnia Methylprednisolone Sodium Succinate (Methylprednisolone Sod Succ 40 Mg/Ml Vial) 40 mg IVPUSH Q8H [facility] Last Admin: 10/11/24 12:02 Dose: 40 mg Documented By: KATHRYN Metoprolol Succinate (Metoprolol Succinate Er 50 Mg Tab.Er.24h) 50 mg PO DAILY [facility]; Protocol Last Admin: 10/11/24 08:19 Dose: 50 mg Documented By: KATHRYN Metoprolol Succinate (Metoprolol Succinate Er 25 Mg Tab.Er.24h) 25 mg PO BEDTIME [facility]; Protocol Last Admin: 10/10/24 20:07 Dose: 25 mg Documented By: FERNY Omeprazole (Omeprazole 20 Mg Capsule.) 20 mg PO DAILY@0630 [facility] Last Admin: 10/11/24 06:13 Dose: 20 mg Documented By: FERNY Polyethylene Glycol (Polyethylene Glycol 3350 17 Gm Powd.Pack) 17 gm PO DAILY PRN PRN Reason: Constipation Roflumilast (Roflumilast 500 Mcg Tablet) 500 mcg PO DAILY [facility] Last Admin: 10/11/24 08:19 Dose: 500 mcg Documented By: KATHRYN Sodium Chloride (0.9 % Sodium Chloride Flush 3 Ml Syringe) 3 ml IVFLUSH QSHIFT [facility] Last Admin: 10/11/24 12:03 Dose: 3 ml Documented By: KATHRYN Torsemide (Torsemide 20 Mg Tablet) 10 mg PO MoWeFr@0900 [facility]; Protocol Last Admin: 10/10/24 18:36 Dose: Not Given Documented By: PEDRO Non-Admin Reason: Pt declines, doesnt want to urinate all night Tramadol HCl (Tramadol Hcl 50 Mg Tablet) 50 mg PO Q6H PRN PRN Reason: Pain, Moderate(Pain Scale 4-6) Labs 10/10/24 12:04 10/10/24 12:04 Labs: Laboratory Results - last 24 hr 10/10/24 10/10/24 10/10/24 13:44 14:46 16:39 POC Glucose Lactic Acid F/U @ 2Hr 6.2 H* Lactic Acid F/U @ 4Hr Urine Color Yellow Urine Appearance Clear Urine pH 5.5 Ur Specific [place] >= 1.030 H Urine Protein Negative Urine Glucose (UA) >=1000 H Urine Ketones Negative Urine Blood Negative Urine Nitrite Negative Ur Leukocyte Esterase Negative Urine RBC 0-2 Urine WBC 0-5 Ur Squamous Epith Cells 0-2 Urine Bacteria None Seen Hyaline Casts 0-2 Respiratory Panel [place] See Note Adenovirus (Rapid PCR) Not Detected B.pert (TEM-PCR) Not Detected B.parapertussis DNA PCR Not Detected C. pneumoniae DNA (PCR) Not Detected Coronavirus OC43 (PCR) Detected A Coronavirus HKU1 (PCR) Not Detected Coronavirus 229E (PCR) Not Detected Coronavirus NL63 (PCR) Not Detected Human Metapneumovir PCR Not Detected Influenza A (RT-PCR) Not Detected Influenza B (RT-PCR) Not Detected M. pneumoniae (PCR) Not Detected Parainfluenza 1 (PCR) Not Detected Parainfluenza 2 (PCR) Not Detected Parainfluenza 3 (PCR) Not Detected Parainfluenza 4 (PCR) Not Detected RSV (PCR) Not Detected Entero/Rhino (PCR) Not Detected SARS-CoV-2 RNA (RT-PCR) Not Detected 10/10/24 10/10/24 10/11/24 17:05 19:38 07:00 POC Glucose 299 H 251 H Lactic Acid F/U @ 2Hr Lactic Acid F/U @ 4Hr 4.7 H* Urine Color Urine Appearance Urine pH Ur Specific [place] Urine Protein Urine Glucose (UA) Urine Ketones Urine Blood Urine Nitrite Ur Leukocyte Esterase Urine RBC Urine WBC Ur Squamous Epith Cells Urine Bacteria Hyaline Casts Respiratory Panel [place] Adenovirus (Rapid PCR) B.pert (TEM-PCR) B.parapertussis DNA PCR C. pneumoniae DNA (PCR) Coronavirus OC43 (PCR) Coronavirus HKU1 (PCR) Coronavirus 229E (PCR) Coronavirus NL63 (PCR) Human Metapneumovir PCR Influenza A (RT-PCR) Influenza B (RT-PCR) M. pneumoniae (PCR) Parainfluenza 1 (PCR) Parainfluenza 2 (PCR) Parainfluenza 3 (PCR) Parainfluenza 4 (PCR) RSV (PCR) Entero/Rhino (PCR) SARS-CoV-2 RNA (RT-PCR) 10/11/24 11:04 POC Glucose 225 H Lactic Acid F/U @ 2Hr Lactic Acid F/U @ 4Hr Urine Color Urine Appearance Urine pH Ur Specific [place] Urine Protein Urine Glucose (UA) Urine Ketones Urine Blood Urine Nitrite Ur Leukocyte Esterase Urine RBC Urine WBC Ur Squamous Epith Cells Urine Bacteria Hyaline Casts Respiratory Panel [place] Adenovirus (Rapid PCR) B.pert (TEM-PCR) B.parapertussis DNA PCR C. pneumoniae DNA (PCR) Coronavirus OC43 (PCR) Coronavirus HKU1 (PCR) Coronavirus 229E (PCR) Coronavirus NL63 (PCR) Human Metapneumovir PCR Influenza A (RT-PCR) Influenza B (RT-PCR) M. pneumoniae (PCR) Parainfluenza 1 (PCR) Parainfluenza 2 (PCR) Parainfluenza 3 (PCR) Parainfluenza 4 (PCR) RSV (PCR) Entero/Rhino (PCR) SARS-CoV-2 RNA (RT-PCR) Assessment and Plan (1) Asthma-COPD overlap syndrome: Status: Acute Plan This is a 69-year-old male with history of COPD on BiPAP at baseline who was sent see depart and hypoxia despite multiple courses of outpatient antibiotics and steroids Acute respiratory failure with hypoxia due to COPD exacerbation. cxr without pneumonia, procalcitonin low. bnp negative. recent outpatient sputum cultures growing Pseudomonas Has failed outpatient management with multiple courses of antibiotics and steroids Plan for repeat chest CT Check respiratory pathogen panel IV steroids, IV cefepime to cover for Pseudomonas breathing treatments scheduled and as needed pulmonary consult continue bipap during the day prn and at night blood cultures pending History of atrial fibrillation/atrial flutter, paroxysmal Continue Coreg, metoprolol and Eliquis Acute lactic acidosis Likely type 2 due to multiple breathing treatments not sepsis DM2 ss, ada diet [facility] Continue home medications Obstructive sleep apnea BiPAP at bedtime dvt ppx - eliquis code status - full code - would not want tracheostomy if ever required intubation Quality Stroke Does the patient have a stroke diagnosis?: No VTE Prior VTE?: No VTE Risk Level:: Medical - moderate - high VTE Device Contraindication: N/A - Device Ordered VTE Drug Contraindication: N/A - Med Ordered
--- NOTE | 2024-10-11 15:53 | MHC.CM.PN ---
CM ATTEMPTED TO MEET WITH PT WHO WAS SLEEPING CM CALLED PTS , DRU [phone] SHE CONFIRMS THAT PT LIVES AT HOME WITH HER AND IS INDEPENDENT WITH CARE PT HAS HOME OXYGEN AND AN ASV MACHINE COPY OF HCP REQUESTED PCP: RENEE BROOKS IMM DELIVERED DCP: HOME NO SERVICES VIA PRIVATE TRANSPORT
[2024-10-11 16:27] LABS: Glucose, Whole Blood 215 mg/dL (60-115)
[2024-10-11 19:57] LABS: Glucose, Whole Blood 204 mg/dL (60-115)
[2024-10-11] MEDS: Metoprolol Succinate ER 25 MG TAB.ER.24H PO (20:00)
[2024-10-11] MEDS: guaiFENesin LA 600 MG TAB.ER.12H PO (20:00)
[2024-10-11] MEDS: Atorvastatin Calcium 20 MG TABLET PO (20:01)
[2024-10-12] VITALS (15 sets, daily range): BP systolic 136–169; BP diastolic 84–100; PULSE 75–105; RESP 12–25; TEMP 36.4–37.1; O2SAT 94–99
[2024-10-12] MEDS: LORazepam 0.5 MG TABLET PO (01:14)
--- NOTE | 2024-10-12 01:20 | PC.NURSE ---
pt c/o anxiety. notified 1x dose of ativan 0.5mg po ordered.
[2024-10-12] MEDS: methylPREDNISolone Sod Succ 40 MG/ML VIAL IVPUSH ×3 (04:17→21:11)
[2024-10-12] MEDS: cefEPime HCl/D5W 2 GM/50 ML PIGGYBACK IV ×3 (04:20→21:28)
[2024-10-12] MEDS: Omeprazole 20 MG CAPSULE.DR PO (05:59)
[2024-10-12] MEDS: Albuterol/Iprat 2.5/0.5MG 3 ML AMPUL.NEB INHALE ×5 (06:17→20:06)
[2024-10-12] MEDS: Budesonide 0.5 MG/2 ML AMPUL.NEB INHALE ×2 (06:18→20:06)
[2024-10-12 07:31] LABS: Glucose, Whole Blood 242 mg/dL (60-115)
--- NOTE | 2024-10-12 07:39 | P.PNIM_ITS ---
Subjective Subjective Date of Service: 10/12/24 Review of Systems Follow up hypoxia still with SOB on his own Bipap tx to [facility] [place] Physical Exam 2 Vital Signs: Vital Signs: Last Vital Signs Temp 97.5 F 10/12/24 07:28 Pulse 104 H 10/12/24 07:10 Resp 20 10/12/24 07:10 BP 169/92 H 10/12/24 07:10 Pulse Ox 97 10/12/24 07:10 O2 Del Method BiPAP 10/12/24 07:10 O2 Flow Rate 2.5 10/12/24 00:00 Oxygen Flow Rate 2 10/10/24 10:30 BMI result Body Mass Index 28.2 Appearing in no acute distress lung sounds tight exp wheezing with inflow heart regular rate rhythm, clear S1, S2 positive bowel sounds, abdomen is soft, nontender neuro patient is alert x3, no focal deficits Objective Data Active Medications Acetaminophen (Acetaminophen 325 Mg Tablet) 650 mg PO Q6H PRN PRN Reason: Pain, Mild 1-3,fever,headache Albuterol/Ipratropium (Albuterol/Iprat 2.5/0.5mg 3 Ml Ampul.Neb) 3 ml INHALE RQ4H WHILE AWAKE [facility] Last Admin: 10/12/24 06:24 Dose: 3 ml Documented By: ALIZA Albuterol/Ipratropium (Albuterol/Iprat 2.5/0.5mg 3 Ml Ampul.Neb) 3 ml INHALE RQ4H WHILE AWAKE PRN PRN Reason: Shortness of Breath/Wheezing Last Admin: 10/12/24 06:17 Dose: 3 ml Documented By: ALIZA Apixaban (Apixaban 5 Mg Tablet) 5 mg PO Q12H [facility] Last Admin: 10/11/24 20:00 Dose: 5 mg Documented By: JESSA Atorvastatin Calcium (Atorvastatin Calcium 20 Mg Tablet) 20 mg PO BEDTIME [facility] Last Admin: 10/11/24 20:01 Dose: 20 mg Documented By: JESSA Budesonide (Budesonide 0.5 Mg/2 Ml Ampul.Neb) 0.5 mg INHALE RBID [facility] Last Admin: 10/12/24 06:18 Dose: 0.5 mg Documented By: ALIZA Calcium Carbonate (Calcium Carbonate 750 Mg Tab.Chew) 750 mg PO Q4H PRN PRN Reason: Heartburn Clonazepam (Clonazepam 0.5 Mg Tablet) 0.5 mg PO BID [facility] Last Admin: 10/11/24 20:01 Dose: 0.5 mg Documented By: JESSA Dextrose (Dextrose 50 % 25 Gm/50 Ml Syringe) 25 gm IVPUSH Q15M PRN; Protocol PRN Reason: per Hypoglycemia Standing Ord. Diltiazem HCl (Diltiazem Hcl Cd 240 Mg Cap.Er.Deg) 240 mg PO DAILY [facility]; Protocol Last Admin: 10/11/24 08:19 Dose: 240 mg Documented By: KATHRYN Fluticasone/Umeclidinium/Vilanterol (Fluticasone/Umeclidinium/Vilanterol 200/62.5/25 Blst.W.Dev) 1 puff INHALE RDAILY [facility] Last Admin: 10/11/24 07:49 Dose: Not Given Documented By: RILEY Non-Admin Reason: pharmacy called for med Glucose (Glucose Gel 15 Gm Gel..Gram.) 15 gm PO Q15M PRN; Protocol PRN Reason: per Hypoglycemia Standing Ord. Guaifenesin (Guaifenesin La 600 Mg Tab.Er.12h) 600 mg PO BID [facility] Last Admin: 10/11/24 20:00 Dose: 600 mg Documented By: JESSA Guaifenesin/Dextromethorphan (Guaifenesin Dm 200/20/10 Ml 10 Ml Syrup) 10 ml PO Q4H PRN PRN Reason: Cough Last Admin: 10/11/24 20:12 Dose: 10 ml Documented By: JESSA Cefepime HCl (Maxipime) 2 gm in 50 mls @ 100 mls/hr IV Q8H [facility] Last Infusion: 10/12/24 04:57 Dose: Infused Documented By: JESSA Insulin Glargine (Insulin Glargine,Hum.Rec.Anlog 100 Unit/Ml 10 Ml Vial) 22 unit SUBCUT DAILY PRN PRN Reason: Hypoglycemia Insulin Human Lispro (Insulin Lispro 100 Unit/Ml 3 Ml Vial) 0 unit SUBCUT QIDACHS [facility]; Protocol Last Admin: 10/11/24 20:12 Dose: 4 unit Documented By: JESSA Melatonin (Melatonin 3 Mg Tablet) 6 mg PO BEDTIME PRN PRN Reason: Insomnia Methylprednisolone Sodium Succinate (Methylprednisolone Sod Succ 40 Mg/Ml Vial) 40 mg IVPUSH Q8H [facility] Last Admin: 10/12/24 04:17 Dose: 40 mg Documented By: JESSA Metoprolol Succinate (Metoprolol Succinate Er 50 Mg Tab.Er.24h) 50 mg PO DAILY [facility]; Protocol Last Admin: 10/11/24 08:19 Dose: 50 mg Documented By: KATHRYN Metoprolol Succinate (Metoprolol Succinate Er 25 Mg Tab.Er.24h) 25 mg PO BEDTIME [facility]; Protocol Last Admin: 10/11/24 20:00 Dose: 25 mg Documented By: JESSA Omeprazole (Omeprazole 20 Mg Capsule.Dr) 20 mg PO DAILY@0630 [facility] Last Admin: 10/12/24 05:59 Dose: 20 mg Documented By: JESSA Polyethylene Glycol (Polyethylene Glycol 3350 17 Gm Powd.Pack) 17 gm PO DAILY PRN PRN Reason: Constipation Roflumilast (Roflumilast 500 Mcg Tablet) 500 mcg PO DAILY [facility] Last Admin: 10/11/24 08:19 Dose: 500 mcg Documented By: KATHRYN Sodium Chloride (0.9 % Sodium Chloride Flush 3 Ml Syringe) 3 ml IVFLUSH QSHIFT [facility] Last Admin: 10/11/24 20:00 Dose: 3 ml Documented By: JESSA Torsemide (Torsemide 20 Mg Tablet) 10 mg PO MoWeFr@0900 [facility]; Protocol Last Admin: 10/10/24 18:36 Dose: Not Given Documented By: PEDRO Non-Admin Reason: Pt declines, doesnt want to urinate all night Tramadol HCl (Tramadol Hcl 50 Mg Tablet) 50 mg PO Q6H PRN PRN Reason: Pain, Moderate(Pain Scale 4-6) Labs 10/10/24 12:04 10/12/24 07:53 Labs: Laboratory Results - last 24 hr 10/10/24 10/11/24 10/11/24 16:39 11:04 16:14 POC Glucose 225 H 215 H Respiratory Panel Tobar See Note Adenovirus (Rapid PCR) Not Detected B.pert (TEM-PCR) Not Detected B.parapertussis DNA PCR Not Detected C. pneumoniae DNA (PCR) Not Detected Coronavirus OC43 (PCR) Detected A Coronavirus HKU1 (PCR) Not Detected Coronavirus 229E (PCR) Not Detected Coronavirus NL63 (PCR) Not Detected Human Metapneumovir PCR Not Detected Influenza A (RT-PCR) Not Detected Influenza B (RT-PCR) Not Detected M. pneumoniae (PCR) Not Detected Parainfluenza 1 (PCR) Not Detected Parainfluenza 2 (PCR) Not Detected Parainfluenza 3 (PCR) Not Detected Parainfluenza 4 (PCR) Not Detected RSV (PCR) Not Detected Entero/Rhino (PCR) Not Detected SARS-CoV-2 RNA (RT-PCR) Not Detected 10/11/24 10/12/24 19:54 07:26 POC Glucose 204 H 242 H Respiratory Panel Tobar Adenovirus (Rapid PCR) B.pert (TEM-PCR) B.parapertussis DNA PCR C. pneumoniae DNA (PCR) Coronavirus OC43 (PCR) Coronavirus HKU1 (PCR) Coronavirus 229E (PCR) Coronavirus NL63 (PCR) Human Metapneumovir PCR Influenza A (RT-PCR) Influenza B (RT-PCR) M. pneumoniae (PCR) Parainfluenza 1 (PCR) Parainfluenza 2 (PCR) Parainfluenza 3 (PCR) Parainfluenza 4 (PCR) RSV (PCR) Entero/Rhino (PCR) SARS-CoV-2 RNA (RT-PCR) Microbiology Microbiology Results: Microbiology 10/10/24 12:17 Blood Culture - Preliminary Blood - Venous No growth after 24 hours. 10/10/24 12:04 Blood Culture - Preliminary Blood - Venous No growth after 24 hours. Assessment and Plan (1) Asthma-COPD overlap syndrome: Status: Acute Plan This is a 69-year-old male with history of COPD on BiPAP at baseline who was sent see depart and hypoxia despite multiple courses of outpatient antibiotics and steroids Acute respiratory failure with hypoxia due to COPD exacerbation. cxr without pneumonia, procalcitonin low. bnp negative. recent outpatient sputum cultures growing Pseudomonas Has failed outpatient management with multiple courses of antibiotics and steroids neg respiratory pathogen panel IV steroids, IV cefepime to cover for Pseudomonas breathing treatments scheduled and as needed pulmonary consult tx back to [facility] for cont bipap, ok to be managed on [facility] History of atrial fibrillation/atrial flutter, paroxysmal Continue Coreg, metoprolol and Eliquis Acute lactic acidosis Likely type 2 due to multiple breathing treatments not sepsis DM2 ss, ada diet lantus Mental health Continue home medications Obstructive sleep apnea BiPAP at bedtime dvt ppx - eliquis code status - full code - would not want tracheostomy if ever required intubation Quality Stroke Does the patient have a stroke diagnosis?: No VTE Prior VTE?: No VTE Risk Level:: Medical - moderate - high VTE Device Contraindication: N/A - Device Ordered VTE Drug Contraindication: N/A - Med Ordered
[2024-10-12] MEDS: Insulin Lispro 100 UNIT/ML 3 ML VIAL SUBCUT ×4 (07:49→21:11)
[2024-10-12] MEDS: Apixaban 5 MG TABLET PO ×2 (07:49→21:10)
[2024-10-12] MEDS: dilTIAZem HCL CD 240 MG CAP.ER.DEG PO (07:49)
[2024-10-12] MEDS: Roflumilast 500 MCG TABLET PO (07:49)
[2024-10-12] MEDS: guaiFENesin LA 600 MG TAB.ER.12H PO ×2 (07:49→21:10)
[2024-10-12] MEDS: clonazePAM 0.5 MG TABLET PO ×2 (07:49→21:08)
[2024-10-12] MEDS: Metoprolol Succinate ER 50 MG TAB.ER.24H PO (07:49)
[2024-10-12] MEDS: 0.9 % Sodium Chloride Flush 3 ML SYRINGE IVFLUSH ×2 (07:54→16:06)
[2024-10-12 08:23] LABS: Anion Gap 17 (12-20); Blood Urea Nitrogen 27 mg/dL (9-16); Calcium 9.5 mg/dL (8.4-10.2); Carbon Dioxide 26 mmol/L (22-29); Chloride 100 mmol/L (96-108); Creatinine Clr Calc Pharmacy 127.4; Estimated Glomerular Filt Rate > 60; Glucose Random 257 mg/dL (60-115); Potassium 4.2 mmol/L (3.3-5.1); Sodium 139 mmol/L (135-145)
[2024-10-12 08:31] LABS: B Type Natriuretic Peptide 66 pg/mL (<100)
[2024-10-12 11:11] LABS: Glucose, Whole Blood 227 mg/dL (60-115)
[2024-10-12 16:01] LABS: Glucose, Whole Blood 330 mg/dL (60-115)
[2024-10-12 20:37] LABS: Glucose, Whole Blood 257 mg/dL (60-115)
[2024-10-12] MEDS: Metoprolol Succinate ER 25 MG TAB.ER.24H PO (21:08)
[2024-10-12] MEDS: Atorvastatin Calcium 20 MG TABLET PO (21:10)
[2024-10-12] MEDS: traMADoL HCL 50 MG TABLET PO (21:23)
[2024-10-13] VITALS (13 sets, daily range): BP systolic 145–193; BP diastolic 86–97; PULSE 83–93; RESP 16–22; TEMP 36.1–37.1; O2SAT 90–98
[2024-10-13] MEDS: cefEPime HCl/D5W 2 GM/50 ML PIGGYBACK IV ×3 (04:37→19:45)
[2024-10-13] MEDS: methylPREDNISolone Sod Succ 40 MG/ML VIAL IVPUSH ×3 (04:37→19:45)
[2024-10-13] MEDS: 0.9 % Sodium Chloride Flush 3 ML SYRINGE IVFLUSH ×4 (04:38→20:34)
[2024-10-13] MEDS: Omeprazole 20 MG CAPSULE.DR PO (06:08)
[2024-10-13] MEDS: Fluticasone/Umeclidinium/Vilanterol 200/62.5/25 BLST.W.DEV 1 PUFF INHALE (07:34)
[2024-10-13] MEDS: Albuterol/Iprat 2.5/0.5MG 3 ML AMPUL.NEB INHALE ×5 (07:37→23:58)
[2024-10-13] MEDS: Budesonide 0.5 MG/2 ML AMPUL.NEB INHALE ×2 (07:37→20:10)
[2024-10-13 08:11] LABS: Glucose, Whole Blood 256 mg/dL (60-115)
--- NOTE | 2024-10-13 08:27 | P.PNIM_ITS ---
Subjective Subjective Date of Service: 10/13/24 Review of Systems Follow up hypoxia still with SOB on his own Bipap Physical Exam 2 Vital Signs: Vital Signs: Last Vital Signs Temp 97.2 F 10/13/24 08:00 Pulse 93 10/13/24 08:00 Resp 20 10/13/24 08:00 BP 171/95 H 10/13/24 08:00 Pulse Ox 92 10/13/24 08:00 O2 Del Method BiPAP 10/13/24 08:00 O2 Flow Rate 2.5 10/12/24 00:00 FiO2 28 10/12/24 08:08 Oxygen Flow Rate 2 10/10/24 10:30 BMI result Body Mass Index 28.2 Appearing in no acute distress lung sounds are clear to auscultation heart regular rate rhythm, clear S1, S2 positive bowel sounds, abdomen is soft, nontender neuro patient is alert x3, no focal deficits Objective Data Active Medications Acetaminophen (Acetaminophen 325 Mg Tablet) 650 mg PO Q6H PRN PRN Reason: Pain, Mild 1-3,fever,headache Albuterol/Ipratropium (Albuterol/Iprat 2.5/0.5mg 3 Ml Ampul.Neb) 3 ml INHALE RQ4H WHILE AWAKE [facility] Last Admin: 10/13/24 07:37 Dose: 3 ml Documented By: RILEY Albuterol/Ipratropium (Albuterol/Iprat 2.5/0.5mg 3 Ml Ampul.Neb) 3 ml INHALE RQ4H WHILE AWAKE PRN PRN Reason: Shortness of Breath/Wheezing Last Admin: 10/12/24 06:17 Dose: 3 ml Documented By: ALIZA Apixaban (Apixaban 5 Mg Tablet) 5 mg PO Q12H [facility] Last Admin: 10/12/24 21:10 Dose: 5 mg Documented By: MARYA Atorvastatin Calcium (Atorvastatin Calcium 20 Mg Tablet) 20 mg PO BEDTIME [facility] Last Admin: 10/12/24 21:10 Dose: 20 mg Documented By: MARYA Budesonide (Budesonide 0.5 Mg/2 Ml Ampul.Neb) 0.5 mg INHALE RBID [facility] Last Admin: 10/13/24 07:37 Dose: 0.5 mg Documented By: RILEY Calcium Carbonate (Calcium Carbonate 750 Mg Tab.Chew) 750 mg PO Q4H PRN PRN Reason: Heartburn Clonazepam (Clonazepam 0.5 Mg Tablet) 0.5 mg PO BID [facility] Last Admin: 10/12/24 21:08 Dose: 0.5 mg Documented By: MARYA Dextrose (Dextrose 50 % 25 Gm/50 Ml Syringe) 25 gm IVPUSH Q15M PRN; Protocol PRN Reason: per Hypoglycemia Standing Ord. Diltiazem HCl (Diltiazem Hcl Cd 240 Mg Cap.Er.Deg) 240 mg PO DAILY [facility]; Protocol Last Admin: 10/12/24 07:49 Dose: 240 mg Documented By: MALU Fluticasone/Umeclidinium/Vilanterol (Fluticasone/Umeclidinium/Vilanterol 200/62.5/25 Blst.W.Dev) 1 puff INHALE RDAILY [facility] Last Admin: 10/13/24 07:34 Dose: 1 puff Documented By: RILEY Glucose (Glucose Gel 15 Gm Gel..Gram.) 15 gm PO Q15M PRN; Protocol PRN Reason: per Hypoglycemia Standing Ord. Guaifenesin (Guaifenesin La 600 Mg Tab.Er.12h) 600 mg PO BID [facility] Last Admin: 10/12/24 21:10 Dose: 600 mg Documented By: MARYA Guaifenesin/Dextromethorphan (Guaifenesin Dm 200/20/10 Ml 10 Ml Syrup) 10 ml PO Q4H PRN PRN Reason: Cough Last Admin: 10/11/24 20:12 Dose: 10 ml Documented By: ODRISCorwin Cefepime HCl (Maxipime) 2 gm in 50 mls @ 100 mls/hr IV Q8H [facility] Last Infusion: 10/13/24 05:00 Dose: Infused Documented By: MILTON Insulin Glargine (Insulin Glargine,Hum.Rec.Anlog 100 Unit/Ml 10 Ml Vial) 22 unit SUBCUT DAILY PRN PRN Reason: Hypoglycemia Insulin Human Lispro (Insulin Lispro 100 Unit/Ml 3 Ml Vial) 0 unit SUBCUT QIDACHS [facility]; Protocol Last Admin: 10/12/24 21:11 Dose: 6 unit Documented By: MARYA Melatonin (Melatonin 3 Mg Tablet) 6 mg PO BEDTIME PRN PRN Reason: Insomnia Methylprednisolone Sodium Succinate (Methylprednisolone Sod Succ 40 Mg/Ml Vial) 40 mg IVPUSH Q8H [facility] Last Admin: 10/13/24 04:37 Dose: 40 mg Documented By: MILTON Metoprolol Succinate (Metoprolol Succinate Er 50 Mg Tab.Er.24h) 50 mg PO DAILY [facility]; Protocol Last Admin: 10/12/24 07:49 Dose: 50 mg Documented By: MALU Metoprolol Succinate (Metoprolol Succinate Er 25 Mg Tab.Er.24h) 25 mg PO BEDTIME [facility]; Protocol Last Admin: 10/12/24 21:08 Dose: 25 mg Documented By: MARYA Omeprazole (Omeprazole 20 Mg Capsule.Dr) 20 mg PO DAILY@0630 [facility] Last Admin: 10/13/24 06:08 Dose: 20 mg Documented By: MILTON Polyethylene Glycol (Polyethylene Glycol 3350 17 Gm Powd.Pack) 17 gm PO DAILY PRN PRN Reason: Constipation Roflumilast (Roflumilast 500 Mcg Tablet) 500 mcg PO DAILY [facility] Last Admin: 10/12/24 07:49 Dose: 500 mcg Documented By: MALU Sodium Chloride (0.9 % Sodium Chloride Flush 3 Ml Syringe) 3 ml IVFLUSH QSHIFT [facility] Last Admin: 10/13/24 04:38 Dose: 3 ml Documented By: MILTON Torsemide (Torsemide 20 Mg Tablet) 10 mg PO MoWeFr@0900 [facility]; Protocol Last Admin: 10/10/24 18:36 Dose: Not Given Documented By: PEDRO Non-Admin Reason: Pt declines, doesnt want to urinate all night Tramadol HCl (Tramadol Hcl 50 Mg Tablet) 50 mg PO Q6H PRN PRN Reason: Pain, Moderate(Pain Scale 4-6) Last Admin: 10/12/24 21:23 Dose: 50 mg Documented By: MARYA Labs 10/10/24 12:04 10/12/24 07:53 Labs: Laboratory Results - last 24 hr 10/12/24 10/12/24 10/12/24 07:53 11:00 15:57 POC Glucose 227 H 330 H B-Natriuretic Peptide 66 10/12/24 10/13/24 20:34 08:06 POC Glucose 257 H 256 H B-Natriuretic Peptide Microbiology Microbiology Results: Microbiology 10/10/24 12:17 Blood Culture - Preliminary Blood - Venous No growth after 48 hours. 10/10/24 12:04 Blood Culture - Preliminary Blood - Venous No growth after 48 hours. Assessment and Plan (1) Asthma-COPD overlap syndrome: Status: Acute Plan This is a 69-year-old male with history of COPD on BiPAP at baseline who was sent see depart and hypoxia despite multiple courses of outpatient antibiotics and steroids Acute respiratory failure with hypoxia due to COPD exacerbation. cxr without pneumonia, procalcitonin low. bnp negative. recent outpatient sputum cultures growing Pseudomonas Has failed outpatient management with multiple courses of antibiotics and steroids neg respiratory pathogen panel IV steroids, IV cefepime to cover for Pseudomonas breathing treatments scheduled and as needed pulmonary consult> cefepime for 3 weeks, prednisone taper, keep sats 90-94% picc line ordered cont bipap prn History of atrial fibrillation/atrial flutter, paroxysmal Continue Coreg, metoprolol and Eliquis Acute lactic acidosis Likely type 2 due to multiple breathing treatments not sepsis DM2 ss, ada diet [facility] Continue home medications Obstructive sleep apnea BiPAP at bedtime and during naps as needed dvt ppx - eliquis code status - full code - would not want tracheostomy if ever required intubation Quality Stroke Does the patient have a stroke diagnosis?: No VTE Prior VTE?: No VTE Risk Level:: Medical - moderate - high VTE Device Contraindication: N/A - Device Ordered VTE Drug Contraindication: N/A - Med Ordered
[2024-10-13] MEDS: Apixaban 5 MG TABLET PO ×2 (08:52→20:34)
[2024-10-13] MEDS: dilTIAZem HCL CD 240 MG CAP.ER.DEG PO (08:52)
[2024-10-13] MEDS: Metoprolol Succinate ER 50 MG TAB.ER.24H PO (08:53)
[2024-10-13] MEDS: guaiFENesin LA 600 MG TAB.ER.12H PO ×2 (08:53→20:34)
[2024-10-13] MEDS: Insulin Lispro 100 UNIT/ML 3 ML VIAL SUBCUT ×4 (08:53→20:41)
[2024-10-13] MEDS: Roflumilast 500 MCG TABLET PO (08:53)
[2024-10-13] MEDS: clonazePAM 0.5 MG TABLET PO ×2 (08:53→20:34)
[2024-10-13] MEDS: Torsemide 20 MG TABLET 10 MG PO (08:55)
[2024-10-13] MEDS: guaiFENesin DM 200/20/10 ML 10 ML SYRUP PO (11:23)
[2024-10-13 11:30] LABS: Glucose, Whole Blood 246 mg/dL (60-115)
[2024-10-13 16:13] LABS: Glucose, Whole Blood 290 mg/dL (60-115)
[2024-10-13] MEDS: Metoprolol Succinate ER 25 MG TAB.ER.24H PO (20:33)
[2024-10-13] MEDS: Atorvastatin Calcium 20 MG TABLET PO (20:34)
[2024-10-13 20:41] LABS: Glucose, Whole Blood 221 mg/dL (60-115)
[2024-10-14] VITALS (14 sets, daily range): BP systolic 137–175; BP diastolic 83–96; PULSE 79–94; RESP 16–20; TEMP 36.1–37.1; O2SAT 92–98
[2024-10-14] MEDS: methylPREDNISolone Sod Succ 40 MG/ML VIAL IVPUSH ×3 (03:31→21:29)
[2024-10-14] MEDS: cefEPime HCl/D5W 2 GM/50 ML PIGGYBACK IV ×3 (03:31→21:29)
[2024-10-14 07:44] LABS: Glucose, Whole Blood 250 mg/dL (60-115)
[2024-10-14] MEDS: Omeprazole 20 MG CAPSULE.DR PO (07:52)
[2024-10-14] MEDS: Insulin Lispro 100 UNIT/ML 3 ML VIAL SUBCUT ×4 (07:52→21:45)
[2024-10-14] MEDS: dilTIAZem HCL CD 240 MG CAP.ER.DEG PO (07:52)
[2024-10-14] MEDS: guaiFENesin LA 600 MG TAB.ER.12H PO ×2 (07:52→21:28)
[2024-10-14] MEDS: clonazePAM 0.5 MG TABLET PO ×2 (07:52→21:28)
[2024-10-14] MEDS: Metoprolol Succinate ER 50 MG TAB.ER.24H PO (07:52)
[2024-10-14] MEDS: Roflumilast 500 MCG TABLET PO (07:52)
[2024-10-14] MEDS: Apixaban 5 MG TABLET PO ×2 (07:53→21:29)
[2024-10-14] MEDS: 0.9 % Sodium Chloride Flush 3 ML SYRINGE IVFLUSH ×2 (07:53→16:29)
[2024-10-14] MEDS: Budesonide 0.5 MG/2 ML AMPUL.NEB INHALE ×2 (09:29→20:20)
[2024-10-14] MEDS: Albuterol/Iprat 2.5/0.5MG 3 ML AMPUL.NEB INHALE ×4 (09:29→20:20)
[2024-10-14] MEDS: Fluticasone/Umeclidinium/Vilanterol 200/62.5/25 BLST.W.DEV 1 PUFF INHALE (09:30)
--- NOTE | 2024-10-14 09:40 | HO.PM.IMPN ---
Subjective Subjective Date of Service: 10/14/24 Review of Systems Follow up hypoxia still with SOB on his own Bipap Physical Exam Vital Signs: Vital Signs: Last Vital Signs Temp 98.1 F 10/14/24 07:39 Pulse 88 10/14/24 09:31 Resp 18 10/14/24 09:31 BP 151/91 H 10/14/24 07:52 Pulse Ox 95 10/14/24 07:39 O2 Del Method BiPAP 10/14/24 07:39 O2 Flow Rate 2 10/13/24 15:39 FiO2 28 10/12/24 08:08 Oxygen Flow Rate 2 10/10/24 10:30 BMI result Body Mass Index 28.2 Appearing in no acute distress lung sounds are clear to auscultation/dim heart regular rate rhythm, clear S1, S2 positive bowel sounds, abdomen is soft, nontender neuro patient is alert x3, no focal deficits Objective Data Active Medications Acetaminophen (Acetaminophen 325 Mg Tablet) 650 mg PO Q6H PRN PRN Reason: Pain, Mild 1-3,fever,headache Albuterol/Ipratropium (Albuterol/Iprat 2.5/0.5mg 3 Ml Ampul.Neb) 3 ml INHALE RQ4H WHILE AWAKE [facility] Last Admin: 10/14/24 09:29 Dose: 3 ml Documented By: MADHURI Albuterol/Ipratropium (Albuterol/Iprat 2.5/0.5mg 3 Ml Ampul.Neb) 3 ml INHALE RQ4H WHILE AWAKE PRN PRN Reason: Shortness of Breath/Wheezing Last Admin: 10/13/24 23:58 Dose: 3 ml Documented By: SALOMON Apixaban (Apixaban 5 Mg Tablet) 5 mg PO Q12H [facility] Last Admin: 10/14/24 07:53 Dose: 5 mg Documented By: TRISTAN Atorvastatin Calcium (Atorvastatin Calcium 20 Mg Tablet) 20 mg PO BEDTIME [facility] Last Admin: 10/13/24 20:34 Dose: 20 mg Documented By: PATTY Budesonide (Budesonide 0.5 Mg/2 Ml Ampul.Neb) 0.5 mg INHALE RBID [facility] Last Admin: 10/14/24 09:29 Dose: 0.5 mg Documented By: MADHURI Calcium Carbonate (Calcium Carbonate 750 Mg Tab.Chew) 750 mg PO Q4H PRN PRN Reason: Heartburn Clonazepam (Clonazepam 0.5 Mg Tablet) 0.5 mg PO BID [facility] Last Admin: 10/14/24 07:52 Dose: 0.5 mg Documented By: TRISTAN Dextrose (Dextrose 50 % 25 Gm/50 Ml Syringe) 25 gm IVPUSH Q15M PRN; Protocol PRN Reason: per Hypoglycemia Standing Ord. Diltiazem HCl (Diltiazem Hcl Cd 240 Mg Cap.Er.Deg) 240 mg PO DAILY [facility]; Protocol Last Admin: 10/14/24 07:52 Dose: 240 mg Documented By: TRISTAN Fluticasone/Umeclidinium/Vilanterol (Fluticasone/Umeclidinium/Vilanterol 200/62.5/25 Blst.W.Dev) 1 puff INHALE RDAILY [facility] Last Admin: 10/14/24 09:30 Dose: 1 puff Documented By: MADHURI Glucose (Glucose Gel 15 Gm Gel..Gram.) 15 gm PO Q15M PRN; Protocol PRN Reason: per Hypoglycemia Standing Ord. Guaifenesin (Guaifenesin La 600 Mg Tab.Er.12h) 600 mg PO BID [facility] Last Admin: 10/14/24 07:52 Dose: 600 mg Documented By: TRISTAN Guaifenesin/Dextromethorphan (Guaifenesin Dm 200/20/10 Ml 10 Ml Syrup) 10 ml PO Q4H PRN PRN Reason: Cough Last Admin: 10/13/24 11:23 Dose: 10 ml Documented By: TRISTAN Cefepime HCl (Maxipime) 2 gm in 50 mls @ 100 mls/hr IV Q8H [facility] Last Infusion: 10/14/24 04:27 Dose: Infused Documented By: PATTY Insulin Glargine (Insulin Glargine,Hum.Rec.Anlog 100 Unit/Ml 10 Ml Vial) 22 unit SUBCUT DAILY PRN PRN Reason: Hypoglycemia Insulin Human Lispro (Insulin Lispro 100 Unit/Ml 3 Ml Vial) 0 unit SUBCUT QIDACHS [facility]; Protocol Last Admin: 10/14/24 07:52 Dose: 4 unit Documented By: TRISTAN Melatonin (Melatonin 3 Mg Tablet) 6 mg PO BEDTIME PRN PRN Reason: Insomnia Methylprednisolone Sodium Succinate (Methylprednisolone Sod Succ 40 Mg/Ml Vial) 40 mg IVPUSH Q8H [facility] Last Admin: 10/14/24 03:31 Dose: 40 mg Documented By: PATTY Metoprolol Succinate (Metoprolol Succinate Er 50 Mg Tab.Er.24h) 50 mg PO DAILY [facility]; Protocol Last Admin: 10/14/24 07:52 Dose: 50 mg Documented By: TRISTAN Metoprolol Succinate (Metoprolol Succinate Er 25 Mg Tab.Er.24h) 25 mg PO BEDTIME [facility]; Protocol Last Admin: 10/13/24 20:33 Dose: 25 mg Documented By: PATTY Omeprazole (Omeprazole 20 Mg Capsule.Dr) 20 mg PO DAILY@0630 [facility] Last Admin: 10/14/24 07:52 Dose: 20 mg Documented By: TRISTAN Polyethylene Glycol (Polyethylene Glycol 3350 17 Gm Powd.Pack) 17 gm PO DAILY PRN PRN Reason: Constipation Roflumilast (Roflumilast 500 Mcg Tablet) 500 mcg PO DAILY [facility] Last Admin: 10/14/24 07:52 Dose: 500 mcg Documented By: TRISTAN Sodium Chloride (0.9 % Sodium Chloride Flush 3 Ml Syringe) 3 ml IVFLUSH QSHIFT [facility] Last Admin: 10/14/24 07:53 Dose: 3 ml Documented By: TRISTAN Torsemide (Torsemide 20 Mg Tablet) 10 mg PO MoWeFr@0900 [facility]; Protocol Last Admin: 10/13/24 08:55 Dose: 10 mg Documented By: TRISTAN Tramadol HCl (Tramadol Hcl 50 Mg Tablet) 50 mg PO Q6H PRN PRN Reason: Pain, Moderate(Pain Scale 4-6) Last Admin: 10/12/24 21:23 Dose: 50 mg Documented By: MARYA Labs 10/10/24 12:04 10/12/24 07:53 Labs: Laboratory Results - last 24 hr 10/13/24 10/13/24 10/13/24 11:25 16:10 20:35 POC Glucose 246 H 290 H 221 H 10/14/24 07:36 POC Glucose 250 H Assessment and Plan (1) Asthma-COPD overlap syndrome: Status: Acute Plan 69-year-old male with history of COPD on BiPAP at baseline who was sent see depart and hypoxia despite multiple courses of outpatient antibiotics and steroids Acute respiratory failure with hypoxia due to COPD exacerbation. cxr without pneumonia, procalcitonin low. bnp negative. recent outpatient sputum cultures growing Pseudomonas Has failed outpatient management with multiple courses of antibiotics and steroids neg respiratory pathogen panel IV steroids, IV cefepime to cover for Pseudomonas breathing treatments scheduled and as needed pulmonary consult> cefepime for 3 weeks, prednisone taper, keep sats 90-94% picc line ordered cont bipap prn History of atrial fibrillation/atrial flutter, paroxysmal Continue Coreg, metoprolol and Eliquis Acute lactic acidosis Likely type 2 due to multiple breathing treatments not sepsis DM2 ss, ada diet [facility] Continue home medications Obstructive sleep apnea BiPAP at bedtime and during naps as needed home setting to be increased by pulmonology dvt ppx - vinicius Attending Dr. Rodriguez code status - full code - would not want tracheostomy if ever required intubation Quality Stroke Does the patient have a stroke diagnosis?: No VTE Prior VTE?: No VTE Risk Level:: Medical - moderate - high VTE Device Contraindication: N/A - Device Ordered VTE Drug Contraindication: N/A - Med Ordered
[2024-10-14 11:34] LABS: Glucose, Whole Blood 296 mg/dL (60-115)
--- NOTE | 2024-10-14 16:06 | HO.MIDLINE ---
Midline Insertion MIDLINE INSERTION Diagnosis: pneumonia Indication: 3 weeks IV antibiotics Pertinent Labs: Reviewed Technique: Using sterile technique including cap and mask, glove and drape, the left arm was prepped and draped in the usual sterile fashion of full barrier technique with CHG. Using ultrasound guidance, the left brachial vein access was obtained in a second attempt by this RN. A 20 guage 8 cm NON-PASV midline was positioned. The procedure was performed in S272. Ultrasound was used to document vein patency and for needle entry. A formal ultrasound picture was recorded. [employer] has released the line for use and it is currently dressed with a StatLock, Tegaderm, and CHG disc. Verification has been performed for blood return and line patency. Arm Circumference: 30 cm Equipment: BARD PowerGlide ST Midline Catheter Catheter Type: 20 guage 8 cm NON-PASV Midline Lot #: [id number]
--- NOTE | 2024-10-14 16:12 | MHC.CM.PN ---
EMR reviewed and per MD rounds, pt is not medically cleared for discharge due to management of acute respiratory failure with hypoxia. This CM attempted to meet with pt to discuss discharge plan, however pt out of room at time, pts was present at bedside and able to confirm plans and home address. Discharge plan will be for pt to go home with new [facility]. 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 [facility] on site to do a teach.
[2024-10-14 16:23] LABS: Glucose, Whole Blood 258 mg/dL (60-115)
[2024-10-14 20:53] LABS: Glucose, Whole Blood 238 mg/dL (60-115)
[2024-10-14] MEDS: Atorvastatin Calcium 20 MG TABLET PO (21:28)
[2024-10-14] MEDS: Metoprolol Succinate ER 25 MG TAB.ER.24H PO (21:28)
[2024-10-15 04:00] VITALS: BP 132/78; PULSE 75; RESP 18; TEMP 36.4; O2SAT 97
[2024-10-15] MEDS: methylPREDNISolone Sod Succ 40 MG/ML VIAL IVPUSH ×2 (05:00→11:44)
[2024-10-15] MEDS: cefEPime HCl/D5W 2 GM/50 ML PIGGYBACK IV ×2 (05:00→11:44)
[2024-10-15 07:51] VITALS: BP 147/88; PULSE 72; RESP 16; TEMP 36.1; O2SAT 97
[2024-10-15 07:54] LABS: Glucose, Whole Blood 244 mg/dL (60-115)
[2024-10-15] MEDS: Albuterol/Iprat 2.5/0.5MG 3 ML AMPUL.NEB INHALE ×2 (08:28→11:45)
[2024-10-15] MEDS: Fluticasone/Umeclidinium/Vilanterol 200/62.5/25 BLST.W.DEV 1 PUFF INHALE (08:28)
[2024-10-15] MEDS: Budesonide 0.5 MG/2 ML AMPUL.NEB INHALE (08:28)
--- NOTE | 2024-10-15 08:28 | P.PNPL_ITS ---
Subjective Subjective Date of Service: 10/15/24 Interval history: The patient is seen and exam. He has had some issues with desaturations. I did provide her with an Oxymizer pendant to try to improve his oxygenation. In the meantime I also adjusted his AVAP settings since he has been on the BiPAP and been doing better on the higher pressures. I increased his target minute ventilation to 8l/min talk her volumes around 500 mL. Also increase his EPAP minimum from 5-7. He is going to try those pressure settings today and we can always adjust them. He is also going to have another walking oximetry to make sure that he getting of adequate oxygen with the Oxymizer pendant. He already got his midline is going to have teaching as far as antibiotic administration and hopefully can go home with VNA. Objective Data Labs 10/10/24 12:04 10/12/24 07:53 Labs: Laboratory Results - last 24 hr 10/14/24 10/14/24 10/14/24 11:25 16:10 20:48 POC Glucose 296 H 258 H 238 H 10/15/24 07:19 POC Glucose 244 H Microbiology Microbiology Results: Microbiology 10/10/24 12:17 Blood - Venous Blood Culture - Preliminary No growth after 48 hours. 10/10/24 12:04 Blood - Venous Blood Culture - Preliminary No growth after 48 hours. Review of Systems Review of Systems Constitutional : pos Fever, pos Chills ENT/Mouth : No Hoarseness, No sore throat, No Rhinorrhea Eyes: No Redness, No Discharge, No Vision Changes Cardiovascular : No Chest Pain, positive SOB, positive Dyspnea on Exertion, No Edema Respiratory : positive Cough, pos Sputum, positive Wheezing, Gastrointestinal : No Nausea, No Vomiting, No Diarrhea, No abdominal Pain Genitourinary : No Dysuria, No Hematuria Musculoskeletal : No joint pain, No Myalgias Skin : No rash Neuro : No Weakness, No Numbness, No Headache All other systems reviewed and are negative Physical Exam 2 Vital Signs: Vital Signs: Last Vital Signs Temp 97.0 F 10/15/24 07:51 Pulse 72 10/15/24 07:51 Resp 16 10/15/24 07:51 BP 147/88 H 10/15/24 07:51 Pulse Ox 97 10/15/24 07:51 O2 Del Method BiPAP 10/15/24 07:51 O2 Flow Rate 3 10/14/24 19:13 FiO2 28 10/12/24 08:08 Oxygen Flow Rate 2 10/10/24 10:30 BMI result Body Mass Index 28.2 Appearing in no acute distress lung sounds are clear to auscultation/dim heart regular rate rhythm, clear S1, S2 positive bowel sounds, abdomen is soft, nontender neuro patient is alert x3, no focal deficits Procedures Date of Service Date of Service: 10/15/24 Assessment and Plan Assessment and plan (1) Exacerbation of bronchiectasis due to infection: Status: Acute (2) Pseudomonas respiratory infection: Status: Acute (3) Asthma-COPD overlap syndrome: Status: Acute (4) Chronic respiratory failure: Status: Acute (5) On supplemental oxygen therapy: Problem details: (1.5-3L O2) Status: Acute Plan Adjusted AVAP. He will use the AVAP and we can also further adjusted prior to discharge or when he returns for visit Continue cefepime to complete the course. Use the Oxymizer pendant primarily for better portability outside of the home. Goal be to keep pulse ox above 85% Continue respiratory therapy Hopefully can be discharged home today with follow-up as an outpatient Time Spent With Patient Time: Total time managing care of this patient today ____ minutes. Progress Note: Quality Stroke Does the patient have a stroke diagnosis?: No
[2024-10-15 08:30] VITALS: PULSE 72; RESP 18; O2SAT 93
--- NOTE | 2024-10-15 09:09 | PM.DS ---
DS: Providers Provider Date of Service: 10/15/24 Date of admission: 10/10/24 14:34 Date of discharge: 10/15/24 Primary care physician: AUGUSTO Mcdaniels Consults: 10/10/24 14:31 Consult to Pulmonology Routine Consulting Provider: [facility] [place] Reason for consultation: copd Has provider been notified: No DS: Diagnosis Discharge Diagnosis (1) Exacerbation of bronchiectasis due to infection: Status: Acute (2) Pseudomonas respiratory infection: Status: Acute (3) Asthma-COPD overlap syndrome: Status: Acute (4) Chronic respiratory failure: Status: Acute (5) On supplemental oxygen therapy: Status: Acute DS: Summary Hospital Course Hospital Course: History and physical as per admitting provider. This is a 69-year-old male with history of COPD/asthma overlap who was sent to the emergency department for shortness of breath. Patient follows with pulmonology and for the past 7 weeks has been having increasing shortness of breath especially with exertion with associated cough. He has been treated with multiple courses of oral antibiotics as well as steroids but continues have persistent dyspnea on exertion. He reports cough productive of yellow phlegm. He denies any fever or chills. Outpatient sputum cultures from earlier this month growing Pseudomonas. In the emergency department he was treated with breathing treatments, IV antibiotics, IV steroids, currently maintaining oxygen saturations in the mid 90s on 2 L of supplemental oxygen. Patient does use BiPAP at home frequently during the day as well as at night. He will be admitted for further management of respiratory failure with hypoxia after failing multiple outpatient interventions. 69-year-old man treated for acute on chronic respiratory failure with hypoxia secondary to COPD exacerbation without pneumonia. Patient treated with IV cefepime to cover for Pseudomonas, respiratory pathogen panel negative. Treated with IV steroids as well. Seen evaluated by pulmonology who recommended 3 weeks of IV cefepime, midline placed 10/14/2024. Pulmonology also adjusted his AVAP machine and he was fitted with an Oxymizer pendant to assist with better oxygenation and to avoid desaturations. Plan is for patient to be discharged home and he is in agreement with this at this time. Plan: Continue oxygen therapy 2-3 L at all times. Use new Oxymizer pendant for ambulation to avoid desaturations. Continue new AVAP settings, 8 liters/minute, volume 500 mL, EPAP minimum 5-7 Continue IV antibiotic therapy with cefepime for total of 3 weeks ( october 31, 2004) midline may be removed after last dosing by registered nurse Complete prednisone taper Follow up with email engineer for AVAP titration History of atrial fibrillation/atrial flutter, paroxysmal. Continue Coreg, metoprolol and Eliquis Acute lactic acidosis. Likely type 2 secondary to multiple breathing treatments Thank diabetes mellitus type 2. Continue home medications Mental health. Continue home medications Obstructive sleep apnea. AVAP adjusted as per pulmonology continue with naps and at bedtime Time Attestation Discharge Coordination Time (in mins): 48 Quality: Safe Use of Opioids Does Pt have an Active Cancer Diagnosis on the Problem List?: No Quality: Stroke Does the patient have a stroke diagnosis?: No Physical Exam Vital Signs: Vital Signs: Last Vital Signs Temp 97.0 F 10/15/24 07:51 Pulse 72 10/15/24 08:30 Resp 18 10/15/24 08:30 BP 147/88 H 10/15/24 07:51 Pulse Ox 97 10/15/24 07:51 O2 Del Method BiPAP 10/15/24 07:51 O2 Flow Rate 3 10/14/24 19:13 FiO2 28 10/12/24 08:08 Oxygen Flow Rate 2 10/10/24 10:30 BMI result Body Mass Index 28.2 Appearing in no acute distress head is normocephalic atraumatic eyes pupils are PERRLA sclera is anicteric mouth throat mucous membranes are intact and moist neck is supple no lymphadenopathy, no JVD noted lung sounds diminished heart regular rate rhythm, clear S1, S2 positive bowel sounds, abdomen is soft, nontender neuro patient is alert x3, no focal deficits DS: Data Data Completed and Pending Labs on day of discharge: Laboratory Results - last 24 hr 10/14/24 10/14/24 10/14/24 11:25 16:10 20:48 POC Glucose 296 H 258 H 238 H 10/15/24 07:19 POC Glucose 244 H Preliminary micro results at discharge 10/10/24 12:17 Blood Culture - Preliminary Blood - Venous No growth after 48 hours. 10/10/24 12:04 Blood Culture - Preliminary Blood - Venous No growth after 48 hours. Discharge Plan Discharge Anticipated Discharge Date/Time: 10/15/24 09:02 Patient Disposition: Home, Self-Care Discharge Diagnosis: Acute respiratory failure with hypoxia COPD exacerbation Pseudomonas infection Referrals: Eyal Whittaker PA [Primary Care Provider] - 1 Week Discharge Medications: New cefepime in dextrose 5 % 2 gram/50 mL Piggyback 2 g IV Q8H Qty: 48 0RF guaifenesin [Mucinex] 600 mg Tablet Extended Release 12hr 600 mg PO BID Qty: 10 0RF prednisone 10 mg tablet See Taper PO DIRECTED Qty: 30 0RF Taper: Prednisone 40 mg daily for 3 Days and 0 Hour 30 mg daily for 3 Days and 0 Hour 20 mg daily for 3 Days and 0 Hour 10 mg daily for 3 Days and 0 Hour Rx Instructions: see taper instructions Continued budesonide 0.5 mg/2 mL suspension for nebulization 0.5 mg inhalation BID Qty: 360 2RF Privigen 10 % solution 40 g IV Q4W 30 Days Qty: 100 11RF Trelegy Ellipta 200-62.5-25 mcg blister with device 1 inh inhalation DAILY Qty: 180 3RF roflumilast [Daliresp] 500 mcg tablet 500 mcg PO DAILY 90 Days Qty: 90 3RF codeine-guaifenesin 10-100 mg/5 mL liquid 10 ml PO Q6H PRN (Reason: cough) 10 Days Qty: 300 0RF albuterol sulfate 90 mcg/actuation HFA aerosol inhaler 2 puff inhalation Q4H PRN (Reason: for wheezing) Qty: 54 3RF tramadol 50 mg tablet 50 mg PO Q6H PRN (Reason: Pain) Mounjaro 15 mg/0.5 mL pen injector 15 mg subcut SA prednisone 10 mg tablet See Rx Instructions .ROUTE .COMPLEX Rx Instructions: PO daily; Take 4 tabs daily x 5 days, then 3 tabs x 5 days, then 2 tabs x 5 days, then 1 tabs x 5 days. PATIENT IS CURRENTLY ON THE 40 MG DAILY DOSE insulin glargine [Lantus Solostar U-100 Insulin] 100 unit/mL (3 mL) insulin pen 22 unit subcut DAILY PRN (Reason: Hypoglycemia) Rx Instructions: ONLY WHEN PT IS TAKING PREDNISONE insulin lispro 100 unit/mL insulin pen 7 - 11 unit subcut DIRECTED PRN (Reason: Hypoglycemia) Rx Instructions: PER SLIDING SCALE, ONLY WHEN PATIENT IS ON PREDISONE (DME) Oxygen Home Use Kit See Rx Instructions .ROUTE Rx Instructions: As directed (DME) nebulizers [facility] [place] See Rx Instructions .ROUTE Rx Instructions: As directed atorvastatin 20 mg tablet 20 mg PO BEDTIME diltiazem HCl 240 mg capsule,extended release 24hr 240 mg PO DAILY Synjardy XR 25-1,000 mg tablet, IR - ER, biphasic 24hr 1 tab PO DAILY omeprazole 20 mg capsule,delayed release(DR/EC) 20 mg PO DAILY ipratropium-albuterol 0.5 mg-3 mg(2.5 mg base)/3 mL solution for nebulization 3 ml inhalation QID PRN (Reason: sob) torsemide 20 mg tablet 10 mg PO MOWEFR Eliquis 5 mg tablet 5 mg PO Q12H metoprolol succinate 25 mg tablet extended release 24 hr 25 mg PO BEDTIME metoprolol succinate 50 mg tablet extended release 24 hr 50 mg PO DAILY clonazepam 0.5 mg tablet 0.5 mg PO BID Discontinued ciprofloxacin HCl [Cipro] 500 mg tablet 500 mg PO BID 21 Days Qty: 42 0RF Discharge Orders: Discharge Order (Routine); Ordered 10/15/24 Ordered By: Debbie Burgos Diet: Advance to usual diet Activity on Discharge: As tolerated Stand Alone Forms: Patient Portal Discharge page Print Language: Tamazight Care Plan Goals: Continue oxygen therapy 2-3 L at all times. Use new Oxymizer pendant for ambulation to avoid desaturations. Continue new AVAP settings, 8 liters/minute, volume 500 mL, EPAP minimum 5-7 Continue IV antibiotic therapy with cefepime for total of 3 weeks ( october 31, 2004) midline may be removed after last dosing by registered nurse Health Concerns: Acute respiratory failure with hypoxia COPD exacerbation Pseudomonas infection Plan of Treatment: Follow-up with primary care provider as needed Take all medications as prescribed Assessment: See discharge summary
[2024-10-15] MEDS: Apixaban 5 MG TABLET PO (09:11)
[2024-10-15] MEDS: dilTIAZem HCL CD 240 MG CAP.ER.DEG PO (09:11)
[2024-10-15] MEDS: Metoprolol Succinate ER 50 MG TAB.ER.24H PO (09:11)
[2024-10-15] MEDS: clonazePAM 0.5 MG TABLET PO (09:11)
[2024-10-15] MEDS: Omeprazole 20 MG CAPSULE.DR PO (09:11)
[2024-10-15] MEDS: Roflumilast 500 MCG TABLET PO (09:11)
[2024-10-15] MEDS: 0.9 % Sodium Chloride Flush 3 ML SYRINGE IVFLUSH ×2 (09:11)
[2024-10-15] MEDS: guaiFENesin LA 600 MG TAB.ER.12H PO (09:11)
[2024-10-15] MEDS: Insulin Lispro 100 UNIT/ML 3 ML VIAL SUBCUT (09:12)
--- NOTE | 2024-10-15 09:55 | MHC.CM.PN ---
Second IMM 10/15/24, Pt has been medically cleared for DC, he will go home via family transport and will have home care services from [facility], and family assistance.
[2024-10-15 11:23] LABS: Glucose, Whole Blood 262 mg/dL (60-115)
[2024-10-15 11:46] VITALS: PULSE 84; RESP 18; O2SAT 94
== END 2024-10-15 12:49 | disposition home or self-care (01) | DRG 190 ==
LOC: HO.ED 11:11 → HO.EDOVER 14:35 → HO.IMC 17:08 → HO.S3 10-11 16:58 → HO.IMC 10-12 07:34
PROVIDERS: Admitting Provider Physician Assistant Medical; Emergency Provider Emergency Medicine; PCP Physician Assistant Medical; Visit Provider Nurse Practitioner Acute Care
DX: J47.1 Bronchiectasis with (acute) exacerbation (principal); J96.21 Acute and chronic respiratory failure with hypoxia; J96.22 Acute and chronic respiratory failure with hypercapnia; D80.1 Nonfamilial hypogammaglobulinemia; E87.21 Acute metabolic acidosis; I48.92 Unspecified atrial flutter; I48.0 Paroxysmal atrial fibrillation; G47.33 Obstructive sleep apnea (adult) (pediatric); E11.9 Type 2 diabetes mellitus without complications; Z20.822 Contact with and (suspected) exposure to COVID-19; Z99.81 Dependence on supplemental oxygen; Z79.01 Long term (current) use of anticoagulants; Z79.51 Long term (current) use of inhaled steroids; Z79.4 Long term (current) use of insulin; Z79.899 Other long term (current) drug therapy
CPT/HCPCS: 0241U; 36410; 36415; 71045; 71250; 80048; 80076; 81001; 82803; 82947; 83605; 83690; 83735; 83880; 84145; 84484; 85025; 86140; 87040; 87633; 93005; 94640; 94660; 99212; 99285; J0692; J2919; J3370

== ENCOUNTER → 2024-10-10 10:44 | Outpatient (BNV) | payer MEDICARE, SELFPAY | PROVIDERS: Emergency Provider Emergency Medicine; PCP Physician Assistant Medical; Visit Provider Internal Medicine Cardiovascular Disease | DX: R06.00 Dyspnea, unspecified (principal) | CPT/HCPCS: 93010 ==

== ENCOUNTER → 2024-10-10 10:45 | Outpatient (BNV) | payer MEDICARE, SELFPAY | PROVIDERS: Emergency Provider Emergency Medicine; PCP Physician Assistant Medical; Visit Provider Radiology Diagnostic Radiology | DX: J98.11 Atelectasis (principal); J44.9 Chronic obstructive pulmonary disease, unspecified | CPT/HCPCS: 71045; 71250 ==

== ENCOUNTER → 2024-10-10 14:34 | Outpatient (BNV) | payer MEDICARE, SELFPAY | PROVIDERS: Admitting Provider Physician Assistant Medical; Emergency Provider Emergency Medicine; PCP Physician Assistant Medical; Visit Provider Nurse Practitioner Acute Care | DX: J44.89 Other specified chronic obstructive pulmonary disease (principal) | CPT/HCPCS: 99223; 99232; 99239 ==

== ENCOUNTER → 2024-10-10 14:34 | Outpatient (BNV) | payer MEDICARE, SELFPAY | PROVIDERS: Admitting Provider Physician Assistant Medical; Emergency Provider Emergency Medicine; PCP Physician Assistant Medical; Visit Provider Hospitalist | DX: J98.8 Other specified respiratory disorders (principal); B96.5 Pseudomonas (aeruginosa) (mallei) (pseudomallei) as the cause of diseases classified elsewhere; J47.1 Bronchiectasis with (acute) exacerbation; B99.9 Unspecified infectious disease; D80.1 Nonfamilial hypogammaglobulinemia; J44.0 Chronic obstructive pulmonary disease with (acute) lower respiratory infection; J96.11 Chronic respiratory failure with hypoxia; J96.12 Chronic respiratory failure with hypercapnia | CPT/HCPCS: 99223 ==